=== PATIENT | female | born 1960 | race Caucasian/White ===

== ENCOUNTER 2019-09-14 00:13 | Inpatient (IN) ==
[2019-09-14] MEDS ORDERED: PROPOFOL IV EMULSION 10 MG/ML 100 ML VIAL IV ONE (00:15)
[2019-09-14] MEDS: propofoL 1,000 MG/100 ML VIAL IV SCH ×3 (00:17→21:33)
[2019-09-14] MEDS ORDERED: METOPROLOL TARTRATE 1 MG/ML VIAL IV STA ×2 (00:21→00:27)
[2019-09-14] MEDS ORDERED: METOPROLOL TARTRATE 1 MG/ML VIAL IV ONE (00:23)
[2019-09-14] MEDS ORDERED: ICU PROTOCOL FOR HYPERGLYCEMIA PRN ×2 (00:25→00:36)
[2019-09-14] MEDS ORDERED: PROPOFOL BOLUS FROM BAG IV PRN (00:27)
[2019-09-14] MEDS ORDERED: STAT IV Infusion **Titration per Protocol STA (00:27)
--- NOTE | 2019-09-14 00:35 | Critical Care Consultation ---
Date of Consultation September 14, 2019 Assessment & Plan (1) Sepsis with acute hypoxic respiratory failure: Reason Critically Ill: 59-year-old female presenting as outside hospital transfer for acute encephalopathy, suspected DTs from alcohol withdrawal, hypoxic respiratory failure requiring, mechanically ventilated, COVID-19 rule out Neuro - Acute encephalopathy/alcohol withdrawal/seizures?Patient with questionable history of alcohol abuse, initially claims she is a social drinker but patient's friend stated she is a heavy drinker is been without alcohol for a few days -Was initially admitted to [facility] for seizures, placed on Keppra, no seizure activity since then. We will continue Keppra for now -Currently intubated was combative with acute mental status change, suspicious for DTs. Continue sedation with propofol and Versed. -We will obtain CT head, follow-up read -BUN unremarkable, patient did have elevated LFTs and ammonia pending -Patient appears to be septic, consider septic encephalopathy? -Initial UDS and alcohol levels at outside hospital negative History of depression: Will continue Paxil when appropriate Cardiac - Elevated troponin/NSTEMI/SVTpatient initially presented with SVT with HR 150s, converted to sinus rhythm with 10 mg IV metoprolol -Patient did have elevated troponin at outside hospital and was temporarily on heparin drip which had since been stopped -Troponin 0.6 on admission, likely demand ischemia from SVT. Trending -Continue to monitor on telemetry -Continue ASA/statin when appropriate Respiratory - Acute hypoxic respiratory failureoutpatient CTA negative for PE but showed bilateral opacities concerning for inflammatory process -Bacterial pneumonia versus viral pneumonia versus aspiration pneumonitis -Currently undergoing rule [id number] is from [facility], shows lymphocytopenia, elevated LDH -Rapid test pending, continue isolation precautions, patient also has outside test pending -Antibiotic coverage: Zosyn and Vanco, MRSA swab pending -History of smoking, half pack per day history; no known history of COPD -We will hold on steroids as this would be contraindicated for viral pneumonia -Nebs as needed -Routine ABGs, continue to wean vent as tolerated -Continuous monitoring pulse ox GI - Elevated LFTsmild elevation of LFTs and bilirubin -Continue to monitor routine LFTs -Follow-up hepatic ultrasound RENAL/LYTES - Creatinine within normal limits Hypomagnesemiarepleted Continue to monitor electrolytes and creatinine with routine BMPs - Foleystrict I's and O's ENDO - TSH within normal limits No history of diabetes ICU hyperglycemic protocol HEME - H&H stable, monitor ID - Sepsispatient afebrile, WBC within normal limits, procalcitonin unremarkable -LDH elevated with lymphocytopenia, consider COVID-19, rule out pending and continue precautions -Consider pulmonary source as patient has bilateral opacities noted on CT chest report -Possible urosepsis as patient was being treated for UTI at other hospital, UA pending -Blood cultures pending, MRSA swab pending -Continue broad-spectrum antibiotics vancomycin and Zosyn LINES/IV ACCESS - PIV's, ETT DVT PROPHYLAXIS - SCDs, Lovenox I have personally spent 60 minutes of critical care time in the direct management of this patient. This is a life/limb threatening event. This includes time spent evaluating patient, direct bedside care, chart review, placing orders, interpretation of diagnostic studies, discussion with consultants, patient, and family members, as well as other required patient management activities. This time is exclusive of all separately billable procedures, and teaching time and separate from and in addition to any other critical care service time. Thank you for allowing us to participate in the care of this patient. Please refer to my attending physician's documentation for any further recommendations. (2) ETOH abuse: (3) SVT (supraventricular tachycardia): (4) Alcohol withdrawal delirium: (5) Encephalopathy acute: (6) UTI (urinary tract infection): (7) Elevated LFTs: (8) On mechanically assisted ventilation: (9) NSTEMI (non-ST elevated myocardial infarction): History of Present Illness Attending Physician: Vicente Man MD History of Present Illness Patient is a 59-year-old female with PMH of HTN, HLD, depression, active smoker (half pack per day) who is from [place], [place], had negative COVID test 3 weeks ago after experiencing fever and cough and has had ongoing cough since then. She had presented to [facility] 2 days ago after experiencing loss of consciousness she was getting ready to get in the shower. She stated that she felt lightheaded like she was going to pass out prior to this event. EMS was called reported that the patient's arms legs were shaking and had foaming the mouth. She received 2 mg of Ativan on arrival to the [facility] ED and had been placed on Keppra, no seizure activity since. Patient was admitted to [facility] and was being treated for N STEMI, seizure, and UTI. She underwent a CTA of the chest which was negative for PE, however did reveal groundglass opacities which suggested pneumonia. At approximately 7 PM on 09/12, patient became combative to nursing staff and had to be placed in leather restraints. A nurse at [facility] called the patient's friend who stated that the patient drinks alcohol heavily and her last drink was a few days before. She was negative on her UDS and blood alcohol was also negative at the outside hospital. Decision was made to transfer the patient to higher level of care as they were suspicious for DTs, and patient had been accepted to PCU at [facility]. Prior to transport, patient had been given multiple doses of Ativan and required intubation for airway protection. She is now transferred to ICU at [facility] for ventilator management. She is on contact precautions for COVID-19 and has a pending test with [facility]. She is currently hemodynamically stable on arrival without need for vasopressors. Patient to remain in ICU for ventilator management at this time. Allergies Allergy/AdvReac Type Severity Reaction Status Date / Time ezetimibe [From Vytorin] Allergy Unknown Verified 09/14/19 00:37 simvastatin [From Vytorin] Allergy Unknown Verified 09/14/19 00:37 Home Medications Home Medications Medication Instructions Recorded Confirmed Type atorvastatin 40 mg PO HS 09/14/19 09/14/19 History paroxetine HCl 40 mg PO DAILY 09/14/19 09/14/19 History Patient History Medical History (Updated 09/14/19 @ 05:56 by Vicente Man MD) Depression Hyperlipidemia Hypertension Social History Preferred Language: [facility] Consultant Required: No Current Living Situation: Spouse Feels Safe at Home: Declines to Answer Smoking Status: Current every day smoker Tobacco Type: cigarettes ; Cigarettes Per Day: 20 ; Hx Alcohol Use: Yes Alcohol type: beer and wine Hx Substance Use: No Review of Systems Review of Systems: Unobtainable due to cognitive status and Unobtainable due to endotracheal tube Physical Exam Constitutional: + mechanically ventilated Sedated Eyes: PERRL, conjunctivae normal, anicteric sclerae ENMT: external ear and nose normal, oropharynx normal Neck: trachea midline, no thyromegaly Respiratory: Bilateral rhonchorous breath sounds, symmetrical chest wall movement. No wheezing no crackles. Mechanically ventilated Cardiovascular: RRR, no murmur, no edema Heart Sounds: normal S1 and normal S2 Vessels: no JVD Extremities: normal capillary refill Patient initially in SVT but converted to sinus rhythm Gastrointestinal (Abdomen): normal bowel sounds, soft, nontender, no hepatosplenomegaly Musculoskeletal: no cyanosis or clubbing, extremities motor strength 5/5 Skin: no rashes, warm and dry Neurologic: Sedated, unable to assess, PERRLA, cough gag corneals intact Psychiatric: Unable to assess secondary to sedation Genitourinary: Indwelling Baldwin catheter Coding Level of Care Code Critical Care 1st 30-74 mins Diagnoses Sepsis with acute hypoxic respiratory failure A41.9; R65.20; J96.01 ETOH abuse F10.10 SVT (supraventricular tachycardia) I47.1 Alcohol withdrawal delirium F10.231 Encephalopathy acute G93.40 UTI (urinary tract infection) N39.0 Elevated LFTs R79.89 On mechanically assisted ventilation Z99.11 NSTEMI (non-ST elevated myocardial infarction) I21.4
[2019-09-14] MEDS ORDERED: PIPERACILL/TAZOBAC CONSULT ACTIVE PRN (00:40)
[2019-09-14] MEDS ORDERED: VANCOMYCIN CONSULT ACTIVE PRN (00:40)
--- NOTE | 2019-09-14 00:44 | History & Physical Report ---
Date of Service September 14, 2019 Assessment & Plan (1) Admitted to intensive care unit: Admitted to intensive care unit/transfer from [facility] [place] service/on mechanically assisted ventilation/sepsis with acute hypoxic respiratory failure/acute alcohol withdrawal- Patient was intubated in route from referring hospital. Routine ventilatory management and care per neon sign installer team. N.p.o. Famotidine 20 mg IV every 12 hours Zofran 4 mg IV every 6 hours PRN Vancomycin IV per pharmacokinetic monitoring. Zosyn 4.5 g IV every 8 hours. Azithromycin 500 mg IV daily. Of note, patient was on ceftriaxone and azithromycin IV at referring hospital. Present on Admission?: Yes (2) On mechanically assisted ventilation: See above Present on Admission?: Yes (3) Sepsis with acute hypoxic respiratory failure: See above Present on Admission?: Yes (4) NSTEMI (non-ST elevated myocardial infarction): Non-STEMI/SVT- Troponin reported initially 3.15 referring hospital which decreased then to 2.15. The patient will have serial cardiac enzymes, serial EKG's, cardiac rhythm monitoring and a 2-D echocardiogram with Dopplers. Lopressor 5 mg IV every 4 hours PRN heart rate greater than 110. Consult cardiology Present on Admission?: Yes (5) SVT (supraventricular tachycardia): See above Present on Admission?: Yes (6) Encephalopathy acute: Acute encephalopathy/alcohol withdrawal delirium/alcohol abuse- Patient was noted to have underreported her alcohol use, but was noted by friends to drink a gallon a week of alcoholic beverages. Suspect that intubation was likely also performed on the basis of airway protection. Present on Admission?: Yes (7) Alcohol withdrawal delirium: See above Present on Admission?: Yes (8) ETOH abuse: See above Present on Admission?: Yes (9) Seizure-like activity: Received Keppra 500 mg IV, and then 5 mg p.o. twice daily while referring hospital. We will check an EEG, and hold additional Keppra at this time. Present on Admission?: Yes (10) UTI (urinary tract infection): Covered with the above antibiotics. Present on Admission?: Yes (11) Elevated LFTs: Mild elevation. We will order imaging to further assess. May just be a function of ongoing alcohol abuse. Present on Admission?: Yes Admission and Anticipated Discharge Date Admission Date: September 14, 2019 History of Present Illness Chief Complaint: The patient initially presented to the emergency department at [facility] in [place], with seizure-like activity, was found to have an elevated troponin, and was admitted to their PCU, and was then transferred to their ICU when she appeared to be going into acute alcohol withdrawal with an elevated heart rate up to 160. Primary Care Provider: NO PCP The patient is a 59-year-old female with a past medical history including hyperlipidemia, anxiety with depression, alcohol abuse who presented to [facility] as noted above. Dr. Juan Carlos Jacobson, the attending physician and [facility], contacted this hospital, and requested transfer for ongoing care here. Active diagnoses at this time were: Seizure-like activity, UTI, non-STEMI, acute alcohol withdrawal, tachycardia and PUI COVID suspect. In route, the patient was intubated by EMS, and plans were changed from admission to PCU and [place] to the ICU. Allergies Allergy/AdvReac Type Severity Reaction Status Date / Time ezetimibe [From Vytorin] Allergy Unknown Verified 09/14/19 00:37 simvastatin [From Vytorin] Allergy Unknown Verified 09/14/19 00:37 Home Medications Home Medications Medication Instructions Recorded Confirmed Type atorvastatin 40 mg PO HS 09/14/19 09/14/19 History paroxetine HCl 40 mg PO DAILY 09/14/19 09/14/19 History Past Med/Surg History Medical History (Updated 09/14/19 @ 05:56 by Vicente Man MD) Depression Hyperlipidemia Hypertension Social History Preferred Language: Brazilian Log Data Technician Required: No Current Living Situation: Spouse Feels Safe at Home: Declines to Answer Smoking Status: Current every day smoker Tobacco Type: cigarettes ; Cigarettes Per Day: 20 ; Hx Alcohol Use: Yes Alcohol type: beer and wine Hx Substance Use: No Review of Systems Review of Systems: Unobtainable due to endotracheal tube Physical Exam Physical Exam: The patient is sedated and intubated, lying in bed and in otherwise no acute distress. HEENT--PERRL, EOMI, mucous membranes and oropharynx dry. Neck--supple. No JVD. No bruits. Thyroid normal, trachea midline, no adenopathy. Heart--tachycardic and regular. No murmurs, rubs or gallops. Lungs--few coarse breath sounds bilaterally. Abdomen--normal bowel sounds and soft. Nondistended. Extremities--no cyanosis or clubbing. No edema. Dermatologic--normal skin turgor, normal color, no abnormal lymph nodes, no rash. Neurologic--limited exam Rheumatologic--limited exam Psychiatric-limited exam, sedated and intubated Results & Data Results & Data ([facility]) Laboratory Results Laboratory Results WBC Cancelled 09/14/19 04:51 RBC Cancelled 09/14/19 04:51 Hgb Cancelled 09/14/19 04:51 Hct Cancelled 09/14/19 04:51 MCV Cancelled 09/14/19 04:51 MCH Cancelled 09/14/19 04:51 MCHC Cancelled 09/14/19 04:51 RDW Std Deviation Cancelled 09/14/19 04:51 RDW Coeff of Elif Cancelled 09/14/19 04:51 Plt Count Cancelled 09/14/19 04:51 MPV Cancelled 09/14/19 04:51 Immature Gran % (Auto) Cancelled 09/14/19 04:51 Neut % (Auto) Cancelled 09/14/19 04:51 Lymph % (Auto) Cancelled 09/14/19 04:51 [place] % (Auto) Cancelled 09/14/19 04:51 Eos % (Auto) Cancelled 09/14/19 04:51 Baso % (Auto) Cancelled 09/14/19 04:51 Immature Gran # (Auto) Cancelled 09/14/19 04:51 Neut # (Auto) Cancelled 09/14/19 04:51 Lymph # (Auto) Cancelled 09/14/19 04:51 [place] # (Auto) Cancelled 09/14/19 04:51 Eos # (Auto) Cancelled 09/14/19 04:51 Baso # (Auto) Cancelled 09/14/19 04:51 Absolute Nucleated RBC Cancelled 09/14/19 04:51 Nucleated RBC % (auto) Cancelled 09/14/19 04:51 Neutrophils % (Manual) Cancelled 09/14/19 04:51 Band Neutrophils % Cancelled 09/14/19 04:51 Lymphocytes % (Manual) Cancelled 09/14/19 04:51 Prolymphocyte % Cancelled 09/14/19 04:51 Reactive Lymphs % (Man) Cancelled 09/14/19 04:51 Monocytes % (Manual) Cancelled 09/14/19 04:51 Eosinophils % (Manual) Cancelled 09/14/19 04:51 Basophils % (Manual) Cancelled 09/14/19 04:51 Metamyelocytes % (Man) Cancelled 09/14/19 04:51 Myelocytes % (Man) Cancelled 09/14/19 04:51 Promyelocytes % (Man) Cancelled 09/14/19 04:51 Blast Cells % (Manual) Cancelled 09/14/19 04:51 Plasma Cell % (Manual) Cancelled 09/14/19 04:51 Other Cells % Cancelled 09/14/19 04:51 Nucleated RBC % Cancelled 09/14/19 04:51 Neutrophils # (Manual) Cancelled 09/14/19 04:51 Band Neutrophils # Cancelled 09/14/19 04:51 Total Absolute Neuts Cancelled 09/14/19 04:51 Lymphocytes # (Manual) Cancelled 09/14/19 04:51 Prolymphocyte # Cancelled 09/14/19 04:51 Reactive Lymphs # Cancelled 09/14/19 04:51 Total Abs Lymphocytes Cancelled 09/14/19 04:51 Monocytes # (Manual) Cancelled 09/14/19 04:51 Eosinophils # (Manual) Cancelled 09/14/19 04:51 Basophils # (Manual) Cancelled 09/14/19 04:51 Metamyelocytes # (Man) Cancelled 09/14/19 04:51 Myelocytes # (Manual) Cancelled 09/14/19 04:51 Promyelocytes # (Man) Cancelled 09/14/19 04:51 Blast Cells # (Man) Cancelled 09/14/19 04:51 Plasma Cell # (Manual) Cancelled 09/14/19 04:51 Other Cells # Cancelled 09/14/19 04:51 Nucleated RBCs # (Man) Cancelled 09/14/19 04:51 Hypersegmented Neuts Cancelled 09/14/19 04:51 Hyposegmented Neuts Cancelled 09/14/19 04:51 Hypogranular Neuts Cancelled 09/14/19 04:51 Large Granular Lymphs Cancelled 09/14/19 04:51 # Lrg Granular Lymphs Cancelled 09/14/19 04:51 Hairy Cells Cancelled 09/14/19 04:51 Smudge Cells Cancelled 09/14/19 04:51 Toxic Granulation Cancelled 09/14/19 04:51 Toxic Vacuolation Cancelled 09/14/19 04:51 Dohle Bodies Cancelled 09/14/19 04:51 Norma Rods Cancelled 09/14/19 04:51 Platelet Estimate Cancelled 09/14/19 04:51 Hypogranular Platelets Cancelled 09/14/19 04:51 Clumped Platelets Cancelled 09/14/19 04:51 Giant Platelets Cancelled 09/14/19 04:51 Platelet Satelliting Cancelled 09/14/19 04:51 RBC Morphology Cancelled 09/14/19 04:51 Polychromasia Cancelled 09/14/19 04:51 Hypochromasia Cancelled 09/14/19 04:51 Poikilocytosis Cancelled 09/14/19 04:51 Basophilic Stippling Cancelled 09/14/19 04:51 Anisocytosis Cancelled 09/14/19 04:51 Microcytosis Cancelled 09/14/19 04:51 Macrocytosis Cancelled 09/14/19 04:51 Spherocytes Cancelled 09/14/19 04:51 Pappenheimer Bodies Cancelled 09/14/19 04:51 Sickle Cells Cancelled 09/14/19 04:51 Target Cells Cancelled 09/14/19 04:51 Tear Drop Cells Cancelled 09/14/19 04:51 Ovalocytes Cancelled 09/14/19 04:51 Stomatocytes Cancelled 09/14/19 04:51 Browne-Baraga Bodies Cancelled 09/14/19 04:51 Echinocytes Cancelled 09/14/19 04:51 Acanthocytes (Spur) Cancelled 09/14/19 04:51 Rouleaux Cancelled 09/14/19 04:51 RBC Agglutinates Cancelled 09/14/19 04:51 Schistocytes Cancelled 09/14/19 04:51 RBC Morph Comment Cancelled 09/14/19 04:51 Sezary Cell Cancelled 09/14/19 04:51 PT 13.0 Seconds (9.0-12.0) H 09/14/19 00:51 INR 1.2 (0.9-1.1) H 09/14/19 00:51 APTT 33.3 Seconds (21.0-31.0) H 09/14/19 00:51 PTT Ratio 1.2 09/14/19 00:51 D-Dimer 470 ug/L FEU (0-500) 09/14/19 00:51 Sample Site R Radial 09/14/19 00:43 POC pH 7.27 (7.35-7.45) L 09/14/19 00:43 POC pCO2 42 mmHg (35-46) 09/14/19 00:43 POC pO2 120 mmHg (80-95) H 09/14/19 00:43 POC HCO3 19 mario/L (19-24) 09/14/19 00:43 POC Total CO2 21 mmol/L (24-31) L 09/14/19 00:43 POC Base Excess -7.0 mario/L (-9-1.8) 09/14/19 00:43 POC ABG O2 Sat 98.0 % (90-95) H 09/14/19 00:43 Hank Test Pass 09/14/19 00:43 O2 Delivery Device Ventilator 09/14/19 00:43 POC O2 Rate 16 09/14/19 00:43 Minute Ventilation 7.2 09/14/19 00:43 POC FiO2 100 % 09/14/19 00:43 Tidal Volume 450 09/14/19 00:43 PEEP 5 09/14/19 00:43 Sodium Cancelled 09/14/19 04:51 Potassium Cancelled 09/14/19 04:51 Chloride Cancelled 09/14/19 04:51 Carbon Dioxide Cancelled 09/14/19 04:51 Anion Gap Cancelled 09/14/19 04:51 BUN Cancelled 09/14/19 04:51 Creatinine Cancelled 09/14/19 04:51 Est Cr Clr Drug Dosing Cancelled 09/14/19 04:51 Est GFR ( Amer) Cancelled 09/14/19 04:51 Est GFR (Non-Af Amer) Cancelled 09/14/19 04:51 BUN/Creatinine Ratio Cancelled 09/14/19 04:51 Glucose Cancelled 09/14/19 04:51 Lactate 2.2 mmol/L (0.4-2.0) H* 09/14/19 04:51 Calcium Cancelled 09/14/19 04:51 Phosphorus Cancelled 09/14/19 04:51 Magnesium Cancelled 09/14/19 04:51 Total Bilirubin Cancelled 09/14/19 04:51 Direct Bilirubin 1.5 mg/dl (0-0.2) H 09/14/19 00:51 AST Cancelled 09/14/19 04:51 ALT Cancelled 09/14/19 04:51 Alkaline Phosphatase Cancelled 09/14/19 04:51 Ammonia 18.0 umol/L (11-32) 09/14/19 04:51 Lactate Dehydrogenase 370 U/L (84-246) H 09/14/19 00:51 Troponin I Cancelled 09/14/19 04:51 Total Protein Cancelled 09/14/19 04:51 Albumin Cancelled 09/14/19 04:51 Globulin Cancelled 09/14/19 04:51 Albumin/Globulin Ratio Cancelled 09/14/19 04:51 Lipase 47 U/L (73-393) L 09/14/19 00:51 Folate 21.69 ng/ml (>5.38) 09/14/19 00:53 Procalcitonin 0.31 ng/ml (0-0.5) 09/14/19 00:53 TSH 3.140 uIu/ml (0.300-4.500) 09/14/19 00:51 Urine Color [place] 09/14/19 02:22 Urine Appearance Cloudy (Clear) A 09/14/19 02:22 Urine pH 5.5 (4.5-7.5) 09/14/19 02:22 Ur Specific [place] 1.026 (1.000-1.030) 09/14/19 02:22 Urine Protein 2+ (Negative) H 09/14/19 02:22 Urine Glucose (UA) Negative (Negative) 09/14/19 02:22 Urine Ketones Trace (Negative) H 09/14/19 02:22 Urine Blood 2+ (Negative) H 09/14/19 02:22 Urine Nitrite Positive (Negative) A 09/14/19 02:22 Urine Bilirubin 2+ (Negative) H 09/14/19 02:22 Urine Urobilinogen Negative (Negative) 09/14/19 02:22 Ur Leukocyte Esterase 1+ (Negative) H 09/14/19 02:22 Urine WBC (Auto) 10-30 /hpf (0-5) H 09/14/19 02:22 Urine RBC (Auto) 10-30 /hpf (0-4) H 09/14/19 02:22 U Hyaline Cast (Auto) >30 /lpf (0-5) H 09/14/19 02:22 U Epithel Cells (Auto) >30 /lpf (0-5) H 09/14/19 02:22 Urine Bacteria (Auto) Negative (Negative) 09/14/19 02:22 Ur Renal Epithelial Cell Not Reportable 09/14/19 02:22 Nasal Screen MRSA (PCR) Negative (Negative) 09/14/19 02:22 COVID-19 PCR NEGATIVE (Negative) 09/14/19 Unknown None Code Status & VTE Plan Code Status Full code VTE Prophylaxis Plan VTE Prophylaxis will be ordered: Yes Critical Care Time Critical Care Time: Yes Total Critical Care Time: 45 Total critical care time was 45 minutes PG Care Time/CCT Total # of Minutes Spent Total Time Spent with Patient: Total time spent is greater than 50% in coordination of care (as documented) at patient's floor/unit and/or counseling patient: Critical Care Time: Yes Total Critical Care Time: 45 Coding Level of Care Code 62094 Initial Inpt Care Lvl 3 Diagnoses Admitted to intensive care unit Z78.9 On mechanically assisted ventilation Z99.11 Sepsis with acute hypoxic respiratory failure A41.9; R65.20; J96.01 NSTEMI (non-ST elevated myocardial infarction) I21.4 SVT (supraventricular tachycardia) I47.1 Encephalopathy acute G93.40 Alcohol withdrawal delirium F10.231 ETOH abuse F10.10 Seizure-like activity R56.9 UTI (urinary tract infection) N39.0 Elevated LFTs R79.89 Additional Codes Critical Care Time - Critical Care Time: Yes ([id number]) Time Spent (min) 45
[2019-09-14 00:57] LABS: iSTAT Allen Test Pass; iSTAT Arterial Blood Gas HCO3 19 meg/L (19-24); iSTAT Arterial Blood Gas pCO2 42 mmHg (35-46); iSTAT Arterial Blood Gas pH 7.27 (7.35-7.45); iSTAT Arterial Blood Gas pO2 120 mmHg (80-95); iSTAT Carbon Dioxide 21 mmol/L (24-31); iSTAT FiO2 100 %; iSTAT Site R Radial
[2019-09-14] MEDS ORDERED: PATIENT'S HEIGHT NEEDED SCH (01:00)
[2019-09-14] MEDS: FAMOTIDINE 20 MG in SYRINGE 3 ML IV SCH ×2 (01:00→13:51)
[2019-09-14 01:14] LABS: Basophils # (auto) 0.04 K/uL (0-0.2); Basophils % (auto) 0.4 %; Hematocrit (blood only) 37.7 % (37-47); Hemoglobin 12.3 g/dL (12.0-16.0); Immature Granulocytes # (auto) 0.02 K/uL (0.00-0.02); Immature Granulocytes % (auto) 0.2 %; Lymphocytes # (auto) 0.82 K/uL (1.2-3.4); Lymphocytes % (auto) 7.8 %; Mean Corpuscular Hemoglobin 35.2 pg (25-34); Mean Platelet Volume 11.6 fL (7.4-10.4); Monocytes # (auto) 0.98 K/uL (0.11-0.59); Monocytes % (auto) 9.3 %; Neutrophils # (auto) 8.67 K/uL (1.4-6.5); Neutrophils % (auto) 82.3 %; Platelet Count 123 K/uL (130-400); RDW Coefficient of Variation 13.8 % (11.5-14.5); Red Blood Count 3.49 M/uL (4.2-5.4); White Blood Count 10.53 K/uL (4.8-10.8)
[2019-09-14] MEDS: MIDAZOLAM BOLUS FROM BAG IV PRN (01:14)
[2019-09-14 01:17] LABS: Mean Corpuscular Hgb Conc 32.6 g/dL (32-36)
[2019-09-14] MEDS: MIDAZOLAM HCL 125 MG/250 ML BAG IV SCH (01:20)
[2019-09-14 01:25] LABS: D Dimer 470 ug/L FEU (0-500); INR 1.2 (0.9-1.1); Partial Thromboplastin Ratio 1.2; Partial Thromboplastin Time 33.3 Seconds (21.0-31.0)
[2019-09-14 01:30] LABS: Albumin Level 3.1 gm/dl (3.4-5.0); BUN Creatinine Ratio 11.4 (10-20); Calcium 8.3 mg/dl (8.5-10.1); Creatinine Clr Calc Pharmacy 77.6 ml/min; Est GFR (African American) 107.7; Magnesium 1.5 mg/dl (1.8-2.4)
[2019-09-14 01:45] LABS: Albumin Globulin Ratio 0.9 (0.9-2); Bilirubin Direct 1.5 mg/dl (0-0.2); Bilirubin,Total 2.6 mg/dl (0.2-1); Globulin 3.5 gm/dl (2.5-4.0); Phosphorus 4.2 mg/dl (2.5-4.9); Thyroid Stimulating Hormone 3.14 uIu/ml (0.300-4.500); Total Protein 6.6 gm/dl (6.4-8.2); Troponin I 0.658 ng/ml (0-0.045)
[2019-09-14] MEDS ORDERED: PIPERACILLIN/TAZOBACTAM 4.5 GM in DEXTROSE 5% 100 ML IV ONE (03:15)
[2019-09-14] MEDS ORDERED: VANCOMYCIN HCL 1,750 MG in SODIUM CHLORIDE 0.9% 500 ML IV ONE (03:30)
[2019-09-14] MEDS: MAGNESIUM SULFATE / D5W 1 GM/100 ML BAG IV SCH ×3 (03:36→07:26)
[2019-09-14 03:44] LABS: Appearance Urine Cloudy (Clear); Bacteria Urine Automated Negative (Negative); Blood Urine 2+ (Negative); Color Urine Orange; Epithelial Cell Urine Auto >30 /lpf (0-5); Glucose Urine UA Negative (Negative); Ketones Urine Trace (Negative); Leukocyte Esterase Urine 1+ (Negative); Nitrite Urine Positive (Negative); Protein Urine 2+ (Negative); Specific Gravity Urine 1.026 (1.000-1.030); Urobilinogen Urine Negative (Negative); pH Urine 5.5 (4.5-7.5)
[2019-09-14 04:28] LABS: Bilirubin Urine 2+ (Negative); Ictotest Urine Positive (Negative)
[2019-09-14 04:29] LABS: Cast Urine Automated >30 /lpf (0-5)
[2019-09-14] MEDS: levETIRAcetam 500 MG in 0.9 % SODIUM CHLORIDE 100 ML IV SCH ×3 (04:38→15:46)
[2019-09-14] MEDS ORDERED: ALBUT/IPRATROP 3MG/0.5MG NEB 3 ML VIAL NEB PRN (05:04)
[2019-09-14 05:55] LABS: Basophils # (auto) 0.03 K/uL (0-0.2); Basophils % (auto) 0.4 %; Hematocrit (blood only) 35.1 % (37-47); Hemoglobin 11.2 g/dL (12.0-16.0); Immature Granulocytes # (auto) 0.02 K/uL (0.00-0.02); Immature Granulocytes % (auto) 0.3 %; Lymphocytes # (auto) 1.03 K/uL (1.2-3.4); Mean Corpuscular Hemoglobin 34.7 pg (25-34); Mean Corpuscular Volume 108.7 fL (80-100); Mean Platelet Volume 11.3 fL (7.4-10.4); Monocytes # (auto) 0.57 K/uL (0.11-0.59); Monocytes % (auto) 7.2 %; Neutrophils # (auto) 6.28 K/uL (1.4-6.5); Neutrophils % (auto) 79.1 %; Platelet Count 108 K/uL (130-400); RDW Coefficient of Variation 13.8 % (11.5-14.5); RDW Standard Deviation 55.1 fL (36.4-46.3); Red Blood Count 3.23 M/uL (4.2-5.4); White Blood Count 7.93 K/uL (4.8-10.8)
[2019-09-14 06:01] LABS: Mean Corpuscular Hgb Conc 31.9 g/dL (32-36)
[2019-09-14 06:13] LABS: Albumin Level 2.6 gm/dl (3.4-5.0); BUN Creatinine Ratio 10.4 (10-20); Calcium 8.1 mg/dl (8.5-10.1); Creatinine Clr Calc Pharmacy 69.8 ml/min; Est GFR (African American) 94.9; Est GFR (Non-African American) 81.8; Magnesium 2.7 mg/dl (1.8-2.4); Potassium 3.7 mmol/L (3.5-5.1)
[2019-09-14 06:23] LABS: Albumin Globulin Ratio 0.8 (0.9-2); Bilirubin,Total 2.1 mg/dl (0.2-1); Globulin 3.3 gm/dl (2.5-4.0); Total Protein 5.9 gm/dl (6.4-8.2); Troponin I 0.632 ng/ml (0-0.045)
--- NOTE | 2019-09-14 07:24 | XRay Report ---
XR chest 1V portable CLINICAL HISTORY: resp failure/ tube placement dyspnea COMPARISON STUDY: No previous studies for comparison. FINDINGS: Endotracheal tube 5 cm above the carlos enrique. Lungs are grossly clear. Minimal interstitial change both lung bases. Diaphragms are smooth. No significant cardiac enlargemen t. IMPRESSION: Endotracheal tube 5 cm above the carlos enrique. Slight bibasilar interstitial change. ACT 112: Negative or not required by law. The above report was generated using voice recognition software. It may contain grammatical, syntax or spelling errors. Electronically signed by: Yash Wolf M.D. 09/14/2019 7:23 AM
--- NOTE | 2019-09-14 07:24 | CT Scan Report ---
CT SCAN OF THE BRAIN WITHOUT IV CONTRAST CLINICAL HISTORY: Change in mental status. COMPARISON STUDY: No priors. TECHNIQUE: Unenhanced axial CT scan of the brain is performed from the vertex to the skull base. A do se lowering technique was utilized adhering to the principles of ALARA. CT DOSE: 788.63 mGycm FINDINGS: Endotracheal and enteric tubes are in place. One of these tubes appears to be coiled in the region of the pharynx. Brain parenchyma: There is mild subcortical and periventricular microangiopathic change. There is no hemorrhage, mass effect, or evidence of acute territorial ischemia by CT criteria. Small chronic lacu zara infarction noted in the right basal ganglia and the left caudate head. Kendall-white matter differen tiation is preserved. No extra-axial fluid collection is seen. Ventricles, sulci, cisterns: Normal in configuration. Intracranial vasculature: There is atherosclerotic calcification of the cavernous carotid and vertebr al arteries. Calvarium: Unremarkable. Sinuses and mastoids: The visualized paranasal sinuses are clear. The mastoid air cells are well pneu matized. Orbits: The bony orbits are grossly intact. IMPRESSION: 1. There is no hemorrhage, mass effect, or evidence of acute territorial ischemia by CT criteria. 2. The enteric tube appears to be called hemorrhage in the pharynx. Radiographic correlation is recom mended. ACT 112: Negative or not required by law. Electronically signed by: Delvin Gupta M.D. 09/14/2019 7:23 AM
[2019-09-14] MEDS: PIPERACILLIN/TAZOBACTAM 4.5 GM in DEXTROSE 5% 100 ML IV SCH ×2 (07:27→15:45)
--- NOTE | 2019-09-14 08:30 | Hospitalist Progress Note ---
Date of Service September 14, 2019 Assessment & Plan (1) Admitted to intensive care unit: Admitted to intensive care unit/transfer from [facility] inpatient service/on mechanically assisted ventilation/sepsis with acute hypoxic respiratory failure/acute alcohol withdrawal- Patient was intubated in route from referring hospital. fever and acute respiratory failure with concern for gram negative pneumonia, COVID negative Vancomycin IV per pharmacokinetic monitoring. Zosyn 4.5 g IV every 8 hours. Azithromycin 500 mg IV daily. Of note, patient was on ceftriaxone and azithromycin IV at referring hospital. (2) On mechanically assisted ventilation: See above (3) Sepsis with acute hypoxic respiratory failure: sepsis ruled out (4) NSTEMI (non-ST elevated myocardial infarction): Non-STEMI/SVT- Troponin reported initially 3.15 referring hospital which decreased then to 2.15. The patient will have serial cardiac enzymes, serial EKG's, cardiac rhythm monitoring and a 2-D echocardiogram with Dopplers. Lopressor 5 mg IV every 4 hours PRN heart rate greater than 110. Consult cardiology (5) SVT (supraventricular tachycardia): may have an influence on elevated troponin (6) Encephalopathy acute: Acute encephalopathy/alcohol withdrawal delirium/alcohol abuse- Patient was noted to have underreported her alcohol use, but was noted by friends to drink a gallon a week of alcoholic beverages. Suspect that intubation was likely also performed on the basis of airway protection. (7) Alcohol withdrawal delirium: See above (8) ETOH abuse: on thiamine, according to only has one drink a day (9) Seizure-like activity: According to has a history of seizures, last being in 2017, initally treated in [facility] was on antiseizure meds for 6 months Received Keppra 500 mg IV, and continues q12h pending EEG, (10) UTI (urinary tract infection): Covered with the above antibiotics. (11) Elevated LFTs: Mild elevation. We will order imaging to further assess. May just be a function of ongoing alcohol abuse. Admission and Anticipated Discharge Date Admission Date: September 14, 2019 Subjective This patient is sedated with propofol and Versed. She remains on the ventilator. She is being treated for pneumonia with vancomycin Zosyn and azithromycin. Covid testing at our facility is negative Review of Systems Review of Systems: Unobtainable due to endotracheal tube Physical Exam Physical Exam: The patient appeared Comfortable and sedate Vital signs as documented. Head exam is normocephalic atraumatic no scleral icterus Neck is without JVD, thyromegaly, or carotid bruits. Trachea is midline Lungs are Coarse with bilateral breath sounds Cardiac exam, Rhythm is regular.. No murmurs, rubs or gallops. Abdominal exam reveals normal bowel sounds, soft non tender, no masses Extremities are nonedematous and both pedal pulses are normal. Neurologic exam isChemically sedated Skin is without bruises or rashes Results & Data Results & Data ([facility]) Vital Signs (Past 12 Hours) Vital Signs Temp Pulse Pulse Resp BP BP Pulse Ox 09/14/19 05:10 85 26 H 99 09/14/19 03:04 99.3 F 88 102/53 L 95 09/14/19 02:04 99.3 F 88 101/51 L 93 09/14/19 01:58 89 26 H 94 09/14/19 01:18 26 H 09/14/19 01:17 141 H 09/14/19 01:16 151 H 09/14/19 01:04 99.3 F 93 H 26 H 100/67 96 09/14/19 00:37 101 H 40 H 124/86 97 09/14/19 00:23 99.3 F 155 H 28 H 144/114 H 91 09/14/19 00:10 99.3 F 157 H 29 H 144/114 H 89 L 09/14/19 00:05 155 H 16 90 PG Care Time/CCT Total # of Minutes Spent Total Time Spent with Patient: Total time spent is greater than 50% in coordination of care (as documented) at patient's floor/unit and/or counseling patient: Coding Level of Care Code 10746 Subseq Hosp Care Lvl 3 Diagnoses Admitted to intensive care unit Z78.9 On mechanically assisted ventilation Z99.11 Sepsis with acute hypoxic respiratory failure A41.9; R65.20; J96.01 NSTEMI (non-ST elevated myocardial infarction) I21.4 SVT (supraventricular tachycardia) I47.1 Encephalopathy acute G93.40 Alcohol withdrawal delirium F10.231 ETOH abuse F10.10 Seizure-like activity R56.9 UTI (urinary tract infection) N39.0 Elevated LFTs R79.89
[2019-09-14] MEDS: THIAMINE HCL 200 MG in SODIUM CHLORIDE 0.9% 50 ML IV SCH (09:33)
[2019-09-14] MEDS: AZITHROMYCIN 500 MG in DEXTROSE 5% 250 ML IV SCH (09:33)
[2019-09-14] MEDS: ENOXAPARIN INJ 40 MG/0.4 ML SYR SQ SCH (09:33)
--- NOTE | 2019-09-14 10:15 | Critical Care Progress Note ---
Date of Service September 14, 2019 Assessment & Plan (1) Admitted to intensive care unit: Reason Critically Ill: 59-year-old female presenting as outside hospital transfer for acute encephalopathy, suspected DTs from alcohol withdrawal, history of seizure 6 months ago not on any medication, hypoxic respiratory failure requiring, mechanically ventilated, COVID-19 rule out Neuro - Acute encephalopathy/alcohol withdrawal/patient does have history of seizures and used to be on medication but not taking it since last 6 monthsPatient with questionable history of alcohol abuse, initially claims she is a social drinker but patient's friend stated she is a heavy drinker is been without alcohol for a few days. Patient's says that she drinks socially. -Was initially [facility], placed on Keppra, no seizure activity since then. We will continue Keppra for now -Currently intubated was combative with acute mental status change, suspicious for DTs. Continue sedation with propofol and Versed. -CT head 09/14/2019- -Initial UDS and alcohol levels at outside hospital negative History of depression: Will continue Paxil when appropriate Cardiac - Elevated troponin/NSTEMI/SVTpatient initially presented with SVT with HR 150s, converted to sinus rhythm with 10 mg IV metoprolol -Patient did have elevated troponin at outside hospital and was temporarily on heparin drip which had since been stopped -Troponin 0.6 on admission, likely demand ischemia from SVT. Trending -Continue to monitor on telemetry -Continue ASA/statin when appropriate Respiratory - Acute hypoxic respiratory failureoutpatient CTA shows diffuse peripheral groundglass opacities affecting upper and lower lobes -Currently undergoing rule [id number] is from [place], [place], shows lymphocytopenia, elevated LDH, mildly elevated ferritin, CRP 2.58, -Rapid testing in the hospital 09/13/2019 is negative, given high probability of Covid-19 tracheal aspirate has been sent to rule out COVID -Antibiotic coverage: Zosyn, azithromycin -History of smoking, half pack per day history; no known history of COPD -Nebs as needed -Routine ABGs, continue to wean vent as tolerated -Continuous monitoring pulse ox GI - Elevated LFTsmild elevation of LFTs and bilirubin -Trending down -Follow-up right upper quadrant ultrasound RENAL/LYTES - Creatinine within normal limits Continue to monitor electrolytes and creatinine with routine BMPs - Foleystrict I's and O's ENDO - TSH within normal limits No history of diabetes ICU hyperglycemic protocol HEME - H&H stable, monitor ID - Sepsispatient afebrile, WBC within normal limits, procalcitonin unremarkable -LDH elevated with lymphocytopenia and elevated ferritin, continue with precautions for the time being -Possible urosepsis as patient was being treated for UTI at other hospital, UA pending -Blood cultures pending, MRSA negative LINES/IV ACCESS - PIV's, ETT DVT PROPHYLAXIS - SCDs, Lovenox Plan: In/out. +[phone] Given the diffuse groundglass opacities peripherally located on the CTA which was done at [facility] the probability of COVID is high. First test of COVID was negative. Tracheal aspirate has been sent today to run for coverage. Continue with isolation for the time being. Nasal MRSA is negative will DC vancomycin. Continue with azithromycin and Zosyn for the time being. Follow-up septic work-up. Continue with propofol and Versed. There is still confusion whether patient was a heavy drinker now. Looking at her thrombocytopenia, elevated LFTs 1 would think that the patient is heavy drinker. Patient does have history of seizures as per the talk of Dr. Reynolds with the . She used to be on medication before but not has been taking since 6 months. I have personally spent 35 minutes of critical care time in the direct management of this patient. This is a life/limb threatening event. This includes time spent evaluating patient, direct bedside care, chart review, placing orders, interpretation of diagnostic studies, discussion with consultants, patient, and family members, as well as other required patient management activities. This time is exclusive of all separately billable procedures, and teaching time and separate from and in addition to any other critical care service time. Please note the above document was generated using voice recognition software. It may contain grammatical, syntax or spelling errors. (2) NSTEMI (non-ST elevated myocardial infarction): (3) Elevated LFTs: (4) SVT (supraventricular tachycardia): (5) Sepsis with acute hypoxic respiratory failure: Admission and Anticipated Discharge Date Admission Date: September 14, 2019 Subjective Patient seen and examined at bedside. No acute distress, no adverse events overnight. On propofol 20 and midazolam 4 at the time of examination Patient is breathing over the vent. Review of Systems Review of Systems: Unobtainable due to endotracheal tube Physical Exam Physical Exam: Constitutional: Intubated HEENT: PERRLA Respiratory system: Decreased air entry bilaterally, no wheeze, no rhonchi, mild crackles bilateral lower lobes CVS: S1-S2 positive, no murmurs or gallops, tachycardia Abdomen: Soft, nontender, nondistended, positive bowel sounds x4 Extremities: +2 pulses bilaterally radialis/ dorsalis pedis, no cyanosis, no edema Neuro: RASS -2, positive gag, positive pupillary, positive corneal Psych: Unable to assess G/U: Positive Baldwin Skin: no rashes, warm and dry Lymphatic: no cervical or axillary lymphadenopathy Results & Data Results & Data ([facility]) Vital Signs (Past 12 Hours) Vital Signs Temp Pulse Pulse Resp BP BP Pulse Ox 09/14/19 08:48 80 94/67 L 99 09/14/19 07:48 37.2 C 82 129/88 99 09/14/19 07:45 81 22 99 09/14/19 07:04 79 96/68 L 99 09/14/19 07:00 79 99 09/14/19 05:10 85 26 H 99 09/14/19 03:04 37.4 C 88 102/53 L 95 09/14/19 02:04 37.4 C 88 101/51 L 93 09/14/19 01:58 89 26 H 94 09/14/19 01:18 26 H 09/14/19 01:17 141 H 09/14/19 01:16 151 H 09/14/19 01:04 37.4 C 93 H 26 H 100/67 96 09/14/19 00:37 101 H 40 H 124/86 97 09/14/19 00:23 37.4 C 155 H 28 H 144/114 H 91 09/14/19 00:10 37.4 C 157 H 29 H 144/114 H 89 L 09/14/19 00:05 155 H 16 90 09/14/19 05:43 09/14/19 10:23 Coding Level of Care Code Critical Care ea addt'l 30 min Diagnoses Admitted to intensive care unit Z78.9 NSTEMI (non-ST elevated myocardial infarction) I21.4 Elevated LFTs R79.89 SVT (supraventricular tachycardia) I47.1 Sepsis with acute hypoxic respiratory failure A41.9; R65.20; J96.01 Time Spent (min) 35
[2019-09-14 11:11] LABS: C Reactive Protein 2.58 mg/dl (0-0.29); Ferritin 451.2 ng/ml (8-388)
[2019-09-14 11:50] LABS: Potassium 3.9 mmol/L (3.5-5.1)
[2019-09-14 11:55] LABS: Magnesium 2.5 mg/dl (1.8-2.4); Phosphorus 2.8 mg/dl (2.5-4.9)
--- NOTE | 2019-09-14 14:30 | Electrocardiogram Report ---
Test Reason : Blood Pressure : / mmHG Vent. Rate : 157 BPM Atrial Rate : 084 BPM P-R Int : 000 ms QRS Dur : 094 ms QT Int : 322 ms P-R-T Axes : 000 -69 092 degrees QTc Int : 520 ms Supraventricular tachycardia Left axis deviation Inferior-posterior infarct , age undetermined Abnormal ECG No previous ECGs available Confirmed by Daniel Roper [id number]) on 09/14/2019 2:30:00 PM Referred By: REFERRED SELF Confirmed By:Daniel Roper
[2019-09-14] MEDS ORDERED: VANCOMYCIN HCL 1,000 MG in SODIUM CHLORIDE 0.9% 250 ML IV SCH (16:00)
[2019-09-15] MEDS: PIPERACILLIN/TAZOBACTAM 4.5 GM in DEXTROSE 5% 100 ML IV SCH ×2 (01:14→07:27)
[2019-09-15] MEDS: FAMOTIDINE 20 MG in SYRINGE 3 ML IV SCH ×2 (01:14→12:37)
[2019-09-15] MEDS: MIDAZOLAM HCL 125 MG/250 ML BAG IV SCH ×4 (01:14→23:05)
[2019-09-15] MEDS: propofoL 1,000 MG/100 ML VIAL IV SCH ×4 (04:00→20:49)
[2019-09-15] MEDS: levETIRAcetam 500 MG in 0.9 % SODIUM CHLORIDE 100 ML IV SCH ×2 (04:50→16:19)
[2019-09-15 05:04] LABS: Basophils # (auto) 0.04 K/uL (0-0.2); Basophils % (auto) 0.7 %; Eosinophils # (auto) 0.09 K/uL (0-0.5); Eosinophils % (auto) 1.5 %; Hematocrit (blood only) 35.4 % (37-47); Hemoglobin 11.2 g/dL (12.0-16.0); Immature Granulocytes # (auto) 0.01 K/uL (0.00-0.02); Immature Granulocytes % (auto) 0.2 %; Lymphocytes # (auto) 1.28 K/uL (1.2-3.4); Mean Corpuscular Hemoglobin 34.1 pg (25-34); Mean Corpuscular Hgb Conc 31.6 g/dL (32-36); Mean Corpuscular Volume 107.9 fL (80-100); Mean Platelet Volume 10.8 fL (7.4-10.4); Monocytes # (auto) 0.86 K/uL (0.11-0.59); Monocytes % (auto) 14.8 %; Neutrophils # (auto) 3.54 K/uL (1.4-6.5); Neutrophils % (auto) 60.8 %; Platelet Count 116 K/uL (130-400); RDW Coefficient of Variation 13.6 % (11.5-14.5); RDW Standard Deviation 53.9 fL (36.4-46.3); Red Blood Count 3.28 M/uL (4.2-5.4); White Blood Count 5.82 K/uL (4.8-10.8)
[2019-09-15 06:06] LABS: Albumin Globulin Ratio 0.8 (0.9-2); Albumin Level 2.4 gm/dl (3.4-5.0); BUN Creatinine Ratio 12.1 (10-20); Bilirubin,Total 1.5 mg/dl (0.2-1); Calcium 7.7 mg/dl (8.5-10.1); Creatinine Clr Calc Pharmacy 121.4 ml/min; Est GFR (Non-African American) 110.4; Globulin 3.1 gm/dl (2.5-4.0); Magnesium 1.9 mg/dl (1.8-2.4); Phosphorus 3.1 mg/dl (2.5-4.9); Potassium 2.8 mmol/L (3.5-5.1); Total Protein 5.5 gm/dl (6.4-8.2)
[2019-09-15] MEDS ORDERED: POTASSIUM CHLORIDE 20 MEQ/15 ML UDC PO STA (06:23)
[2019-09-15] MEDS: POTASSIUM CHLORIDE / WTR 10 MEQ/100 ML PLCT IV SCH ×3 (07:18→10:07)
--- NOTE | 2019-09-15 08:00 | XRay Report ---
XR chest 1V portable HISTORY: Respiratory failure. COMPARISON: Chest 09/14/2019. FINDINGS: Endotracheal tube terminates approximately 4 cm from the carlos enrique. Nasogastric tube terminate s at the distal stomach. No pneumothorax. There is mild central pulmonary vascular congestion without overt edema. Suspect trace bilateral pleural effusions. Increased markings within the lung bases may represent atelectasis. IMPRESSION: 1. Satisfactory support line placement. 2. Increase markings within the lung bases may represent atelectasis/effusions. ACT 112: Negative or not required by law. Electronically signed by: Armando Diaz M.D. 09/15/2019 7:59 AM
[2019-09-15] MEDS: ENOXAPARIN INJ 40 MG/0.4 ML SYR SQ SCH (08:58)
[2019-09-15] MEDS: THIAMINE HCL 200 MG in SODIUM CHLORIDE 0.9% 50 ML IV SCH (08:58)
[2019-09-15] MEDS: AZITHROMYCIN 500 MG in DEXTROSE 5% 250 ML IV SCH (08:58)
[2019-09-15] MEDS ORDERED: fentaNYL citrate 100 MCG/2 ML VIAL IV PRN (11:56)
--- NOTE | 2019-09-15 12:35 | Communication Note ---
Date of Service: September 15, 2019 This patient is being observed in conjunction with the ICU. As this patient is pending COVID-19 tracheal aspirate results, in an effort to reduce the utili zation of Personal Protective Equipment during this current pandemic, one provider will be seeing and examining this patient. As a result of this will defer management to Critical Care at this time. Will continue to follow along with Critical Care for transition of care once stable for transition out of ICU care. as above- due to ICU/PUI status, as per hospital guidelines to preserve PPE, room not entered. chart reviewed, case d/w ICU. 34min phone call to done personally - answered all questions to the best of my ability. ---he denies that she is a heavy drinker - notes ~2 regular beers several days a week, occassional shot of liquor. does not drink heavily per him, does note that on "girls weekends" (as she was on recently) she would've drank more heavily but that these are few and far between. of note, she did have trouble in the past with EtOH abuse (vodka) but to his knowledge has not had that as an issue for quite a while. notes that the friend who called in to [facility] to discuss pt's drinking is a heavy drinker herself. he does note multiple times that he works second shift hours. ---notes every time she's had seizures she's had very low K and Mag. notes she 's been on supplements for a while but levels still frequently low. confirms that her only home meds are lipitor and paxil. diet fairly normal/not overly restrictive. ---wonders if her tremor relates to seizures but also that it comes at random sometimes but seems to be worse before and shortly after seizure events. was worried about parkinsons but when discussing - only due to tremor, nothing that sounds c/w bradykinesia/stiffness/etc seizure - seems to be an infrequent but recurring issue. continue keppra for now hypokalemia/hypomagnesemia - sounds to either be persistent or recurrent. does not seem to be wasting from meds, not due to intake problems given supplementation. depending on EtOH hx this could explain it, if she's not actually a heavy drinker then given chronicity/persistence, would want to entertain renal wasting syndromes delirium - could be entirely septic encephalopathy vs if she were in EtOH withdrawal that could contribute too. supportive care. otherwise as per ICU. Resident Activity Tracking Resident Involvement: Resident Care Provided Care Provided: Adult Hospital Medicine
[2019-09-15] MEDS: cefTRIAXone SODIUM 1,000 MG in DEXTROSE 5% 50 ML IV SCH (12:36)
[2019-09-15] MEDS: THIAMINE HCL 500 MG in 0.9 % SODIUM CHLORIDE 100 ML IV SCH ×2 (12:37→21:00)
[2019-09-15] MEDS: FOLIC ACID 1 MG in SYRINGE 9.8 ML IV SCH (12:37)
[2019-09-15] MEDS: MIDAZOLAM BOLUS FROM BAG IV PRN ×3 (13:57→23:06)
--- NOTE | 2019-09-15 17:20 | Billing Data ---
Date of Service September 15, 2019 Coding Level of Care Code 31330 Subseq Hosp Care Lvl 2
--- NOTE | 2019-09-15 19:19 | Critical Care Progress Note ---
Date of Service September 15, 2019 Assessment & Plan (1) Admitted to intensive care unit: Reason Critically Ill: 59-year-old female presenting as outside hospital transfer for acute encephalopathy, suspected DTs from alcohol withdrawal, history of seizure 6 months ago not on any medication, hypoxic respiratory failure requiring, mechanically ventilated, COVID-19 rule out Neuro - Acute encephalopathy/alcohol withdrawal -Continue current sedation regimen Cardiac - Elevated troponin/NSTEMI/SVTpatient initially presented with SVT with HR 150s, converted to sinus rhythm with 10 mg IV metoprolol -Troponin 0.6 on admission, likely demand ischemia from SVT. Trending -Continue to monitor on telemetry -Continue ASA/statin when appropriate Respiratory - Acute hypoxic respiratory failure -She does not appear to have a hypoxic component at this time, and review of the CT I am less concerned of COVID GI - Elevated LFTsmild elevation of LFTs and bilirubin -Liver ultrasound pending will obtain when COVID results are finalized RENAL/LYTES - Creatinine within normal limits - Foleystrict I's and O's ENDO - TSH within normal limits No history of diabetes ICU hyperglycemic protocol HEME - H&H stable, monitor ID - Sepsispatient afebrile, WBC within normal limits, procalcitonin unremarkable -LDH elevated with lymphocytopenia and elevated ferritin, continue with precautions for the time being -Possible urosepsis as patient was being treated for UTI at other hospital, UA pending -Blood cultures pending, MRSA negative LINES/IV ACCESS - PIV's, ETT DVT PROPHYLAXIS - SCDs, Lovenox (2) NSTEMI (non-ST elevated myocardial infarction): (3) Elevated LFTs: (4) SVT (supraventricular tachycardia): (5) Sepsis with acute hypoxic respiratory failure: Reason Critically Ill: 59-year-old female presenting as outside hospital transfer for acute encephalopathy, suspected DTs from alcohol withdrawal, hypoxic respiratory failure requiring, mechanically ventilated, COVID-19 rule out Neuro - Acute encephalopathy/alcohol withdrawal/seizures?Patient with questionable history of alcohol abuse, initially claims she is a social drinker but patient's friend stated she is a heavy drinker is been without alcohol for a few days -Was initially admitted to [facility] for seizures, placed on Keppra, no seizure activity since then. We will continue Keppra for now -Currently intubated was combative with acute mental status change, suspicious for DTs. Continue sedation with propofol and Versed. -We will obtain CT head, follow-up read -BUN unremarkable, patient did have elevated LFTs and ammonia pending -Patient appears to be septic, consider septic encephalopathy? -Initial UDS and alcohol levels at outside hospital negative History of depression: Will continue Paxil when appropriate Cardiac - Elevated troponin/NSTEMI/SVTpatient initially presented with SVT with HR 150s, converted to sinus rhythm with 10 mg IV metoprolol -Patient did have elevated troponin at outside hospital and was temporarily on heparin drip which had since been stopped -Troponin 0.6 on admission, likely demand ischemia from SVT. Trending -Continue to monitor on telemetry -Continue ASA/statin when appropriate Respiratory - Acute hypoxic respiratory failureoutpatient CTA negative for PE but showed bilateral opacities concerning for inflammatory process -Bacterial pneumonia versus viral pneumonia versus aspiration pneumonitis -Currently undergoing rule [id number] is from [facility], shows lymphocytopenia, elevated LDH -Rapid test pending, continue isolation precautions, patient also has outside test pending -Antibiotic coverage: Zosyn and Vanco, MRSA swab pending -History of smoking, half pack per day history; no known history of COPD -We will hold on steroids as this would be contraindicated for viral pneumonia -Nebs as needed -Routine ABGs, continue to wean vent as tolerated -Continuous monitoring pulse ox GI - Elevated LFTsmild elevation of LFTs and bilirubin -Continue to monitor routine LFTs -Follow-up hepatic ultrasound RENAL/LYTES - Creatinine within normal limits Hypomagnesemiarepleted Continue to monitor electrolytes and creatinine with routine BMPs - Foleystrict I's and O's ENDO - TSH within normal limits No history of diabetes ICU hyperglycemic protocol HEME - H&H stable, monitor ID - Sepsispatient afebrile, WBC within normal limits, procalcitonin unremarkable -LDH elevated with lymphocytopenia, consider COVID-19, rule out pending and continue precautions -Consider pulmonary source as patient has bilateral opacities noted on CT chest report -Possible urosepsis as patient was being treated for UTI at other hospital, UA pending -Blood cultures pending, MRSA swab pending -Continue broad-spectrum antibiotics vancomycin and Zosyn LINES/IV ACCESS - PIV's, ETT DVT PROPHYLAXIS - SCDs, Lovenox I have personally spent 60 minutes of critical care time in the direct management of this patient. This is a life/limb threatening event. This includes time spent evaluating patient, direct bedside care, chart review, placing orders, interpretation of diagnostic studies, discussion with consultants, patient, and family members, as well as other required patient management activities. This time is exclusive of all separately billable procedures, and teaching time and separate from and in addition to any other critical care service time. Thank you for allowing us to participate in the care of this patient. Please refer to my attending physician's documentation for any further recommendations. Admission and Anticipated Discharge Date Admission Date: September 14, 2019 Subjective No overnight events Review of Systems Review of Systems: Unobtainable due to endotracheal tube Physical Exam Physical Exam: Exam limited due to COVID-19 precautions Results & Data Results & Data ([facility]) Vital Signs (Past 12 Hours) Vital Signs Temp Pulse Resp BP Pulse Ox 09/15/19 19:01 99 H 16 100 09/15/19 17:48 93 H 137/82 100 09/15/19 16:49 37.2 C 91 H 134/74 99 09/15/19 16:20 83 16 99 09/15/19 15:48 83 140/88 100 09/15/19 14:49 80 114/83 100 09/15/19 13:49 108 H 134/90 09/15/19 12:48 77 105/72 100 09/15/19 11:55 83 16 99 09/15/19 11:48 36.9 C 84 91/68 L 100 09/15/19 10:49 89 96/68 L 100 09/15/19 09:49 92 H 113/80 100 09/15/19 08:48 89 139/96 100 09/15/19 08:00 82 09/15/19 07:50 89 22 100 09/15/19 07:49 37.0 C 90 136/88 100 Coding Level of Care Code Critical Care 1st 30-74 mins Diagnoses Admitted to intensive care unit Z78.9 NSTEMI (non-ST elevated myocardial infarction) I21.4 Elevated LFTs R79.89 SVT (supraventricular tachycardia) I47.1 Sepsis with acute hypoxic respiratory failure A41.9; R65.20; J96.01 Time Spent (min) 35 Comment I have personally spent 35 minutes of critical care time in the direct management of this patient. This is a life/limb threatening event. This includes time spent evaluating patient, direct bedside care, chart review, placing orders, interpretation of diagnostic studies, discussion with consultants, patient, and/or family members regarding treatment decisions, as well as other required patient management activities. This time is exclusive of all separately billable procedures, and teaching time and separate from and in addition to any other critical care service time.
[2019-09-16] MEDS: FAMOTIDINE 20 MG in SYRINGE 3 ML IV SCH ×2 (00:30→12:13)
[2019-09-16] MEDS: NORMOSOL-R 1,000 ML IV SCH ×3 (00:30→19:35)
[2019-09-16] MEDS ORDERED: VANCOMYCIN TROUGH ONE (03:30)
[2019-09-16] MEDS: levETIRAcetam 500 MG in 0.9 % SODIUM CHLORIDE 100 ML IV SCH ×2 (03:44→15:49)
[2019-09-16] MEDS: THIAMINE HCL 500 MG in 0.9 % SODIUM CHLORIDE 100 ML IV SCH ×3 (03:44→20:20)
[2019-09-16] MEDS: propofoL 1,000 MG/100 ML VIAL IV SCH ×4 (03:44→11:55)
[2019-09-16 05:16] LABS: Basophils # (auto) 0.05 K/uL (0-0.2); Basophils % (auto) 0.8 %; Eosinophils # (auto) 0.12 K/uL (0-0.5); Eosinophils % (auto) 1.9 %; Hematocrit (blood only) 37.6 % (37-47); Hemoglobin 12.5 g/dL (12.0-16.0); Immature Granulocytes # (auto) 0.02 K/uL (0.00-0.02); Immature Granulocytes % (auto) 0.3 %; Lymphocytes # (auto) 1.29 K/uL (1.2-3.4); Lymphocytes % (auto) 20.1 %; Mean Corpuscular Hemoglobin 35.7 pg (25-34); Mean Corpuscular Hgb Conc 33.2 g/dL (32-36); Mean Corpuscular Volume 107.4 fL (80-100); Mean Platelet Volume 11.1 fL (7.4-10.4); Monocytes # (auto) 1.08 K/uL (0.11-0.59); Monocytes % (auto) 16.8 %; Neutrophils # (auto) 3.87 K/uL (1.4-6.5); Neutrophils % (auto) 60.1 %; Platelet Count 139 K/uL (130-400); RDW Coefficient of Variation 13.6 % (11.5-14.5); RDW Standard Deviation 52.8 fL (36.4-46.3); White Blood Count 6.43 K/uL (4.8-10.8)
[2019-09-16 05:47] LABS: Albumin Level 2.5 gm/dl (3.4-5.0); BUN Creatinine Ratio 8.4 (10-20); Calcium 8.2 mg/dl (8.5-10.1); Creatinine Clr Calc Pharmacy 118.8 ml/min; Est GFR (African American) 127.1; Est GFR (Non-African American) 109.6; Magnesium 1.9 mg/dl (1.8-2.4); Potassium 3.5 mmol/L (3.5-5.1)
[2019-09-16 06:00] LABS: Albumin Globulin Ratio 0.7 (0.9-2); Bilirubin,Total 1.2 mg/dl (0.2-1); Globulin 3.8 gm/dl (2.5-4.0); Phosphorus 3.2 mg/dl (2.5-4.9); Total Protein 6.3 gm/dl (6.4-8.2)
[2019-09-16 06:06] LABS: iSTAT Allen Test Pass; iSTAT Arterial Blood Gas HCO3 22 meg/L (19-24); iSTAT Arterial Blood Gas pCO2 38 mmHg (35-46); iSTAT Arterial Blood Gas pH 7.37 (7.35-7.45); iSTAT Arterial Blood Gas pO2 96 mmHg (80-95); iSTAT Carbon Dioxide 23 mmol/L (24-31); iSTAT FiO2 30 %; iSTAT Site L Radial
[2019-09-16] MEDS ORDERED: POTASSIUM CHLORIDE 20 MEQ/15 ML UDC PO STA (06:23)
[2019-09-16] MEDS: ENOXAPARIN INJ 40 MG/0.4 ML SYR SQ SCH (08:00)
--- NOTE | 2019-09-16 09:49 | Critical Care Progress Note ---
Date of Service September 16, 2019 Assessment & Plan (1) Encephalopathy acute: Reason Critically Ill: [] PLAN: Neuro: Acute encephalopathy -Current 9 Versed and 30 propofol -Will proceed with sedation vacation today Probable acute delirium tremens -Will empirically start phenobarbital -Hopefully this will allow us to wean sedation further Resp: Acute respiratory failure -Minimal ventilatory settings -COVID testing pending: She has had all negative tests at this point -We will proceed with move towards extubation once COVID testing is finalized in order to minimize impact on staff CV: Prolonged QT on EKG -Holding Paxil and other QT prolonging medications Fluids/Renal: Decrease Normosol to 80 mL's per hour Hypokalemia -Received 40 M EQ's overnight we will give additional 40 M EQ's today Relative hypomagnesemia -400 mg Mag-Ox nightly ID: De-escalated antibiotics from broad-spectrum to Rocephin yesterday for possible urinary tract infection based off the urinalysis results -Urine culture has no growth less than 100,000 colonies will discontinue antibiotics at this time as she has had 3 days of effective treatment -Repeat COVID testing ordered by provider concerned of CT scan imaging -COVID testing not sent until yesterday would anticipate at least 2 more days waiting -Given low false positive rate repeat testing would further minimize that already low numbers statistically if the second rapid test is negative we could be reasonably assured she is COVID negative GI/Nutrition: Start tube feeds and progress as tolerated -Triglycerides in a.m. Transaminitis -Awaiting liver ultrasound which can be performed after CODE STATUS is ascertained -Sending hepatitis C serology Heme: Macrocytic anemia -Increased thiamine yesterday and added folic acid DVT prophylaxis: Lovenox Endocrine: ICU hyperglycemia protocol Vascular access: Peripheral IVs Code Status: Full code Disposition: Continued ICU care (2) Alcohol withdrawal delirium: Admission and Anticipated Discharge Date Admission Date: September 14, 2019 Supervising Physician Co-Signing Physician Notes 1330: Patient following simple commands, tolerating CPAP will proceed with extubation Subjective No overnight events Review of Systems Review of Systems: Unobtainable due to endotracheal tube Results & Data Results & Data ([facility]) Vital Signs (Past 12 Hours) Vital Signs Temp Pulse Resp BP Pulse Ox 09/16/19 09:00 36.3 C L 92 H 17 148/96 H 98 09/16/19 08:00 36.2 C L 85 16 126/88 98 09/16/19 07:40 85 16 99 09/16/19 07:00 36.2 C L 85 16 145/98 H 99 09/16/19 06:00 85 139/89 98 09/16/19 05:00 88 145/98 H 98 09/16/19 04:00 36.4 C L 108 H 124/86 98 09/16/19 03:45 101 H 17 100 09/16/19 03:00 91 H 128/87 97 09/16/19 02:00 37.0 C 94 H 122/80 97 09/16/19 01:00 95 H 129/86 97 09/16/19 00:50 94 H 17 97 09/16/19 00:00 37.4 C 96 H 98 09/15/19 23:49 37.4 C 95 H 127/85 97 09/15/19 23:30 96 H 98 09/15/19 23:00 112 H 98 09/15/19 22:48 104 H 160/103 H 97 09/15/19 22:30 110 H 97 09/15/19 22:00 37.5 C 95 H 126/84 98 Laboratory Results 09/16/19 09/16/19 09/16/19 Range/Units 05:52 04:38 04:38 WBC 6.43 (4.8-10.8) K/uL RBC 3.50 L (4.2-5.4) M/uL Hgb 12.5 (12.0-16.0) g/dL Hct 37.6 (37-47) % MCV 107.4 H (80-100) fL MCH 35.7 H (25-34) pg MCHC 33.2 (32-36) g/dL RDW Std Deviation 52.8 H (36.4-46.3) fL RDW Coeff of Elif 13.6 (11.5-14.5) % Plt Count 139 (130-400) K/uL MPV 11.1 H (7.4-10.4) fL Immature Gran % (Auto) 0.3 % Neut % (Auto) 60.1 % Lymph % (Auto) 20.1 % [place] % (Auto) 16.8 % Eos % (Auto) 1.9 % Baso % (Auto) 0.8 % Neut # (Auto) 3.87 (1.4-6.5) K/uL Lymph # (Auto) 1.29 (1.2-3.4) K/uL [place] # (Auto) 1.08 H (0.11-0.59) K/uL Eos # (Auto) 0.12 (0-0.5) K/uL Baso # (Auto) 0.05 (0-0.2) K/uL Immature Gran # (Auto) 0.02 (0.00-0.02) K/uL Sample Site L Radial POC pH 7.37 (7.35-7.45) POC pCO2 38 (35-46) mmHg POC pO2 96 H (80-95) mmHg POC HCO3 22 (19-24) mario/L POC Total CO2 23 L (24-31) mmol/L POC Base Excess -4.0 (-9-1.8) mario/L POC ABG O2 Sat 97.0 H (90-95) % Hank Test Pass O2 Delivery Device Ventilator POC O2 Rate 16 Minute Ventilation 6.3 POC FiO2 30 % Tidal Volume 450 PEEP 5 Sodium 137 (136-145) mmol/L Potassium 3.5 D (3.5-5.1) mmol/L Chloride 106 (98-107) mmol/L Carbon Dioxide 24 (21-32) mmol/L Anion Gap 7.0 (3-11) BUN 4 L (7-18) mg/dl Creatinine 0.47 L (0.6-1.2) mg/dl Est Cr Clr Drug Dosing 118.8 ml/min Est GFR ( Amer) 127.1 Est GFR (Non-Af Amer) 109.6 BUN/Creatinine Ratio 8.4 L (10-20) Glucose 76 (70-99) mg/dl POC Glucose (70-99) mg/dl Calcium 8.2 L (8.5-10.1) mg/dl Phosphorus 3.2 (2.5-4.9) mg/dl Magnesium 1.9 (1.8-2.4) mg/dl Total Bilirubin 1.2 H (0.2-1) mg/dl AST 211 H (15-37) U/L ALT 118 H (12-78) U/L Alkaline Phosphatase 288 H (45-117) U/L Total Protein 6.3 L (6.4-8.2) gm/dl Albumin 2.5 L (3.4-5.0) gm/dl Globulin 3.8 (2.5-4.0) gm/dl Albumin/Globulin Ratio 0.7 L (0.9-2) 09/15/19 09/15/19 Range/Units 18:08 12:59 WBC (4.8-10.8) K/uL RBC (4.2-5.4) M/uL Hgb (12.0-16.0) g/dL Hct (37-47) % MCV (80-100) fL MCH (25-34) pg MCHC (32-36) g/dL RDW Std Deviation (36.4-46.3) fL RDW Coeff of Elif (11.5-14.5) % Plt Count (130-400) K/uL MPV (7.4-10.4) fL Immature Gran % (Auto) % Neut % (Auto) % Lymph % (Auto) % [place] % (Auto) % Eos % (Auto) % Baso % (Auto) % Neut # (Auto) (1.4-6.5) K/uL Lymph # (Auto) (1.2-3.4) K/uL [place] # (Auto) (0.11-0.59) K/uL Eos # (Auto) (0-0.5) K/uL Baso # (Auto) (0-0.2) K/uL Immature Gran # (Auto) (0.00-0.02) K/uL Sample Site POC pH (7.35-7.45) POC pCO2 (35-46) mmHg POC pO2 (80-95) mmHg POC HCO3 (19-24) mario/L POC Total CO2 (24-31) mmol/L POC Base Excess (-9-1.8) mario/L POC ABG O2 Sat (90-95) % Hank Test O2 Delivery Device POC O2 Rate Minute Ventilation POC FiO2 % Tidal Volume PEEP Sodium (136-145) mmol/L Potassium (3.5-5.1) mmol/L Chloride (98-107) mmol/L Carbon Dioxide (21-32) mmol/L Anion Gap (3-11) BUN (7-18) mg/dl Creatinine (0.6-1.2) mg/dl Est Cr Clr Drug Dosing ml/min Est GFR ( Amer) Est GFR (Non-Af Amer) BUN/Creatinine Ratio (10-20) Glucose (70-99) mg/dl POC Glucose 87 94 (70-99) mg/dl Calcium (8.5-10.1) mg/dl Phosphorus (2.5-4.9) mg/dl Magnesium (1.8-2.4) mg/dl Total Bilirubin (0.2-1) mg/dl AST (15-37) U/L ALT (12-78) U/L Alkaline Phosphatase (45-117) U/L Total Protein (6.4-8.2) gm/dl Albumin (3.4-5.0) gm/dl Globulin (2.5-4.0) gm/dl Albumin/Globulin Ratio (0.9-2) Coding Level of Care Code Critical Care 1st 30-74 mins Diagnoses Encephalopathy acute G93.40 Alcohol withdrawal delirium F10.231 Time Spent (min) 45 Comment I have personally spent 45 minutes of critical care time in the direct management of this patient. This is a life/limb threatening event. This in cludes time spent evaluating patient, direct bedside care, chart review, placing orders, interpretation of diagnostic studies, discussion with consultants, patient, and/or family members regarding treatment decisions, as well as other required patient management activities. This time is exclusive of all separately billable procedures, and teaching time and separate from and in addition to any other critical care service time.
[2019-09-16 09:50] LABS: iSTAT Arterial Blood Gas HCO3 19 meg/L (19-24); iSTAT Arterial Blood Gas pCO2 30 mmHg (35-46); iSTAT Arterial Blood Gas pH 7.42 (7.35-7.45); iSTAT Arterial Blood Gas pO2 152 mmHg (80-95); iSTAT Carbon Dioxide 20 mmol/L (24-31)
[2019-09-16 09:51] LABS: Patient Temperature 37.2; iSTAT Allen Test Not Performed; iSTAT Sample Type Arterial; iSTAT Site R Radial
[2019-09-16 09:52] LABS: iSTAT FiO2 50 %
[2019-09-16 09:53] LABS: iSTAT Arterial Blood Gas HCO3 23 meg/L (19-24); iSTAT Arterial Blood Gas pCO2 39 mmHg (35-46); iSTAT Arterial Blood Gas pH 7.38 (7.35-7.45); iSTAT Arterial Blood Gas pO2 107 mmHg (80-95); iSTAT Carbon Dioxide 24 mmol/L (24-31)
[2019-09-16 09:54] LABS: Patient Temperature 36.7; iSTAT FiO2 40 %
[2019-09-16 09:55] LABS: iSTAT Site L Radial; iSTAT SpO2 100
[2019-09-16] MEDS ORDERED: POTASSIUM CHLORIDE 20 MEQ/15 ML UDC PO ONE (10:15)
[2019-09-16] MEDS ORDERED: IMPACT LIQD 1.0 CAL 1,000 ML BAG OG SCH (11:00)
[2019-09-16] MEDS: FOLIC ACID 1 MG in SYRINGE 9.8 ML IV SCH (11:54)
[2019-09-16] MEDS: cefTRIAXone SODIUM 1,000 MG in DEXTROSE 5% 50 ML IV SCH (12:15)
--- NOTE | 2019-09-16 13:01 | Ultrasound Report ---
US liver CLINICAL HISTORY: elevated lfts abnormal liver function tests COMPARISON STUDY: No previous studies for comparison. FINDINGS: Trace gallbladder sludge. No shadowing gallstones. Common bile duct 6 mm. Fatty replacement of the liver. Right kidney is negative for hydronephrosis. IMPRESSION: 1. Trace gallbladder sludge. 2. Normal caliber bile ducts. 3. Fatty replacement of the liver. ACT 112: Negative or not required by law. The above report was generated using voice recognition software. It may contain grammatical, syntax or spelling errors. Electronically signed by: Yash Wolf M.D. 09/16/2019 12:59 PM
--- NOTE | 2019-09-16 15:37 | Communication Note ---
Date of Service: September 16, 2019 This patient is being observed in conjunction with the ICU. As this patient is pending COVID-19 tracheal aspirate results, in an effort to reduce the utili zation of Personal Protective Equipment during this current pandemic, one provider will be seeing and examining this patient. Will defer management to Critical Care at this time. Hospitalist group will continue to follow along with Critical Care for transition of care once stable for transition out of ICU care. Chart reviewed, but did not physically examine the patient. Chart reviewed, case d/w Dr Encinas - as above. Appreciate ICU management. Doubt covid19 - once no longer PUI and exposure reduction no longer of paramount will be able to be more directly involved. care progressing well- extubated. Resident Activity Tracking Resident Involvement: Resident Care Provided Care Provided: Adult Hospital Medicine
[2019-09-16] MEDS ORDERED: LORazepam 1 MG/2 ML VIAL IV PRN (19:03)
[2019-09-16] MEDS ORDERED: STAT IV Infusion **Titration per Protocol STA (19:04)
[2019-09-16] MEDS: DEXMEDETOMIDINE HCL 200 MCG in SODIUM CHLORIDE 0.9% 48 ML IV SCH (19:15)
[2019-09-16] MEDS ORDERED: ATIVAN IV ALCOHOL WITHDRAWL IV SCH (19:30)
[2019-09-16] MEDS ORDERED: LORAZEPAM 3MG IV ACTIVE PROTOCOL IV PRN (19:45)
[2019-09-16] MEDS ORDERED: LORAZEPAM 1MG IV ACTIVE PROTOCOL IV PRN (19:45)
[2019-09-16] MEDS: MAGNESIUM OXIDE 400 MG TAB PO SCH (20:19)
[2019-09-17] MEDS: DEXMEDETOMIDINE HCL 200 MCG in SODIUM CHLORIDE 0.9% 48 ML IV SCH ×4 (00:39→20:55)
[2019-09-17] MEDS: FAMOTIDINE 20 MG in SYRINGE 3 ML IV SCH (00:39)
[2019-09-17] MEDS: THIAMINE HCL 500 MG in 0.9 % SODIUM CHLORIDE 100 ML IV SCH (04:07)
[2019-09-17] MEDS: levETIRAcetam 500 MG in 0.9 % SODIUM CHLORIDE 100 ML IV SCH ×2 (04:07→17:03)
[2019-09-17 04:57] LABS: Basophils # (auto) 0.05 K/uL (0-0.2); Basophils % (auto) 0.8 %; Eosinophils # (auto) 0.08 K/uL (0-0.5); Eosinophils % (auto) 1.3 %; Hematocrit (blood only) 34.3 % (37-47); Hemoglobin 11.4 g/dL (12.0-16.0); Immature Granulocytes # (auto) 0.02 K/uL (0.00-0.02); Immature Granulocytes % (auto) 0.3 %; Lymphocytes # (auto) 1.34 K/uL (1.2-3.4); Mean Corpuscular Hemoglobin 34.9 pg (25-34); Mean Corpuscular Hgb Conc 33.2 g/dL (32-36); Mean Corpuscular Volume 104.9 fL (80-100); Mean Platelet Volume 10.7 fL (7.4-10.4); Monocytes # (auto) 1.17 K/uL (0.11-0.59); Monocytes % (auto) 19.2 %; Neutrophils # (auto) 3.44 K/uL (1.4-6.5); Neutrophils % (auto) 56.4 %; Platelet Count 152 K/uL (130-400); RDW Coefficient of Variation 13.2 % (11.5-14.5); RDW Standard Deviation 50.1 fL (36.4-46.3); Red Blood Count 3.27 M/uL (4.2-5.4)
[2019-09-17 05:21] LABS: Albumin Level 2.3 gm/dl (3.4-5.0); BUN Creatinine Ratio 7.6 (10-20); Calcium 8.1 mg/dl (8.5-10.1); Est GFR (African American) 136.3; Est GFR (Non-African American) 117.6; Magnesium 1.6 mg/dl (1.8-2.4); Potassium 3.9 mmol/L (3.5-5.1)
[2019-09-17 05:24] LABS: Bilirubin Direct 0.7 mg/dl (0-0.2); Bilirubin,Total 1.5 mg/dl (0.2-1); Phosphorus 3.5 mg/dl (2.5-4.9); Total Protein 5.7 gm/dl (6.4-8.2)
[2019-09-17] MEDS ORDERED: ICU ELECTROLYTE REPLACEMENT PROTOCOL PRN (05:36)
[2019-09-17] MEDS: MAGNESIUM SULFATE / D5W 1 GM/100 ML BAG IV SCH ×3 (06:09→15:24)
[2019-09-17] MEDS: POTASSIUM CHLORIDE / WTR 10 MEQ/100 ML PLCT IV SCH ×4 (06:10→09:48)
[2019-09-17] MEDS: ENOXAPARIN INJ 40 MG/0.4 ML SYR SQ SCH (08:19)
--- NOTE | 2019-09-17 08:43 | Critical Care Progress Note ---
Date of Service September 17, 2019 Assessment & Plan (1) Encephalopathy acute: Reason Critically Ill: Acute encephalopathy with possible seizure per EMS requiring intubation by EMS PLAN: Neuro: Acute encephalopathy -Alcohol withdraw scoring Probable acute delirium tremens -Symptom triggered dosing -1 dose phenobarbital today -Keppra 500 twice daily -If no improvement and no findings on additional lab work will entertain MRI -We will also entertain lumbar puncture rule out encephalitis Resp: Acute respiratory failure: Resolved -Minimal ventilatory settings -COVID testing remains negative CV: Prolonged QT on EKG -Holding Paxil and other QT prolonging medications -Discussed with cardiology obtaining repeat troponins which were downtrending and echocardiogram Elevated troponins: Downtrending -Repeating with continued abnormality on EKG Fluids/Renal: Decrease Normosol to 80 mL's per hour Hypokalemia -Received 40 M EQ's overnight we will give additional 40 M EQ's today Relative hypomagnesemia -400 mg Mag-Ox nightly ID: Negative COVID testing No growth on urine culture -Blood cultures negative Sending anaplasmosis and Lyme serology GI/Nutrition: Start tube feeds and progress as tolerated -Triglycerides in a.m. Transaminitis -Liver ultrasound reviewed -Hepato-steatosis -Hepatitis C negative -Ammonia level and Lyme with anaplasmosis pending Heme: Macrocytic anemia -Thiamine and folic acid -This certainly could be seen in chronic alcohol consumption Thrombocytopenia: -Resolved DVT prophylaxis: Lovenox Endocrine: ICU hyperglycemia protocol Vascular access: Peripheral IVs Code Status: Full code Disposition: (2) Alcohol withdrawal delirium: Admission and Anticipated Discharge Date Admission Date: September 14, 2019 Supervising Physician Co-Signing Physician Notes Discussed extensively with , greater than 40 minutes as patient unable to participate in conversation. Subjective No overnight events, patient has been successfully liberated from the ventilator. Minimal to mildly improved mental status, she was able to phone her , for staff she is largely confused/inappropriate response to questioning Patient's reports patient removed tick from right thigh in previous 2 w eeks. Reports possible association of prior 2 episodes of possible seizure with related alcohol consumption of Vodka. Review of Systems Review of Systems: Unobtainable due to cognitive status Physical Exam Physical Exam: General: Alert. Disoriented/inappropriate answers to questions. Skin: Warm, dry, Head: Atraumatic, no nuchal rigidity negative Burzynski sign negative Kernig's Ears, nose, mouth and throat: airway patent Cardiovascular: Normal peripheral perfusion Respiratory: no respiratory distress Gastrointestinal: Non distended Musculoskeletal: No deformity Results & Data Results & Data ([facility]) Vital Signs (Past 12 Hours) Vital Signs Temp Pulse Pulse Resp BP BP Pulse Ox 09/17/19 06:00 37.0 C 76 20 98 09/17/19 05:49 71 23 104/71 96 09/17/19 05:00 75 26 H 95 09/17/19 04:49 37.1 C 77 27 H 104/66 95 09/17/19 04:00 79 29 H 97 09/17/19 03:49 78 25 H 92/62 L 97 09/17/19 02:49 82 33 H 93/63 L 95 09/17/19 01:49 84 30 H 99/60 L 96 09/17/19 00:49 89 24 99/68 L 91 09/16/19 23:55 112 H 09/16/19 23:49 95 H 133/82 92 09/16/19 23:17 37.2 C 106 H 113/71 92 09/16/19 22:00 113 H 25 H 119/92 93 09/16/19 21:00 122 H 28 H 144/89 H 93 Laboratory Results 09/17/19 09/17/19 09/17/19 Range/Units 04:39 04:39 04:39 WBC 6.10 (4.8-10.8) K/uL RBC 3.27 L (4.2-5.4) M/uL Hgb 11.4 L (12.0-16.0) g/dL Hct 34.3 L (37-47) % MCV 104.9 H (80-100) fL MCH 34.9 H (25-34) pg MCHC 33.2 (32-36) g/dL RDW Std Deviation 50.1 H (36.4-46.3) fL RDW Coeff of Elif 13.2 (11.5-14.5) % Plt Count 152 (130-400) K/uL MPV 10.7 H (7.4-10.4) fL Immature Gran % (Auto) 0.3 % Neut % (Auto) 56.4 % Lymph % (Auto) 22.0 % [place] % (Auto) 19.2 % Eos % (Auto) 1.3 % Baso % (Auto) 0.8 % Neut # (Auto) 3.44 (1.4-6.5) K/uL Lymph # (Auto) 1.34 (1.2-3.4) K/uL [place] # (Auto) 1.17 H (0.11-0.59) K/uL Eos # (Auto) 0.08 (0-0.5) K/uL Baso # (Auto) 0.05 (0-0.2) K/uL Immature Gran # (Auto) 0.02 (0.00-0.02) K/uL Specimen Type Sample Site Patient Temperature POC pH (7.35-7.45) POC pCO2 (35-46) mmHg POC pO2 (80-95) mmHg POC HCO3 (19-24) mario/L POC Total CO2 (24-31) mmol/L POC Base Excess (-9-1.8) mario/L O2 Sat Pulse Oximetry POC ABG O2 Sat (90-95) % Hank Test O2 Delivery Device POC O2 Rate Minute Ventilation Vent Mode POC FiO2 % Tidal Volume End Tidal CO2 PEEP Sodium 137 (136-145) mmol/L Potassium 3.9 (3.5-5.1) mmol/L Chloride 107 (98-107) mmol/L Carbon Dioxide 23 (21-32) mmol/L Anion Gap 7.0 (3-11) BUN 3 L (7-18) mg/dl Creatinine 0.38 L (0.6-1.2) mg/dl Est Cr Clr Drug Dosing 147.0 ml/min Est GFR ( Amer) 136.3 Est GFR (Non-Af Amer) 117.6 BUN/Creatinine Ratio 7.6 L (10-20) Glucose 76 (70-99) mg/dl POC Glucose (70-99) mg/dl Calcium 8.1 L (8.5-10.1) mg/dl Phosphorus 3.5 (2.5-4.9) mg/dl Magnesium 1.6 L (1.8-2.4) mg/dl Total Bilirubin 1.5 H (0.2-1) mg/dl Direct Bilirubin 0.7 H (0-0.2) mg/dl AST 144 H (15-37) U/L ALT 93 H (12-78) U/L Alkaline Phosphatase 264 H (45-117) U/L Total Protein 5.7 L (6.4-8.2) gm/dl Albumin 2.3 L (3.4-5.0) gm/dl COVID-19 PCR (Negative) Hepatitis C Antibody Pending 09/17/19 09/16/19 09/16/19 Range/Units 00:04 18:08 12:04 WBC (4.8-10.8) K/uL RBC (4.2-5.4) M/uL Hgb (12.0-16.0) g/dL Hct (37-47) % MCV (80-100) fL MCH (25-34) pg MCHC (32-36) g/dL RDW Std Deviation (36.4-46.3) fL RDW Coeff of Elif (11.5-14.5) % Plt Count (130-400) K/uL MPV (7.4-10.4) fL Immature Gran % (Auto) % Neut % (Auto) % Lymph % (Auto) % [place] % (Auto) % Eos % (Auto) % Baso % (Auto) % Neut # (Auto) (1.4-6.5) K/uL Lymph # (Auto) (1.2-3.4) K/uL [place] # (Auto) (0.11-0.59) K/uL Eos # (Auto) (0-0.5) K/uL Baso # (Auto) (0-0.2) K/uL Immature Gran # (Auto) (0.00-0.02) K/uL Specimen Type Sample Site Patient Temperature POC pH (7.35-7.45) POC pCO2 (35-46) mmHg POC pO2 (80-95) mmHg POC HCO3 (19-24) mario/L POC Total CO2 (24-31) mmol/L POC Base Excess (-9-1.8) mario/L O2 Sat Pulse Oximetry POC ABG O2 Sat (90-95) % Hank Test O2 Delivery Device POC O2 Rate Minute Ventilation Vent Mode POC FiO2 % Tidal Volume End Tidal CO2 PEEP Sodium (136-145) mmol/L Potassium (3.5-5.1) mmol/L Chloride (98-107) mmol/L Carbon Dioxide (21-32) mmol/L Anion Gap (3-11) BUN (7-18) mg/dl Creatinine (0.6-1.2) mg/dl Est Cr Clr Drug Dosing ml/min Est GFR ( Amer) Est GFR (Non-Af Amer) BUN/Creatinine Ratio (10-20) Glucose (70-99) mg/dl POC Glucose 83 79 82 (70-99) mg/dl Calcium (8.5-10.1) mg/dl Phosphorus (2.5-4.9) mg/dl Magnesium (1.8-2.4) mg/dl Total Bilirubin (0.2-1) mg/dl Direct Bilirubin (0-0.2) mg/dl AST (15-37) U/L ALT (12-78) U/L Alkaline Phosphatase (45-117) U/L Total Protein (6.4-8.2) gm/dl Albumin (3.4-5.0) gm/dl COVID-19 PCR (Negative) Hepatitis C Antibody 09/16/19 09/15/19 09/14/19 Range/Units 10:10 05:14 05:13 WBC (4.8-10.8) K/uL RBC (4.2-5.4) M/uL Hgb (12.0-16.0) g/dL Hct (37-47) % MCV (80-100) fL MCH (25-34) pg MCHC (32-36) g/dL RDW Std Deviation (36.4-46.3) fL RDW Coeff of Elif (11.5-14.5) % Plt Count (130-400) K/uL MPV (7.4-10.4) fL Immature Gran % (Auto) % Neut % (Auto) % Lymph % (Auto) % [place] % (Auto) % Eos % (Auto) % Baso % (Auto) % Neut # (Auto) (1.4-6.5) K/uL Lymph # (Auto) (1.2-3.4) K/uL [place] # (Auto) (0.11-0.59) K/uL Eos # (Auto) (0-0.5) K/uL Baso # (Auto) (0-0.2) K/uL Immature Gran # (Auto) (0.00-0.02) K/uL Specimen Type Arterial Sample Site L Radial R Radial Patient Temperature 36.7 37.2 POC pH 7.38 7.42 (7.35-7.45) POC pCO2 39 30 L (35-46) mmHg POC pO2 107 H 152 H (80-95) mmHg POC HCO3 23 19 (19-24) mario/L POC Total CO2 24 20 L (24-31) mmol/L POC Base Excess -2.0 -5.0 (-9-1.8) mario/L O2 Sat Pulse Oximetry 100 POC ABG O2 Sat 98.0 H 99.0 H (90-95) % Hank Test Not Performed O2 Delivery Device Ventilator Ventilator POC O2 Rate 26 Minute Ventilation 6.4 8.8 Vent Mode AC AC POC FiO2 40 50 % Tidal Volume 400 400 End Tidal CO2 32 25 PEEP 8 16 Sodium (136-145) mmol/L Potassium (3.5-5.1) mmol/L Chloride (98-107) mmol/L Carbon Dioxide (21-32) mmol/L Anion Gap (3-11) BUN (7-18) mg/dl Creatinine (0.6-1.2) mg/dl Est Cr Clr Drug Dosing ml/min Est GFR ( Amer) Est GFR (Non-Af Amer) BUN/Creatinine Ratio (10-20) Glucose (70-99) mg/dl POC Glucose (70-99) mg/dl Calcium (8.5-10.1) mg/dl Phosphorus (2.5-4.9) mg/dl Magnesium (1.8-2.4) mg/dl Total Bilirubin (0.2-1) mg/dl Direct Bilirubin (0-0.2) mg/dl AST (15-37) U/L ALT (12-78) U/L Alkaline Phosphatase (45-117) U/L Total Protein (6.4-8.2) gm/dl Albumin (3.4-5.0) gm/dl COVID-19 PCR NEGATIVE (Negative) Hepatitis C Antibody Coding Level of Care Code Critical Care 1st 30-74 mins Diagnoses Encephalopathy acute G93.40 Alcohol withdrawal delirium F10.231 Time Spent (min) 90 Comment I have personally spent 90 minutes of critical care time in the direct management of this patient. This is a life/limb threatening event. This includes time spent evaluating patient, direct bedside care, chart review, placing orders, interpretation of diagnostic studies, discussion with consultants, patient, and/or family members regarding treatment decisions, as well as other required patient management activities. This time is exclusive of all separately billable procedures, and teaching time and separate from and in addition to any other critical care service time.
--- NOTE | 2019-09-17 10:23 | Hospitalist Progress Note ---
Date of Service September 17, 2019 Assessment & Plan (1) Altered mental status: 59-year-old female with a past medical history including hyperlipidemia, anxiety with depression, alcohol abuse who presented to [facility] Altered Mental Status: - patient is still currently disoriented, unaware of her current location, however able to have seemingly superficial conversation with this AM - with history of seizures and alcohol misuse either could have precipitated her current deterioration in mental status - additionally was sedated and intubated for >48 hours, potentially contributing to delirium; if no continued improvement then consideration of LP vs MRI for encephalopathy - with recent extubation, will continue to observe in ICU overnight and if stable will transition out of critical care - COVID-19 negative x2 - following improvement in mentation will need to delineate alcohol usage with patient given conflicting history from spouse and sibling - continue Keppra 500mg BID Admission and Anticipated Discharge Date Admission Date: September 14, 2019 Supervising Physician Co-Signing Physician Notes I personally examined the patient and verified all hernandez points of history and exam, discussed case, and agree with decision making with Dr Barbosa. awake and breathing room air, but no meaningful HPI or ROS - apparently more coherent than this AM - in discussions w mental status as assessed by dr barbosa and in progression of mentation as assessed by nursing. she is able to converse semi-cohrently entirely proximally - has no recollection of where she is/why she's here, etc, notes that we look like aliens, and on directed questioning says that she only drinks maybe a few beers every couple days. also significant amount of distractability and inappropriate laughter. vitals noted gen awake but disoriented nad heent nc at mmm breathing unlabored no accesory muscles good effort skin no rashes no pallor or icterus neuro no focal deficits, but mental status as above acute respiratory failure/pneumonia - improving. continue current care AMS - ?delirium, post ictal + ICU delirium, ?EtOH withdrawal. certainly EtOH abuse and withdrawal would tie together AMS, seizures, low K/Mag, elevated LFT/fatty liver/high MCV, but conflicting hx between friend who called [facility] and phone call w - therefore would not want to totally assume EtOH even though that would certainly make the whole clinical picture fit --> if nto abusing EtOH then would want to pursue renal K/Mag wasting syndromes, etc. fortunately is clinically improving, so can afford watchful waiting and serial hx at this time, then enlist nephrology assistance if it seems more clear that EtOH abuse is not at play. certainly continue thiamine and folate while uncertainty exists. otherwise as above Subjective Patient was successfully extubated yesterday following second negative rapid COVID test. Had decreased need for Precedex overnight and this was able to be discontinued. Has had some return of mental status but still largely incoherent, but apparently was able to have small coherent conversation with this AM. Review of Systems Review of Systems: Unobtainable due to cognitive status Physical Exam Constitutional: average body habitus; no acute distress Respiratory: normal respiratory effort; no respiratory distress, no labored breathing and no retractions Cardiovascular: Rate/Rhythm: regular rate and regular rhythm Heart Sounds: no gallop, no murmur and no cardiac rub Vessels: normal peripheral pulses; no JVD Gastrointestinal (Abdomen): normal bowel sounds, soft, nontender, no hepatosplenomegaly Musculoskeletal: Extremities: no joint enlargement, no muscle atrophy, no cyanosis and no clubbing Neurologic: deep tendon reflexes 2+ bilaterally, moves all extremities and + confused Psychiatric: Orientation: alert, oriented to person and cooperative; + not oriented to place and + not oriented to time Eye Contact: + fair eye contact Motor Behavior: no abnormal motor movements Results & Data Results & Data ([facility]) Vital Signs (Past 12 Hours) Vital Signs Temp Pulse Resp BP Pulse Ox 09/17/19 06:00 37.0 C 76 20 98 09/17/19 05:49 71 23 104/71 96 09/17/19 05:00 75 26 H 95 09/17/19 04:49 37.1 C 77 27 H 104/66 95 09/17/19 04:00 79 29 H 97 09/17/19 03:49 78 25 H 92/62 L 97 09/17/19 02:49 82 33 H 93/63 L 95 09/17/19 01:49 84 30 H 99/60 L 96 09/17/19 00:49 89 24 99/68 L 91 09/16/19 23:55 112 H 09/16/19 23:49 95 H 133/82 92 09/16/19 23:17 37.2 C 106 H 113/71 92 Laboratory Results 06/24/20 06/24/20 06/24/20 Range/Units 14:40 14:40 14:40 WBC (4.8-10.8) K/uL RBC (4.2-5.4) M/uL Hgb (12.0-16.0) g/dL Hct (37-47) % MCV (80-100) fL MCH (25-34) pg MCHC (32-36) g/dL RDW Std Deviation (36.4-46.3) fL RDW Coeff of Elif (11.5-14.5) % Plt Count (130-400) K/uL MPV (7.4-10.4) fL Immature Gran % (Auto) % Neut % (Auto) % Lymph % (Auto) % Bent % (Auto) % Eos % (Auto) % Baso % (Auto) % Neut # (Auto) (1.4-6.5) K/uL Lymph # (Auto) (1.2-3.4) K/uL Bent # (Auto) (0.11-0.59) K/uL Eos # (Auto) (0-0.5) K/uL Baso # (Auto) (0-0.2) K/uL Immature Gran # (Auto) (0.00-0.02) K/uL Peripher Smr Path Cons Cancelled Sodium (136-145) mmol/L Potassium (3.5-5.1) mmol/L Chloride (98-107) mmol/L Carbon Dioxide (21-32) mmol/L Anion Gap (3-11) BUN (7-18) mg/dl Creatinine (0.6-1.2) mg/dl Est Cr Clr Drug Dosing ml/min Est GFR ( Amer) Est GFR (Non-Af Amer) BUN/Creatinine Ratio (10-20) Glucose (70-99) mg/dl POC Glucose (70-99) mg/dl Calcium (8.5-10.1) mg/dl Phosphorus (2.5-4.9) mg/dl Magnesium (1.8-2.4) mg/dl Total Bilirubin (0.2-1) mg/dl Direct Bilirubin (0-0.2) mg/dl AST (15-37) U/L ALT (12-78) U/L Alkaline Phosphatase (45-117) U/L Ammonia < 10.0 L (11-32) umol/L Troponin I (0-0.045) ng/ml Total Protein (6.4-8.2) gm/dl Albumin (3.4-5.0) gm/dl Specimen Hemolysis RPR Pending Anaplasma Smear See Comment Lyme Disease IgG Ab Pending Lyme Disease IgM Ab Pending Hepatitis C Antibody (Neg) 09/17/19 09/17/19 09/17/19 Range/Units 14:40 12:36 04:39 WBC (4.8-10.8) K/uL RBC (4.2-5.4) M/uL Hgb (12.0-16.0) g/dL Hct (37-47) % MCV (80-100) fL MCH (25-34) pg MCHC (32-36) g/dL RDW Std Deviation (36.4-46.3) fL RDW Coeff of Elif (11.5-14.5) % Plt Count (130-400) K/uL MPV (7.4-10.4) fL Immature Gran % (Auto) % Neut % (Auto) % Lymph % (Auto) % Bent % (Auto) % Eos % (Auto) % Baso % (Auto) % Neut # (Auto) (1.4-6.5) K/uL Lymph # (Auto) (1.2-3.4) K/uL Bent # (Auto) (0.11-0.59) K/uL Eos # (Auto) (0-0.5) K/uL Baso # (Auto) (0-0.2) K/uL Immature Gran # (Auto) (0.00-0.02) K/uL Peripher Smr Path Cons Sodium 136 137 (136-145) mmol/L Potassium 4.3 3.9 (3.5-5.1) mmol/L Chloride 104 107 (98-107) mmol/L Carbon Dioxide 24 23 (21-32) mmol/L Anion Gap 7.0 7.0 (3-11) BUN 3 L 3 L (7-18) mg/dl Creatinine 0.43 L 0.38 L (0.6-1.2) mg/dl Est Cr Clr Drug Dosing 129.9 147.0 ml/min Est GFR ( Amer) 130.9 136.3 Est GFR (Non-Af Amer) 112.9 117.6 BUN/Creatinine Ratio 7.3 L 7.6 L (10-20) Glucose 85 76 (70-99) mg/dl POC Glucose (70-99) mg/dl Calcium 9.1 8.1 L (8.5-10.1) mg/dl Phosphorus 3.5 (2.5-4.9) mg/dl Magnesium 2.1 1.6 L (1.8-2.4) mg/dl Total Bilirubin 1.5 H (0.2-1) mg/dl Direct Bilirubin 0.7 H (0-0.2) mg/dl AST 144 H (15-37) U/L ALT 93 H (12-78) U/L Alkaline Phosphatase 264 H (45-117) U/L Ammonia (11-32) umol/L Troponin I 0.043 (0-0.045) ng/ml Total Protein 5.7 L (6.4-8.2) gm/dl Albumin 2.3 L (3.4-5.0) gm/dl Specimen Hemolysis RPR Anaplasma Smear Lyme Disease IgG Ab Lyme Disease IgM Ab Hepatitis C Antibody (Neg) 09/17/19 09/17/19 09/17/19 Range/Units 04:39 04:39 00:04 WBC 6.10 (4.8-10.8) K/uL RBC 3.27 L (4.2-5.4) M/uL Hgb 11.4 L (12.0-16.0) g/dL Hct 34.3 L (37-47) % MCV 104.9 H (80-100) fL MCH 34.9 H (25-34) pg MCHC 33.2 (32-36) g/dL RDW Std Deviation 50.1 H (36.4-46.3) fL RDW Coeff of Elif 13.2 (11.5-14.5) % Plt Count 152 (130-400) K/uL MPV 10.7 H (7.4-10.4) fL Immature Gran % (Auto) 0.3 % Neut % (Auto) 56.4 % Lymph % (Auto) 22.0 % Bent % (Auto) 19.2 % Eos % (Auto) 1.3 % Baso % (Auto) 0.8 % Neut # (Auto) 3.44 (1.4-6.5) K/uL Lymph # (Auto) 1.34 (1.2-3.4) K/uL Bent # (Auto) 1.17 H (0.11-0.59) K/uL Eos # (Auto) 0.08 (0-0.5) K/uL Baso # (Auto) 0.05 (0-0.2) K/uL Immature Gran # (Auto) 0.02 (0.00-0.02) K/uL Peripher Smr Path Cons Sodium (136-145) mmol/L Potassium (3.5-5.1) mmol/L Chloride (98-107) mmol/L Carbon Dioxide (21-32) mmol/L Anion Gap (3-11) BUN (7-18) mg/dl Creatinine (0.6-1.2) mg/dl Est Cr Clr Drug Dosing ml/min Est GFR ( Amer) Est GFR (Non-Af Amer) BUN/Creatinine Ratio (10-20) Glucose (70-99) mg/dl POC Glucose 83 (70-99) mg/dl Calcium (8.5-10.1) mg/dl Phosphorus (2.5-4.9) mg/dl Magnesium (1.8-2.4) mg/dl Total Bilirubin (0.2-1) mg/dl Direct Bilirubin (0-0.2) mg/dl AST (15-37) U/L ALT (12-78) U/L Alkaline Phosphatase (45-117) U/L Ammonia (11-32) umol/L Troponin I (0-0.045) ng/ml Total Protein (6.4-8.2) gm/dl Albumin (3.4-5.0) gm/dl Specimen Hemolysis RPR Anaplasma Smear Lyme Disease IgG Ab Lyme Disease IgM Ab Hepatitis C Antibody Neg (Neg) 09/16/19 Range/Units 18:08 WBC (4.8-10.8) K/uL RBC (4.2-5.4) M/uL Hgb (12.0-16.0) g/dL Hct (37-47) % MCV (80-100) fL MCH (25-34) pg MCHC (32-36) g/dL RDW Std Deviation (36.4-46.3) fL RDW Coeff of Elif (11.5-14.5) % Plt Count (130-400) K/uL MPV (7.4-10.4) fL Immature Gran % (Auto) % Neut % (Auto) % Lymph % (Auto) % Bent % (Auto) % Eos % (Auto) % Baso % (Auto) % Neut # (Auto) (1.4-6.5) K/uL Lymph # (Auto) (1.2-3.4) K/uL Bent # (Auto) (0.11-0.59) K/uL Eos # (Auto) (0-0.5) K/uL Baso # (Auto) (0-0.2) K/uL Immature Gran # (Auto) (0.00-0.02) K/uL Peripher Smr Path Cons Sodium (136-145) mmol/L Potassium (3.5-5.1) mmol/L Chloride (98-107) mmol/L Carbon Dioxide (21-32) mmol/L Anion Gap (3-11) BUN (7-18) mg/dl Creatinine (0.6-1.2) mg/dl Est Cr Clr Drug Dosing ml/min Est GFR ( Amer) Est GFR (Non-Af Amer) BUN/Creatinine Ratio (10-20) Glucose (70-99) mg/dl POC Glucose 79 (70-99) mg/dl Calcium (8.5-10.1) mg/dl Phosphorus (2.5-4.9) mg/dl Magnesium (1.8-2.4) mg/dl Total Bilirubin (0.2-1) mg/dl Direct Bilirubin (0-0.2) mg/dl AST (15-37) U/L ALT (12-78) U/L Alkaline Phosphatase (45-117) U/L Ammonia (11-32) umol/L Troponin I (0-0.045) ng/ml Total Protein (6.4-8.2) gm/dl Albumin (3.4-5.0) gm/dl Specimen Hemolysis RPR Anaplasma Smear Lyme Disease IgG Ab Lyme Disease IgM Ab Hepatitis C Antibody (Neg) Medications Administered Current Inpatient Medications Albuterol (Duoneb) 3 ml NEB Q4R PRN PRN Reason: Shortness Of Breath Or Wheezing Stop: 10/14/19 06:59 Enoxaparin Sodium (Lovenox) 40 mg SQ DAILY BRIANNA Stop: 10/14/19 08:59 Last Admin: 09/17/19 08:19 Dose: 40 mg Documented by: Famotidine (Pepcid) 20 mg PO BID [facility] Stop: 10/17/19 20:59 Levetiracetam 500 mg/ Sodium (Chloride) 105 mls @ 420 mls/hr IV Q12H BRIANNA Stop: 10/14/19 03:59 Last Infusion: 09/17/19 04:22 Dose: Infused Documented by: Thiamine HCl 250 mg/ Sodium (Chloride) 52.5 mls @ 210 mls/hr IV Q24H BRIANNA Stop: 09/21/19 21:14 Folic Acid 1 mg/ Syringe 10 mls @ 5 mls/min IV Q24H [facility] Stop: 10/15/19 11:59 Last Admin: 09/17/19 10:51 Dose: 5 mls/min Documented by: Parenteral Electrolytes (Normosol-R) 1,000 mls @ 80 mls/hr IV .[id number] BRIANNA Stop: 10/16/19 00:14 Last Admin: 09/17/19 10:51 Dose: 80 mls/hr Documented by: Lorazepam (Ativan) 1 mg in 2 mls @ 2 mls/min IV Q1H PRN; Protocol PRN Reason: Symptoms of alcohol withdrawal Stop: 10/16/19 19:44 Lorazepam (Ativan) 2 mg in 4 mls @ 4 mls/min IV Q1H PRN; Protocol PRN Reason: Symptoms of alcohol withdrawal Stop: 10/16/19 19:44 Last Admin: 09/17/19 15:35 Dose: 4 mls/min Documented by: Magnesium Sulfate/Dextrose (Magnesium Sulfate / D5w) 1 gm in 100 mls @ 25 mls/h r IV Q4H BRIANNA Stop: 09/17/19 22:29 Last Admin: 09/17/19 15:24 Dose: Not Given Documented by: Magnesium Oxide (Mag-Ox) 400 mg PO HS [facility] Stop: 10/16/19 20:59 Last Admin: 09/16/19 20:19 Dose: Not Given Documented by: Miscellaneous (Icu Electrolyte Replacement Protocol) 1 ea N/A UD PRN PRN Reason: for e-lyte repletion Stop: 09/24/19 05:35 Phenobarbital (Phenobarbital) 32.4 mg PO TODAY@1015 [facility] Stop: 09/17/19 16:00 Last Admin: 09/17/19 10:51 Dose: 32.4 mg Documented by: Resident Activity Tracking Resident Involvement: Resident Care Provided Care Provided: Adult Hospital Medicine
[2019-09-17] MEDS: NORMOSOL-R 1,000 ML IV SCH ×2 (10:51→23:57)
[2019-09-17] MEDS: FOLIC ACID 1 MG in SYRINGE 9.8 ML IV SCH (10:51)
[2019-09-17 13:30] LABS: BUN Creatinine Ratio 7.3 (10-20); Calcium 9.1 mg/dl (8.5-10.1); Creatinine Clr Calc Pharmacy 129.9 ml/min; Est GFR (African American) 130.9; Est GFR (Non-African American) 112.9; Potassium 4.3 mmol/L (3.5-5.1)
--- NOTE | 2019-09-17 14:05 | Electrocardiogram Report ---
Test Reason : Blood Pressure : / mmHG Vent. Rate : 099 BPM Atrial Rate : 099 BPM P-R Int : 154 ms QRS Dur : 082 ms QT Int : 390 ms P-R-T Axes : 066 063 054 degrees QTc Int : 500 ms Normal sinus rhythm Anterior infarct , age undetermined Anterior injury pattern Possible acute MA Prolonged QT Abnormal ECG No previous ECGs available Confirmed by Daniel Roper [id number]) on 09/17/2019 2:04:55 PM Referred By: REFERRED SELF Confirmed By:Daniel Roper
[2019-09-17 15:13] LABS: Magnesium 2.1 mg/dl (1.8-2.4); Troponin I 0.043 ng/ml (0-0.045)
[2019-09-17] MEDS: LORAZEPAM 2MG IV ACTIVE PROTOCOL IV PRN ×3 (15:35→18:09)
--- NOTE | 2019-09-17 15:39 | Billing Data ---
Date of Service September 17, 2019 Coding Level of Care Code 59890 Subseq Hosp Care Lvl 3
[2019-09-17 16:12] LABS: Lyme Ab IgM w/WB Rflx Negative (Negative)
--- NOTE | 2019-09-17 16:12 | XCELERA ---
[id number]
[2019-09-17 16:14] LABS: Lyme Ab IgG w/WB Rflx Positive (Negative)
[2019-09-17] MEDS ORDERED: LORazepam 3 MG/6 ML VIAL IV STA (19:39)
[2019-09-17] MEDS ORDERED: STAT IV Infusion **Titration per Protocol STA (20:20)
[2019-09-17] MEDS: FAMOTIDINE 20 MG TAB PO SCH (20:24)
[2019-09-17] MEDS: MAGNESIUM OXIDE 400 MG TAB PO SCH (20:24)
[2019-09-17] MEDS: THIAMINE HCL 250 MG in SODIUM CHLORIDE 0.9% 50 ML IV SCH (20:40)
[2019-09-18 01:21] LABS: Rapid Plasma Reagin Nonreactive (Nonreactive)
[2019-09-18] MEDS: DEXMEDETOMIDINE HCL 200 MCG in SODIUM CHLORIDE 0.9% 48 ML IV SCH ×6 (01:28→23:23)
[2019-09-18 04:03] LABS: Albumin Globulin Ratio 0.7 (0.9-2); Albumin Level 2.3 gm/dl (3.4-5.0); BUN Creatinine Ratio 8.6 (10-20); Bilirubin,Total 1.3 mg/dl (0.2-1); Calcium 8.2 mg/dl (8.5-10.1); Est GFR (African American) 137.5; Est GFR (Non-African American) 118.6; Globulin 3.5 gm/dl (2.5-4.0); Magnesium 1.8 mg/dl (1.8-2.4); Phosphorus 3.8 mg/dl (2.5-4.9); Potassium 3.8 mmol/L (3.5-5.1); Total Protein 5.8 gm/dl (6.4-8.2)
[2019-09-18 04:05] LABS: Troponin I 0.06 ng/ml (0-0.045)
[2019-09-18 04:14] LABS: Basophils # (auto) 0.02 K/uL (0-0.2); Basophils % (auto) 0.3 %; Eosinophils # (auto) 0.06 K/uL (0-0.5); Eosinophils % (auto) 0.9 %; Hematocrit (blood only) 33.6 % (37-47); Hemoglobin 11.4 g/dL (12.0-16.0); Immature Granulocytes # (auto) 0.02 K/uL (0.00-0.02); Immature Granulocytes % (auto) 0.3 %; Lymphocytes # (auto) 1.32 K/uL (1.2-3.4); Mean Corpuscular Hemoglobin 35.1 pg (25-34); Mean Corpuscular Hgb Conc 33.9 g/dL (32-36); Mean Corpuscular Volume 103.4 fL (80-100); Mean Platelet Volume 10.3 fL (7.4-10.4); Monocytes # (auto) 1.65 K/uL (0.11-0.59); Monocytes % (auto) 23.7 %; Neutrophils # (auto) 3.89 K/uL (1.4-6.5); Neutrophils % (auto) 55.8 %; Platelet Count 176 K/uL (130-400); RDW Coefficient of Variation 13.1 % (11.5-14.5); RDW Standard Deviation 49.3 fL (36.4-46.3); Red Blood Count 3.25 M/uL (4.2-5.4); White Blood Count 6.96 K/uL (4.8-10.8)
[2019-09-18] MEDS: levETIRAcetam 500 MG in 0.9 % SODIUM CHLORIDE 100 ML IV SCH ×2 (04:18→15:32)
[2019-09-18] MEDS: POTASSIUM CHLORIDE / WTR 10 MEQ/100 ML PLCT IV SCH ×4 (04:19→08:37)
[2019-09-18] MEDS: MAGNESIUM SULFATE / D5W 1 GM/100 ML BAG IV SCH ×2 (04:59→06:04)
[2019-09-18 05:19] LABS: SARS CoV2 RNA (COVID-19) Not Detected (Not Detected)
[2019-09-18] MEDS: DOXYCYCLINE HYCLATE 100 MG in DEXTROSE 5% 100 ML IV SCH ×2 (05:52→17:40)
[2019-09-18] MEDS: ENOXAPARIN INJ 40 MG/0.4 ML SYR SQ SCH (08:37)
[2019-09-18] MEDS: FAMOTIDINE 20 MG TAB PO SCH ×2 (10:07→20:52)
[2019-09-18] MEDS: FOLIC ACID 1 MG in SYRINGE 9.8 ML IV SCH (12:17)
--- NOTE | 2019-09-18 14:50 | Hospitalist Progress Note ---
Date of Service September 18, 2019 Assessment & Plan (1) Altered mental status: 59-year-old female with a past medical history including hyperlipidemia, anxiety with depression, alcohol abuse who presented to [facility] Altered Mental Status: - patient is still currently disoriented, worsened condition overnight with increased impulsiveness and need for 1:1 sitter; restarted on Precedex - with history of seizures and alcohol misuse either could have precipitated her current deterioration in mental status - additionally was sedated and intubated for >48 hours, potentially contributing to delirium - Lyme IgG positive, Anaplasmosis pending - COVID-19 negative x2 - following improvement in mentation will need to delineate alcohol usage with patient given conflicting history from spouse and sibling - continue Keppra 500mg BID - Critical Care consult: consideration for LP vs MRI for encephalopathy - Neurology consulted: low threshold to perform LP, concern for HSV encephalitis, MRI brain without, EEG if tolerated by patient Admission and Anticipated Discharge Date Admission Date: September 14, 2019 Supervising Physician Co-Signing Physician Notes I personally examined the patient and verified all hernandez points of history and exam, discussed case, and agree with decision making with Dr Encinas. d/w nursing extensively as well. no meanginful HPI or ROS obtainable. vitals noted gen awake sipping at water nad but groggy. heent nc at mmm. breathing unlabored no accessory muscles good effort no accessory muscles good effort acute respiratory failure/pneumonia - improving - continue abx. continue current care AMS - ?delirium, post ictal + ICU delirium, ?EtOH withdrawal. certainly EtOH abuse and withdrawal would tie together AMS, seizures, low K/Mag, elevated LFT/fatty liver/high MCV, but conflicting hx between friend who called [facility] and phone call w - therefore would not want to totally assume EtOH even though that would certainly make the whole clinical picture fit --> if not abusing EtOH then would want to pursue renal K/Mag wasting syndromes, etc. because it's not at all clear, and she's not improving -cast a wide net differentially --> ask neuro and nephro for assistance in ddx and w/u. otherwise as above Subjective Overnight had larger alterations to mental status, and had to be restarted on Precedex with addition of a 1:1 sitter for her impulsiveness. Review of Systems Review of Systems: Unobtainable due to cognitive status Physical Exam Constitutional: average body habitus; no acute distress Eyes: PERRL, conjunctivae normal, anicteric sclerae Neck: normal visual inspection Respiratory: normal respiratory effort; no respiratory distress, no labored breathing and no retractions Cardiovascular: Rate/Rhythm: regular rate and regular rhythm Heart Sounds: no gallop, no murmur and no cardiac rub Vessels: normal peripheral pulses; no JVD Gastrointestinal (Abdomen): normal bowel sounds, soft, nontender, no hepatosplenomegaly Musculoskeletal: Extremities: no joint enlargement, no muscle atrophy, no cyanosis and no clubbing Neurologic: deep tendon reflexes 2+ bilaterally, moves all extremities (spon taneously) and + confused; no focal motor deficits Psychiatric: Orientation: alert, oriented x 3 and cooperative Eye Contact: + poor eye contact Motor Behavior: no abnormal motor movements Thought Process: + incoherent thought process and + word salad Cognition: + recent memory not intact, + attention not intact and + language not intact Insight: + poor insight Judgement: + poor judgement Lymphatic: no cervical lymphadenopathy Results & Data Results & Data ([facility]) Vital Signs (Past 12 Hours) Vital Signs Temp Pulse Resp BP Pulse Ox 09/18/19 13:50 71 25 H 123/80 96 09/18/19 12:49 36.9 C 128 H 33 H 116/81 96 09/18/19 11:50 75 25 H 105/65 94 09/18/19 10:49 70 30 H 108/70 95 09/18/19 09:49 71 29 H 96/62 L 96 09/18/19 08:50 80 14 99/60 L 93 09/18/19 08:15 73 09/18/19 07:49 70 23 94/59 L 92 09/18/19 06:49 71 25 H 108/63 92 09/18/19 05:49 74 34 H 85/56 L 92 09/18/19 04:49 78 28 H 96/62 L 93 09/18/19 04:00 37.1 C 73 19 93 09/18/19 03:49 74 22 89/62 L 93 09/18/19 03:00 76 25 H 92 09/18/19 02:49 77 24 95/59 L 92 Laboratory Results 09/18/19 09/18/19 09/17/19 Range/Units 02:04 02:04 21:02 WBC 6.96 (4.8-10.8) K/uL RBC 3.25 L (4.2-5.4) M/uL Hgb 11.4 L (12.0-16.0) g/dL Hct 33.6 L (37-47) % MCV 103.4 H (80-100) fL MCH 35.1 H (25-34) pg MCHC 33.9 (32-36) g/dL RDW Std Deviation 49.3 H (36.4-46.3) fL RDW Coeff of Elif 13.1 (11.5-14.5) % Plt Count 176 (130-400) K/uL MPV 10.3 (7.4-10.4) fL Immature Gran % (Auto) 0.3 % Neut % (Auto) 55.8 % Lymph % (Auto) 19.0 % [place] % (Auto) 23.7 % Eos % (Auto) 0.9 % Baso % (Auto) 0.3 % Neut # (Auto) 3.89 (1.4-6.5) K/uL Lymph # (Auto) 1.32 (1.2-3.4) K/uL [place] # (Auto) 1.65 H (0.11-0.59) K/uL Eos # (Auto) 0.06 (0-0.5) K/uL Baso # (Auto) 0.02 (0-0.2) K/uL Immature Gran # (Auto) 0.02 (0.00-0.02) K/uL Peripher Smr Path Cons Sodium 137 (136-145) mmol/L Potassium 3.8 (3.5-5.1) mmol/L Chloride 105 (98-107) mmol/L Carbon Dioxide 23 (21-32) mmol/L Anion Gap 9.0 (3-11) BUN 3 L (7-18) mg/dl Creatinine 0.37 L (0.6-1.2) mg/dl Est Cr Clr Drug Dosing 151.0 ml/min Est GFR ( Amer) 137.5 Est GFR (Non-Af Amer) 118.6 BUN/Creatinine Ratio 8.6 L (10-20) Glucose 91 (70-99) mg/dl POC Glucose 88 (70-99) mg/dl Calcium 8.2 L (8.5-10.1) mg/dl Phosphorus 3.8 (2.5-4.9) mg/dl Magnesium 1.8 (1.8-2.4) mg/dl Total Bilirubin 1.3 H (0.2-1) mg/dl AST 117 H (15-37) U/L ALT 81 H (12-78) U/L Alkaline Phosphatase 271 H (45-117) U/L Ammonia (11-32) umol/L Troponin I 0.060 H* (0-0.045) ng/ml Total Protein 5.8 L (6.4-8.2) gm/dl Albumin 2.3 L (3.4-5.0) gm/dl Globulin 3.5 (2.5-4.0) gm/dl Albumin/Globulin Ratio 0.7 L (0.9-2) Specimen Hemolysis RPR (Nonreactive) Anaplasma Smear Lyme Disease IgG Ab (Negative) Lyme IgG (Western Blot) Lyme IgG 18 kDa Band Lyme IgG 23 kDa Band Lyme IgG 28 kDa Band Lyme IgG 30 kDa Band Lyme IgG 39 kDa Band Lyme IgG 41 kDa Band Lyme IgG 45 kDa Band Lyme IgG 58 kDa Band Lyme IgG 66 kDa Band Lyme IgG 93 kDa Band Lyme IgM Ab (WB) Lyme Disease IgM Ab (Negative) Lyme IgM 23 kDa Band Lyme IgM 39 kDa Band Lyme IgM 41 kDa Band SARS-CoV-2 RNA (RT-PCR) (Not Detected) 09/17/19 09/17/19 09/17/19 Range/Units 20:08 14:40 14:40 WBC (4.8-10.8) K/uL RBC (4.2-5.4) M/uL Hgb (12.0-16.0) g/dL Hct (37-47) % MCV (80-100) fL MCH (25-34) pg MCHC (32-36) g/dL RDW Std Deviation (36.4-46.3) fL RDW Coeff of Elif (11.5-14.5) % Plt Count (130-400) K/uL MPV (7.4-10.4) fL Immature Gran % (Auto) % Neut % (Auto) % Lymph % (Auto) % [place] % (Auto) % Eos % (Auto) % Baso % (Auto) % Neut # (Auto) (1.4-6.5) K/uL Lymph # (Auto) (1.2-3.4) K/uL [place] # (Auto) (0.11-0.59) K/uL Eos # (Auto) (0-0.5) K/uL Baso # (Auto) (0-0.2) K/uL Immature Gran # (Auto) (0.00-0.02) K/uL Peripher Smr Path Cons Sodium (136-145) mmol/L Potassium (3.5-5.1) mmol/L Chloride (98-107) mmol/L Carbon Dioxide (21-32) mmol/L Anion Gap (3-11) BUN (7-18) mg/dl Creatinine (0.6-1.2) mg/dl Est Cr Clr Drug Dosing ml/min Est GFR ( Amer) Est GFR (Non-Af Amer) BUN/Creatinine Ratio (10-20) Glucose (70-99) mg/dl POC Glucose (70-99) mg/dl Calcium (8.5-10.1) mg/dl Phosphorus (2.5-4.9) mg/dl Magnesium (1.8-2.4) mg/dl Total Bilirubin (0.2-1) mg/dl AST (15-37) U/L ALT (12-78) U/L Alkaline Phosphatase (45-117) U/L Ammonia < 10.0 L (11-32) umol/L Troponin I 0.053 H* (0-0.045) ng/ml Total Protein (6.4-8.2) gm/dl Albumin (3.4-5.0) gm/dl Globulin (2.5-4.0) gm/dl Albumin/Globulin Ratio (0.9-2) Specimen Hemolysis RPR (Nonreactive) Anaplasma Smear Lyme Disease IgG Ab (Negative) Lyme IgG (Western Blot) Pending Lyme IgG 18 kDa Band Pending Lyme IgG 23 kDa Band Pending Lyme IgG 28 kDa Band Pending Lyme IgG 30 kDa Band Pending Lyme IgG 39 kDa Band Pending Lyme IgG 41 kDa Band Pending Lyme IgG 45 kDa Band Pending Lyme IgG 58 kDa Band Pending Lyme IgG 66 kDa Band Pending Lyme IgG 93 kDa Band Pending Lyme IgM Ab (WB) Pending Lyme Disease IgM Ab (Negative) Lyme IgM 23 kDa Band Pending Lyme IgM 39 kDa Band Pending Lyme IgM 41 kDa Band Pending SARS-CoV-2 RNA (RT-PCR) (Not Detected) 09/17/19 09/17/19 09/17/19 Range/Units 14:40 14:40 14:40 WBC (4.8-10.8) K/uL RBC (4.2-5.4) M/uL Hgb (12.0-16.0) g/dL Hct (37-47) % MCV (80-100) fL MCH (25-34) pg MCHC (32-36) g/dL RDW Std Deviation (36.4-46.3) fL RDW Coeff of Elif (11.5-14.5) % Plt Count (130-400) K/uL MPV (7.4-10.4) fL Immature Gran % (Auto) % Neut % (Auto) % Lymph % (Auto) % [place] % (Auto) % Eos % (Auto) % Baso % (Auto) % Neut # (Auto) (1.4-6.5) K/uL Lymph # (Auto) (1.2-3.4) K/uL [place] # (Auto) (0.11-0.59) K/uL Eos # (Auto) (0-0.5) K/uL Baso # (Auto) (0-0.2) K/uL Immature Gran # (Auto) (0.00-0.02) K/uL Peripher Smr Path Cons Cancelled Sodium (136-145) mmol/L Potassium (3.5-5.1) mmol/L Chloride (98-107) mmol/L Carbon Dioxide (21-32) mmol/L Anion Gap (3-11) BUN (7-18) mg/dl Creatinine (0.6-1.2) mg/dl Est Cr Clr Drug Dosing ml/min Est GFR ( Amer) Est GFR (Non-Af Amer) BUN/Creatinine Ratio (10-20) Glucose (70-99) mg/dl POC Glucose (70-99) mg/dl Calcium (8.5-10.1) mg/dl Phosphorus (2.5-4.9) mg/dl Magnesium 2.1 (1.8-2.4) mg/dl Total Bilirubin (0.2-1) mg/dl AST (15-37) U/L ALT (12-78) U/L Alkaline Phosphatase (45-117) U/L Ammonia (11-32) umol/L Troponin I 0.043 (0-0.045) ng/ml Total Protein (6.4-8.2) gm/dl Albumin (3.4-5.0) gm/dl Globulin (2.5-4.0) gm/dl Albumin/Globulin Ratio (0.9-2) Specimen Hemolysis RPR Nonreactive (Nonreactive) Anaplasma Smear See Comment Lyme Disease IgG Ab Positive A (Negative) Lyme IgG (Western Blot) Lyme IgG 18 kDa Band Lyme IgG 23 kDa Band Lyme IgG 28 kDa Band Lyme IgG 30 kDa Band Lyme IgG 39 kDa Band Lyme IgG 41 kDa Band Lyme IgG 45 kDa Band Lyme IgG 58 kDa Band Lyme IgG 66 kDa Band Lyme IgG 93 kDa Band Lyme IgM Ab (WB) Lyme Disease IgM Ab Negative (Negative) Lyme IgM 23 kDa Band Lyme IgM 39 kDa Band Lyme IgM 41 kDa Band SARS-CoV-2 RNA (RT-PCR) (Not Detected) 09/14/19 Range/Units 13:30 WBC (4.8-10.8) K/uL RBC (4.2-5.4) M/uL Hgb (12.0-16.0) g/dL Hct (37-47) % MCV (80-100) fL MCH (25-34) pg MCHC (32-36) g/dL RDW Std Deviation (36.4-46.3) fL RDW Coeff of Elif (11.5-14.5) % Plt Count (130-400) K/uL MPV (7.4-10.4) fL Immature Gran % (Auto) % Neut % (Auto) % Lymph % (Auto) % [place] % (Auto) % Eos % (Auto) % Baso % (Auto) % Neut # (Auto) (1.4-6.5) K/uL Lymph # (Auto) (1.2-3.4) K/uL [place] # (Auto) (0.11-0.59) K/uL Eos # (Auto) (0-0.5) K/uL Baso # (Auto) (0-0.2) K/uL Immature Gran # (Auto) (0.00-0.02) K/uL Peripher Smr Path Cons Sodium (136-145) mmol/L Potassium (3.5-5.1) mmol/L Chloride (98-107) mmol/L Carbon Dioxide (21-32) mmol/L Anion Gap (3-11) BUN (7-18) mg/dl Creatinine (0.6-1.2) mg/dl Est Cr Clr Drug Dosing ml/min Est GFR ( Amer) Est GFR (Non-Af Amer) BUN/Creatinine Ratio (10-20) Glucose (70-99) mg/dl POC Glucose (70-99) mg/dl Calcium (8.5-10.1) mg/dl Phosphorus (2.5-4.9) mg/dl Magnesium (1.8-2.4) mg/dl Total Bilirubin (0.2-1) mg/dl AST (15-37) U/L ALT (12-78) U/L Alkaline Phosphatase (45-117) U/L Ammonia (11-32) umol/L Troponin I (0-0.045) ng/ml Total Protein (6.4-8.2) gm/dl Albumin (3.4-5.0) gm/dl Globulin (2.5-4.0) gm/dl Albumin/Globulin Ratio (0.9-2) Specimen Hemolysis RPR (Nonreactive) Anaplasma Smear Lyme Disease IgG Ab (Negative) Lyme IgG (Western Blot) Lyme IgG 18 kDa Band Lyme IgG 23 kDa Band Lyme IgG 28 kDa Band Lyme IgG 30 kDa Band Lyme IgG 39 kDa Band Lyme IgG 41 kDa Band Lyme IgG 45 kDa Band Lyme IgG 58 kDa Band Lyme IgG 66 kDa Band Lyme IgG 93 kDa Band Lyme IgM Ab (WB) Lyme Disease IgM Ab (Negative) Lyme IgM 23 kDa Band Lyme IgM 39 kDa Band Lyme IgM 41 kDa Band SARS-CoV-2 RNA (RT-PCR) Not Detected (Not Detected) Medications Administered Current Inpatient Medications Albuterol (Duoneb) 3 ml NEB Q4R PRN PRN Reason: Shortness Of Breath Or Wheezing Stop: 10/14/19 06:59 Enoxaparin Sodium (Lovenox) 40 mg SQ DAILY BRIANNA Stop: 10/14/19 08:59 Last Admin: 09/18/19 08:37 Dose: 40 mg Documented by: Famotidine (Pepcid) 20 mg PO BID BRIANNA Stop: 10/17/19 20:59 Last Admin: 09/18/19 10:07 Dose: Not Given Documented by: Levetiracetam 500 mg/ Sodium (Chloride) 105 mls @ 420 mls/hr IV Q12H [facility] Stop: 10/14/19 03:59 Last Infusion: 09/18/19 04:33 Dose: Infused Documented by: Thiamine HCl 250 mg/ Sodium (Chloride) 52.5 mls @ 210 mls/hr IV Q24H [facility] Stop: 09/21/19 21:14 Last Infusion: 09/17/19 20:55 Dose: Infused Documented by: Folic Acid 1 mg/ Syringe 10 mls @ 5 mls/min IV Q24H [facility] Stop: 10/15/19 11:59 Last Admin: 09/18/19 12:17 Dose: 5 mls/min Documented by: Parenteral Electrolytes (Normosol-R) 1,000 mls @ 80 mls/hr IV .[id number] [facility] Stop: 10/16/19 00:14 Last Admin: 09/17/19 23:57 Dose: 80 mls/hr Documented by: Lorazepam (Ativan) 1 mg in 2 mls @ 2 mls/min IV Q1H PRN; Protocol PRN Reason: Symptoms of alcohol withdrawal Stop: 10/16/19 19:44 Lorazepam (Ativan) 2 mg in 4 mls @ 4 mls/min IV Q1H PRN; Protocol PRN Reason: Symptoms of alcohol withdrawal Stop: 10/16/19 19:44 Last Admin: 09/17/19 18:09 Dose: 4 mls/min Documented by: Lorazepam (Ativan) 3 mg in 6 mls @ 6 mls/min IV Q1H PRN; Protocol PRN Reason: Symptoms of alcohol withdrawal Stop: 10/16/19 19:44 Last Admin: 09/16/19 19:43 Dose: 6 mls/min Documented by: Dexmedetomidine HCl 200 mcg/ (Sodium Chloride) 50 mls @ 8.538 mls/hr IV .[id number] [facility]; Protocol Stop: 09/21/19 20:29 Last Admin: 09/18/19 12:13 Dose: 0.5 mcg/kg/hr, 8.5 mls/hr Documented by: Doxycycline Hyclate 100 mg/ (Dextrose) 110 mls @ 50 mls/hr IV Q12H BRIANNA Stop: 10/09/19 05:59 Last Infusion: 09/18/19 09:40 Dose: Infused Documented by: Magnesium Oxide (Mag-Ox) 400 mg PO HS BRIANNA Stop: 10/16/19 20:59 Last Admin: 09/17/19 20:24 Dose: 400 mg Documented by: Miscellaneous (Icu Electrolyte Replacement Protocol) 1 ea N/A UD PRN PRN Reason: for e-lyte repletion Stop: 09/24/19 05:35 Resident Activity Tracking Resident Involvement: Resident Care Provided Care Provided: Adult Hospital Medicine
[2019-09-18] MEDS: NORMOSOL-R 1,000 ML IV SCH ×2 (15:32→20:53)
--- NOTE | 2019-09-18 15:32 | Critical Care Progress Note ---
Date of Service September 18, 2019 Assessment & Plan (1) Altered mental status: (1) Encephalopathy acute: Reason Critically Ill: Acute encephalopathy with possible seizure per EMS requiring intubation by EMS PLAN: Neuro: Acute encephalopathy -Alcohol withdraw scoring Probable acute delirium tremens -Symptom triggered dosing -1 dose phenobarbital today -Keppra 500 twice daily -If no improvement and no findings on additional lab work will entertain MRI -We will also entertain lumbar puncture rule out encephalitis -Neurology consultation Resp: Acute respiratory failure: Resolved -Minimal ventilatory settings -COVID testing remains negative CV: Prolonged QT on EKG -Holding Paxil and other QT prolonging medications -Discussed with cardiology obtaining repeat troponins which were downtrending and echocardiogram Discussed with cardiology, wall motion abnormality and Q waves on EKG could represent prior infarct, no indication for urgent/emergent cardiac cath Fluids/Renal: Decrease Normosol to 80 mL's per hour ID: Negative COVID testing No growth on urine culture -Blood cultures negative Lyme IgG positive -Empiric treatment with doxycycline GI/Nutrition: Start tube feeds and progress as tolerated -Triglycerides in a.m. Transaminitis -Liver ultrasound reviewed -Hepato-steatosis -Hepatitis C negative -Ammonia level and Lyme with anaplasmosis pending Heme: Macrocytic anemia -Thiamine and folic acid -This certainly could be seen in chronic alcohol consumption Thrombocytopenia: -Resolved DVT prophylaxis: Lovenox Endocrine: ICU hyperglycemia protocol Vascular access: Peripheral IVs Code Status: Full code Disposition: (2) Admitted to intensive care unit: Admission and Anticipated Discharge Date Admission Date: September 14, 2019 Subjective Restarted Precedex secondary to increasing agitation Review of Systems Review of Systems: Unobtainable due to cognitive status Physical Exam Physical Exam: General: Alert. Disoriented/inappropriate answers to questions. Skin: Warm, dry, Head: Atraumatic, no nuchal rigidity negative Burzynski sign negative Kernig's Ears, nose, mouth and throat: airway patent Cardiovascular: Normal peripheral perfusion Respiratory: no respiratory distress Gastrointestinal: Non distended Musculoskeletal: No deformity Results & Data Results & Data ([facility]) Vital Signs (Past 12 Hours) Vital Signs Temp Pulse Resp BP Pulse Ox 09/18/19 13:50 71 25 H 123/80 96 09/18/19 12:49 36.9 C 128 H 33 H 116/81 96 09/18/19 11:50 75 25 H 105/65 94 09/18/19 10:49 70 30 H 108/70 95 09/18/19 09:49 71 29 H 96/62 L 96 09/18/19 08:50 80 14 99/60 L 93 09/18/19 08:15 73 09/18/19 07:49 70 23 94/59 L 92 09/18/19 06:49 71 25 H 108/63 92 09/18/19 05:49 74 34 H 85/56 L 92 09/18/19 04:49 78 28 H 96/62 L 93 09/18/19 04:00 37.1 C 73 19 93 09/18/19 03:49 74 22 89/62 L 93 Laboratory Results 09/18/19 09/18/19 09/17/19 Range/Units 02:04 02:04 21:02 WBC 6.96 (4.8-10.8) K/uL RBC 3.25 L (4.2-5.4) M/uL Hgb 11.4 L (12.0-16.0) g/dL Hct 33.6 L (37-47) % MCV 103.4 H (80-100) fL MCH 35.1 H (25-34) pg MCHC 33.9 (32-36) g/dL RDW Std Deviation 49.3 H (36.4-46.3) fL RDW Coeff of Elif 13.1 (11.5-14.5) % Plt Count 176 (130-400) K/uL MPV 10.3 (7.4-10.4) fL Immature Gran % (Auto) 0.3 % Neut % (Auto) 55.8 % Lymph % (Auto) 19.0 % [place] % (Auto) 23.7 % Eos % (Auto) 0.9 % Baso % (Auto) 0.3 % Neut # (Auto) 3.89 (1.4-6.5) K/uL Lymph # (Auto) 1.32 (1.2-3.4) K/uL [place] # (Auto) 1.65 H (0.11-0.59) K/uL Eos # (Auto) 0.06 (0-0.5) K/uL Baso # (Auto) 0.02 (0-0.2) K/uL Immature Gran # (Auto) 0.02 (0.00-0.02) K/uL Sodium 137 (136-145) mmol/L Potassium 3.8 (3.5-5.1) mmol/L Chloride 105 (98-107) mmol/L Carbon Dioxide 23 (21-32) mmol/L Anion Gap 9.0 (3-11) BUN 3 L (7-18) mg/dl Creatinine 0.37 L (0.6-1.2) mg/dl Est Cr Clr Drug Dosing 151.0 ml/min Est GFR ( Amer) 137.5 Est GFR (Non-Af Amer) 118.6 BUN/Creatinine Ratio 8.6 L (10-20) Glucose 91 (70-99) mg/dl POC Glucose 88 (70-99) mg/dl Calcium 8.2 L (8.5-10.1) mg/dl Phosphorus 3.8 (2.5-4.9) mg/dl Magnesium 1.8 (1.8-2.4) mg/dl Total Bilirubin 1.3 H (0.2-1) mg/dl AST 117 H (15-37) U/L ALT 81 H (12-78) U/L Alkaline Phosphatase 271 H (45-117) U/L Troponin I 0.060 H* (0-0.045) ng/ml Total Protein 5.8 L (6.4-8.2) gm/dl Albumin 2.3 L (3.4-5.0) gm/dl Globulin 3.5 (2.5-4.0) gm/dl Albumin/Globulin Ratio 0.7 L (0.9-2) RPR (Nonreactive) Lyme Disease IgG Ab (Negative) Lyme IgG (Western Blot) Lyme IgG 18 kDa Band Lyme IgG 23 kDa Band Lyme IgG 28 kDa Band Lyme IgG 30 kDa Band Lyme IgG 39 kDa Band Lyme IgG 41 kDa Band Lyme IgG 45 kDa Band Lyme IgG 58 kDa Band Lyme IgG 66 kDa Band Lyme IgG 93 kDa Band Lyme IgM Ab (WB) Lyme Disease IgM Ab (Negative) Lyme IgM 23 kDa Band Lyme IgM 39 kDa Band Lyme IgM 41 kDa Band SARS-CoV-2 RNA (RT-PCR) (Not Detected) 09/17/19 09/17/19 09/17/19 Range/Units 20:08 14:40 14:40 WBC (4.8-10.8) K/uL RBC (4.2-5.4) M/uL Hgb (12.0-16.0) g/dL Hct (37-47) % MCV (80-100) fL MCH (25-34) pg MCHC (32-36) g/dL RDW Std Deviation (36.4-46.3) fL RDW Coeff of Elif (11.5-14.5) % Plt Count (130-400) K/uL MPV (7.4-10.4) fL Immature Gran % (Auto) % Neut % (Auto) % Lymph % (Auto) % [place] % (Auto) % Eos % (Auto) % Baso % (Auto) % Neut # (Auto) (1.4-6.5) K/uL Lymph # (Auto) (1.2-3.4) K/uL [place] # (Auto) (0.11-0.59) K/uL Eos # (Auto) (0-0.5) K/uL Baso # (Auto) (0-0.2) K/uL Immature Gran # (Auto) (0.00-0.02) K/uL Sodium (136-145) mmol/L Potassium (3.5-5.1) mmol/L Chloride (98-107) mmol/L Carbon Dioxide (21-32) mmol/L Anion Gap (3-11) BUN (7-18) mg/dl Creatinine (0.6-1.2) mg/dl Est Cr Clr Drug Dosing ml/min Est GFR ( Amer) Est GFR (Non-Af Amer) BUN/Creatinine Ratio (10-20) Glucose (70-99) mg/dl POC Glucose (70-99) mg/dl Calcium (8.5-10.1) mg/dl Phosphorus (2.5-4.9) mg/dl Magnesium (1.8-2.4) mg/dl Total Bilirubin (0.2-1) mg/dl AST (15-37) U/L ALT (12-78) U/L Alkaline Phosphatase (45-117) U/L Troponin I 0.053 H* (0-0.045) ng/ml Total Protein (6.4-8.2) gm/dl Albumin (3.4-5.0) gm/dl Globulin (2.5-4.0) gm/dl Albumin/Globulin Ratio (0.9-2) RPR Nonreactive (Nonreactive) Lyme Disease IgG Ab Positive A (Negative) Lyme IgG (Western Blot) Pending Lyme IgG 18 kDa Band Pending Lyme IgG 23 kDa Band Pending Lyme IgG 28 kDa Band Pending Lyme IgG 30 kDa Band Pending Lyme IgG 39 kDa Band Pending Lyme IgG 41 kDa Band Pending Lyme IgG 45 kDa Band Pending Lyme IgG 58 kDa Band Pending Lyme IgG 66 kDa Band Pending Lyme IgG 93 kDa Band Pending Lyme IgM Ab (WB) Pending Lyme Disease IgM Ab Negative (Negative) Lyme IgM 23 kDa Band Pending Lyme IgM 39 kDa Band Pending Lyme IgM 41 kDa Band Pending SARS-CoV-2 RNA (RT-PCR) (Not Detected) 09/14/19 Range/Units 13:30 WBC (4.8-10.8) K/uL RBC (4.2-5.4) M/uL Hgb (12.0-16.0) g/dL Hct (37-47) % MCV (80-100) fL MCH (25-34) pg MCHC (32-36) g/dL RDW Std Deviation (36.4-46.3) fL RDW Coeff of Elif (11.5-14.5) % Plt Count (130-400) K/uL MPV (7.4-10.4) fL Immature Gran % (Auto) % Neut % (Auto) % Lymph % (Auto) % [place] % (Auto) % Eos % (Auto) % Baso % (Auto) % Neut # (Auto) (1.4-6.5) K/uL Lymph # (Auto) (1.2-3.4) K/uL [place] # (Auto) (0.11-0.59) K/uL Eos # (Auto) (0-0.5) K/uL Baso # (Auto) (0-0.2) K/uL Immature Gran # (Auto) (0.00-0.02) K/uL Sodium (136-145) mmol/L Potassium (3.5-5.1) mmol/L Chloride (98-107) mmol/L Carbon Dioxide (21-32) mmol/L Anion Gap (3-11) BUN (7-18) mg/dl Creatinine (0.6-1.2) mg/dl Est Cr Clr Drug Dosing ml/min Est GFR ( Amer) Est GFR (Non-Af Amer) BUN/Creatinine Ratio (10-20) Glucose (70-99) mg/dl POC Glucose (70-99) mg/dl Calcium (8.5-10.1) mg/dl Phosphorus (2.5-4.9) mg/dl Magnesium (1.8-2.4) mg/dl Total Bilirubin (0.2-1) mg/dl AST (15-37) U/L ALT (12-78) U/L Alkaline Phosphatase (45-117) U/L Troponin I (0-0.045) ng/ml Total Protein (6.4-8.2) gm/dl Albumin (3.4-5.0) gm/dl Globulin (2.5-4.0) gm/dl Albumin/Globulin Ratio (0.9-2) RPR (Nonreactive) Lyme Disease IgG Ab (Negative) Lyme IgG (Western Blot) Lyme IgG 18 kDa Band Lyme IgG 23 kDa Band Lyme IgG 28 kDa Band Lyme IgG 30 kDa Band Lyme IgG 39 kDa Band Lyme IgG 41 kDa Band Lyme IgG 45 kDa Band Lyme IgG 58 kDa Band Lyme IgG 66 kDa Band Lyme IgG 93 kDa Band Lyme IgM Ab (WB) Lyme Disease IgM Ab (Negative) Lyme IgM 23 kDa Band Lyme IgM 39 kDa Band Lyme IgM 41 kDa Band SARS-CoV-2 RNA (RT-PCR) Not Detected (Not Detected) Coding Level of Care Code 14050 Subseq Hosp Care Lvl 3 Diagnoses Altered mental status R41.0 Altered mental status type: disorientation Admitted to intensive care unit Z78.9 (1) Altered mental status Altered mental status type: disorientation Qualified Code(s): R41.0 - Disorientation, unspecified
--- NOTE | 2019-09-18 15:55 | Neurology Consultation ---
Date of Consultation September 18, 2019 Assessment & Plan (1) Altered mental status: Lety Avelar is a 59 yo woman w/ PMH of possible alcohol abuse, hypertension, hyperlipidemia and depression who initially presented to an outside hospital after having a possible seizure on 09/13/2019. # AMS: initially there was concern that this could be alcohol withdrawal with seizure and hallucinations, however usually this subsides within 4 days of last drink which has definitely been more than 4 days ago at this point. Would rule out mimics to make sure that we are not missing something else that is causing ongoing AMS. 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 -Check B12 -Continue thiamine/folate supplementation -Would recommend MRI brain without contrast to rule out new stroke or signs of HSV encephalitis -Low threshold to perform LP to rule out HSV or other encephalitis given new onset seizure associated with hallucinations and confusion -Would obtain routine EEG if she will tolerate it -Delirium precautions, lights on during the day and out of bed, lights off at night, frequent reorientation. Avoid further opiates and benzos as able to; Precedex or prn haldol ok - would consider transitioning to vimpat 50mg bid from keppra as keppra can cause mood issues/irritability Thank you for this interesting consult. Plan of care discussed with primary team. Please call or text with questions. (2) Seizure-like activity: (3) ETOH abuse: History of Present Illness Attending Physician: German Montalvo DO History of Present Illness Lety Avelar is a 59 yo woman w/ PMH of possible alcohol abuse, hypertension, hyperlipidemia and depression who initially presented to an outside hospital after having a possible seizure on 09/13/2019. Neurology consulted for ongoing AMS. Per review of outside records, she is in [facility] who lives here locally while on vacation. About 3 weeks ago, she had a fever and cough, was tested recovered and was negative. Has had ongoing cough since then. She was about to get into the shower on the day of presentation when she had a "weird sensation" that included nausea, lightheadedness as if she were going to pass out, followed by laying herself down on the ground. She remembers waking up in the ambulance and EMS noted that she had had convulsive movements in the ambulance with foaming at the mouth. She received 2 mg of Ativan with no further seizure activity noted. She is found to have lymphopenia, elevated d- dimer, tachycardia with heart rate in the 130s, hypokalemia 2.8, lactate 4.1 down to 1.4 and repeat, AST ALT greater than 2-1 ratio, mildly elevated troponin 0 0.48 with repeat 3.15. Tele-neurology with Dr. can a here recommended starting Keppra 500 mg twice daily, as well as aspirin and heparin drip. She was initially admitted to the hospital but then transferred to [facility] after acute episode of agitation that included ripping out her IVs and kicking staff. Prior to transfer, a friend who had been with patient reported that patient was a heavy alcohol drinker despite the fact the says she is only a social drinker. She was intubated in route due to agitation. On arrival here, she was started on vanc/Zosyn/azithromycin for bibasilar atelectasis/possible COVID. She was initially sedated on propofol and Versed drip before being transitioned to phenobarbital wean. She was extubated on 09/16/19 and had been doing well on room air until yesterday afternoon when she became acutely agitated and required being put on Precedex (continues on room air). 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 Initial labs showed AST to A LT greater than 2-1 ratio, troponin most recently 0.06, ammonia less than 10, ferritin elevated 451.2, calcium is been mildly low at 8.18.2, anaplasmosis negative, Lyme IgG positive but IgM negative, HCV negative, TSH within normal, folate 21.69, mag mildly low at 1.6-1.8, anemia with hemoglobin 11.4, MCV 103.4, creatinine 0.37. Echo showed EF 50 to 55% with moderate akinesis of the mid and distal anterior wall and anterior septum. Blood and urine cultures have been no growth to date. She has been continued on Keppra 500 mg twice daily and received thiamine/folic acid replacement. Reported last drink was several days prior to initial admission 09/13/2019. On examination today, she would open her eyes to voice and intermittently follow commands. She knew who she was but did not know where she was or what the date was. She is able to move all extremities antigravity and spontaneously. She does not appear to be hallucinating at the time of examination, however nursing did inform me that she has had intermittent hallucinations during her stay. 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 HEENT: No conjunctival injection, no rhinorrhea. CV: RRR, no peripheral edema PULM: Nonlabored respirations on room air. Neuro Exam: MS: Drowsy but easily arousable. Oriented to self only. Speech fluent and appropriate though sparse. Mild dysarthria, no paraphasic errors. Inattentive. Possible left-sided neglect. Unable to fully assess language and cognition given mental status. CN: Question right inferior temporal visual field cut. Left eye ptosis with disconjugate gaze noted. Unable to visualize fundi on fundoscopic exam due to patient's lack of cooperation. PERRLA OU. Facial sensation intact to LT. Facial muscles full and symmetric. Hearing intact to conversation. Would not stick out tongue or open mouth. Normal shoulder shrug. MOTOR: Normal bulk and tone. All extremities antigravity without drift REFLEXES: Deferred given increasing patient agitation SENSORY: Intact to LT without extinction to double simultaneous stimuli. COORDINATION: No dysmetria or ataxia on observed movements GAIT: Deferred given physical status Results & Data ([facility]) Vital Signs (Past 12 Hours) Vital Signs Temp Pulse Resp BP Pulse Ox 09/18/19 13:50 71 25 H 123/80 96 09/18/19 12:49 36.9 C 128 H 33 H 116/81 96 09/18/19 11:50 75 25 H 105/65 94 09/18/19 10:49 70 30 H 108/70 95 09/18/19 09:49 71 29 H 96/62 L 96 09/18/19 08:50 80 14 99/60 L 93 09/18/19 08:15 73 09/18/19 07:49 70 23 94/59 L 92 09/18/19 06:49 71 25 H 108/63 92 09/18/19 05:49 74 34 H 85/56 L 92 09/18/19 04:49 78 28 H 96/62 L 93 09/18/19 04:00 37.1 C 73 19 93 09/18/19 03:49 74 22 89/62 L 93 PG Care Time/CCT Total # of Minutes Spent Total Time Spent with Patient: Total time spent is greater than 50% in coordination of care (as documented) at patient's floor/unit and/or counseling patient: Coding Level of Care Code 71408 Inpt Consult Level 5 Diagnoses Altered mental status R41.0 Altered mental status type: disorientation Seizure-like activity R56.9 ETOH abuse F10.10 (1) Altered mental status Altered mental status type: disorientation Qualified Code(s): R41.0 - Disorientation, unspecified
--- NOTE | 2019-09-18 16:17 | Billing Data ---
Date of Service September 18, 2019 Coding Level of Care Code 44390 Subseq Hosp Care Lvl 3
[2019-09-18] MEDS: THIAMINE HCL 250 MG in SODIUM CHLORIDE 0.9% 50 ML IV SCH (20:52)
[2019-09-18] MEDS: MAGNESIUM OXIDE 400 MG TAB PO SCH (20:52)
[2019-09-19] MEDS: DEXMEDETOMIDINE HCL 200 MCG in SODIUM CHLORIDE 0.9% 48 ML IV SCH (01:08)
[2019-09-19] MEDS: DEXMEDETOMIDINE HCL 400 MCG in 0.9 % SODIUM CHLORIDE 96 ML IV SCH ×3 (01:40→11:06)
[2019-09-19] MEDS: levETIRAcetam 500 MG in 0.9 % SODIUM CHLORIDE 100 ML IV SCH (03:35)
[2019-09-19] MEDS: NORMOSOL-R 1,000 ML IV SCH ×2 (03:54→19:37)
[2019-09-19 05:08] LABS: Basophils # (auto) 0.03 K/uL (0-0.2); Basophils % (auto) 0.4 %; Eosinophils % (auto) 1.2 %; Hematocrit (blood only) 32.9 % (37-47); Hemoglobin 11.1 g/dL (12.0-16.0); Immature Granulocytes # (auto) 0.04 K/uL (0.00-0.02); Immature Granulocytes % (auto) 0.5 %; Lymphocytes # (auto) 1.36 K/uL (1.2-3.4); Lymphocytes % (auto) 16.6 %; Mean Corpuscular Hemoglobin 35.1 pg (25-34); Mean Corpuscular Hgb Conc 33.7 g/dL (32-36); Mean Corpuscular Volume 104.1 fL (80-100); Monocytes # (auto) 2.16 K/uL (0.11-0.59); Monocytes % (auto) 26.4 %; Neutrophils # (auto) 4.49 K/uL (1.4-6.5); Neutrophils % (auto) 54.9 %; Platelet Count 210 K/uL (130-400); RDW Coefficient of Variation 12.9 % (11.5-14.5); RDW Standard Deviation 49.4 fL (36.4-46.3); Red Blood Count 3.16 M/uL (4.2-5.4); White Blood Count 8.18 K/uL (4.8-10.8)
[2019-09-19 05:17] LABS: INR 1.1 (0.9-1.1); Prothrombin Time 11.5 Seconds (9.0-12.0)
[2019-09-19 05:31] LABS: Albumin Level 2.5 gm/dl (3.4-5.0); BUN Creatinine Ratio 13.6 (10-20); Calcium 8.5 mg/dl (8.5-10.1); Creatinine Clr Calc Pharmacy 155.8 ml/min; Est GFR (African American) 135.1; Est GFR (Non-African American) 116.6; Magnesium 1.7 mg/dl (1.8-2.4)
[2019-09-19 05:34] LABS: Albumin Globulin Ratio 0.7 (0.9-2); Bilirubin,Total 1.2 mg/dl (0.2-1); Globulin 3.6 gm/dl (2.5-4.0); Phosphorus 3.6 mg/dl (2.5-4.9); Total Protein 6.1 gm/dl (6.4-8.2)
[2019-09-19] MEDS: DOXYCYCLINE HYCLATE 100 MG in DEXTROSE 5% 100 ML IV SCH ×2 (05:51→17:25)
[2019-09-19] MEDS ORDERED: MAGNESIUM SULFATE / D5W 1 GM/100 ML BAG IV ONE ×2 (06:40→13:45)
[2019-09-19] MEDS ORDERED: fentaNYL citrate 100 MCG/2 ML VIAL ONE (08:02)
[2019-09-19] MEDS ORDERED: fentaNYL citrate 100 MCG/2 ML VIAL IV STA (08:06)
[2019-09-19] MEDS ORDERED: STAT IV Infusion **Titration per Protocol STA ×4 (08:13→18:57)
[2019-09-19] MEDS ORDERED: SUCCINYLCHOLINE CHLORIDE 20 MG/ML 10 ML VIAL IV STA (08:13)
[2019-09-19] MEDS ORDERED: PROPOFOL IV EMULSION 10 MG/ML 100 ML VIAL IV ONE (08:13)
[2019-09-19] MEDS ORDERED: fentaNYL citrate 100 MCG/2 ML VIAL IV PRN (08:13)
[2019-09-19] MEDS ORDERED: ETOMIDATE 2 MG/ML 20 ML VIAL IV ONE ×2 (08:13→14:44)
[2019-09-19] MEDS ORDERED: RAPID SEQUENCE INDUCTION BAG ONE (08:14)
--- NOTE | 2019-09-19 08:36 | Neurology Progress Note ---
Date of Service September 19, 2019 Assessment & Plan (1) Altered mental status: Lety Avelar is a 59 yo woman w/ PMH of possible alcohol abuse, hypertension, hyperlipidemia and depression who initially presented to an outside hospital after having a possible seizure on 09/13/2019. # AMS: initially there was concern that this could be alcohol withdrawal with seizure and hallucinations, however usually this subsides within 4 days of last drink (has definitely been more than 4 days ago at this point). Would rule out mimics to make sure that we are not missing something else that is causing ongoing AMS. 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 -Check B12 -Continue thiamine/folate supplementation -Would recommend MRI brain without contrast to rule out new stroke or signs of HSV encephalitis -Low threshold to perform LP to rule out HSV or other encephalitis given new onset seizure associated with hallucinations and confusion. Would send for cell counts, glucose, protein, CSF biofire panel, crypto, CSF Lyme -Would obtain routine EEG if she will tolerate it -Delirium precautions, lights on during the day and out of bed, lights off at night, frequent reorientation. Avoid further opiates and benzos as able to; Precedex or prn haldol ok - would consider transitioning to vimpat 50mg bid as keppra can cause mood issues/irritability Thank you for this interesting consult. Plan of care discussed with primary t eam. Please call or text with questions. (2) Seizure-like activity: (3) ETOH abuse: Admission and Anticipated Discharge Date Admission Date: September 14, 2019 Subjective NAEs overnight. Agitated this morning, received fentanyl immediately prior to examination. Review of Systems Review of Systems: Unobtainable due to cognitive status and Unobtainable due to reduced consciousness Results & Data ([facility]) Vital Signs (Past 12 Hours) Vital Signs Temp Pulse Resp BP Pulse Ox 09/19/19 06:00 82 26 H 09/19/19 05:50 84 28 H 140/97 09/19/19 05:00 85 32 H 92 09/19/19 04:50 82 29 H 120/72 89 L 09/19/19 04:39 37.1 C 09/19/19 04:00 83 33 H 92 09/19/19 03:51 81 36 H 124/77 92 09/19/19 03:14 91 H 39 H 134/80 09/19/19 03:00 85 33 H 09/19/19 02:00 84 36 H 95 09/19/19 01:51 94 H 23 153/74 H 94 09/19/19 01:00 96 H 29 H 96 09/19/19 00:50 85 25 H 135/79 95 09/19/19 00:35 37.0 C 09/19/19 00:00 97 H 29 H 09/18/19 23:50 85 33 H 129/83 09/18/19 23:00 80 25 H 93 09/18/19 22:50 93 H 25 H 114/67 93 09/18/19 22:29 91 H 21 131/94 93 09/18/19 22:00 95 H 18 90 09/18/19 21:51 89 22 95 09/18/19 21:50 87 29 H 131/94 95 09/18/19 21:00 87 24 97 09/18/19 20:50 80 32 H 121/83 95 Exam (Neuro) Physical Exam: General Exam: GEN: NAD, resting in bed. HEENT: No conjunctival injection, no rhinorrhea. CV: RRR, no peripheral edema PULM: Nonlabored respirations on room air. Neuro Exam: MS: Drowsy but easily arousable. Oriented to self only. Speech fluent and appropriate though sparse. Mild dysarthria, no paraphasic errors. Inattentive. Possible left-sided neglect. Unable to fully assess language and cognition given mental status. CN: Question right inferior temporal visual field cut. Left eye ptosis with disconjugate gaze noted. Unable to visualize fundi on fundoscopic exam due to patient's lack of cooperation. PERRLA OU. Facial sensation intact to LT. Facial muscles full and symmetric. Hearing intact to conversation. Would not stick out tongue or open mouth. Normal shoulder shrug. MOTOR: Normal bulk and tone. All extremities antigravity without drift REFLEXES: Deferred given increasing patient agitation SENSORY: Intact to LT without extinction to double simultaneous stimuli. COORDINATION: No dysmetria or ataxia on observed movements GAIT: Deferred given physical status PG Care Time/CCT Total # of Minutes Spent Total Time Spent with Patient: Total time spent is greater than 50% in coordination of care (as documented) at patient's floor/unit and/or counseling patient: Coding Level of Care Code 00199 Subseq Hosp Care Lvl 3 Diagnoses Altered mental status R41.0 Altered mental status type: disorientation Seizure-like activity R56.9 ETOH abuse F10.10 (1) Altered mental status Altered mental status type: disorientation Qualified Code(s): R41.0 - Disorientation, unspecified
--- NOTE | 2019-09-19 08:42 | XRay Report ---
XR chest 1V portable CLINICAL HISTORY: Respiratory failure COMPARISON STUDY: 09/15/2019 FINDINGS: The endotracheal tube is 34 mm above the carlos enrique. There is a nasogastric tube within the sto mach. Cardiac and mediastinal contours remain stable. Since the prior study, the patient developed bi lateral asymmetric airspace opacities left greater than right. There is an increasing right pleural e ffusion.[ IMPRESSION: 1. Asymmetric pulmonary edema pattern. 2. Increasing right pleural effusion ACT 112: Negative or not required by law. Electronically signed by: Mohsen Campbell M.D. 09/19/2019 8:41 AM
[2019-09-19] MEDS: ENOXAPARIN INJ 40 MG/0.4 ML SYR SQ SCH (08:54)
--- NOTE | 2019-09-19 08:57 | Critical Care Progress Note ---
Date of Service September 19, 2019 Assessment & Plan (1) Altered mental status: (1) Encephalopathy acute: Reason Critically Ill: Acute encephalopathy with possible seizure per EMS requiring intubation by EMS PLAN: Neuro: Acute encephalopathy -Alcohol withdraw scoring Possible acute delirium tremens -Keppra 500 twice daily: Converting to Vimpat twice daily per neurology -Obtaining MRI -We will attempt to get LP consent from -Empiric acyclovir -Discussed with pharmacy will use 600 mg based off ideal body weight. Every 8 hours Resp: Acute respiratory failure: Resolved -Intubation to facilitate work-up CV: Prolonged QT on EKG -Holding Paxil and other QT prolonging medications -Discussed with cardiology obtaining repeat troponins which were downtrending and echocardiogram Discussed with cardiology, wall motion abnormality and Q waves on EKG could represent prior infarct, no indication for urgent/emergent cardiac cath Fluids/Renal: Decrease Normosol to 80 mL's per hour ID: Negative COVID testing No growth on urine culture -Blood cultures negative Lyme IgG positive -Empiric treatment with doxycycline GI/Nutrition: Start tube feeds and progress as tolerated Transaminitis: Slowly improving -Liver ultrasound reviewed -Hepato-steatosis -Hepatitis C negative -Ammonia level negative -Lyme IgG positive IgM negative -anaplasmosis not seen on slide DNA probe pending Heme: Macrocytic anemia -Thiamine and folic acid -This certainly could be seen in chronic alcohol consumption Thrombocytopenia: -Resolved DVT prophylaxis: Lovenox Endocrine: ICU hyperglycemia protocol Vascular access: Peripheral IVs Code Status: Full code Disposition: ICU (2) Admitted to intensive care unit: Reason Critically Ill: 59-year-old female presenting as outside hospital [facility] for acute encephalopathy, suspected DTs from alcohol withdrawal, history of seizure 6 months ago not on any medication, hypoxic respiratory failure requiring, mechanically ventilated, COVID-19 rule out Neuro - Acute encephalopathy/alcohol withdrawal -Continue current sedation regimen Cardiac - Elevated troponin/NSTEMI/SVTpatient initially presented with SVT with HR 150s, converted to sinus rhythm with 10 mg IV metoprolol -Troponin 0.6 on admission, likely demand ischemia from SVT. Trending -Continue to monitor on telemetry -Continue ASA/statin when appropriate Respiratory - Acute hypoxic respiratory failure -She does not appear to have a hypoxic component at this time, and review of the CT I am less concerned of COVID GI - Elevated LFTsmild elevation of LFTs and bilirubin -Liver ultrasound pending will obtain when COVID results are finalized RENAL/LYTES - Creatinine within normal limits - Foleystrict I's and O's ENDO - TSH within normal limits No history of diabetes ICU hyperglycemic protocol HEME - H&H stable, monitor ID - Sepsispatient afebrile, WBC within normal limits, procalcitonin unremarkable -LDH elevated with lymphocytopenia and elevated ferritin, continue with precautions for the time being -Possible urosepsis as patient was being treated for UTI at other hospital, UA pending -Blood cultures pending, MRSA negative LINES/IV ACCESS - PIV's, ETT DVT PROPHYLAXIS - SCDs, Lovenox Admission and Anticipated Discharge Date Admission Date: September 14, 2019 Supervising Physician Co-Signing Physician Notes Update: Traumatic tap, no xanthochromia, elevated white blood cell count at 11 but with 14,000 WBCs which is a ratio that is acceptable for traumatic tap. Bio fire meningeal panel pending Lyme serology also pending for CSF. Subjective Increased agitation and confusion overnight requiring increase in Precedex and as well as one-to-one sitter. Review of Systems Review of Systems: Unobtainable due to cognitive status Physical Exam Physical Exam: General: Alert. Disoriented/inappropriate answers to questions. Skin: Warm, dry, Head: Atraumatic, no nuchal rigidity negative Burzynski sign negative Kernig's Ears, nose, mouth and throat: airway patent Cardiovascular: Normal peripheral perfusion Respiratory: no respiratory distress Gastrointestinal: Non distended Musculoskeletal: No deformity Results & Data Results & Data ([facility]) Vital Signs (Past 12 Hours) Vital Signs Temp Pulse Resp BP Pulse Ox 09/19/19 06:00 82 26 H 09/19/19 05:50 84 28 H 140/97 09/19/19 05:00 85 32 H 92 09/19/19 04:50 82 29 H 120/72 89 L 09/19/19 04:39 37.1 C 09/19/19 04:00 83 33 H 92 09/19/19 03:51 81 36 H 124/77 92 09/19/19 03:14 91 H 39 H 134/80 09/19/19 03:00 85 33 H 09/19/19 02:00 84 36 H 95 09/19/19 01:51 94 H 23 153/74 H 94 09/19/19 01:00 96 H 29 H 96 09/19/19 00:50 85 25 H 135/79 95 09/19/19 00:35 37.0 C 09/19/19 00:00 97 H 29 H 09/18/19 23:50 85 33 H 129/83 09/18/19 23:00 80 25 H 93 09/18/19 22:50 93 H 25 H 114/67 93 09/18/19 22:29 91 H 21 131/94 93 09/18/19 22:00 95 H 18 90 09/18/19 21:51 89 22 95 09/18/19 21:50 87 29 H 131/94 95 09/18/19 21:00 87 24 97 Coding Level of Care Code Critical Care 1st 30-74 mins Diagnoses Altered mental status R41.0 Altered mental status type: disorientation Admitted to intensive care unit Z78.9 Time Spent (min) 85 Comment I have personally spent 85 minutes of critical care time in the direct management of this patient. This is a life/limb threatening event. This includes time spent evaluating patient, direct bedside care, chart review, placing orders, interpretation of diagnostic studies, discussion with consultants, patient, and/or family members regarding treatment decisions, as well as other required patient management activities. This time is exclusive of all separately billable procedures, and teaching time and separate from and in addition to any other critical care service time. (1) Altered mental status Altered mental status type: disorientation Qualified Code(s): R41.0 - Disorientation, unspecified
[2019-09-19] MEDS ORDERED: LACOSAMIDE 100 MG in SODIUM CHLORIDE 0.9% 50 ML IV SCH (09:00)
[2019-09-19] MEDS ORDERED: LACOSAMIDE 50 MG TABLET PO SCH (09:00)
[2019-09-19] MEDS ORDERED: propofoL 1,000 MG/100 ML VIAL IV SCH (09:00)
[2019-09-19] MEDS: ACYCLOVIR SOD 600 MG in DEXTROSE 5% 100 ML IV SCH ×2 (09:37→16:42)
[2019-09-19] MEDS: propofoL 1,000 MG/100 ML VIAL IV SCH ×4 (09:37→22:21)
[2019-09-19] MEDS: PROPOFOL BOLUS FROM BAG IV PRN ×4 (09:45→16:39)
[2019-09-19] MEDS: FAMOTIDINE 20 MG TAB PO SCH (09:58)
[2019-09-19] MEDS ORDERED: VECURONIUM BROMIDE 10 MG VIAL IV STA ×2 (10:28→18:28)
[2019-09-19] MEDS: LACOSAMIDE 50 MG in SODIUM CHLORIDE 0.9% 50 ML IV SCH ×2 (11:17→22:22)
[2019-09-19] MEDS: FOLIC ACID 1 MG in SYRINGE 9.8 ML IV SCH (11:18)
[2019-09-19] MEDS: PEPTAMEN INTENSE VHP 1.0 CAL 1,000 ML BAG OG SCH (11:45)
[2019-09-19 11:47] LABS: Total Protein CSF 59.1 mg/dl (15-45)
[2019-09-19 11:59] LABS: Appearance CSF Clear; CSF Count Tube # 4; CSF Xanthrochromic No xanthochromia; Color CSF Colorless; Red Blood Cell CSF (A) 130 /uL (0-); Red Blood Cell CSF (B) 160 /uL (0-); White Blood Cell CSF (A) 1 /uL (0-5); White Blood Cell CSF (B) 0 /uL (0-5)
[2019-09-19 12:02] LABS: Appearance CSF BLOODY; CSF Count Tube # 1; Color CSF PALE RED; Mononuclear WBC CSF 9.1 %; Polynuclear WBC CSF 90.9 %; Red Blood Cell CSF (A) 14000 /uL (0-); White Blood Cell CSF (A) 11 /uL (0-5)
[2019-09-19 12:03] LABS: CSF Xanthrochromic No xanthochromia
--- NOTE | 2019-09-19 12:44 | Hospitalist Progress Note ---
Date of Service September 19, 2019 Assessment & Plan (1) Altered mental status: 59-year-old female with a past medical history including hyperlipidemia, anxiety with depression, alcohol abuse who presented to [facility] Altered Mental Status: - patient is still currently disoriented, worsened condition overnight with increased impulsiveness and need for 1:1 sitter; re-intubated with sedation - Lyme IgG positive, Anaplasmosis pending - Biofire meningeal panel pending - CSF Lyme serology pending - COVID-19 negative x2 - B12 >2000 - continue Vimpat 50mg BID - LP performed: CSF glucose 67, protein 59, WBC 11, RBC 1400 - MRI Reji w/wo ordered - continue Acyclovir, and Doxycycline Admission and Anticipated Discharge Date Admission Date: September 14, 2019 Supervising Physician Co-Signing Physician Notes I personally examined the patient and verified all hernandez points of history and exam, discussed case, and agree with decision making with Dr Encinas. reintubated. no HPI or ROS obtainable vitals noted sedated on vent nad breathing w even chest rise and fall on vent no accessory muscles or retractions. no grossly notable focal neuro deficits acute respiratory failure/pneumonia - reintubated. ongoing abx and supportive care. AMS - ?etiology. viral encephalitis of concern. ?delirium, post ictal + ICU delirium, ?EtOH withdrawal. certainly EtOH abuse and withdrawal would tie together AMS, seizures, low K/Mag, elevated LFT/fatty liver/high MCV, but conflicting hx between friend who called [facility] and phone call w - and clinical picture also quite concerning for encephalitis. LP sent, MRI ordered, abx, steroids, acyclovir otherwise as above Subjective Overnight had larger alterations to mental status, this AM was re-intubated with retrial of sedation; she continues to have large, wild fluctuations of mental status and is attempting to pull out lines and get out of bed. Wrist restraints started after having attempted to pull out endotracheal tube twice Review of Systems Review of Systems: Unobtainable due to cognitive status Physical Exam Constitutional: average body habitus and + altered mental status Eyes: PERRL, conjunctivae normal, anicteric sclerae Neck: normal visual inspection Respiratory: no respiratory distress, no labored breathing and no retractions intubated Cardiovascular: Rate/Rhythm: regular rate and regular rhythm Heart Sounds: no gallop, no murmur and no cardiac rub Vessels: normal peripheral pulses; no JVD Gastrointestinal (Abdomen): normal bowel sounds, soft, nontender, no hepatosplenomegaly Musculoskeletal: Extremities: strength 5/5 throughout; no joint enlargement Skin: no rashes, warm and dry Neurologic: moves all extremities; no focal motor deficits Psychiatric: Orientation: + not oriented x 3 and + uncooperative Insight: + poor insight Judgement: + poor judgement intubated with nursing staff starting sedation, pulling at lines and tubes; subsequently placed in b/l upper extremity soft wrist restraints Results & Data Results & Data ([facility]) Vital Signs (Past 12 Hours) Vital Signs Temp Pulse Resp BP Pulse Ox 09/19/19 10:28 71 15 98 09/19/19 09:31 12 09/19/19 08:51 83 98 09/19/19 08:29 77 21 93 09/19/19 06:00 82 26 H 09/19/19 05:50 84 28 H 140/97 09/19/19 05:00 85 32 H 92 09/19/19 04:50 82 29 H 120/72 89 L 09/19/19 04:39 37.1 C 09/19/19 04:00 83 33 H 92 09/19/19 03:51 81 36 H 124/77 92 09/19/19 03:14 91 H 39 H 134/80 09/19/19 03:00 85 33 H 09/19/19 02:00 84 36 H 95 09/19/19 01:51 94 H 23 153/74 H 94 09/19/19 01:00 96 H 29 H 96 09/19/19 00:50 85 25 H 135/79 95 09/19/19 00:35 37.0 C Laboratory Results 09/19/19 09/19/19 09/19/19 Range/Units 11:04 11:04 11:04 WBC (4.8-10.8) K/uL RBC (4.2-5.4) M/uL Hgb (12.0-16.0) g/dL Hct (37-47) % MCV (80-100) fL MCH (25-34) pg MCHC (32-36) g/dL RDW Std Deviation (36.4-46.3) fL RDW Coeff of Elif (11.5-14.5) % Plt Count (130-400) K/uL MPV (7.4-10.4) fL Immature Gran % (Auto) % Neut % (Auto) % Lymph % (Auto) % [place] % (Auto) % Eos % (Auto) % Baso % (Auto) % Neut # (Auto) (1.4-6.5) K/uL Lymph # (Auto) (1.2-3.4) K/uL [place] # (Auto) (0.11-0.59) K/uL Eos # (Auto) (0-0.5) K/uL Baso # (Auto) (0-0.2) K/uL Immature Gran # (Auto) (0.00-0.02) K/uL PT (9.0-12.0) Seconds INR (0.9-1.1) Sodium (136-145) mmol/L Potassium (3.5-5.1) mmol/L Chloride (98-107) mmol/L Carbon Dioxide (21-32) mmol/L Anion Gap (3-11) BUN (7-18) mg/dl Creatinine (0.6-1.2) mg/dl Est Cr Clr Drug Dosing ml/min Est GFR ( Amer) Est GFR (Non-Af Amer) BUN/Creatinine Ratio (10-20) Glucose (70-99) mg/dl Calcium (8.5-10.1) mg/dl Phosphorus (2.5-4.9) mg/dl Magnesium (1.8-2.4) mg/dl Total Bilirubin (0.2-1) mg/dl AST (15-37) U/L ALT (12-78) U/L Alkaline Phosphatase (45-117) U/L Total Protein (6.4-8.2) gm/dl Albumin (3.4-5.0) gm/dl Globulin (2.5-4.0) gm/dl Albumin/Globulin Ratio (0.9-2) Vitamin B12 (211-911) pg/ml Fld Lyme DNA (PCR) CSF Appearance BLOODY Clear CSF Color PALE RED Colorless Xanthrochromic No xanthochromia No xanthochromia CSF WBC 11 H* 1 (0-5) /uL CSF RBC 92227 130 (0-) /uL CSF Cell Count Tube # 1 4 CSF Mononuclear WBCs % 9.1 % CSF Polynuclear WBCs % 90.9 % CSF Chemistry Tube # CSF Glucose (40-70) mg/dl CSF Total Protein (15-45) mg/dl CSF C.neoform/gat PCR Pending CSF CMV DNA (PCR) Pending CSF Enterovirus (PCR) Pending CSF E. coli K1 (PCR) Pending CSF H. influenzae (PCR) Pending CSF HSV I (PCR) Pending CSF HSV II (PCR) Pending CSF HHV 6 (PCR) Pending CSF L.monocytogenes PCR Pending CSF N. meningitidis PCR Pending CSF Parechovirus (PCR) Pending CSF S. agalactiae (PCR) Pending CSF S. pneumoniae (PCR) Pending CSF VZV DNA (PCR) Pending A. phagocytophilum DNA Lyme Specimen Source Herpes Virus Source HSV I DNA PCR HSV II DNA PCR Varicella-Zoster Source VZV DNA (PCR) 09/19/19 09/19/19 09/19/19 Range/Units 11:04 11:04 11:04 WBC (4.8-10.8) K/uL RBC (4.2-5.4) M/uL Hgb (12.0-16.0) g/dL Hct (37-47) % MCV (80-100) fL MCH (25-34) pg MCHC (32-36) g/dL RDW Std Deviation (36.4-46.3) fL RDW Coeff of Elif (11.5-14.5) % Plt Count (130-400) K/uL MPV (7.4-10.4) fL Immature Gran % (Auto) % Neut % (Auto) % Lymph % (Auto) % [place] % (Auto) % Eos % (Auto) % Baso % (Auto) % Neut # (Auto) (1.4-6.5) K/uL Lymph # (Auto) (1.2-3.4) K/uL [place] # (Auto) (0.11-0.59) K/uL Eos # (Auto) (0-0.5) K/uL Baso # (Auto) (0-0.2) K/uL Immature Gran # (Auto) (0.00-0.02) K/uL PT (9.0-12.0) Seconds INR (0.9-1.1) Sodium (136-145) mmol/L Potassium (3.5-5.1) mmol/L Chloride (98-107) mmol/L Carbon Dioxide (21-32) mmol/L Anion Gap (3-11) BUN (7-18) mg/dl Creatinine (0.6-1.2) mg/dl Est Cr Clr Drug Dosing ml/min Est GFR ( Amer) Est GFR (Non-Af Amer) BUN/Creatinine Ratio (10-20) Glucose (70-99) mg/dl Calcium (8.5-10.1) mg/dl Phosphorus (2.5-4.9) mg/dl Magnesium (1.8-2.4) mg/dl Total Bilirubin (0.2-1) mg/dl AST (15-37) U/L ALT (12-78) U/L Alkaline Phosphatase (45-117) U/L Total Protein (6.4-8.2) gm/dl Albumin (3.4-5.0) gm/dl Globulin (2.5-4.0) gm/dl Albumin/Globulin Ratio (0.9-2) Vitamin B12 (211-911) pg/ml Fld Lyme DNA (PCR) Pending CSF Appearance CSF Color Xanthrochromic CSF WBC (0-5) /uL CSF RBC (0-) /uL CSF Cell Count Tube # CSF Mononuclear WBCs % % CSF Polynuclear WBCs % % CSF Chemistry Tube # Cancelled CSF Glucose Cancelled (40-70) mg/dl CSF Total Protein (15-45) mg/dl CSF C.neoform/gat PCR CSF CMV DNA (PCR) CSF Enterovirus (PCR) CSF E. coli K1 (PCR) CSF H. influenzae (PCR) CSF HSV I (PCR) CSF HSV II (PCR) CSF HHV 6 (PCR) CSF L.monocytogenes PCR CSF N. meningitidis PCR CSF Parechovirus (PCR) CSF S. agalactiae (PCR) CSF S. pneumoniae (PCR) CSF VZV DNA (PCR) A. phagocytophilum DNA Lyme Specimen Source Pending Herpes Virus Source HSV I DNA PCR HSV II DNA PCR Varicella-Zoster Source Cancelled VZV DNA (PCR) Cancelled 09/19/19 09/19/19 09/19/19 Range/Units 11:04 11:04 08:41 WBC (4.8-10.8) K/uL RBC (4.2-5.4) M/uL Hgb (12.0-16.0) g/dL Hct (37-47) % MCV (80-100) fL MCH (25-34) pg MCHC (32-36) g/dL RDW Std Deviation (36.4-46.3) fL RDW Coeff of Elif (11.5-14.5) % Plt Count (130-400) K/uL MPV (7.4-10.4) fL Immature Gran % (Auto) % Neut % (Auto) % Lymph % (Auto) % [place] % (Auto) % Eos % (Auto) % Baso % (Auto) % Neut # (Auto) (1.4-6.5) K/uL Lymph # (Auto) (1.2-3.4) K/uL [place] # (Auto) (0.11-0.59) K/uL Eos # (Auto) (0-0.5) K/uL Baso # (Auto) (0-0.2) K/uL Immature Gran # (Auto) (0.00-0.02) K/uL PT (9.0-12.0) Seconds INR (0.9-1.1) Sodium (136-145) mmol/L Potassium (3.5-5.1) mmol/L Chloride (98-107) mmol/L Carbon Dioxide (21-32) mmol/L Anion Gap (3-11) BUN (7-18) mg/dl Creatinine (0.6-1.2) mg/dl Est Cr Clr Drug Dosing ml/min Est GFR ( Amer) Est GFR (Non-Af Amer) BUN/Creatinine Ratio (10-20) Glucose (70-99) mg/dl Calcium (8.5-10.1) mg/dl Phosphorus (2.5-4.9) mg/dl Magnesium (1.8-2.4) mg/dl Total Bilirubin (0.2-1) mg/dl AST (15-37) U/L ALT (12-78) U/L Alkaline Phosphatase (45-117) U/L Total Protein (6.4-8.2) gm/dl Albumin (3.4-5.0) gm/dl Globulin (2.5-4.0) gm/dl Albumin/Globulin Ratio (0.9-2) Vitamin B12 > 2000 H (211-911) pg/ml Fld Lyme DNA (PCR) CSF Appearance CSF Color Xanthrochromic CSF WBC (0-5) /uL CSF RBC (0-) /uL CSF Cell Count Tube # CSF Mononuclear WBCs % % CSF Polynuclear WBCs % % CSF Chemistry Tube # 2 CSF Glucose 67 (40-70) mg/dl CSF Total Protein 59.1 H (15-45) mg/dl CSF C.neoform/gat PCR CSF CMV DNA (PCR) CSF Enterovirus (PCR) CSF E. coli K1 (PCR) CSF H. influenzae (PCR) CSF HSV I (PCR) CSF HSV II (PCR) CSF HHV 6 (PCR) CSF L.monocytogenes PCR CSF N. meningitidis PCR CSF Parechovirus (PCR) CSF S. agalactiae (PCR) CSF S. pneumoniae (PCR) CSF VZV DNA (PCR) A. phagocytophilum DNA Lyme Specimen Source Herpes Virus Source Cancelled HSV I DNA PCR Cancelled HSV II DNA PCR Cancelled Varicella-Zoster Source VZV DNA (PCR) 09/19/19 09/19/19 09/19/19 Range/Units 04:20 04:20 04:20 WBC (4.8-10.8) K/uL RBC (4.2-5.4) M/uL Hgb (12.0-16.0) g/dL Hct (37-47) % MCV (80-100) fL MCH (25-34) pg MCHC (32-36) g/dL RDW Std Deviation (36.4-46.3) fL RDW Coeff of Elif (11.5-14.5) % Plt Count (130-400) K/uL MPV (7.4-10.4) fL Immature Gran % (Auto) % Neut % (Auto) % Lymph % (Auto) % [place] % (Auto) % Eos % (Auto) % Baso % (Auto) % Neut # (Auto) (1.4-6.5) K/uL Lymph # (Auto) (1.2-3.4) K/uL [place] # (Auto) (0.11-0.59) K/uL Eos # (Auto) (0-0.5) K/uL Baso # (Auto) (0-0.2) K/uL Immature Gran # (Auto) (0.00-0.02) K/uL PT 11.5 (9.0-12.0) Seconds INR 1.1 (0.9-1.1) Sodium 134 L (136-145) mmol/L Potassium 4.0 (3.5-5.1) mmol/L Chloride 103 (98-107) mmol/L Carbon Dioxide 21 (21-32) mmol/L Anion Gap 10.0 (3-11) BUN 5 L (7-18) mg/dl Creatinine 0.39 L (0.6-1.2) mg/dl Est Cr Clr Drug Dosing 155.8 ml/min Est GFR ( Amer) 135.1 Est GFR (Non-Af Amer) 116.6 BUN/Creatinine Ratio 13.6 (10-20) Glucose 89 (70-99) mg/dl Calcium 8.5 (8.5-10.1) mg/dl Phosphorus 3.6 (2.5-4.9) mg/dl Magnesium 1.7 L (1.8-2.4) mg/dl Total Bilirubin 1.2 H (0.2-1) mg/dl AST 93 H (15-37) U/L ALT 70 (12-78) U/L Alkaline Phosphatase 259 H (45-117) U/L Total Protein 6.1 L (6.4-8.2) gm/dl Albumin 2.5 L (3.4-5.0) gm/dl Globulin 3.6 (2.5-4.0) gm/dl Albumin/Globulin Ratio 0.7 L (0.9-2) Vitamin B12 (211-911) pg/ml Fld Lyme DNA (PCR) CSF Appearance CSF Color Xanthrochromic CSF WBC (0-5) /uL CSF RBC (0-) /uL CSF Cell Count Tube # CSF Mononuclear WBCs % % CSF Polynuclear WBCs % % CSF Chemistry Tube # CSF Glucose (40-70) mg/dl CSF Total Protein (15-45) mg/dl CSF C.neoform/gat PCR CSF CMV DNA (PCR) CSF Enterovirus (PCR) CSF E. coli K1 (PCR) CSF H. influenzae (PCR) CSF HSV I (PCR) CSF HSV II (PCR) CSF HHV 6 (PCR) CSF L.monocytogenes PCR CSF N. meningitidis PCR CSF Parechovirus (PCR) CSF S. agalactiae (PCR) CSF S. pneumoniae (PCR) CSF VZV DNA (PCR) A. phagocytophilum DNA Pending Lyme Specimen Source Herpes Virus Source HSV I DNA PCR HSV II DNA PCR Varicella-Zoster Source VZV DNA (PCR) 09/19/19 Range/Units 04:20 WBC 8.18 (4.8-10.8) K/uL RBC 3.16 L (4.2-5.4) M/uL Hgb 11.1 L (12.0-16.0) g/dL Hct 32.9 L (37-47) % MCV 104.1 H (80-100) fL MCH 35.1 H (25-34) pg MCHC 33.7 (32-36) g/dL RDW Std Deviation 49.4 H (36.4-46.3) fL RDW Coeff of Elif 12.9 (11.5-14.5) % Plt Count 210 (130-400) K/uL MPV 11.0 H (7.4-10.4) fL Immature Gran % (Auto) 0.5 % Neut % (Auto) 54.9 % Lymph % (Auto) 16.6 % [place] % (Auto) 26.4 % Eos % (Auto) 1.2 % Baso % (Auto) 0.4 % Neut # (Auto) 4.49 (1.4-6.5) K/uL Lymph # (Auto) 1.36 (1.2-3.4) K/uL [place] # (Auto) 2.16 H (0.11-0.59) K/uL Eos # (Auto) 0.10 (0-0.5) K/uL Baso # (Auto) 0.03 (0-0.2) K/uL Immature Gran # (Auto) 0.04 H (0.00-0.02) K/uL PT (9.0-12.0) Seconds INR (0.9-1.1) Sodium (136-145) mmol/L Potassium (3.5-5.1) mmol/L Chloride (98-107) mmol/L Carbon Dioxide (21-32) mmol/L Anion Gap (3-11) BUN (7-18) mg/dl Creatinine (0.6-1.2) mg/dl Est Cr Clr Drug Dosing ml/min Est GFR ( Amer) Est GFR (Non-Af Amer) BUN/Creatinine Ratio (10-20) Glucose (70-99) mg/dl Calcium (8.5-10.1) mg/dl Phosphorus (2.5-4.9) mg/dl Magnesium (1.8-2.4) mg/dl Total Bilirubin (0.2-1) mg/dl AST (15-37) U/L ALT (12-78) U/L Alkaline Phosphatase (45-117) U/L Total Protein (6.4-8.2) gm/dl Albumin (3.4-5.0) gm/dl Globulin (2.5-4.0) gm/dl Albumin/Globulin Ratio (0.9-2) Vitamin B12 (211-911) pg/ml Fld Lyme DNA (PCR) CSF Appearance CSF Color Xanthrochromic CSF WBC (0-5) /uL CSF RBC (0-) /uL CSF Cell Count Tube # CSF Mononuclear WBCs % % CSF Polynuclear WBCs % % CSF Chemistry Tube # CSF Glucose (40-70) mg/dl CSF Total Protein (15-45) mg/dl CSF C.neoform/gat PCR CSF CMV DNA (PCR) CSF Enterovirus (PCR) CSF E. coli K1 (PCR) CSF H. influenzae (PCR) CSF HSV I (PCR) CSF HSV II (PCR) CSF HHV 6 (PCR) CSF L.monocytogenes PCR CSF N. meningitidis PCR CSF Parechovirus (PCR) CSF S. agalactiae (PCR) CSF S. pneumoniae (PCR) CSF VZV DNA (PCR) A. phagocytophilum DNA Lyme Specimen Source Herpes Virus Source HSV I DNA PCR HSV II DNA PCR Varicella-Zoster Source VZV DNA (PCR) Medications Administered Current Inpatient Medications Albuterol (Duoneb) 3 ml NEB Q4R PRN PRN Reason: Shortness Of Breath Or Wheezing Stop: 10/14/19 06:59 Enoxaparin Sodium (Lovenox) 40 mg SQ DAILY [facility] Stop: 10/14/19 08:59 Last Admin: 09/19/19 08:54 Dose: 40 mg Documented by: Fentanyl Citrate (Fentanyl Citrate) 50 mcg IV Q2H PRN PRN Reason: Moderate Pain (4,5,6) Stop: 10/03/19 08:12 Fentanyl Citrate (Fentanyl Citrate) 100 mcg IV Q2H PRN PRN Reason: Severe Pain (7,8,9,10) Stop: 10/03/19 08:12 Thiamine HCl 250 mg/ Sodium (Chloride) 52.5 mls @ 210 mls/hr IV Q24H [facility] Stop: 09/21/19 21:14 Last Infusion: 09/18/19 21:07 Dose: Infused Documented by: Folic Acid 1 mg/ Syringe 10 mls @ 5 mls/min IV Q24H [facility] Stop: 10/15/19 11:59 Last Admin: 09/19/19 11:18 Dose: 5 mls/min Documented by: Parenteral Electrolytes (Normosol-R) 1,000 mls @ 80 mls/hr IV .[id number] [facility] Stop: 10/16/19 00:14 Last Admin: 09/19/19 03:54 Dose: 80 mls/hr Documented by: Doxycycline Hyclate 100 mg/ (Dextrose) 110 mls @ 50 mls/hr IV Q12H [facility] Stop: 10/09/19 05:59 Last Infusion: 09/19/19 08:05 Dose: Infused Documented by: Propofol (Diprivan) 1,000 mg in 100 mls @ 8.232 mls/hr IV .Q12H9M [facility]; Protocol Stop: 09/22/19 08:14 Last Admin: 09/19/19 09:37 Dose: 40 mcg/kg/min, 16.5 mls/hr Documented by: Acyclovir Sodium 600 mg/ (Dextrose) 112 mls @ 100 mls/hr IV Q8H [facility]; Protocol Stop: 09/29/19 08:59 Last Infusion: 09/19/19 10:45 Dose: Infused Documented by: Lacosamide 50 mg/ Sodium (Chloride) 55 mls @ 140 mls/hr IV Q12 [facility] Stop: 10/19/19 11:14 Last Infusion: 09/19/19 11:45 Dose: Infused Documented by: Magnesium Oxide (Mag-Ox) 400 mg PO HS [facility] Stop: 10/16/19 20:59 Last Admin: 09/18/19 20:52 Dose: 400 mg Documented by: Miscellaneous (Icu Electrolyte Replacement Protocol) 1 ea N/A UD PRN PRN Reason: for e-lyte repletion Stop: 09/24/19 05:35 Nutritional Formula (Peptamen Intense Vhp 1.0 Siva) 1,000 ml OG UD BRIANNA; Protocol Stop: 10/19/19 10:44 Last Admin: 09/19/19 11:45 Dose: 1,000 ml Documented by: Propofol (Diprivan Bolus From Bag) 20 mg IV Q5M PRN PRN Reason: Sedation Stop: 09/22/19 08:12 Last Admin: 09/19/19 11:45 Dose: 20 mg Documented by: Resident Activity Tracking Resident Involvement: Resident Care Provided Care Provided: Adult Hospital Medicine (1) Altered mental status Altered mental status type: disorientation Qualified Code(s): R41.0 - Disorientation, unspecified
[2019-09-19 13:21] LABS: Cryptococcus neoformans/ga PCR Not Detected (NotDetected); Cytomegalovirus PCR Not Detected (NotDetected); Enterovirus PCR Not Detected (NotDetected); Escherichia coli K1 PCR Not Detected (NotDetected); Haemophilius influenzae PCR Not Detected (NotDetected); Herpes Simplex Virus 1 PCR Not Detected (NotDetected); Herpes Simplex Virus 2 PCR Not Detected (NotDetected); Human Herpes Virus 6 PCR Not Detected (NotDetected); Human Parechovirus PCR Not Detected (NotDetected); Listeria monocytogenes PCR Not Detected (NotDetected); Neisseria meningitidis PCR Not Detected (NotDetected); Streptococcus agalactiae PCR Not Detected (NotDetected); Streptococcus pneumoniae PCR Not Detected (NotDetected); Varicella Zoster Virus PCR Not Detected (NotDetected)
[2019-09-19] MEDS: fentaNYL citrate 100 MCG/2 ML VIAL IV PRN ×2 (13:58→16:38)
[2019-09-19] MEDS ORDERED: SUCCINYLCHOLINE CHLORIDE 20 MG/ML 10 ML VIAL IV ONE (14:44)
--- NOTE | 2019-09-19 15:51 | Electrocardiogram Report ---
Test Reason : Blood Pressure : / mmHG Vent. Rate : 074 BPM Atrial Rate : 074 BPM P-R Int : 148 ms QRS Dur : 082 ms QT Int : 454 ms P-R-T Axes : 052 080 061 degrees QTc Int : 503 ms Normal sinus rhythm Anteroseptal infarct , age undetermined Abnormal ECG When compared with ECG of 17-SEP-2019 10:15, ST no longer elevated in Anterior leads Confirmed by Daniel Roper ([id number]) on 09/19/2019 3:51:20 PM Referred By: REFERRED SELF Confirmed By:Daniel Roper
--- NOTE | 2019-09-19 17:44 | Billing Data ---
Date of Service September 19, 2019 Coding Level of Care Code 49556 Subseq Hosp Care Lvl 3
[2019-09-19] MEDS ORDERED: MIDAZOLAM HCL 125MG/250ML D5W ONE (17:50)
[2019-09-19] MEDS ORDERED: MIDAZOLAM HCL 125 MG/250 ML BAG IV SCH (18:00)
[2019-09-19] MEDS ORDERED: VECURONIUM BROMIDE 10 MG VIAL IV ONE (18:23)
[2019-09-19] MEDS ORDERED: METOPROLOL TARTRATE 1 MG/ML VIAL IV STA (18:42)
[2019-09-19] MEDS ORDERED: METOPROLOL TARTRATE 1 MG/ML VIAL IV ONE (18:43)
--- NOTE | 2019-09-19 18:51 | Communication Note ---
Date of Service: September 19, 2019 1845: Was approached by nursing staff and informed that the patient was increasingly tachycardic and hypertensive. Additionally, the patient was noted to be agitated. I did assess the patient bedside. The patient recently received vecuronium bolus. On assessment, the patient is still overbreathing the ventilator. She is tachycardic and hypertensive. Orders placed for bolus of sedation as well as addition of fentanyl drip. Added IV Tylenol as patient is now febrile. Orders placed for blood cultures, repeat urinalysis, and ABG. 1910: Was approached by nursing staff as the patient was now having high peak pressures. On assessment, the patient was having low tidal volumes and high peak pressures. She appeared to be breath stacking on exam. She had poor inspiratory effort. Her tidal volumes were found to be in the 100s. Respiratory therapy had been contacted and was at bedside. We did disconnect her from the ventilator. I personally bagged the patient with respiratory therapy and she had good air movement and was bagged easily. Breath sounds were clear to auscultation bilaterally. Ventilator filters were both exchanged and p atient was placed back on the ventilator. Respiratory rate improved as to his tidal volumes. Patient is resting comfortably now at this point. ABG was ordered and phlebotomy present to draw labs at this time. I have personally spent 45 minutes of critical care time in the direct management of this patient. This is a life/limb threatening event. This includes time spent evaluating patient, direct bedside care, chart review, placing orders, interpretation of diagnostic studies, discussion with consultants, patient, and family members, as well as other required patient management activities. This time is exclusive of all separately billable procedures, and teaching time and separate from and in addition to any other critical care service time. Coding Level of Care Code Critical Care cj addt'l 30 min Time Spent (min) 45
[2019-09-19] MEDS ORDERED: FENTANYL BOLUS FROM BAG IV PRN (18:57)
[2019-09-19] MEDS ORDERED: fentaNYL DRIP 1,250 MCG/250 ML BAG IV SCH (19:00)
[2019-09-19] MEDS: ACETAMINOPHEN 1,000 MG/100 ML VIAL IV PRN (19:35)
[2019-09-19 19:39] LABS: Appearance Urine Clear (Clear); Bilirubin Urine Negative (Negative); Blood Urine Negative (Negative); Color Urine Yellow; Glucose Urine UA Negative (Negative); Ketones Urine Negative (Negative); Leukocyte Esterase Urine Negative (Negative); Nitrite Urine Negative (Negative); Protein Urine Negative (Negative); Specific Gravity Urine 1.011 (1.000-1.030); Urobilinogen Urine Negative (Negative); pH Urine 6.5 (4.5-7.5)
[2019-09-19 20:08] LABS: Base Excess ABG 1.3 mEq/L (-9-1.8); HCO3 ABG 25 mmol/L (19-24); Oxygen Saturation ABG 96.9 % (90-95); PCO2 ABG 34 mmHg (35-46); PO2 ABG 83 mmHg (80-95); pH ABG 7.47 (7.35-7.45)
[2019-09-19 20:09] LABS: Allen Test Pos (Pos)
--- NOTE | 2019-09-19 20:14 | Procedure Note ---
Procedure Note Date of Service September 19, 2019 Procedure: Airplane Dispatcher Indwelling Peripherally Inserted IV Catheter Placement Attending: Dr. St APC: Modesto Funes PA-C Indication: Need for IV Access, Poor Vascular Access Anesthesia: None Verbal consent implied in the setting of need for PIV access in the sedated/intubated patient. A time-out was completed verifying correct patient, procedure, site, positioning, and implant(s) or special equipment if applicable. Utilizing bedside ultrasound, vascularity of the RIGHT upper extremity was assessed. Vessel size was noted for appropriate catheter selection and skin was marked with gentle pressure. Patients RIGHT upper extremity was prepped and draped in the usual sterile fashion utilizing chlorhexidine. Ultrasound guidance was used to aid needle placement. A 20 g Endurance Catheter was introduced into the RIGHT Cephalic vein under direct ultrasound guidance. Guide wire was easily deployed without resistance. Catheter was threaded over the guide wire without resistance and the entire apparatus was removed intact. Good venous blood return was noted in the catheter. The IV catheter was easily flushed with sterile saline flush. Sterile clave was attached to the end of the catheter and good blood return was again noted. Tourniquet was released. StatLock device and sterile dressing were applied. The patient tolerated the procedure well. Blood Loss: Minimal Complications: None Procedural Ultrasound Guidance: Procedure Date: 09/19/2019 Indication: Poor Vascular Access Attending: Dr. St APC: Modesto Funes PA-C Artery/Veins Identified: YES Access confirmed in Vein with ultrasound: YES Complications: NONE Patient tolerated procedure: WELL Coding CPT Codes Tubes, Drains, and Vasc Access - Tubes, Drains, and Vasc Access: [id number] Venipuncture, Age 5/>Req phys skill, (sep proc), Dx/Tx (not rtn) ([id number]) [facility] [place] Procedure Codes (Charges) Tubes, Drains, and Vasc Access Procedure 1: Tubes, Drains, and Vasc Access: [id number] Venipuncture, Age 5/>Req phys skill, (sep proc), Dx/Tx (not rtn)
[2019-09-19 20:16] LABS: Calcium 8.2 mg/dl (8.5-10.1); Est GFR (Non-African American) 115.6; Magnesium 1.9 mg/dl (1.8-2.4); Phosphorus 3.6 mg/dl (2.5-4.9); Potassium 3.5 mmol/L (3.5-5.1)
[2019-09-19] MEDS ORDERED: GADOBUTROL 65ML VIAL IV PRN (21:30)
[2019-09-19] MEDS: MAGNESIUM OXIDE 400 MG TAB PO SCH (22:21)
[2019-09-19] MEDS: THIAMINE HCL 250 MG in SODIUM CHLORIDE 0.9% 50 ML IV SCH (22:22)
[2019-09-20] MEDS: ACYCLOVIR SOD 600 MG in DEXTROSE 5% 100 ML IV SCH ×2 (01:08→09:09)
[2019-09-20] MEDS: propofoL 1,000 MG/100 ML VIAL IV SCH (02:19)
[2019-09-20] MEDS: ACETAMINOPHEN 1,000 MG/100 ML VIAL IV PRN ×2 (03:50→14:09)
[2019-09-20 04:46] LABS: Basophils # (auto) 0.04 K/uL (0-0.2); Basophils % (auto) 0.4 %; Eosinophils # (auto) 0.13 K/uL (0-0.5); Eosinophils % (auto) 1.4 %; Hematocrit (blood only) 33.8 % (37-47); Hemoglobin 11.1 g/dL (12.0-16.0); Immature Granulocytes # (auto) 0.05 K/uL (0.00-0.02); Immature Granulocytes % (auto) 0.5 %; Lymphocytes # (auto) 1.83 K/uL (1.2-3.4); Mean Corpuscular Hemoglobin 34.7 pg (25-34); Mean Corpuscular Hgb Conc 32.8 g/dL (32-36); Mean Corpuscular Volume 105.6 fL (80-100); Mean Platelet Volume 11.3 fL (7.4-10.4); Monocytes # (auto) 2.15 K/uL (0.11-0.59); Monocytes % (auto) 22.3 %; Neutrophils # (auto) 5.42 K/uL (1.4-6.5); Neutrophils % (auto) 56.4 %; Platelet Count 271 K/uL (130-400); RDW Coefficient of Variation 13.6 % (11.5-14.5); RDW Standard Deviation 51.7 fL (36.4-46.3); White Blood Count 9.62 K/uL (4.8-10.8)
[2019-09-20] MEDS: DOXYCYCLINE HYCLATE 100 MG in DEXTROSE 5% 100 ML IV SCH ×2 (05:40→18:17)
--- NOTE | 2019-09-20 05:43 | Magnetic Resonance Report ---
MR brain seizure wo/w con CLINICAL HISTORY: ALOC COMPARISON STUDY: No previous studies for comparison. TECHNIQUE: Utilizing a 1.5 Yasmin magnet and dedicated coil, multiplanar, multiecho imaging of the br ain was performed pre and postcontrast administration. IV administration of 6.8 mL of Gadavist contr ast was uneventful. Thin cut coronal T2 imaging was performed according to seizure protocol. FINDINGS: Diffusion images show no evidence for an acute ischemic process. Components of atrophy as w ell as moderate chronic small vessel change are present. Ventricular system is midline. Postcontrast images are negative for enhancing lesion. IMPRESSION: Atrophy and chronic small vessel change. No acute process. No abnormal postcontrast enha ncement. ACT 112: Negative or not required by law. The above report was generated using voice recognition software. It may contain grammatical, syntax or spelling errors. Electronically signed by: Yash Wolf M.D. 09/20/2019 5:42 AM
[2019-09-20 05:54] LABS: iSTAT Allen Test Pass; iSTAT Art Bld Gas pCO2 Correct 34 mmHg (35-46); iSTAT Art Bld Gas pH Corrected 7.469 (7.35-7.45); iSTAT Arterial Blood Gas HCO3 24 meg/L (19-24); iSTAT Arterial Blood Gas pCO2 32 mmHg (35-46); iSTAT Arterial Blood Gas pH 7.48 (7.35-7.45); iSTAT Arterial Blood Gas pO2 59 mmHg (80-95); iSTAT Arterial Blood Gas pO2 C 63; iSTAT Carbon Dioxide 25 mmol/L (24-31); iSTAT FiO2 30 %; iSTAT Hematocrit 31 % (37-47); iSTAT Hemoglobin 10.5 g/dl (12.0-16.0); iSTAT Potassium 3.3 mmol/L (3.3-5.0); iSTAT Site R Radial; iSTAT Sodium 137 mmol/L (135-144)
[2019-09-20 06:05] LABS: Albumin Level 2.2 gm/dl (3.4-5.0); BUN Creatinine Ratio 9.4 (10-20); Calcium 8.2 mg/dl (8.5-10.1); Est GFR (Non-African American) 115.6; Magnesium 1.8 mg/dl (1.8-2.4); Potassium 3.2 mmol/L (3.5-5.1)
[2019-09-20 06:08] LABS: Albumin Globulin Ratio 0.7 (0.9-2); Globulin 3.3 gm/dl (2.5-4.0); Phosphorus 3.7 mg/dl (2.5-4.9); Total Protein 5.5 gm/dl (6.4-8.2)
[2019-09-20] MEDS ORDERED: POTASSIUM CHLORIDE 20 MEQ/15 ML UDC PO STA (06:27)
[2019-09-20] MEDS: POTASSIUM CHLORIDE / WTR 10 MEQ/100 ML PLCT IV SCH ×2 (06:38→07:31)
--- NOTE | 2019-09-20 06:48 | Hospitalist Progress Note ---
Date of Service September 20, 2019 Assessment & Plan (1) Seizure-like activity: 59 yo F PMHx HLD, depression and anxiety, alcohol abuse admitted to ICU for acute encephalopathy, on mechanically-assisted ventilation. Acute encephalopathy: - Care per ICU, with plans to attempt extubation later today. - Encephalopathy differentials include delirium tremens vs. viral encephalopathy vs. drug withdrawal such as K2. - Lyme IgG positive, treatment with doxycycline. Anaplasmosis pending. - CSF Lyme pending, CSF viral panel also pending. - COVID 19 testing negative x2. - MRI w/wo performed without acute process. - Neuro recommends EEG. - LP without clear source of infection however bloody tap. - Acyclovir for viral treatment. - Continue Vimpat, thiamine, folic acid, magnesium. Febrile illness: - With Temp 38.5 today; blood cultures continue to be negative. - Continue doxycycline, acyclovir. Consider broadening coverage if continued fevers. Elevated LFTs: - Liver ultrasound showing Hepatosteatosis. - Hepatitis C negative, Ammonia level negative. - Lyme IgG positive IgM negative, anaplasmosis DNA pending. - Downtrending slowly. Code Status: FULL CODE FEN/GI: intubated, NPO DVT ppx: Lovenox Dispo: ICU at this time, will assume care once downgraded (2) On mechanically assisted ventilation: (3) Elevated LFTs: (4) Encephalopathy acute: (5) Alcohol withdrawal delirium: Admission and Anticipated Discharge Date Admission Date: September 14, 2019 Supervising Physician Co-Signing Physician Notes I personally examined the patient and verified all hernandez points of history and exam, discussed case, and agree with decision making with Dr Sanchez. extubated again, breathing is stable. no meaningful HPI or ROS obtainable. vitals noted somewhat sedate appearing but breathing without vent and nad. heent nc at mmm lungs cta b/l no r/r/w moderate spontaneous effort difficult exam cardio reg skin no rashes no pallor or icterus. ext no c/c/e no calf tenderness acute respiratory failure/pneumonia - now off ventilator again. fevers - ?need to broaden abx - continue to follow closely, and continue doxy for now. AMS - ?etiology. viral encephalitis of concern. ?delirium, post ictal + ICU delirium, ?EtOH withdrawal. certainly EtOH abuse and withdrawal would tie together AMS, seizures, low K/Mag, elevated LFT/fatty liver/high MCV, but conflicting hx between friend who called TAMIK[facility] deluna and phone call w - and clinical picture also quite concerning for encephalitis. LP studies pending, MRI without striking findings. continue to follow closely, continue supportive care, acyclovir, etc. otherwise as above Subjective Overnight patient was febrile to Tmax 38.5, tachycardic, hypertensive, agitated and bucking the vent. Appeared to be overbreathing the ventilator. She was disconnected from the ventilator and bagged by ICU practitioner with good air movement. Ventilator filters were exchanged and patient was placed back on vent with improvement in respiratory rate and tidal volumes. Currently on Versed, propofol, Fentanyl with good sedation. On my interview patient was sedated and therefore unable to gather subjective from patient. Review of Systems Review of Systems: Unobtainable due to endotracheal tube and Unobtainable due to reduced consciousness Physical Exam Constitutional: + altered mental status Eyes: PERRL, conjunctivae normal, anicteric sclerae Neck: normal visual inspection Respiratory: normal respiratory effort; no respiratory distress intubated. diminished lung sounds R lung base Cardiovascular: RRR, no murmur, no edema Gastrointestinal (Abdomen): normal bowel sounds, soft, nontender, no hepatosplenomegaly Musculoskeletal: Extremities: no cyanosis and no clubbing Skin: no rashes, warm and dry Neurologic: sedated but somewhat arousable Psychiatric: Orientation: + uncooperative in soft wrist restraints due to former episodes of agitation Results & Data Results & Data ([facility]) Vital Signs (Past 12 Hours) Vital Signs Temp Pulse Resp BP Pulse Ox 09/20/19 05:56 98 H 16 92 09/20/19 05:51 37.9 C H 09/20/19 05:50 93 H 84/44 L 92 09/20/19 05:40 93 H 80/40 L 91 09/20/19 05:00 95 H 92 09/20/19 04:50 97 H 82/44 L 92 09/20/19 04:22 119 H 106/80 88 L 09/20/19 04:00 101 H 90 09/20/19 03:50 103 H 89/48 L 90 09/20/19 03:42 38.5 C H 09/20/19 03:00 101 H 92 09/20/19 02:50 101 H 85/44 L 92 09/20/19 02:25 38.5 C H 09/20/19 02:01 104 H 17 90 09/20/19 02:00 105 H 91 09/20/19 01:50 103 H 90/42 L 90 09/20/19 01:00 99 H 92 09/20/19 00:50 99 H 81/48 L 92 09/20/19 00:36 98 H 09/20/19 00:00 38.4 C H 98 H 91 09/19/19 23:51 98 H 91 09/19/19 23:50 99 H 103/54 L 91 09/19/19 23:21 97 H 17 93 09/19/19 23:00 93 H 93 09/19/19 22:50 93 H 94/55 L 93 09/19/19 22:48 92 H 90/64 L 93 09/19/19 22:30 91 H 82/54 L 94 09/19/19 22:16 92 H 78/52 L 92 09/19/19 22:15 94 H 14 100 09/19/19 22:00 38.1 C H 99 H 92 09/19/19 20:00 90 95 09/19/19 19:53 93 H 95/61 L 94 09/19/19 19:30 94 H 94 09/19/19 19:00 102 H 95 09/19/19 18:49 149 H Resident Activity Tracking Resident Involvement: Resident Care Provided Care Provided: Adult [facility]
--- NOTE | 2019-09-20 07:46 | XRay Report ---
XR chest 1V portable CLINICAL HISTORY: f/u dyspnea COMPARISON STUDY: 09/19/2019 FINDINGS: Endotracheal tube 4 cm above the carlos enrique. Similar findings of asymmetric pulmonary edema shirley matous change. Small right pleural effusion. Nasogastric tube within the stomach. IMPRESSION: 1. Endotracheal tube 4 cm above the carlos enrique. 2. Unchanged findings of asymmetric pulmonary edema. ACT 112: Negative or not required by law. The above report was generated using voice recognition software. It may contain grammatical, syntax or spelling errors. Electronically signed by: Yash Wolf M.D. 09/20/2019 7:45 AM
[2019-09-20] MEDS: PROPOFOL BOLUS FROM BAG IV PRN ×2 (07:58→11:54)
[2019-09-20] MEDS: MIDAZOLAM BOLUS FROM BAG IV PRN ×2 (07:58→11:54)
[2019-09-20] MEDS: ENOXAPARIN INJ 40 MG/0.4 ML SYR SQ SCH (09:07)
[2019-09-20] MEDS: NORMOSOL-R 1,000 ML IV SCH (09:08)
[2019-09-20] MEDS: LACOSAMIDE 50 MG in SODIUM CHLORIDE 0.9% 50 ML IV SCH ×2 (09:19→21:40)
[2019-09-20] MEDS: FOLIC ACID 1 MG in SYRINGE 9.8 ML IV SCH (11:17)
[2019-09-20] MEDS ORDERED: STAT IV Infusion **Titration per Protocol STA (12:02)
--- NOTE | 2019-09-20 12:13 | Neurology Progress Note ---
Date of Service September 20, 2019 Assessment & Plan (1) Altered mental status: Lety Avelar is a 59 yo woman w/ PMH of possible alcohol abuse, hypertension, hyperlipidemia and depression who initially presented to an outside hospital after having a possible seizure on 09/13/2019. Work-up: CSF: 11 WBCs, 14,000 RBCs, 67 glucose, 59.1 protein, CSF biofire panel negative B12>2000, TSH WNL, ESR WNL, CRP elevated at 2.58, ferritin elevated at 451.2, Ca low 8.2, persistent macrocytic anemia MRI brain: multiple microhemorrhages right giovany, bilateral MCPs, bilateral frontal lobes (R>L), left temporal lobe, bilateral parietal lobes (R>L) # AMS: initially there was concern that this could be alcohol withdrawal with seizure and hallucinations, however usually this subsides within 4 days of last drink. MRI brain shows chronic microhemorrhages which could potentially lead to seizures with lowered seizure threshold. CSF does not show any signs of infection. Given current situation, c/f possible drug withdrawal (K2 spice, other synthetic). - Continue thiamine/folate supplementation - Would restart paxil if possible as withdrawal of paxil can hypothetically cause agitation - Would obtain routine EEG if she will tolerate it (ok to be on ketamine) - maintain vimpat 50mg bid - Delirium precautions, lights on during the day and out of bed, lights off at night, frequent reorientation. Avoid further opiates and benzos as able to; Precedex or prn haldol/seroquel Thank you for this interesting consult. Plan of care discussed with primary team. Please call or text with questions. (2) Seizure-like activity: (3) ETOH abuse: Admission and Anticipated Discharge Date Admission Date: September 14, 2019 Subjective Bucking the vent overnight, required higher level of sedation. Also spiked a temp of 38.5C. Restarted on prop/versed/fentanyl gtts. Despite being on all the sedation, she is able to open her eyes to voice and would move all extremities. B12 >2000. UA no infection. Review of Systems Review of Systems: Unobtainable due to cognitive status, Unobtainable due to endotracheal tube and Unobtainable due to reduced consciousness Results & Data ([facility]) Vital Signs (Past 12 Hours) Vital Signs Temp Pulse Resp BP Pulse Ox 09/20/19 11:05 96 H 17 91 09/20/19 08:00 37.7 C H 09/20/19 07:35 94 H 16 93 09/20/19 05:56 98 H 16 92 09/20/19 05:51 37.9 C H 09/20/19 05:50 93 H 84/44 L 92 09/20/19 05:40 93 H 80/40 L 91 09/20/19 05:00 95 H 92 09/20/19 04:50 97 H 82/44 L 92 09/20/19 04:22 119 H 106/80 88 L 09/20/19 04:00 101 H 90 09/20/19 03:50 103 H 89/48 L 90 09/20/19 03:42 38.5 C H 09/20/19 03:00 101 H 92 09/20/19 02:50 101 H 85/44 L 92 09/20/19 02:25 38.5 C H 09/20/19 02:01 104 H 17 90 09/20/19 02:00 105 H 91 09/20/19 01:50 103 H 90/42 L 90 09/20/19 01:00 99 H 92 09/20/19 00:50 99 H 81/48 L 92 09/20/19 00:36 98 H Exam (Neuro) Physical Exam: General Exam: GEN: NAD, resting in bed. HEENT: No conjunctival injection, no rhinorrhea. CV: RRR, no peripheral edema PULM: Intubated, sedated on prop/versed/fentanyl Neuro Exam: MS: Drowsy but easily arousable. Unable to assess orientation or language (intubated). Unable to fully assess language and cognition given mental status. CN: Question right inferior temporal visual field cut. Left eye ptosis with disconjugate gaze noted. Tried to close eyes when opened. PERRLA OU. Face symmetric around ETT. Hearing intact to conversation. MOTOR: Normal bulk and tone. All extremities antigravity without drift REFLEXES: Deferred given increasing patient agitation SENSORY: withdraws/grimaces to noxious stimuli in all extremities COORDINATION: No dysmetria or ataxia on observed movements GAIT: Deferred given physical status PG Care Time/CCT Total # of Minutes Spent Total Time Spent with Patient: Total time spent is greater than 50% in c oordination of care (as documented) at patient's floor/unit and/or counseling patient: Coding Level of Care Code 43655 Subseq Hosp Care Lvl 3 Diagnoses Altered mental status R41.0 Altered mental status type: disorientation Seizure-like activity R56.9 ETOH abuse F10.10 (1) Altered mental status Altered mental status type: disorientation Qualified Code(s): R41.0 - Disorientation, unspecified
[2019-09-20] MEDS ORDERED: KETAMINE HCL / NSS 500 MG/500 ML BAG IV SCH (12:15)
--- NOTE | 2019-09-20 12:16 | Procedure Note ---
Procedure Note Date of Service September 19, 2019 Procedure Date: Noted above Procedure: Endotracheal intubation Pre-procedure Diagnosis: Impending respiratory failure Post-procedure Diagnosis: same as above Prior to Procedure: Informed Consent: emergent Attending Staff: Enid St DO The identity of the patient was confirmed and a bedside time out was performed. Description of Procedure: Patient was evaluated and required intubation for impending respiratory failure. The patient was prepared in the usual fashion. A Stovall 2 laryngoscope was used. A 8.0 mm inner diameter endotrachial tube was placed endotracheally to 24 cm at the gum ridge. A grade 1 view was obtained. The endotracheal tube was noted to pass through the vocal cords. Chest rise was bilateral. Bilateral breath sounds were heard without air sounds in the abdomen. Mist was noted in the endotracheal tube. End-tidal CO2 measurement was positive. Chest x-ray shows proper endotracheal tube placement. Complications: None Findings: Not applicable Specimens: Not applicable Estimated blood loss: Zero Coding CPT Codes Resuscitation - Resuscitation: [id number] Endotracheal Intubation, emergency ([id number]) [facility] Procedure Codes (Charges) Resuscitation Resuscitation: [id number] Endotracheal Intubation, emergency
--- NOTE | 2019-09-20 12:19 | Procedure Note ---
Procedure Note Date of Service September 19, 2019 Procedure Date: Noted above Procedure: Lumbar puncture Pre-procedure Diagnosis: Encephalopathy Post-procedure Diagnosis: same as above Prior to Procedure: Informed Consent: The risks, benefits, indications, potential complications, and alternatives were explained to the patient's and informed consent obtained. Attending Staff: Jerson St DO Resident/Physician Park Aide: Not applicable Indications: Patient is a 59-year-old female with continued encephalopathy The identity of the patient was confirmed and a bedside time out was performed. Description of Procedure: Patient was positioned in the right lateral decubitus position, prepped and draped in usual sterile fashion. The L4-5 space located with bilateral iliac crests as landmarks. 1% Lidocaine without epinephrine was used to anesthetize the area. A 18 gauge spinal needle was introduced into the subarachnoid space. Stylet was removed with appropriate fluid return. Needle removed after adequate fluid collected and sterile bandage placed at puncture site. 12 mL of CSF fluid collected. Fluid was blood-tinged which cleared, consistent with traumatic LP. Specimen(s): sent for Gram Stain, culture, cell count, glucose, protein bio fire PCR, lyme titers, additional CSF fluid result for possible additional studies. Complications: None Estimated Blood Loss: trace Coding CPT Codes Lumbar Puncture - Lumbar Puncture, Diagnostic: 67935 Lumbar Puncture, Anesthesia, Lumbar Region; Diagnostic/Therap ([id number]) [facility] [place] Procedure Codes (Charges) Lumbar Puncture Lumbar Puncture, Diagnostic: 80902 Lumbar Puncture, Anesthesia, Lumbar Region; Diagnostic/Therap
--- NOTE | 2019-09-20 12:23 | Critical Care Progress Note ---
Date of Service September 20, 2019 Assessment & Plan (1) Altered mental status: (1) Encephalopathy acute: Reason Critically Ill: Acute encephalopathy with possible seizure per EMS requiring intubation by EMS PLAN: Neuro: Acute encephalopathy -Alcohol withdraw scoring Possible acute delirium tremens -Vimpat -MRI reviewed -Lumbar puncture completed and HSV, varicella not seen -Discontinue acyclovir Discussed with neurology will obtain EEG while on ketamine Acute agitation -Ketamine infusion improving acute agitation Resp: Acute respiratory failure: Resolved -Intubation to facilitate work-up -Minimal ventilator settings 5 of PEEP 35% FiO2 and saturating 94% Acute hypoxic respiratory failure -New event following extubation 09/20/2019 -In combination with continued fevers will obtain venous duplex ultrasounds and CT scan chest to rule out PE -Limiting additional IV fluid, will hold diuresis as patient will receive contrast load today Right-sided pleural effusion with compressive atelectasis -Flutter valve Small left-sided pleural effusion CV: Prolonged QT on EKG: Resolved 458 on EKG dated 20 September 2019 -Reinitiate Paxil via NG tube Discussed with cardiology, wall motion abnormality and Q waves on EKG could represent prior infarct, no indication for urgent/emergent cardiac cath Fluids/Renal: Holding IV fluids at this time for positive balance Goal magnesium greater than 2 ideally greater than 2.2 -Minimizing risk factors for adverse event in setting of prolonged QT - 1g IV magnesium infusion x2 (infuse each gram over 2 hours) Hypokalemia -9 mmol K-Phos and 40 M EQ potassium acetate ID: Febrile illness -Repeat blood cultures from 09/13 as well as 09/18 remain negative -Will consider additional blood culture if febrile episodes continue an additional 24 hours -Question Jarisch Herxheimer reaction secondary to Lyme? -This is beyond 24 hours of initiating antibiotics Negative COVID testing No growth on urine culture -Blood cultures negative Lyme IgG positive -Empiric treatment with doxycycline GI/Nutrition: Will attempt course safe placement after EEG Transaminitis: Slowly improving -Liver ultrasound reviewed -Hepato-steatosis -Hepatitis C negative -Ammonia level negative -Lyme IgG positive IgM negative -anaplasmosis not seen on slide DNA probe pending Heme: Macrocytic anemia -Thiamine and folic acid Thrombocytopenia: -Resolved DVT prophylaxis: Lovenox Endocrine: ICU hyperglycemia protocol Vascular access: Peripheral IVs Code Status: Full code Disposition: ICU (2) Admitted to intensive care unit: Admission and Anticipated Discharge Date Admission Date: September 14, 2019 Subjective Overnight patient had increasing sedation requirements. Review of Systems Review of Systems: Unobtainable due to endotracheal tube Physical Exam Physical Exam: General: Sedated however arouses easily, not following complex commands Skin: Warm, dry, Head: Atraumatic, no nuchal rigidity negative Burzynski sign negative Kernig's Ears, nose, mouth and throat: airway obscured by endotracheal tube Cardiovascular: Normal peripheral perfusion Respiratory: no respiratory distress Gastrointestinal: Non distended Musculoskeletal: No deformity Results & Data Results & Data ([facility]) Vital Signs (Past 12 Hours) Vital Signs Temp Pulse Resp BP Pulse Ox 09/20/19 11:05 96 H 17 91 09/20/19 08:00 37.7 C H 09/20/19 07:35 94 H 16 93 09/20/19 05:56 98 H 16 92 09/20/19 05:51 37.9 C H 09/20/19 05:50 93 H 84/44 L 92 09/20/19 05:40 93 H 80/40 L 91 09/20/19 05:00 95 H 92 09/20/19 04:50 97 H 82/44 L 92 09/20/19 04:22 119 H 106/80 88 L 09/20/19 04:00 101 H 90 09/20/19 03:50 103 H 89/48 L 90 09/20/19 03:42 38.5 C H 09/20/19 03:00 101 H 92 09/20/19 02:50 101 H 85/44 L 92 09/20/19 02:25 38.5 C H 09/20/19 02:01 104 H 17 90 09/20/19 02:00 105 H 91 09/20/19 01:50 103 H 90/42 L 90 09/20/19 01:00 99 H 92 09/20/19 00:50 99 H 81/48 L 92 09/20/19 00:36 98 H Laboratory Results 09/20/19 09/20/19 09/20/19 Range/Units 06:22 05:40 05:00 WBC (4.8-10.8) K/uL RBC (4.2-5.4) M/uL Hgb (12.0-16.0) g/dL POC Hgb 10.5 L (12.0-16.0) g/dl Hct (37-47) % POC Hct 31 L (37-47) % MCV (80-100) fL MCH (25-34) pg MCHC (32-36) g/dL RDW Std Deviation (36.4-46.3) fL RDW Coeff of Elif (11.5-14.5) % Plt Count (130-400) K/uL MPV (7.4-10.4) fL Immature Gran % (Auto) % Neut % (Auto) % Lymph % (Auto) % Gentry % (Auto) % Eos % (Auto) % Baso % (Auto) % Neut # (Auto) (1.4-6.5) K/uL Lymph # (Auto) (1.2-3.4) K/uL Gentry # (Auto) (0.11-0.59) K/uL Eos # (Auto) (0-0.5) K/uL Baso # (Auto) (0-0.2) K/uL Immature Gran # (Auto) (0.00-0.02) K/uL Sample Site R Radial POC pH 7.48 H (7.35-7.45) POC pCO2 32 L (35-46) mmHg POC pO2 59 L (80-95) mmHg POC HCO3 24 (19-24) mario/L POC Total CO2 25 (24-31) mmol/L POC Base Excess 1.0 (-9-1.8) mario/L ABG pH (7.35-7.45) ABG pH (Temp Correct) 7.469 H (7.35-7.45) ABG pCO2 (35-46) mmHg ABG pCO2 (Temp Corrct 34 L (35-46) mmHg ABG pO2 (80-95) mmHg POC ABG pO2 at Pt Temp 63 ABG HCO3 (19-24) mmol/L POC ABG O2 Sat 92.0 (90-95) % ABG O2 Saturation (90-95) % ABG Base Excess (-9-1.8) mEq/L Hank Test Pass (Pos) Barometric Pressure mm/Hg Oxygen Given O2 Delivery Device Ventilator POC O2 Rate 16 Minute Ventilation 7.1 POC FiO2 30 % Tidal Volume 450 PEEP 5 POC Sodium 137 (135-144) mmol/L Sodium 138 (136-145) mmol/L POC Potassium 3.3 (3.3-5.0) mmol/L Potassium 3.2 L (3.5-5.1) mmol/L Chloride 106 (98-107) mmol/L Carbon Dioxide 24 (21-32) mmol/L Anion Gap 8.0 (3-11) BUN 4 L (7-18) mg/dl Creatinine 0.40 L (0.6-1.2) mg/dl Est Cr Clr Drug Dosing 151.0 ml/min Est GFR ( Amer) 134.0 Est GFR (Non-Af Amer) 115.6 BUN/Creatinine Ratio 9.4 L (10-20) Glucose 97 (70-99) mg/dl POC Glucose 102 H (70-99) mg/dl Calcium 8.2 L (8.5-10.1) mg/dl Phosphorus 3.7 (2.5-4.9) mg/dl Magnesium 1.8 (1.8-2.4) mg/dl Total Bilirubin 1.0 AST 72 H ALT 52 Alkaline Phosphatase 250 H Total Protein 5.5 L Albumin 2.2 L Globulin 3.3 Albumin/Globulin Ratio 0.7 L Procalcitonin (0-0.5) ng/ml Urine Color Urine Appearance (Clear) Urine pH (4.5-7.5) Ur Specific Zahl (1.000-1.030) Urine Protein (Negative) Urine Glucose (UA) (Negative) Urine Ketones (Negative) Urine Blood (Negative) Urine Nitrite (Negative) Urine Bilirubin (Negative) Urine Urobilinogen (Negative) Ur Leukocyte Esterase (Negative) CSF C.neoform/gat PCR (NotDetected) CSF CMV DNA (PCR) (NotDetected) CSF Enterovirus (PCR) (NotDetected) CSF E. coli K1 (PCR) (NotDetected) CSF H. influenzae (PCR) (NotDetected) CSF HSV I (PCR) (NotDetected) CSF HSV II (PCR) (NotDetected) CSF HHV 6 (PCR) (NotDetected) CSF L.monocytogenes PCR (NotDetected) CSF N. meningitidis PCR (NotDetected) CSF Parechovirus (PCR) (NotDetected) CSF S. agalactiae (PCR) (NotDetected) CSF S. pneumoniae (PCR) (NotDetected) CSF VZV DNA (PCR) (NotDetected) CSF West Nile RNA 09/20/19 09/20/19 09/19/19 Range/Units 04:13 04:13 19:45 WBC 9.62 (4.8-10.8) K/uL RBC 3.20 L (4.2-5.4) M/uL Hgb 11.1 L (12.0-16.0) g/dL POC Hgb (12.0-16.0) g/dl Hct 33.8 L (37-47) % POC Hct (37-47) % MCV 105.6 H (80-100) fL MCH 34.7 H (25-34) pg MCHC 32.8 (32-36) g/dL RDW Std Deviation 51.7 H (36.4-46.3) fL RDW Coeff of Elif 13.6 (11.5-14.5) % Plt Count 271 (130-400) K/uL MPV 11.3 H (7.4-10.4) fL Immature Gran % (Auto) 0.5 % Neut % (Auto) 56.4 % Lymph % (Auto) 19.0 % Gentry % (Auto) 22.3 % Eos % (Auto) 1.4 % Baso % (Auto) 0.4 % Neut # (Auto) 5.42 (1.4-6.5) K/uL Lymph # (Auto) 1.83 (1.2-3.4) K/uL Gentry # (Auto) 2.15 H (0.11-0.59) K/uL Eos # (Auto) 0.13 (0-0.5) K/uL Baso # (Auto) 0.04 (0-0.2) K/uL Immature Gran # (Auto) 0.05 H (0.00-0.02) K/uL Sample Site POC pH (7.35-7.45) POC pCO2 (35-46) mmHg POC pO2 (80-95) mmHg POC HCO3 (19-24) mario/L POC Total CO2 (24-31) mmol/L POC Base Excess (-9-1.8) mario/L ABG pH 7.47 H (7.35-7.45) ABG pH (Temp Correct) (7.35-7.45) ABG pCO2 34 L (35-46) mmHg ABG pCO2 (Temp Corrct (35-46) mmHg ABG pO2 83 (80-95) mmHg POC ABG pO2 at Pt Temp ABG HCO3 25 H (19-24) mmol/L POC ABG O2 Sat (90-95) % ABG O2 Saturation 96.9 H (90-95) % ABG Base Excess 1.3 (-9-1.8) mEq/L Hank Test Pos (Pos) Barometric Pressure 730.8 mm/Hg Oxygen Given 2L O2 Delivery Device POC O2 Rate Minute Ventilation POC FiO2 % Tidal Volume PEEP POC Sodium (135-144) mmol/L Sodium Cancelled (136-145) mmol/L POC Potassium (3.3-5.0) mmol/L Potassium Cancelled (3.5-5.1) mmol/L Chloride Cancelled (98-107) mmol/L Carbon Dioxide Cancelled (21-32) mmol/L Anion Gap Cancelled (3-11) BUN Cancelled (7-18) mg/dl Creatinine Cancelled (0.6-1.2) mg/dl Est Cr Clr Drug Dosing Cancelled ml/min Est GFR ( Amer) Cancelled Est GFR (Non-Af Amer) Cancelled BUN/Creatinine Ratio Cancelled (10-20) Glucose Cancelled (70-99) mg/dl POC Glucose (70-99) mg/dl Calcium Cancelled (8.5-10.1) mg/dl Phosphorus Cancelled (2.5-4.9) mg/dl Magnesium Cancelled (1.8-2.4) mg/dl Total Bilirubin Cancelled AST Cancelled ALT Cancelled Alkaline Phosphatase Cancelled Total Protein Cancelled Albumin Cancelled Globulin Cancelled Albumin/Globulin Ratio Cancelled Procalcitonin (0-0.5) ng/ml Urine Color Urine Appearance (Clear) Urine pH (4.5-7.5) Ur Specific Zahl (1.000-1.030) Urine Protein (Negative) Urine Glucose (UA) (Negative) Urine Ketones (Negative) Urine Blood (Negative) Urine Nitrite (Negative) Urine Bilirubin (Negative) Urine Urobilinogen (Negative) Ur Leukocyte Esterase (Negative) CSF C.neoform/gat PCR (NotDetected) CSF CMV DNA (PCR) (NotDetected) CSF Enterovirus (PCR) (NotDetected) CSF E. coli K1 (PCR) (NotDetected) CSF H. influenzae (PCR) (NotDetected) CSF HSV I (PCR) (NotDetected) CSF HSV II (PCR) (NotDetected) CSF HHV 6 (PCR) (NotDetected) CSF L.monocytogenes PCR (NotDetected) CSF N. meningitidis PCR (NotDetected) CSF Parechovirus (PCR) (NotDetected) CSF S. agalactiae (PCR) (NotDetected) CSF S. pneumoniae (PCR) (NotDetected) CSF VZV DNA (PCR) (NotDetected) CSF West Nile RNA 09/19/19 09/19/19 09/19/19 Range/Units 19:45 19:45 19:30 WBC (4.8-10.8) K/uL RBC (4.2-5.4) M/uL Hgb (12.0-16.0) g/dL POC Hgb (12.0-16.0) g/dl Hct (37-47) % POC Hct (37-47) % MCV (80-100) fL MCH (25-34) pg MCHC (32-36) g/dL RDW Std Deviation (36.4-46.3) fL RDW Coeff of Elif (11.5-14.5) % Plt Count (130-400) K/uL MPV (7.4-10.4) fL Immature Gran % (Auto) % Neut % (Auto) % Lymph % (Auto) % Gentry % (Auto) % Eos % (Auto) % Baso % (Auto) % Neut # (Auto) (1.4-6.5) K/uL Lymph # (Auto) (1.2-3.4) K/uL Gentry # (Auto) (0.11-0.59) K/uL Eos # (Auto) (0-0.5) K/uL Baso # (Auto) (0-0.2) K/uL Immature Gran # (Auto) (0.00-0.02) K/uL Sample Site POC pH (7.35-7.45) POC pCO2 (35-46) mmHg POC pO2 (80-95) mmHg POC HCO3 (19-24) mario/L POC Total CO2 (24-31) mmol/L POC Base Excess (-9-1.8) mario/L ABG pH (7.35-7.45) ABG pH (Temp Correct) (7.35-7.45) ABG pCO2 (35-46) mmHg ABG pCO2 (Temp Corrct (35-46) mmHg ABG pO2 (80-95) mmHg POC ABG pO2 at Pt Temp ABG HCO3 (19-24) mmol/L POC ABG O2 Sat (90-95) % ABG O2 Saturation (90-95) % ABG Base Excess (-9-1.8) mEq/L Hank Test (Pos) Barometric Pressure mm/Hg Oxygen Given O2 Delivery Device POC O2 Rate Minute Ventilation POC FiO2 % Tidal Volume PEEP POC Sodium (135-144) mmol/L Sodium 134 L (136-145) mmol/L POC Potassium (3.3-5.0) mmol/L Potassium 3.5 (3.5-5.1) mmol/L Chloride 103 (98-107) mmol/L Carbon Dioxide 24 (21-32) mmol/L Anion Gap 7.0 (3-11) BUN 4 L (7-18) mg/dl Creatinine 0.40 L (0.6-1.2) mg/dl Est Cr Clr Drug Dosing 151.0 ml/min Est GFR ( Amer) 134.0 Est GFR (Non-Af Amer) 115.6 BUN/Creatinine Ratio 11.0 (10-20) Glucose 106 H (70-99) mg/dl POC Glucose (70-99) mg/dl Calcium 8.2 L (8.5-10.1) mg/dl Phosphorus 3.6 (2.5-4.9) mg/dl Magnesium 1.9 (1.8-2.4) mg/dl Total Bilirubin AST ALT Alkaline Phosphatase Total Protein Albumin Globulin Albumin/Globulin Ratio Procalcitonin 0.16 (0-0.5) ng/ml Urine Color Yellow Urine Appearance Clear (Clear) Urine pH 6.5 (4.5-7.5) Ur Specific Zahl 1.011 (1.000-1.030) Urine Protein Negative (Negative) Urine Glucose (UA) Negative (Negative) Urine Ketones Negative (Negative) Urine Blood Negative (Negative) Urine Nitrite Negative (Negative) Urine Bilirubin Negative (Negative) Urine Urobilinogen Negative (Negative) Ur Leukocyte Esterase Negative (Negative) CSF C.neoform/gat PCR (NotDetected) CSF CMV DNA (PCR) (NotDetected) CSF Enterovirus (PCR) (NotDetected) CSF E. coli K1 (PCR) (NotDetected) CSF H. influenzae (PCR) (NotDetected) CSF HSV I (PCR) (NotDetected) CSF HSV II (PCR) (NotDetected) CSF HHV 6 (PCR) (NotDetected) CSF L.monocytogenes PCR (NotDetected) CSF N. meningitidis PCR (NotDetected) CSF Parechovirus (PCR) (NotDetected) CSF S. agalactiae (PCR) (NotDetected) CSF S. pneumoniae (PCR) (NotDetected) CSF VZV DNA (PCR) (NotDetected) CSF West Nile RNA 09/19/19 09/19/19 09/19/19 Range/Units 18:21 11:04 11:04 WBC (4.8-10.8) K/uL RBC (4.2-5.4) M/uL Hgb (12.0-16.0) g/dL POC Hgb (12.0-16.0) g/dl Hct (37-47) % POC Hct (37-47) % MCV (80-100) fL MCH (25-34) pg MCHC (32-36) g/dL RDW Std Deviation (36.4-46.3) fL RDW Coeff of Elif (11.5-14.5) % Plt Count (130-400) K/uL MPV (7.4-10.4) fL Immature Gran % (Auto) % Neut % (Auto) % Lymph % (Auto) % Gentry % (Auto) % Eos % (Auto) % Baso % (Auto) % Neut # (Auto) (1.4-6.5) K/uL Lymph # (Auto) (1.2-3.4) K/uL Gentry # (Auto) (0.11-0.59) K/uL Eos # (Auto) (0-0.5) K/uL Baso # (Auto) (0-0.2) K/uL Immature Gran # (Auto) (0.00-0.02) K/uL Sample Site POC pH (7.35-7.45) POC pCO2 (35-46) mmHg POC pO2 (80-95) mmHg POC HCO3 (19-24) mario/L POC Total CO2 (24-31) mmol/L POC Base Excess (-9-1.8) mario/L ABG pH (7.35-7.45) ABG pH (Temp Correct) (7.35-7.45) ABG pCO2 (35-46) mmHg ABG pCO2 (Temp Corrct (35-46) mmHg ABG pO2 (80-95) mmHg POC ABG pO2 at Pt Temp ABG HCO3 (19-24) mmol/L POC ABG O2 Sat (90-95) % ABG O2 Saturation (90-95) % ABG Base Excess (-9-1.8) mEq/L Hank Test (Pos) Barometric Pressure mm/Hg Oxygen Given O2 Delivery Device POC O2 Rate Minute Ventilation POC FiO2 % Tidal Volume PEEP POC Sodium (135-144) mmol/L Sodium (136-145) mmol/L POC Potassium (3.3-5.0) mmol/L Potassium (3.5-5.1) mmol/L Chloride (98-107) mmol/L Carbon Dioxide (21-32) mmol/L Anion Gap (3-11) BUN (7-18) mg/dl Creatinine (0.6-1.2) mg/dl Est Cr Clr Drug Dosing ml/min Est GFR ( Amer) Est GFR (Non-Af Amer) BUN/Creatinine Ratio (10-20) Glucose (70-99) mg/dl POC Glucose 100 H (70-99) mg/dl Calcium (8.5-10.1) mg/dl Phosphorus (2.5-4.9) mg/dl Magnesium (1.8-2.4) mg/dl Total Bilirubin AST ALT Alkaline Phosphatase Total Protein Albumin Globulin Albumin/Globulin Ratio Procalcitonin (0-0.5) ng/ml Urine Color Urine Appearance (Clear) Urine pH (4.5-7.5) Ur Specific Zahl (1.000-1.030) Urine Protein (Negative) Urine Glucose (UA) (Negative) Urine Ketones (Negative) Urine Blood (Negative) Urine Nitrite (Negative) Urine Bilirubin (Negative) Urine Urobilinogen (Negative) Ur Leukocyte Esterase (Negative) CSF C.neoform/gat PCR Not Detected (NotDetected) CSF CMV DNA (PCR) Not Detected (NotDetected) CSF Enterovirus (PCR) Not Detected (NotDetected) CSF E. coli K1 (PCR) Not Detected (NotDetected) CSF H. influenzae (PCR) Not Detected (NotDetected) CSF HSV I (PCR) Not Detected (NotDetected) CSF HSV II (PCR) Not Detected (NotDetected) CSF HHV 6 (PCR) Not Detected (NotDetected) CSF L.monocytogenes PCR Not Detected (NotDetected) CSF N. meningitidis PCR Not Detected (NotDetected) CSF Parechovirus (PCR) Not Detected (NotDetected) CSF S. agalactiae (PCR) Not Detected (NotDetected) CSF S. pneumoniae (PCR) Not Detected (NotDetected) CSF VZV DNA (PCR) Not Detected (NotDetected) CSF West Nile RNA Pending Coding Level of Care Code Critical Care ea addt'l 30 min Diagnoses Altered mental status R41.0 Altered mental status type: disorientation Admitted to intensive care unit Z78.9 Time Spent (min) 90 Comment I have personally spent 90 minutes of critical care time in the direct management of this patient. This is a life/limb threatening event. This includes time spent evaluating patient, direct bedside care, chart review, placing orders, interpretation of diagnostic studies, discussion with consultants, patient, and/or family members regarding treatment decisions, as well as other required patient management activities. This time is exclusive of all separately billable procedures, and teaching time and separate from and in addition to any other critical care service time. (1) Altered mental status Altered mental status type: disorientation Qualified Code(s): R41.0 - Disorientation, unspecified
[2019-09-20] MEDS ORDERED: Nursing to Pharmacy Communication SCH ×2 (13:30→17:45)
[2019-09-20] MEDS ORDERED: OPTIRAY 320 125ml IV PRN (14:47)
[2019-09-20] MEDS ORDERED: POTASSIUM PHOS 3 MMOL/1 ML INFUSION IV STA (15:01)
[2019-09-20] MEDS ORDERED: POTASSIUM PHOSPHATE 9 MMOL in SODIUM CHLORIDE 0.9% 250 ML IV ONE (15:15)
--- NOTE | 2019-09-20 15:19 | CT Scan Report ---
CT angio chest PE protocol CT DOSE: 751.09 mGy.cm HISTORY: Dyspnea PE TECHNIQUE: Multiaxial CT images of the chest were performed following the intravenous administration of contrast to evaluate the pulmonary arteries. Maximal intensity projection images were also obtaine d. A dose lowering technique was utilized adhering to the principles of ALARA. COMPARISON STUDY: 09/12/2019 FINDINGS: The pulmonary vasculature enhances appropriately. There are no major central filling defect s. The thoracic vasculature is somewhat compromised in terms of visibility due to body habitus and pa tient motion considerations. There are diffuse bilateral interstitial infiltrative changes. There are bilateral pleural effusions. There is bilateral lower lobe consolidative/atelectatic change. IMPRESSION: 1. No evidence for pulmonary embolus. 2. Bilateral pleural effusions. 3. Diffuse bilateral parenchymal infiltrates. ACT 112: Negative or not required by law. The above report was generated using voice recognition software. It may contain grammatical, syntax or spelling errors. Electronically signed by: Yash Wolf M.D. 09/20/2019 3:18 PM
[2019-09-20] MEDS: MAGNESIUM SULFATE / D5W 1 GM/100 ML BAG IV SCH ×2 (15:53→19:52)
[2019-09-20] MEDS: POTASSIUM ACETATE 10 MEQ in 0.9 % SODIUM CHLORIDE 100 ML IV SCH ×2 (15:57→17:04)
--- NOTE | 2019-09-20 16:05 | Billing Data ---
Date of Service September 20, 2019 Coding Level of Care Code 37052 Subseq Hosp Care Lvl 2
--- NOTE | 2019-09-20 17:08 | XRay Report ---
XR KUB/Abdomen 1 view CLINICAL HISTORY: coresafe tube position COMPARISON STUDY: No previous studies for comparison. FINDINGS: Feeding tube placed within the proximal stomach IMPRESSION: Feeding tube placed in the proximal stomach ACT 112: Negative or not required by law. The above report was generated using voice recognition software. It may contain grammatical, syntax or spelling errors. Electronically signed by: Yash Wolf M.D. 09/20/2019 5:06 PM
--- NOTE | 2019-09-20 17:37 | Electroencephalogram ---
EEG Procedure Note Date of Service September 20, 2019 Start / End Times Start Time: 3:52pm End Time: 4:12pm Referring Physician [facility]ji [facility] History AMS, seizures Home Medication List Home Medications Medication Instructions Recorded Confirmed Type atorvastatin 40 mg PO HS 09/14/19 09/14/19 History paroxetine HCl 40 mg PO DAILY 09/14/19 09/14/19 History Inpatient Medication List Enoxaparin Sodium (Lovenox) 40 mg SQ DAILY [facility] Stop: 10/14/19 08:59 Last Admin: 09/20/19 09:07 Dose: 40 mg Documented by: [id number] Admin: 09/19/19 08:54 Dose: 40 mg Documented by: [id number] Admin: 09/18/19 08:37 Dose: 40 mg Documented by: [id number] Admin: 09/17/19 08:19 Dose: 40 mg Documented by: [id number] Admin: 09/16/19 08:00 Dose: 40 mg Documented by: [id number] Admin: 09/15/19 08:58 Dose: 40 mg Documented by: [id number] Admin: 09/14/19 09:33 Dose: 40 mg Documented by: [id number] Gadobutrol (Gadavist 65ml) 6.8 ml IV ONCE PRN PRN Reason: Interaction Checking Stop: 09/23/19 21:29 Last Admin: 09/19/19 21:30 Dose: 6.8 ml Documented by: [id number] Thiamine HCl 250 mg/ Sodium (Chloride) 52.5 mls @ 210 mls/hr IV Q24H [facility] Stop: 09/21/19 21:14 Last Infusion: 09/19/19 22:38 Dose: 0 mls/hr Documented by: [id number] Admin: 09/19/19 22:22 Dose: 210 mls/hr Documented by: [id number] Infusion: 09/18/19 21:07 Dose: 0 mls/hr Documented by: [id number] Admin: 09/18/19 20:52 Dose: 210 mls/hr Documented by: [id number] Infusion: 09/17/19 20:55 Dose: 0 mls/hr Documented by: [id number] Admin: 09/17/19 20:40 Dose: 210 mls/hr Documented by: [id number] Folic Acid 1 mg/ Syringe 10 mls @ 5 mls/min IV Q24H [facility] Stop: 10/15/19 11:59 Last Admin: 09/20/19 11:17 Dose: 5 mls/min Documented by: [id number] Admin: 09/19/19 11:18 Dose: 5 mls/min Documented by: [id number] Admin: 09/18/19 12:17 Dose: 5 mls/min Documented by: [id number] Admin: 09/17/19 10:51 Dose: 5 mls/min Documented by: [id number] Admin: 09/16/19 11:54 Dose: 5 mls/min Documented by: [id number] Admin: 09/15/19 12:37 Dose: 5 mls/min Documented by: [id number] Doxycycline Hyclate 100 mg/ (Dextrose) 110 mls @ 50 mls/hr IV Q12H [facility] Stop: 10/09/19 05:59 Last Infusion: 09/20/19 07:55 Dose: 0 mls/hr Documented by: [id number] Admin: 09/20/19 05:40 Dose: 50 mls/hr Documented by: [id number] Infusion: 09/19/19 19:41 Dose: 0 mls/hr Documented by: [id number] Admin: 09/19/19 17:25 Dose: 50 mls/hr Documented by: [id number] Infusion: 09/19/19 08:05 Dose: 0 mls/hr Documented by: [id number] Admin: 09/19/19 05:51 Dose: 50 mls/hr Documented by: [id number] Infusion: 09/18/19 19:57 Dose: 0 mls/hr Documented by: [id number] Admin: 09/18/19 17:40 Dose: 50 mls/hr Documented by: [id number] Infusion: 09/18/19 09:40 Dose: 0 mls/hr Documented by: [id number] Admin: 09/18/19 05:52 Dose: 50 mls/hr Documented by: [id number] Lacosamide 50 mg/ Sodium (Chloride) 55 mls @ 140 mls/hr IV Q12 [facility] Stop: 10/19/19 11:14 Last Infusion: 09/20/19 09:45 Dose: 0 mls/hr Documented by: [id number] Admin: 09/20/19 09:19 Dose: 140 mls/hr Documented by: [id number] Infusion: 09/19/19 22:46 Dose: 0 mls/hr Documented by: [id number] Admin: 09/19/19 22:22 Dose: 140 mls/hr Documented by: [id number] Infusion: 09/19/19 11:45 Dose: 0 mls/hr Documented by: [id number] Admin: 09/19/19 11:17 Dose: 140 mls/hr Documented by: [id number] Acetaminophen (Ofirmev) 1,000 mg in 100 mls @ 400 mls/hr IV Q8H PRN PRN Reason: Fever Stop: 09/22/19 18:47 Last Infusion: 09/20/19 14:25 Dose: 0 mls/hr Documented by: [id number] Admin: 09/20/19 14:09 Dose: 400 mls/hr Documented by: [id number] Infusion: 09/20/19 04:05 Dose: 0 mls/hr Documented by: [id number] Admin: 09/20/19 03:50 Dose: 400 mls/hr Documented by: [id number] Infusion: 09/19/19 19:58 Dose: 0 mls/hr Documented by: [id number] Admin: 09/19/19 19:35 Dose: 400 mls/hr Documented by: [id number] Ketamine HCl (Ketalar / Nss) 500 mg in 500 mls @ 14.18 mls/hr IV .Q24H [facility]; Protocol Stop: 10/20/19 12:14 Last Titration: 09/20/19 15:17 Dose: 0.2 mg/kg/hr, 14.2 mls/hr Documented by: [id number] Cosigned by: [id number] Titration: 09/20/19 15:06 Dose: 0.2 mg/kg/hr, 14.2 mls/hr Documented by: [id number] Cosigned by: [id number] Titration: 09/20/19 13:30 Dose: 0.2 mg/kg/hr, 14.2 mls/hr Documented by: [id number] Admin: 09/20/19 12:28 Dose: 0.1 mg/kg/hr, 7.1 mls/hr Documented by: [id number] Cosigned by: [id number] Magnesium Sulfate/Dextrose (Magnesium Sulfate / D5w) 1 gm in 100 mls @ 25 mls/hr IV Q4H [facility] Stop: 09/20/19 22:59 Last Admin: 09/20/19 15:53 Dose: 25 mls/hr Documented by: [id number] Potassium Acetate 10 meq/ (Sodium Chloride) 105 mls @ 105 mls/hr IV Q1H [facility] Stop: 09/20/19 17:59 Last Admin: 09/20/19 17:04 Dose: 105 mls/hr Documented by: [id number] Infusion: 09/20/19 16:57 Dose: 105 mls/hr Documented by: [id number] Admin: 09/20/19 15:57 Dose: 105 mls/hr Documented by: [id number] Potassium Phosphate 9 mmol/ (Sodium Chloride) 253 mls @ 88 mls/hr IV ONE ONE Stop: 09/20/19 18:07 Last Admin: 09/20/19 15:43 Dose: 88 mls/hr Documented by: [id number] Ioversol (Optiray 320 125ml) 119 ml IV ONCE PRN PRN Reason: Interaction Checking Stop: 09/24/19 14:46 Last Admin: 09/20/19 14:47 Dose: 119 ml Documented by: [id number] Magnesium Oxide (Mag-Ox) 400 mg PO HS [facility] Stop: 10/16/19 20:59 Last Admin: 09/19/19 22:21 Dose: 400 mg Documented by: [id number] Admin: 09/18/19 20:52 Dose: 400 mg Documented by: [id number] Admin: 09/17/19 20:24 Dose: 400 mg Documented by: [id number] Admin: 09/16/19 20:19 Dose: Not Given Documented by: [id number] Nutritional Formula (Peptamen Intense Vhp 1.0 Siva) 1,000 ml OG UD [facility]; Protocol Stop: 10/19/19 10:44 Last Admin: 09/19/19 11:45 Dose: 1,000 ml Documented by: [id number] Discontinued Medications Etomidate (Amidate) 20 mg IV NOW ONE Stop: 09/19/19 08:14 Last Admin: 09/19/19 08:40 Dose: 20 mg Documented by: [id number] Famotidine (Pepcid) 20 mg PO BID [facility] Stop: 10/17/19 20:59 Last Admin: 09/19/19 09:58 Dose: Not Given Documented by: [id number] Admin: 09/18/19 20:52 Dose: 20 mg Documented by: [id number] Admin: 09/18/19 10:07 Dose: Not Given Documented by: [id number] Admin: 09/17/19 20:24 Dose: 20 mg Documented by: [id number] Fentanyl Citrate (Fentanyl Citrate) 50 mcg IV Q1H PRN PRN Reason: pain Stop: 09/29/19 11:55 Last Admin: 09/15/19 20:23 Dose: 50 mcg Documented by: [id number] Fentanyl Citrate (Fentanyl Citrate) Confirm Administered Dose 100 mcg .ROUTE .[employer] ONE Stop: 09/19/19 08:03 Last Admin: 09/19/19 08:09 Dose: 100 mcg Documented by: [id number] Fentanyl Citrate (Fentanyl Citrate) 100 mcg IV NOW STA Stop: 09/19/19 08:07 Last Admin: 09/19/19 09:59 Dose: Not Given Documented by: [id number] Fentanyl Citrate (Fentanyl Citrate) 100 mcg IV Q2H PRN PRN Reason: Severe Pain (7,8,9,10) Stop: 10/03/19 08:12 Last Admin: 09/19/19 16:38 Dose: 100 mcg Documented by: [id number] Admin: 09/19/19 13:58 Dose: 100 mcg Documented by: [id number] Fentanyl Citrate (Fentanyl Bolus From Bag) 50 mcg IV Q60M PRN PRN Reason: Pain or Agitation Stop: 10/03/19 18:56 Last Admin: 09/20/19 07:58 Dose: 50 mcg Documented by: [id number] Fentanyl Citrate (Fentanyl Drip) Confirm Administered Dose 1,250 mcg IV .[employer] ONE Stop: 09/19/19 19:11 Last Admin: 09/19/19 19:36 Dose: Not Given Documented by: [id number] Propofol (Diprivan) 1,000 mg in 100 mls @ 4.098 mls/hr IV .Q24H [facility]; Protocol Stop: 09/17/19 00:29 Last Titration: 09/16/19 13:20 Dose: 0 mcg/kg/min, 0 mls/hr Documented by: [id number] Titration: 09/16/19 12:12 Dose: 10 mcg/kg/min, 4.1 mls/hr Documented by: [id number] Admin: 09/16/19 11:55 Dose: Not Given Documented by: [id number] Titration: 09/16/19 10:30 Dose: 20 mcg/kg/min, 8.2 mls/hr Documented by: [id number] Admin: 09/16/19 10:11 Dose: 30 mcg/kg/min, 12.3 mls/hr Documented by: [id number] Cosigned by: [id number] Titration: 09/16/19 10:11 Dose: 30 mcg/kg/min, 12.3 mls/hr Documented by: [id number] Cosigned by: [id number] Titration: 09/16/19 06:56 Dose: 30 mcg/kg/min, 12.3 mls/hr Documented by: [id number] Cosigned by: [id number] Admin: 09/16/19 06:43 Dose: Not Given Documented by: [id number] Titration: 09/16/19 06:00 Dose: 30 mcg/kg/min, 12.3 mls/hr Documented by: [id number] Titration: 09/16/19 05:30 Dose: 35 mcg/kg/min, 14.3 mls/hr Documented by: [id number] Admin: 09/16/19 03:44 Dose: 40 mcg/kg/min, 16.4 mls/hr Documented by: [id number] Cosigned by: [id number] Titration: 09/16/19 03:20 Dose: 40 mcg/kg/min, 16.4 mls/hr Documented by: [id number] Cosigned by: [id number] Titration: 09/16/19 00:30 Dose: 40 mcg/kg/min, 16.4 mls/hr Documented by: [id number] Admin: 09/15/19 20:49 Dose: Not Given Documented by: [id number] Titration: 09/15/19 20:49 Dose: 30 mcg/kg/min, 12.3 mls/hr Documented by: [id number] Titration: 09/15/19 20:22 Dose: 20 mcg/kg/min, 8.2 mls/hr Documented by: [id number] Admin: 09/15/19 19:12 Dose: 10 mcg/kg/min, 4.1 mls/hr Documented by: [id number] Cosigned by: [id number] Titration: 09/15/19 19:12 Dose: 10 mcg/kg/min, 4.1 mls/hr Documented by: [id number] Cosigned by: [id number] Titration: 09/15/19 18:42 Dose: 10 mcg/kg/min, 4.1 mls/hr Documented by: [id number] Cosigned by: [id number] Titration: 09/15/19 17:50 Dose: 10 mcg/kg/min, 4.1 mls/hr Documented by: [id number] Titration: 09/15/19 13:57 Dose: 15 mcg/kg/min, 6.1 mls/hr Documented by: [id number] Admin: 09/15/19 08:58 Dose: 30 mcg/kg/min, 12.3 mls/hr Documented by: [id number] Cosigned by: [id number] Titration: 09/15/19 08:58 Dose: 30 mcg/kg/min, 12.3 mls/hr Documented by: [id number] Cosigned by: [id number] Titration: 09/15/19 05:12 Dose: 30 mcg/kg/min, 12.3 mls/hr Documented by: [id number] Admin: 09/15/19 04:00 Dose: 40 mcg/kg/min, 16.4 mls/hr Documented by: [id number] Cosigned by: [id number] Titration: 09/15/19 03:39 Dose: 40 mcg/kg/min, 16.4 mls/hr Documented by: [id number] Cosigned by: [id number] Admin: 09/14/19 21:33 Dose: 40 mcg/kg/min, 16.4 mls/hr Documented by: [id number] Cosigned by: [id number] Titration: 09/14/19 21:01 Dose: 40 mcg/kg/min, 16.4 mls/hr Documented by: [id number] Cosigned by: [id number] Titration: 09/14/19 20:13 Dose: 40 mcg/kg/min, 16.4 mls/hr Documented by: [id number] Titration: 09/14/19 19:06 Dose: 30 mcg/kg/min, 12.3 mls/hr Documented by: [id number] Cosigned by: [id number] Titration: 09/14/19 13:28 Dose: 25 mcg/kg/min, 10.2 mls/hr Documented by: [id number] Titration: 09/14/19 12:12 Dose: 20 mcg/kg/min, 8.2 mls/hr Documented by: [id number] Admin: 09/14/19 11:45 Dose: 30 mcg/kg/min, 12.3 mls/hr Documented by: [id number] Cosigned by: [id number] Titration: 09/14/19 07:16 Dose: 40 mcg/kg/min, 16.4 mls/hr Documented by: [id number] Cosigned by: [id number] Titration: 09/14/19 07:10 Dose: 40 mcg/kg/min, 16.4 mls/hr Documented by: [id number] Cosigned by: [id number] Titration: 09/14/19 02:43 Dose: 40 mcg/kg/min, 16.4 mls/hr Documented by: [id number] Titration: 09/14/19 01:21 Dose: 30 mcg/kg/min, 12.3 mls/hr Documented by: [id number] Admin: 09/14/19 00:17 Dose: 20 mcg/kg/min, 8.2 mls/hr Documented by: [id number] Cosigned by: [id number] Midazolam HCl (Versed) 125 mg in 250 mls @ 14 mls/hr IV .[id number] [facility]; Protocol Stop: 10/14/19 00:29 Last Titration: 09/16/19 13:20 Dose: 0 mg/hr, 0 mls/hr Documented by: [id number] Titration: 09/16/19 12:12 Dose: 7 mg/hr, 14 mls/hr Documented by: [id number] Titration: 09/16/19 06:56 Dose: 9 mg/hr, 18 mls/hr Documented by: [id number] Cosigned by: [id number] Admin: 09/15/19 23:05 Dose: 9 mg/hr, 18 mls/hr Documented by: [id number] Cosigned by: [id number] Titration: 09/15/19 23:05 Dose: 8 mg/hr, 16 mls/hr Documented by: [id number] Cosigned by: [id number] Admin: 09/15/19 21:34 Dose: Not Given Documented by: [id number] Admin: 09/15/19 20:49 Dose: Not Given Documented by: [id number] Titration: 09/15/19 20:22 Dose: 8 mg/hr, 16 mls/hr Documented by: [id number] Titration: 09/15/19 18:42 Dose: 6 mg/hr, 12 mls/hr Documented by: [id number] Cosigned by: [id number] Titration: 09/15/19 17:50 Dose: 6 mg/hr, 12 mls/hr Documented by: [id number] Admin: 09/15/19 01:14 Dose: 4 mg/hr, 8 mls/hr Documented by: [id number] Cosigned by: [id number] Titration: 09/15/19 01:14 Dose: 4 mg/hr, 8 mls/hr Documented by: [id number] Cosigned by: [id number] Titration: 09/14/19 19:06 Dose: 4 mg/hr, 8 mls/hr Documented by: [id number] Cosigned by: [id number] Titration: 09/14/19 12:12 Dose: 3 mg/hr, 6 mls/hr Documented by: [id number] Titration: 09/14/19 07:10 Dose: 4 mg/hr, 8 mls/hr Documented by: [id number] Cosigned by: [id number] Titration: 09/14/19 02:14 Dose: 4 mg/hr, 8 mls/hr Documented by: [id number] Titration: 09/14/19 01:22 Dose: 2 mg/hr, 4 mls/hr Documented by: [id number] Admin: 09/14/19 01:20 Dose: 1 mg/hr, 2 mls/hr Documented by: [id number] Cosigned by: [id number] Vancomycin HCl 1,750 mg/ (Sodium Chloride) 535 mls @ 200 mls/hr IV NOW ONE; Protocol Stop: 09/14/19 06:10 Last Infusion: 09/14/19 06:49 Dose: 0 mls/hr Documented by: [id number] Admin: 09/14/19 03:36 Dose: 200 mls/hr Documented by: [id number] Piperacillin Sod/Tazobactam (Sod 4.5 gm/ Dextrose) 120 mls @ 30 mls/hr IV Q8H [facility]; Protocol Stop: 09/21/19 07:59 Last Infusion: 09/15/19 11:30 Dose: 0 mls/hr Documented by: [id number] Admin: 09/15/19 07:27 Dose: 30 mls/hr Documented by: [id number] Infusion: 09/15/19 05:21 Dose: 0 mls/hr Documented by: [id number] Admin: 09/15/19 01:14 Dose: 30 mls/hr Documented by: [id number] Infusion: 09/14/19 20:13 Dose: 0 mls/hr Documented by: [id number] Admin: 09/14/19 15:45 Dose: 30 mls/hr Documented by: [id number] Infusion: 09/14/19 11:46 Dose: 0 mls/hr Documented by: [id number] Admin: 09/14/19 07:27 Dose: 30 mls/hr Documented by: [id number] Famotidine 20 mg/ Syringe 5 mls @ 2.5 mls/min IV Q12H [facility] Stop: 10/14/19 00:59 Last Admin: 09/17/19 00:39 Dose: 2.5 mls/min Documented by: [id number] Admin: 09/16/19 12:13 Dose: 2.5 mls/min Documented by: [id number] Admin: 09/16/19 00:30 Dose: 2.5 mls/min Documented by: [id number] Admin: 09/15/19 12:37 Dose: 2.5 mls/min Documented by: [id number] Admin: 09/15/19 01:14 Dose: 2.5 mls/min Documented by: [id number] Admin: 09/14/19 13:51 Dose: 2.5 mls/min Documented by: [id number] Admin: 09/14/19 01:00 Dose: 2.5 mls/min Documented by: [id number] Azithromycin 500 mg/ Dextrose 255 mls @ 125 mls/hr IV DAILY [facility] Stop: 09/21/19 08:59 Last Infusion: 09/15/19 11:05 Dose: 0 mls/hr Documented by: [id number] Admin: 09/15/19 08:58 Dose: 125 mls/hr Documented by: [id number] Infusion: 09/14/19 11:46 Dose: 0 mls/hr Documented by: [id number] Admin: 09/14/19 09:33 Dose: 125 mls/hr Documented by: [id number] Magnesium Sulfate/Dextrose (Magnesium Sulfate / D5w) 1 gm in 100 mls @ 50 mls/hr IV Q2H [facility] Stop: 09/14/19 08:41 Last Infusion: 09/14/19 08:30 Dose: 0 mls/hr Documented by: [id number] Admin: 09/14/19 07:26 Dose: 10 mls/hr Documented by: [id number] Infusion: 09/14/19 07:26 Dose: 50 mls/hr Documented by: [id number] Admin: 09/14/19 06:02 Dose: 50 mls/hr Documented by: [id number] Infusion: 09/14/19 05:49 Dose: 0 mls/hr Documented by: [id number] Admin: 09/14/19 03:36 Dose: 50 mls/hr Documented by: [id number] Piperacillin Sod/Tazobactam (Sod 4.5 gm/ Dextrose) 120 mls @ 200 mls/hr IV NOW ONE; Protocol Stop: 09/14/19 03:50 Last Infusion: 09/14/19 04:22 Dose: 0 mls/hr Documented by: [id number] Admin: 09/14/19 03:34 Dose: 200 mls/hr Documented by: [id number] Levetiracetam 500 mg/ Sodium (Chloride) 105 mls @ 420 mls/hr IV Q12H [facility] Stop: 10/14/19 03:59 Last Infusion: 09/19/19 03:52 Dose: 0 mls/hr Documented by: [id number] Admin: 09/19/19 03:35 Dose: 420 mls/hr Documented by: [id number] Infusion: 09/18/19 16:02 Dose: 0 mls/hr Documented by: [id number] Admin: 09/18/19 15:32 Dose: 420 mls/hr Documented by: [id number] Infusion: 09/18/19 04:33 Dose: 0 mls/hr Documented by: [id number] Admin: 09/18/19 04:18 Dose: 420 mls/hr Documented by: [id number] Infusion: 09/17/19 17:55 Dose: 0 mls/hr Documented by: [id number] Admin: 09/17/19 17:03 Dose: 420 mls/hr Documented by: [id number] Infusion: 09/17/19 04:22 Dose: 0 mls/hr Documented by: [id number] Admin: 09/17/19 04:07 Dose: 420 mls/hr Documented by: [id number] Infusion: 09/16/19 16:04 Dose: 0 mls/hr Documented by: [id number] Admin: 09/16/19 15:49 Dose: 420 mls/hr Documented by: [id number] Infusion: 09/16/19 04:10 Dose: 0 mls/hr Documented by: [id number] Admin: 09/16/19 03:44 Dose: 420 mls/hr Documented by: [id number] Infusion: 09/15/19 16:36 Dose: 0 mls/hr Documented by: [id number] Admin: 09/15/19 16:19 Dose: 420 mls/hr Documented by: [id number] Infusion: 09/15/19 05:22 Dose: 0 mls/hr Documented by: [id number] Admin: 09/15/19 04:50 Dose: 420 mls/hr Documented by: [id number] Infusion: 09/14/19 16:05 Dose: 0 mls/hr Documented by: [id number] Admin: 09/14/19 15:46 Dose: 420 mls/hr Documented by: [id number] Admin: 09/14/19 06:26 Dose: Not Given Documented by: [id number] Infusion: 09/14/19 05:21 Dose: 0 mls/hr Documented by: [id number] Admin: 09/14/19 04:38 Dose: 420 mls/hr Documented by: [id number] Thiamine HCl 200 mg/ Sodium (Chloride) 52 mls @ 208 mls/hr IV QAM [facility] Stop: 10/14/19 08:59 Last Infusion: 09/15/19 09:15 Dose: 0 mls/hr Documented by: [id number] Admin: 09/15/19 08:58 Dose: 208 mls/hr Documented by: [id number] Infusion: 09/14/19 09:50 Dose: 0 mls/hr Documented by: [id number] Admin: 09/14/19 09:33 Dose: 208 mls/hr Documented by: [id number] Potassium Chloride (K Quinn / Wtr) 10 meq in 100 mls @ 100 mls/hr IV Q1H [facility]ANNA Stop: 09/15/19 09:22 Last Infusion: 09/15/19 11:10 Dose: 0 mls/hr Documented by: [id number] Admin: 09/15/19 10:07 Dose: 100 mls/hr Documented by: [id number] Infusion: 09/15/19 09:59 Dose: 100 mls/hr Documented by: [id number] Admin: 09/15/19 08:59 Dose: 100 mls/hr Documented by: [id number] Infusion: 09/15/19 08:18 Dose: 100 mls/hr Documented by: [id number] Admin: 09/15/19 07:18 Dose: 100 mls/hr Documented by: [id number] Thiamine HCl 500 mg/ Sodium (Chloride) 105 mls @ 210 mls/hr IV Q8H [facility] Stop: 09/17/19 04:29 Last Infusion: 09/17/19 04:37 Dose: 0 mls/hr Documented by: [id number] Admin: 09/17/19 04:07 Dose: 210 mls/hr Documented by: [id number] Infusion: 09/16/19 20:50 Dose: 0 mls/hr Documented by: [id number] Admin: 09/16/19 20:20 Dose: 210 mls/hr Documented by: [id number] Infusion: 09/16/19 12:30 Dose: 0 mls/hr Documented by: [id number] Admin: 09/16/19 11:54 Dose: 210 mls/hr Documented by: [id number] Infusion: 09/16/19 05:04 Dose: 0 mls/hr Documented by: [id number] Admin: 09/16/19 03:44 Dose: 210 mls/hr Documented by: [id number] Infusion: 09/15/19 21:35 Dose: 0 mls/hr Documented by: [id number] Admin: 09/15/19 21:00 Dose: 210 mls/hr Documented by: [id number] Infusion: 09/15/19 13:07 Dose: 0 mls/hr Documented by: [id number] Admin: 09/15/19 12:37 Dose: 210 mls/hr Documented by: [id number] Ceftriaxone Sodium 1,000 mg/ (Dextrose) 60 mls @ 120 mls/hr IV Q24H [facility]INANA Stop: 09/16/19 13:29 Last Infusion: 09/16/19 12:42 Dose: 0 mls/hr Documented by: [id number] Admin: 09/16/19 12:15 Dose: 120 mls/hr Documented by: [id number] Infusion: 09/15/19 13:10 Dose: 0 mls/hr Documented by: [id number] Admin: 09/15/19 12:36 Dose: 120 mls/hr Documented by: [id number] Parenteral Electrolytes (Normosol-R) 1,000 mls @ 80 mls/hr IV .[id number] [facility] Stop: 10/16/19 00:14 Last Infusion: 09/20/19 15:04 Dose: 0 mls/hr Documented by: [id number] Admin: 09/20/19 09:08 Dose: 80 mls/hr Documented by: [id number] Infusion: 09/20/19 08:07 Dose: 80 mls/hr Documented by: [id number] Infusion: 09/19/19 23:40 Dose: 80 mls/hr Documented by: [id number] Admin: 09/19/19 19:37 Dose: 80 mls/hr Documented by: [id number] Infusion: 09/19/19 16:24 Dose: 80 mls/hr Documented by: [id number] Admin: 09/19/19 03:54 Dose: 80 mls/hr Documented by: [id number] Infusion: 09/19/19 03:54 Dose: 80 mls/hr Documented by: [id number] Infusion: 09/18/19 22:05 Dose: 80 mls/hr Documented by: [id number] Admin: 09/18/19 20:53 Dose: Not Given Documented by: [id number] Infusion: 09/18/19 19:11 Dose: 80 mls/hr Documented by: [id number] Admin: 09/18/19 15:32 Dose: 80 mls/hr Documented by: [id number] Infusion: 09/18/19 12:27 Dose: 80 mls/hr Documented by: [id number] Admin: 09/17/19 23:57 Dose: 80 mls/hr Documented by: [id number] Infusion: 09/17/19 23:21 Dose: 80 mls/hr Documented by: [id number] Admin: 09/17/19 10:51 Dose: 80 mls/hr Documented by: [id number] Infusion: 09/17/19 10:51 Dose: 0 mls/hr Documented by: [id number] Infusion: 09/17/19 06:09 Dose: 0 mls/hr Documented by: [id number] Infusion: 09/17/19 04:22 Dose: 80 mls/hr Documented by: [id number] Infusion: 09/17/19 04:08 Dose: 0 mls/hr Documented by: [id number] Admin: 09/16/19 19:35 Dose: 80 mls/hr Documented by: [id number] Infusion: 09/16/19 19:08 Dose: 80 mls/hr Documented by: [id number] Infusion: 09/16/19 10:30 Dose: 80 mls/hr Documented by: [id number] Admin: 09/16/19 08:01 Dose: 125 mls/hr Documented by: [id number] Infusion: 09/16/19 08:01 Dose: 125 mls/hr Documented by: [id number] Admin: 09/16/19 00:30 Dose: 125 mls/hr Documented by: [id number] Dexmedetomidine HCl 200 mcg/ (Sodium Chloride) 50 mls @ 3.4 mls/hr IV .[id number] [facility]; Protocol Stop: 09/20/19 19:14 Last Admin: 09/17/19 09:06 Dose: Not Given Documented by: [id number] Titration: 09/17/19 06:43 Dose: 0 mcg/kg/hr, 0 mls/hr Documented by: [id number] Titration: 09/17/19 06:43 Dose: 0 mcg/kg/hr, 0 mls/hr Documented by: [id number] Admin: 09/17/19 06:00 Dose: 0.2 mcg/kg/hr, 3.4 mls/hr Documented by: [id number] Cosigned by: [id number] Titration: 09/17/19 05:32 Dose: 0.4 mcg/kg/hr, 6.9 mls/hr Documented by: [id number] Cosigned by: [id number] Titration: 09/17/19 05:28 Dose: 0.4 mcg/kg/hr, 6.9 mls/hr Documented by: [id number] Admin: 09/17/19 00:39 Dose: 0.6 mcg/kg/hr, 10.3 mls/hr Documented by: [id number] Cosigned by: [id number] Titration: 09/17/19 00:39 Dose: 0.6 mcg/kg/hr, 10.3 mls/hr Documented by: [id number] Cosigned by: [id number] Titration: 09/16/19 23:30 Dose: 0.6 mcg/kg/hr, 10.3 mls/hr Documented by: [id number] Titration: 09/16/19 23:13 Dose: 0.5 mcg/kg/hr, 8.6 mls/hr Documented by: [id number] Cosigned by: [id number] Titration: 09/16/19 21:53 Dose: 0.4 mcg/kg/hr, 6.9 mls/hr Documented by: [id number] Titration: 09/16/19 21:24 Dose: 0.3 mcg/kg/hr, 5.2 mls/hr Documented by: [id number] Admin: 09/16/19 19:15 Dose: 0.2 mcg/kg/hr, 3.4 mls/hr Documented by: [id number] Cosigned by: [id number] Lorazepam (Ativan) 2 mg in 4 mls @ 4 mls/min IV Q1H PRN; Protocol PRN Reason: Symptoms of alcohol withdrawal Stop: 10/16/19 19:44 Last Admin: 09/17/19 18:09 Dose: 4 mls/min Documented by: [id number] Admin: 09/17/19 16:38 Dose: 4 mls/min Documented by: [id number] Admin: 09/17/19 15:35 Dose: 4 mls/min Documented by: [id number] Lorazepam (Ativan) 3 mg in 6 mls @ 6 mls/min IV Q1H PRN; Protocol PRN Reason: Symptoms of alcohol withdrawal Stop: 10/16/19 19:44 Last Admin: 09/16/19 19:43 Dose: 6 mls/min Documented by: [id number] Magnesium Sulfate/Dextrose (Magnesium Sulfate / D5w) 1 gm in 100 mls @ 50 mls/hr IV Q2H BRIANNA Stop: 09/17/19 09:52 Last Infusion: 09/17/19 10:32 Dose: 0 mls/hr Documented by: [id number] Admin: 09/17/19 08:19 Dose: 50 mls/hr Documented by: [id number] Infusion: 09/17/19 08:09 Dose: 50 mls/hr Documented by: [id number] Admin: 09/17/19 06:09 Dose: 50 mls/hr Documented by: [id number] Potassium Chloride (K Quinn / Wtr) 10 meq in 100 mls @ 100 mls/hr IV Q1H BRIANNA Stop: 09/17/19 09:54 Last Infusion: 09/17/19 10:31 Dose: 0 mls/hr Documented by: [id number] Admin: 09/17/19 09:48 Dose: 100 mls/hr Documented by: [id number] Infusion: 09/17/19 09:19 Dose: 100 mls/hr Documented by: [id number] Admin: 09/17/19 08:19 Dose: 100 mls/hr Documented by: [id number] Infusion: 09/17/19 08:01 Dose: 100 mls/hr Documented by: [id number] Admin: 09/17/19 07:01 Dose: 100 mls/hr Documented by: [id number] Infusion: 09/17/19 07:01 Dose: 100 mls/hr Documented by: [id number] Admin: 09/17/19 06:10 Dose: 100 mls/hr Documented by: [id number] Magnesium Sulfate/Dextrose (Magnesium Sulfate / D5w) 1 gm in 100 mls @ 25 mls/hr IV Q4H BRIANNA Stop: 09/17/19 22:29 Last Admin: 09/17/19 15:24 Dose: Not Given Documented by: [id number] Admin: 09/17/19 15:24 Dose: Not Given Documented by: [id number] Lorazepam (Ativan) 3 mg in 6 mls @ 4 mls/min IV NOW STA Stop: 09/17/19 19:40 Last Admin: 09/17/19 19:30 Dose: 4 mls/min Documented by: [id number] Dexmedetomidine HCl 200 mcg/ (Sodium Chloride) 50 mls @ 20.49 mls/hr IV .Q2H27M BRIANNA; Protocol Stop: 09/21/19 20:29 Last Titration: 09/19/19 01:39 Dose: 0 mcg/kg/hr, 0 mls/hr Documented by: [id number] Admin: 09/19/19 01:08 Dose: Not Given Documented by: [id number] Titration: 09/19/19 01:08 Dose: 1.2 mcg/kg/hr, 20.5 mls/hr Documented by: [id number] Admin: 09/18/19 23:23 Dose: Not Given Documented by: [id number] Titration: 09/18/19 22:55 Dose: 1.1 mcg/kg/hr, 18.8 mls/hr Documented by: [id number] Admin: 09/18/19 22:37 Dose: 1 mcg/kg/hr, 17.1 mls/hr Documented by: [id number] Cosigned by: [id number] Titration: 09/18/19 22:28 Dose: 1 mcg/kg/hr, 17.1 mls/hr Documented by: [id number] Cosigned by: [id number] Titration: 09/18/19 22:26 Dose: 1 mcg/kg/hr, 17.1 mls/hr Documented by: [id number] Titration: 09/18/19 22:05 Dose: 0.9 mcg/kg/hr, 15.4 mls/hr Documented by: [id number] Titration: 09/18/19 21:44 Dose: 0.8 mcg/kg/hr, 13.7 mls/hr Documented by: [id number] Titration: 09/18/19 20:18 Dose: 0.7 mcg/kg/hr, 12 mls/hr Documented by: [id number] Admin: 09/18/19 19:46 Dose: Not Given Documented by: [id number] Admin: 09/18/19 19:46 Dose: Not Given Documented by: [id number] Titration: 09/18/19 19:11 Dose: 0.6 mcg/kg/hr, 10.2 mls/hr Documented by: [id number] Cosigned by: [id number] Admin: 09/18/19 17:55 Dose: 0.5 mcg/kg/hr, 8.5 mls/hr Documented by: [id number] Cosigned by: [id number] Titration: 09/18/19 17:55 Dose: 0.5 mcg/kg/hr, 8.5 mls/hr Documented by: [id number] Cosigned by: [id number] Admin: 09/18/19 12:13 Dose: 0.5 mcg/kg/hr, 8.5 mls/hr Documented by: [id number] Cosigned by: [id number] Titration: 09/18/19 07:21 Dose: 0.5 mcg/kg/hr, 8.5 mls/hr Documented by: [id number] Cosigned by: [id number] Titration: 09/18/19 07:06 Dose: 0.5 mcg/kg/hr, 8.5 mls/hr Documented by: [id number] Cosigned by: [id number] Admin: 09/18/19 01:28 Dose: 0.5 mcg/kg/hr, 8.5 mls/hr Documented by: [id number] Cosigned by: [id number] Titration: 09/18/19 01:28 Dose: 0.5 mcg/kg/hr, 8.5 mls/hr Documented by: [id number] Cosigned by: [id number] Titration: 09/17/19 23:57 Dose: 0.5 mcg/kg/hr, 8.5 mls/hr Documented by: [id number] Titration: 09/17/19 21:35 Dose: 0.6 mcg/kg/hr, 10.2 mls/hr Documented by: [id number] Titration: 09/17/19 21:25 Dose: 0.5 mcg/kg/hr, 8.5 mls/hr Documented by: [id number] Titration: 09/17/19 21:15 Dose: 0.4 mcg/kg/hr, 6.8 mls/hr Documented by: [id number] Titration: 09/17/19 21:05 Dose: 0.3 mcg/kg/hr, 5.1 mls/hr Documented by: [id number] Admin: 09/17/19 20:55 Dose: 0.2 mcg/kg/hr, 3.4 mls/hr Documented by: [id number] Cosigned by: [id number] Potassium Chloride (K Quinn / Wtr) 10 meq in 100 mls @ 100 mls/hr IV Q1H BRIANNA Stop: 09/18/19 07:48 Last Infusion: 09/18/19 09:39 Dose: 0 mls/hr Documented by: [id number] Admin: 09/18/19 08:37 Dose: 100 mls/hr Documented by: [id number] Infusion: 09/18/19 08:11 Dose: 100 mls/hr Documented by: [id number] Admin: 09/18/19 07:11 Dose: 100 mls/hr Documented by: [id number] Infusion: 09/18/19 06:31 Dose: 100 mls/hr Documented by: [id number] Admin: 09/18/19 05:31 Dose: 100 mls/hr Documented by: [id number] Infusion: 09/18/19 05:19 Dose: 100 mls/hr Documented by: [id number] Admin: 09/18/19 04:19 Dose: 100 mls/hr Documented by: [id number] Magnesium Sulfate/Dextrose (Magnesium Sulfate / D5w) 1 gm in 100 mls @ 50 m ls/hr IV Q2H BRIANNA Stop: 09/18/19 08:52 Last Infusion: 09/18/19 09:39 Dose: 0 mls/hr Documented by: [id number] Admin: 09/18/19 06:04 Dose: 50 mls/hr Documented by: [id number] Infusion: 09/18/19 06:04 Dose: 50 mls/hr Documented by: [id number] Admin: 09/18/19 04:59 Dose: 50 mls/hr Documented by: [id number] Dexmedetomidine HCl 400 mcg/ (Sodium Chloride) 100 mls @ 25.613 mls/hr IV .[id number] BRIANNA; Protocol Stop: 09/23/19 01:14 Last Admin: 09/19/19 11:06 Dose: Not Given Documented by: [id number] Titration: 09/19/19 09:00 Dose: 0 mcg/kg/hr, 0 mls/hr Documented by: [id number] Titration: 09/19/19 07:04 Dose: 1.5 mcg/kg/hr, 25.6 mls/hr Documented by: [id number] Titration: 09/19/19 06:45 Dose: 1.2 mcg/kg/hr, 20.5 mls/hr Documented by: [id number] Cosigned by: [id number] Admin: 09/19/19 06:06 Dose: 1.2 mcg/kg/hr, 20.5 mls/hr Documented by: [id number] Cosigned by: [id number] Titration: 09/19/19 06:06 Dose: 1.2 mcg/kg/hr, 20.5 mls/hr Documented by: [id number] Cosigned by: [id number] Titration: 09/19/19 06:00 Dose: 1.2 mcg/kg/hr, 20.5 mls/hr Documented by: [id number] Titration: 09/19/19 03:36 Dose: 1.3 mcg/kg/hr, 22.2 mls/hr Documented by: [id number] Admin: 09/19/19 01:40 Dose: 1.2 mcg/kg/hr, 20.5 mls/hr Documented by: [id number] Cosigned by: [id number] Magnesium Sulfate/Dextrose (Magnesium Sulfate / D5w) 1 gm in 100 mls @ 50 mls/hr IV ONE ONE Stop: 09/19/19 08:39 Last Infusion: 09/19/19 08:40 Dose: 0 mls/hr Documented by: [id number] Admin: 09/19/19 06:40 Dose: 50 mls/hr Documented by: [id number] Propofol (Diprivan) 1,000 mg in 100 mls @ 6.174 mls/hr IV .[id number] BRIANNA; Protocol Stop: 09/22/19 08:14 Last Titration: 09/20/19 12:10 Dose: 0 mcg/kg/min, 0 mls/hr Documented by: [id number] Titration: 09/20/19 06:21 Dose: 15 mcg/kg/min, 6.2 mls/hr Documented by: [id number] Titration: 09/20/19 05:41 Dose: 20 mcg/kg/min, 8.2 mls/hr Documented by: [id number] Titration: 09/20/19 03:49 Dose: 25 mcg/kg/min, 10.3 mls/hr Documented by: [id number] Titration: 09/20/19 03:07 Dose: 30 mcg/kg/min, 12.3 mls/hr Documented by: [id number] Admin: 09/20/19 02:19 Dose: 35 mcg/kg/min, 14.4 mls/hr Documented by: [id number] Cosigned by: [id number] Titration: 09/20/19 02:19 Dose: 35 mcg/kg/min, 14.4 mls/hr Documented by: [id number] Cosigned by: [id number] Titration: 09/20/19 02:14 Dose: 35 mcg/kg/min, 14.4 mls/hr Documented by: [id number] Titration: 09/20/19 01:08 Dose: 40 mcg/kg/min, 16.5 mls/hr Documented by: [id number] Titration: 09/19/19 23:40 Dose: 45 mcg/kg/min, 18.5 mls/hr Documented by: [id number] Admin: 09/19/19 22:21 Dose: 50 mcg/kg/min, 20.6 mls/hr Documented by: [id number] Cosigned by: [id number] Titration: 09/19/19 22:21 Dose: 50 mcg/kg/min, 20.6 mls/hr Documented by: [id number] Cosigned by: [id number] Titration: 09/19/19 18:51 Dose: 50 mcg/kg/min, 20.6 mls/hr Documented by: [id number] Cosigned by: [id number] Admin: 09/19/19 18:05 Dose: 50 mcg/kg/min, 20.6 mls/hr Documented by: [id number] Cosigned by: [id number] Titration: 09/19/19 18:05 Dose: 50 mcg/kg/min, 20.6 mls/hr Documented by: [id number] Cosigned by: [id number] Titration: 09/19/19 16:39 Dose: 50 mcg/kg/min, 20.6 mls/hr Documented by: [id number] Admin: 09/19/19 13:58 Dose: 40 mcg/kg/min, 16.5 mls/hr Documented by: [id number] Cosigned by: [id number] Titration: 09/19/19 13:58 Dose: 40 mcg/kg/min, 16.5 mls/hr Documented by: [id number] Cosigned by: [id number] Admin: 09/19/19 09:37 Dose: 40 mcg/kg/min, 16.5 mls/hr Documented by: [id number] Cosigned by: [id number] Acyclovir Sodium 600 mg/ (Dextrose) 112 mls @ 100 mls/hr IV Q8H BRIANNA; Protocol Stop: 09/29/19 08:59 Last Infusion: 09/20/19 10:20 Dose: 0 mls/hr Documented by: [id number] Admin: 09/20/19 09:09 Dose: 100 mls/hr Documented by: [id number] Infusion: 09/20/19 02:19 Dose: 0 mls/hr Documented by: [id number] Admin: 09/20/19 01:08 Dose: 100 mls/hr Documented by: [id number] Infusion: 09/19/19 18:06 Dose: 0 mls/hr Documented by: [id number] Admin: 09/19/19 16:42 Dose: 100 mls/hr Documented by: [id number] Infusion: 09/19/19 10:45 Dose: 0 mls/hr Documented by: [id number] Admin: 09/19/19 09:37 Dose: 100 mls/hr Documented by: [id number] Magnesium Sulfate/Dextrose (Magnesium Sulfate / D5w) 1 gm in 100 mls @ 25 mls/hr IV ONE ONE Stop: 09/19/19 17:44 Last Infusion: 09/19/19 18:09 Dose: 0 mls/hr Documented by: [id number] Admin: 09/19/19 14:00 Dose: 25 mls/hr Documented by: [id number] Midazolam HCl (Versed) 125 mg in 250 mls @ 12 mls/hr IV .[id number] BRIANNA; Protocol Stop: 10/19/19 17:59 Last Titration: 09/20/19 12:51 Dose: 0 mg/hr, 0 mls/hr Documented by: [id number] Titration: 09/20/19 04:28 Dose: 6 mg/hr, 12 mls/hr Documented by: [id number] Titration: 09/19/19 22:21 Dose: 4 mg/hr, 8 mls/hr Documented by: [id number] Titration: 09/19/19 19:37 Dose: 8 mg/hr, 16 mls/hr Documented by: [id number] Titration: 09/19/19 18:51 Dose: 6 mg/hr, 12 mls/hr Documented by: [id number] Cosigned by: [id number] Admin: 09/19/19 18:04 Dose: 4 mg/hr, 8 mls/hr Documented by: [id number] Cosigned by: [id number] Fentanyl Citrate (Fentanyl Drip) 1,250 mcg in 250 mls @ 5 mls/hr IV .Q24H BRIANNA; Protocol Stop: 10/03/19 18:59 Last Titration: 09/20/19 12:10 Dose: 0 mcg/hr, 0 mls/hr Documented by: [id number] Admin: 09/19/19 19:36 Dose: 25 mcg/hr, 5 mls/hr Documented by: [id number] Cosigned by: [id number] Potassium Chloride (K Quinn / Wtr) 10 meq in 100 mls @ 100 mls/hr IV Q1H BRIANNA Stop: 09/20/19 08:18 Last Infusion: 09/20/19 08:33 Dose: 0 mls/hr Documented by: [id number] Admin: 09/20/19 07:31 Dose: 100 mls/hr Documented by: [id number] Infusion: 09/20/19 07:31 Dose: 100 mls/hr Documented by: [id number] Admin: 09/20/19 06:38 Dose: 100 mls/hr Documented by: [id number] Metoprolol Tartrate (Lopressor) 5 mg IV NOW STA Stop: 09/14/19 00:22 Last Admin: 09/14/19 01:16 Dose: 5 mg Documented by: [id number] Metoprolol Tartrate (Lopressor) Confirm Administered Dose 5 mg IV .STK-MED ONE Stop: 09/14/19 00:24 Last Admin: 09/14/19 01:20 Dose: Not Given Documented by: [id number] Metoprolol Tartrate (Lopressor) 5 mg IV NOW STA Stop: 09/14/19 00:28 Last Admin: 09/14/19 01:17 Dose: 5 mg Documented by: [id number] Metoprolol Tartrate (Lopressor) 5 mg IV NOW STA Stop: 09/19/19 18:43 Last Admin: 09/19/19 18:49 Dose: 5 mg Documented by: [id number] Metoprolol Tartrate (Lopressor) Confirm Administered Dose 5 mg IV .STK-MED ONE Stop: 09/19/19 18:44 Last Admin: 09/19/19 18:49 Dose: Not Given Documented by: [id number] Midazolam HCl (Versed Bolus From Bag) 2 mg IV Q60M PRN PRN Reason: Sedation Stop: 10/14/19 00:26 Last Admin: 09/15/19 23:06 Dose: 2 mg Documented by: [id number] Admin: 09/15/19 18:00 Dose: 2 mg Documented by: [id number] Admin: 09/15/19 13:57 Dose: 2 mg Documented by: [id number] Admin: 09/14/19 01:14 Dose: 2 mg Documented by: [id number] Midazolam HCl (Versed Bolus From Bag) 2 mg IV Q60M PRN PRN Reason: Sedation Stop: 10/19/19 17:47 Last Admin: 09/20/19 11:54 Dose: 2 mg Documented by: [id number] Admin: 09/20/19 07:58 Dose: 2 mg Documented by: [id number] Midazolam HCl (Versed) Confirm Administered Dose 125 mg .ROUTE .STK-MED ONE Stop: 09/19/19 17:51 Last Admin: 09/19/19 18:05 Dose: Not Given Documented by: [id number] Miscellaneous () Confirm Administered Dose 1 ea .ROUTE .STK-MED ONE Stop: 09/19/19 08:15 Last Admin: 09/19/19 10:00 Dose: 1 ea Documented by: [id number] Phenobarbital (Phenobarbital) 32.4 mg PO TODAY@1015 [facility] Stop: 09/17/19 16:00 Last Admin: 09/17/19 10:51 Dose: 32.4 mg Documented by: [id number] Potassium Chloride ([place] Elix) 60 meq PO NOW STA Stop: 09/15/19 06:24 Last Admin: 09/15/19 07:18 Dose: 60 meq Documented by: [id number] Potassium Chloride ([place] Elix) 40 meq PO NOW STA Stop: 09/16/19 06:24 Last Admin: 09/16/19 06:30 Dose: 40 meq Documented by: [id number] Potassium Chloride ([place] Elix) 40 meq PO NOW ONE Stop: 09/16/19 10:16 Last Admin: 09/16/19 10:11 Dose: 40 meq Documented by: [id number] Potassium Chloride ([place] Elix) 20 meq PO NOW STA Stop: 09/20/19 06:28 Last Admin: 09/20/19 06:38 Dose: 20 meq Documented by: [id number] Propofol (Diprivan) Confirm Administered Dose 1,000 mg IV .STK-MED ONE Stop: 09/14/19 00:16 Last Admin: 09/14/19 01:20 Dose: Not Given Documented by: [id number] Propofol (Diprivan Bolus From Bag) 20 mg IV Q5M PRN PRN Reason: Sedation Stop: 09/17/19 00:26 Last Admin: 09/14/19 00:30 Dose: 20 mg Documented by: [id number] Cosigned by: [id number] Propofol (Diprivan) Confirm Administered Dose 1,000 mg IV .STK-MED ONE Stop: 09/19/19 08:14 Last Admin: 09/19/19 10:00 Dose: Not Given Documented by: [id number] Propofol (Diprivan Bolus From Bag) 20 mg IV Q5M PRN PRN Reason: Sedation Stop: 09/22/19 08:12 Last Admin: 09/20/19 11:54 Dose: 20 mg Documented by: [id number] Cosigned by: [id number] Admin: 09/20/19 07:58 Dose: 20 mg Documented by: [id number] Cosigned by: [id number] Admin: 09/19/19 16:39 Dose: 20 mg Documented by: [id number] Cosigned by: [id number] Admin: 09/19/19 14:19 Dose: 20 mg Documented by: [id number] Cosigned by: [id number] Admin: 09/19/19 11:45 Dose: 20 mg Documented by: [id number] Cosigned by: [id number] Admin: 09/19/19 09:45 Dose: 20 mg Documented by: [id number] Cosigned by: [id number] Succinylcholine Chloride (Quelicin) 40 mg IV NOW STA Stop: 09/19/19 08:14 Last Admin: 09/19/19 10:00 Dose: 40 mg Documented by: [id number] Vecuronium [place] (Norcuron) 6 mg IV ONCE STA Stop: 09/19/19 10:29 Last Admin: 09/19/19 11:07 Dose: 6 mg Documented by: [id number] Cosigned by: [id number] Vecuronium [place] (Norcuron) Confirm Administered Dose 10 mg IV .STK-MED ONE Stop: 09/19/19 18:24 Last Admin: 09/19/19 18:51 Dose: Not Given Documented by: [id number] Vecuronium [place] (Norcuron) 6 mg IV NOW STA Stop: 09/19/19 18:29 Last Admin: 09/19/19 18:49 Dose: 6 mg Documented by: [id number] Cosigned by: [id number] Description This is a 21 electrode EEG with a single channel dedicated to limited EKG. The electrodes were placed in accordance with the International 10-20 system. History: AMS, possible seizures Rx: fentanyl, ketamine Start/Stop: 3:52p/4:12pm Attending reading: Charmaine Mccarthy EEG Description: EEG background: Background was delta/theta slowing with overriding faster frequencies in the beta range, as well as significant muscle artifact. No well formed posterior dominant rhythm was observed. The EEG is continuous. There is variability and reactivity present. Activation and reactivity: Photic stimulation performed without any abnormalities noted. No photic driving observed. Hyperventilation was not performed. Sleep: Patient did not enter drowsiness or sleep during the recording. Epileptiform discharges: Frequent left temporo-parietal sharps were noted (maximal P3 and T5) Rhythmic and periodic patterns: None Seizures: None Impression: This was an abnormal EEG given frequent sharp waves suggestive of an underlying seizure tendency. Additionally, there are signs of moderate encephalopathy given background slowing that could be due to toxic-metabolic encephalopathy, global cerebral dysfunction or medication effect. No seizures were seen. Clinical correlation required. [facility] – [place], [place] EEG Procedure Codes Indication for Procedure (1) Altered mental status: (2) Seizure-like activity: (3) ETOH abuse: Neurology Neurology: [id number] EEG include record awake & drowsy
[2019-09-20] MEDS: METOPROLOL TARTRATE 1 MG/ML VIAL IV SCH ×2 (18:17→23:13)
[2019-09-20] MEDS: MAGNESIUM OXIDE 400 MG TAB PO SCH (21:24)
[2019-09-20] MEDS: THIAMINE HCL 250 MG in SODIUM CHLORIDE 0.9% 50 ML IV SCH (21:39)
[2019-09-21] MEDS ORDERED: METOPROLOL TARTRATE 1 MG/ML VIAL IV STA (02:34)
--- NOTE | 2019-09-21 03:13 | Communication Note ---
Date of Service: September 21, 2019 0230: While reviewing the patient's monitor, I did notice the patient was having increasing tachypnea. Additionally, the patient was noted to have oxygen saturations dipping into the mid to low 80s. I did assess the patient and she is somewhat agitated, but does appear to be somewhat tachypneic as well. Orders were placed for chest x-ray. Chest x-ray was evaluated by myself and demonstrated development of significant pulmonary edema. Prior to this, the patient was trialed on high flow nasal cannula, but was unable to tolerate secondary to agitation. Patient is already on ketamine secondary to agitation. Orders were placed for sedation after RSI. I did discuss the case with on-call anesthesia who was kind enough to present at bedside to aid in intubation. Intubation was performed by myself. Please see separate procedure note. After intubation, the patient was sedated on fentanyl and Versed drips. Labs were added in addition to current morning labs. Patient was treated with 20 mg IV Lasix. Patient had improvement in oxygen saturation as well as heart rate and blood pressure. I have personally spent 45 minutes of critical care time in the direct management of this patient. This is a life/limb threatening event. This includes time spent evaluating patient, direct bedside care, chart review, placing orders, interpretation of diagnostic studies, discussion with consultants, patient, and family members, as well as other required patient management activities. This time is exclusive of all separately billable procedures, and teaching time and separate from and in addition to any other critical care service time. Coding Level of Care Code Critical Care 1st 30-74 mins Time Spent (min) 45
[2019-09-21] MEDS ORDERED: MIDAZOLAM BOLUS FROM BAG IV PRN (03:16)
[2019-09-21] MEDS ORDERED: STAT IV Infusion **Titration per Protocol STA ×2 (03:16→11:43)
[2019-09-21] MEDS ORDERED: RAPID SEQUENCE INDUCTION BAG ONE (03:17)
[2019-09-21] MEDS ORDERED: MIDAZOLAM HCL 125 MG/250 ML BAG IV SCH (03:30)
[2019-09-21] MEDS ORDERED: FUROSEMIDE 40 MG/4 ML VIAL IV ONE (03:38)
--- NOTE | 2019-09-21 03:42 | Procedure Note ---
Procedure Note Date of Service September 21, 2019 APC: Modesto Funes PA-C. Attending: Dr. St A time-out was completed verifying correct patient, procedure, site, positioning. Patient was evaluated and required intubation for respiratory failure secondary to flash pulmonary edema and unable to tolerate noninvasive ventilatory techniques. Sedative agent used: Etomidate Paralysis agent used: Succinylcholine Emergent consent was implied given patients rapidly declining clinical status and need for airway protection. The patient was prepared in the appropriate fashion. Sedation was achieved utilizing Etomidate and Succinylcholine, per Dr. Woodall administration. The patient was easily ventilated using [id number] to achieve adequate oxygenation. A 7.5 [place] endotracheal tube was placed utilizing Glidescope to 23 cm at the lip. The stylette was removed and balloon was inflated with 10mL of air. Appropriate Colorimetric change was appreciated. Bilateral breath sounds were heard without air sounds in the abdomen. Dr. Woodall was present for the entire procedure. Post Intubation Chest X-ray confirms placement without pneumothorax. Patient tolerated the procedure well and there were no immediate complications. Coding CPT Codes Resuscitation - Resuscitation: 10451 Endotracheal Intubation, emergency ([id number]) [facility] [place] Procedure Codes (Charges) Resuscitation Resuscitation: 09418 Endotracheal Intubation, emergency
--- NOTE | 2019-09-21 03:47 | Anesthesiology Progress Note ---
Date of Service September 21, 2019 Assessment & Plan (1) Respiratory failure: Intubation Note: Intubation done by Modesto Funes. Dr. Woodall assisting. Date and time of procedure: 09/21/2019 at 03:40 Indication for Intubation: Failure to oxygenate Respiratory distress Consent: Emergency procedure in life threatening situation consent implied Monitors Attached: EKG BP Pulse Oximetry CO2 Induction Medications: [14]mg Etomidate (Ketamine infusion had been running) Paralytic Medication: [100]mg Succinylcholine Intubation Technique: Adequate preoxygenation Mask Ventilation Easy Mask Equipment: Glidescope[3] View: Grade 2 Endotracheal Tube: Oral 7.5 with Stylet Procedure Details: ET tube was placed atraumatically on [1] attempt. Balloon was inflated and the tube was secured at [23] cm. Placement was confirmed by auscultation and positive CO2 detection. Post-procedure: Pt hemodynamically stable throughout. Patient tolerated the procedure well without apparent complications. Post placement CXR ordered. Present on Admission?: Yes Subjective Patient previously intubated and extubated yesterday. Called by ICU provider as patient having increased respiratory rate, marginal SpO2 in 80's despite non- rebreather and inability to tolerate BiPAP. CXR showed s/s of pulmonary edema. Decision made to urgently intubate patient in ICU. Physical Exam Vital Signs: Last Vital Signs Temp 37.2 C 09/21/19 00:23 Pulse 126 H 09/21/19 02:40 Resp 25 H 09/21/19 00:02 BP 169/96 H 09/21/19 02:40 Pulse Ox 86 L 09/21/19 00:02 Results & Data Laboratory Results Laboratory Tests 09/20/19 05:00 Sodium 138 Potassium 3.2 L Chloride 106 Carbon Dioxide 24 BUN 4 L Creatinine 0.40 L Glucose 97 (1) Respiratory failure Chronicity: acute Respiratory failure complication: hypoxia Qualified Code(s): J96.01 - Acute respiratory failure with hypoxia
[2019-09-21] MEDS: fentaNYL DRIP 1,250 MCG/250 ML BAG IV SCH ×3 (03:54→23:01)
[2019-09-21] MEDS ORDERED: MIDAZOLAM BOLUS FROM BAG IV ONE (04:09)
[2019-09-21] MEDS: FENTANYL BOLUS FROM BAG IV PRN (04:18)
[2019-09-21 04:53] LABS: Basophils # (auto) 0.03 K/uL (0-0.2); Basophils % (auto) 0.2 %; Hematocrit (blood only) 36.8 % (37-47); Hemoglobin 12.3 g/dL (12.0-16.0); Immature Granulocytes # (auto) 0.08 K/uL (0.00-0.02); Immature Granulocytes % (auto) 0.5 %; Lymphocytes # (auto) 0.48 K/uL (1.2-3.4); Lymphocytes % (auto) 2.9 %; Mean Corpuscular Hemoglobin 35.3 pg (25-34); Mean Corpuscular Hgb Conc 33.4 g/dL (32-36); Mean Corpuscular Volume 105.7 fL (80-100); Mean Platelet Volume 10.4 fL (7.4-10.4); Monocytes # (auto) 1.59 K/uL (0.11-0.59); Monocytes % (auto) 9.6 %; Neutrophils # (auto) 14.42 K/uL (1.4-6.5); Neutrophils % (auto) 86.8 %; Platelet Count 307 K/uL (130-400); RDW Coefficient of Variation 13.3 % (11.5-14.5); RDW Standard Deviation 51.5 fL (36.4-46.3); Red Blood Count 3.48 M/uL (4.2-5.4)
[2019-09-21 05:19] LABS: Troponin I 0.03 ng/ml (0-0.045)
[2019-09-21 05:20] LABS: Albumin Level 2.5 gm/dl (3.4-5.0); BUN Creatinine Ratio 7.3 (10-20); Calcium 8.5 mg/dl (8.5-10.1); Creatinine Clr Calc Pharmacy 127.7 ml/min; Est GFR (African American) 126.2; Est GFR (Non-African American) 108.9; Magnesium 1.7 mg/dl (1.8-2.4); Potassium 3.9 mmol/L (3.5-5.1)
[2019-09-21 05:22] LABS: Bilirubin Direct 0.8 mg/dl (0-0.2); Bilirubin,Total 1.5 mg/dl (0.2-1); Phosphorus 4.5 mg/dl (2.5-4.9); Total Protein 6.6 gm/dl (6.4-8.2)
[2019-09-21] MEDS: METOPROLOL TARTRATE 1 MG/ML VIAL IV SCH ×4 (05:43→23:15)
[2019-09-21] MEDS: DOXYCYCLINE HYCLATE 100 MG in DEXTROSE 5% 100 ML IV SCH ×2 (05:44→17:31)
[2019-09-21] MEDS: MAGNESIUM SULFATE / D5W 1 GM/100 ML BAG IV SCH ×5 (05:45→19:50)
--- NOTE | 2019-09-21 06:14 | Ultrasound Report ---
US venous doppler LE BI HISTORY: Pain. Edema. r/o dvt COMPARISON STUDY: None. FINDINGS: There is normal compressibility, flow, and augmentation within the bilateral lower extremit y deep venous systems. IMPRESSION: No DVT within the right or left lower extremity. ACT 112: Negative or not required by law. The above report was generated using voice recognition software. It may contain grammatical, syntax or spelling errors. Electronically signed by: Yash Wolf M.D. 09/21/2019 6:13 AM
--- NOTE | 2019-09-21 06:17 | XRay Report ---
XR chest 1V portable CLINICAL HISTORY: s/p Intubation tube position COMPARISON STUDY: 09/21/2019 2:59 AM FINDINGS: Placement of an endotracheal tube 5 cm above the carlos enrique. Diffuse bilateral parenchymal infiltrative changes unaltered. IMPRESSION: Endotracheal tube positioned 5 cm above the carlos enrique. Nasogastric tube within the stomach. Unchanging diffuse bilateral parenchymal infiltrates. ACT 112: Negative or not required by law. The above report was generated using voice recognition software. It may contain grammatical, syntax or spelling errors. Electronically signed by: Yash Wolf M.D. 09/21/2019 6:16 AM
[2019-09-21 06:31] LABS: iSTAT Allen Test Pass; iSTAT Art Bld Gas pCO2 Correct 43 mmHg (35-46); iSTAT Art Bld Gas pH Corrected 7.395 (7.35-7.45); iSTAT Arterial Blood Gas HCO3 27 meg/L (19-24); iSTAT Arterial Blood Gas pCO2 43 mmHg (35-46); iSTAT Arterial Blood Gas pH 7.39 (7.35-7.45); iSTAT Arterial Blood Gas pO2 80 mmHg (80-95); iSTAT Arterial Blood Gas pO2 C 80; iSTAT Carbon Dioxide 28 mmol/L (24-31); iSTAT Hematocrit 35 % (37-47); iSTAT Hemoglobin 11.9 g/dl (12.0-16.0); iSTAT Site R Radial; iSTAT Sodium 135 mmol/L (135-144)
--- NOTE | 2019-09-21 06:46 | XRay Report ---
XR chest 1V portable CLINICAL HISTORY: SOB, hypoxia dyspnea COMPARISON STUDY: 09/20/2019 FINDINGS: Interval extubation. Diffuse bilateral parenchymal infiltrative changes slightly progressiv e from the prior exam. Small right pleural effusion diminished from the prior study. IMPRESSION: 1. Interval extubation. 2. Diffuse bilateral parenchymal infiltrative change mildly progressive from the prior study. 3. Small right pleural effusion slightly improved from the prior study. ACT 112: Negative or not required by law. The above report was generated using voice recognition software. It may contain grammatical, syntax or spelling errors. Electronically signed by: Yash Wolf M.D. 09/21/2019 6:45 AM
--- NOTE | 2019-09-21 06:56 | Hospitalist Progress Note ---
Date of Service September 21, 2019 Assessment & Plan (1) Seizure-like activity: 59 yo F PMHx HLD, depression and anxiety, alcohol abuse admitted to ICU for acute encephalopathy, on mechanically-assisted ventilation. Acute encephalopathy and respiratory failure: - Care per ICU, with plans to attempt extubation possibly tomorrow. Patient is currently intubated on ketamine which for the patient appears to be less agitated. - Encephalopathy differentials include delirium tremens vs. viral encephalopathy vs. drug withdrawal such as K2. - Lyme IgG positive, treatment with doxycycline. Anaplasmosis pending. - CSF Lyme pending, CSF viral panel also pending. - COVID 19 testing negative x2. - MRI w/wo performed without acute process. - Neuro recommends EEG. - LP without clear source of infection however bloody tap. - Acyclovir discontinued as CSF without VZV, HSV. - Vimpat dosing increased to 100mg BID, continuing thiamine, folic acid, magnesium. - Right sided pleural effusion drained with thoracentesis today with clear straw yellow fluid. Cultures pending. Febrile illness: - Febrile 10am today with leukocytosis to 16.6 and left shift, elevated procalcitonin to 0.61; compressive atelectasis present on CXR, bronchoscopy performed with removal of thick bronchial washings sent for cultures. - Abx coverage broadened to cefepime. - Patient afebrile on repeat check at 12pm. Elevated LFTs: - Liver ultrasound showing Hepatosteatosis. - Hepatitis C negative, Ammonia level negative. - Lyme IgG positive IgM negative, anaplasmosis DNA pending. - Continuing doxycycline empiric treatment, for a total of 21-28 days. - Downtrending slowly. Code Status: FULL CODE FEN/GI: intubated, NPO, replete electrolytes as needed DVT ppx: Lovenox Dispo: ICU at this time, resident service will assume care once downgraded (2) On mechanically assisted ventilation: (3) Elevated LFTs: (4) Encephalopathy acute: (5) Alcohol withdrawal delirium: Admission and Anticipated Discharge Date Admission Date: September 14, 2019 Supervising Physician Co-Signing Physician Notes I personally examined the patient and verified all hernandez points of history and exam, discussed case, and agree with decision making with Dr Sanchez. unfortunately had to be re-intubated. bronch noted. 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 no meaningful HPI or ROS obtainable. vitals noted back on vent sedated nad. no pallor or icterus. no focal neuro deficits at rest. acute respiratory failure/pneumonia - back on vent, cefepime added, post bronch, continue supportive care. AMS - ?etiology. viral encephalitis of concern. ?delirium, post ictal + ICU delirium, ?EtOH withdrawal. certainly EtOH abuse and withdrawal would tie together AMS, seizures, low K/Mag, elevated LFT/fatty liver/high MCV, but conflicting hx between friend who called [facility] and phone call w - and clinical picture also quite concerning for encephalitis. LP studies mostly negative, a few pending, MRI without striking findings. continue to follow closely, continue supportive care. otherwise as above Subjective Patient with continued febrile episodes overnight, found on CXR to have large pleural effusion that today was drained via thoracentesis for 800cc fluid. Due to fevers had bronchoscopy with thick sputum removed. Patient is intubated and sedated, therefore unable to ask questions at this time. Review of Systems Review of Systems: Unobtainable due to endotracheal tube Physical Exam Constitutional: + altered mental status Eyes: PERRL, conjunctivae normal, anicteric sclerae Neck: normal visual inspection Respiratory: normal respiratory effort; no respiratory distress intubated. Cardiovascular: RRR, no murmur, no edema Gastrointestinal (Abdomen): normal bowel sounds, soft, nontender, no hepatosplenomegaly Musculoskeletal: Extremities: no cyanosis and no clubbing Skin: no rashes, warm and dry Neurologic: sedated but somewhat arousable Psychiatric: Orientation: + uncooperative in soft wrist restraints due to former episodes of agitation Results & Data Results & Data ([facility]) Vital Signs (Past 12 Hours) Vital Signs Temp Pulse Resp BP Pulse Ox 09/21/19 06:00 94 H 100 09/21/19 05:42 92 H 104/72 100 09/21/19 05:00 96 H 99 09/21/19 04:46 97 H 105/68 98 09/21/19 04:31 98 H 126/81 98 09/21/19 04:24 101 H 34 H 96 09/21/19 04:16 101 H 124/79 98 09/21/19 04:08 114 H 131/98 92 09/21/19 04:02 36.9 C 114 H 165/105 H 92 09/21/19 04:00 116 H 93 06/28/20 03:46 125 H 212/138 H 94 09/21/19 03:42 124 H 18 209/140 H 85 L 09/21/19 03:37 123 H 18 216/149 H 83 L 09/21/19 03:33 118 H 54 H 187/102 H 86 L 09/21/19 03:20 114 H 31 H 170/107 H 93 09/21/19 03:00 116 H 58 H 82 L 09/21/19 02:40 126 H 169/96 H 09/21/19 02:00 127 H 42 H 81 L 09/21/19 01:50 121 H 50 H 169/96 H 89 L 09/21/19 01:20 123 H 39 H 175/98 H 84 L 09/21/19 01:18 124 H 38 H 170/103 H 83 L 09/21/19 01:00 126 H 09/21/19 00:23 37.2 C 09/21/19 00:20 128 H 09/21/19 00:03 36.8 C 113 H 42 H 86 L 09/21/19 00:02 114 H 25 H 160/83 H 86 L 09/21/19 00:00 115 H 31 H 83 L 09/20/19 23:50 114 H 54 H 155/110 H 83 L 09/20/19 23:13 128 H 182/99 H 09/20/19 23:00 125 H 27 H 91 09/20/19 22:54 127 H 31 H 182/99 H 87 L 09/20/19 22:44 37.2 C 09/20/19 22:00 122 H 32 H 96 09/20/19 21:00 116 H 51 H 92 09/20/19 20:50 117 H 40 H 150/93 H 91 09/20/19 20:35 120 H 45 H 159/72 H 90 09/20/19 20:00 125 H 27 H 77 L 09/20/19 19:50 115 H 16 161/108 H 86 L 09/20/19 19:00 112 H 20 79 L Resident Activity Tracking Resident Involvement: Resident Care Provided Care Provided: Adult [facility] Medicine
--- NOTE | 2019-09-21 08:39 | Neurology Progress Note ---
Date of Service September 21, 2019 Assessment & Plan (1) Altered mental status: Lety Avelar is a 59 yo woman w/ PMH of possible alcohol abuse, hypertension, hyperlipidemia and depression who initially presented to an outside hospital after having a possible seizure on 09/13/2019. Work-up: CSF: 11 WBCs, 14,000 RBCs, 67 glucose, 59.1 protein, CSF biofire panel negative B12>2000, TSH WNL, ESR WNL, CRP elevated at 2.58, ferritin elevated at 451.2, Ca low 8.2, persistent macrocytic anemia MRI brain: multiple microhemorrhages right giovany, bilateral MCPs, bilateral frontal lobes (R>L), left temporal lobe, bilateral parietal lobes (R>L) EEG: frequent left temporo-parietal sharp waves suggestive of increased seizure potential # AMS: initially there was concern that this could be alcohol withdrawal with seizure and hallucinations, however usually this subsides within 4-5 days of last drink. MRI brain shows chronic microhemorrhages which could potentially lead to seizures with lowered seizure threshold. CSF does not show any signs of infection. Given current situation, c/f possible drug withdrawal (K2 spice, other synthetic). - Continue thiamine/folate supplementation - Would restart paxil if possible as withdrawal of paxil can hypothetically cause agitation - Increase vimpat to 100mg bid - Delirium precautions, lights on during the day and out of bed, lights off at night, frequent reorientation. Avoid further opiates and benzos as able to; Precedex or prn haldol/seroquel - continue with supportive care as already doing Thank you for this interesting consult. Plan of care discussed with primary t eam. Please call or text with questions. (2) Seizure-like activity: (3) ETOH abuse: Admission and Anticipated Discharge Date Admission Date: September 14, 2019 Subjective Re-intubated overnight for increasing tachypnea and desats to the 80s. Was on ketamine gtt for agitation, now on versed/fentanyl gtts. Opened eyes to voice but otherwise did not follow commands Review of Systems Review of Systems: Unobtainable due to cognitive status and Unobtainable due to reduced consciousness Results & Data ([facility]) Vital Signs (Past 12 Hours) Vital Signs Temp Pulse Resp BP Pulse Ox 09/21/19 06:00 94 H 100 09/21/19 05:42 92 H 104/72 100 09/21/19 05:00 96 H 99 09/21/19 04:46 97 H 105/68 98 09/21/19 04:31 98 H 126/81 98 09/21/19 04:24 101 H 34 H 96 09/21/19 04:16 101 H 124/79 98 09/21/19 04:08 114 H 131/98 92 09/21/19 04:02 36.9 C 114 H 165/105 H 92 09/21/19 04:00 116 H 93 09/21/19 03:46 125 H 212/138 H 94 09/21/19 03:42 124 H 18 209/140 H 85 L 09/21/19 03:37 123 H 18 216/149 H 83 L 09/21/19 03:33 118 H 54 H 187/102 H 86 L 09/21/19 03:20 114 H 31 H 170/107 H 93 09/21/19 03:00 116 H 58 H 82 L 09/21/19 02:40 126 H 169/96 H 09/21/19 02:00 127 H 42 H 81 L 09/21/19 01:50 121 H 50 H 169/96 H 89 L 09/21/19 01:20 123 H 39 H 175/98 H 84 L 09/21/19 01:18 124 H 38 H 170/103 H 83 L 09/21/19 01:00 126 H 09/21/19 00:23 37.2 C 09/21/19 00:20 128 H 09/21/19 00:03 36.8 C 113 H 42 H 86 L 09/21/19 00:02 114 H 25 H 160/83 H 86 L 09/21/19 00:00 115 H 31 H 83 L 09/20/19 23:50 114 H 54 H 155/110 H 83 L 09/20/19 23:13 128 H 182/99 H 09/20/19 23:00 125 H 27 H 91 09/20/19 22:54 127 H 31 H 182/99 H 87 L 09/20/19 22:44 37.2 C 09/20/19 22:00 122 H 32 H 96 09/20/19 21:00 116 H 51 H 92 09/20/19 20:50 117 H 40 H 150/93 H 91 Exam (Neuro) Physical Exam: General Exam: GEN: NAD, resting in bed. HEENT: No conjunctival injection, no rhinorrhea. CV: RRR, no peripheral edema PULM: Intubated, sedated on versed/fentanyl Neuro Exam: MS: Drowsy but easily arousable. Unable to assess orientation or language (intubated). Unable to fully assess language and cognition given mental status. CN: Question right inferior temporal visual field cut. Left eye ptosis with disconjugate gaze noted. Tried to close eyes when opened. PERRLA OU. Face symmetric around ETT. Hearing intact to conversation. MOTOR: Normal bulk and tone. All extremities antigravity without drift REFLEXES: 1+ throughout SENSORY: withdraws/grimaces to noxious stimuli in all extremities COORDINATION: No dysmetria or ataxia on observed movements GAIT: Deferred given physical status PG Care Time/CCT Total # of Minutes Spent Total Time Spent with Patient: Total time spent is greater than 50% in coordination of care (as documented) at patient's floor/unit and/or counseling patient: Coding Level of Care Code 40996 Subseq Hosp Care Lvl 3 Diagnoses Altered mental status R41.0 Altered mental status type: disorientation Seizure-like activity R56.9 ETOH abuse F10.10 (1) Altered mental status Altered mental status type: disorientation Qualified Code(s): R41.0 - Disorientation, unspecified
[2019-09-21] MEDS: LACOSAMIDE 50 MG in SODIUM CHLORIDE 0.9% 50 ML IV SCH (08:52)
[2019-09-21] MEDS: ENOXAPARIN INJ 40 MG/0.4 ML SYR SQ SCH (08:52)
[2019-09-21] MEDS: PARoxetine HCL 20 MG TAB PO SCH (08:54)
--- NOTE | 2019-09-21 11:09 | Critical Care Progress Note ---
Date of Service September 21, 2019 Assessment & Plan (1) Altered mental status: (1) Encephalopathy acute: Reason Critically Ill: Acute encephalopathy with possible seizure per EMS requiring intubation by EMS PLAN: Neuro: Acute encephalopathy -Reviewed neurology recommendations: Ketamine for sedation Possible acute delirium tremens -Vimpat: Increased to 100 -MRI reviewed -Lumbar puncture completed and HSV, varicella not seen -Discontinue acyclovir EEG reviewed Acute agitation -Ketamine infusion improving acute agitation Resp: Acute respiratory failure: Resolved -Intubation to facilitate work-up 09/19/2019 Acute hypoxic respiratory failure -New event following extubation 09/20/2019 -Status post bronchoscopy 09/21/2019 Right-sided pleural effusion with compressive atelectasis -Flutter valve -Thoracentesis performed today Small left-sided pleural effusion CV: Prolonged QT on EKG: Resolved 458 on EKG dated 20 September 2019 -Reinitiate Paxil via NG tube Discussed with cardiology, wall motion abnormality and Q waves on EKG could represent prior infarct, no indication for urgent/emergent cardiac cath Fluids/Renal: Goal magnesium greater than 2 ideally greater than 2.2 -Minimizing risk factors for adverse event in setting of prolonged QT - 3g IV magnesium infusion x2 (infuse each gram over 2 hours) ID: Febrile illness -Repeat blood cultures from 09/13 as well as 09/18 remain negative -Additional blood cultures obtained 09/20 -Question Jarisch Herxheimer reaction secondary to Lyme? -This is beyond 24 hours of initiating antibiotics -Expanded antibiotic coverage to include cefepime for pulmonary source Drug-related fever? Negative COVID testing Lyme IgG positive -Empiric treatment with doxycycline - Day 4 of 21 to 28-day course GI/Nutrition: Patient self discontinued course safe Transaminitis: Slowly improving -Liver ultrasound reviewed -Hepato-steatosis -Hepatitis C negative -Ammonia level negative -Lyme IgG positive IgM negative -anaplasmosis not seen on slide DNA probe pending -No abdominal pain to suggest cholecystitis -Will obtain ultrasound given continued fevers Heme: Macrocytic anemia -Thiamine and folic acid Thrombocytopenia: -Resolved DVT prophylaxis: Lovenox Endocrine: ICU hyperglycemia protocol Vascular access: Peripheral IVs Code Status: Full code Disposition: ICU Patient has a persistent encephalopathy, fevers and hypoxia are complicating her course. I have not seen an obvious source of the fever her blood cultures remain negative we have obtained blood cultures during an episode of febrility. Abdomen does not appear to be the source as transaminitis is downtrending and improving and no significant abdominal pain, will obtain right upper quadrant ultrasound to exclude cholecystitis. Bilateral lower extremity duplexes have been checked, no evidence of DVT, PE is also negative. CSF studies not indicative of meningitis nor encephalitis. Patient not having diarrhea. Certainly the compressive atelectasis could be the cause, we have performed a bronchoscopy as well as drained the right pleural effusion in hopes of better aeration as well as evaluate for parapneumonic effusion. With regards to the encephalopathy the patient appears to become more disinhibited with benzodiazepines, we will transition to ketamine for sedation. Given the procedures and recent extubation failure I would not proceed with extubation today and reassess tomorrow. (2) Admitted to intensive care unit: Admission and Anticipated Discharge Date Admission Date: September 14, 2019 Subjective Patient had worsening hypoxia overnight and required intubation. Review of Systems Review of Systems: Unobtainable due to endotracheal tube Physical Exam Physical Exam: General: Sedated however arouses easily, not following complex commands Skin: Warm, dry, Head: Atraumatic, no nuchal rigidity negative Burzynski sign negative Kernig's Ears, nose, mouth and throat: airway obscured by endotracheal tube Cardiovascular: Normal peripheral perfusion Respiratory: no respiratory distress Gastrointestinal: Non distended Musculoskeletal: No deformity Results & Data Results & Data ([facility]) Vital Signs (Past 12 Hours) Vital Signs Temp Pulse Resp BP Pulse Ox 09/21/19 10:00 38.0 C H 95 H 98 09/21/19 09:42 96 H 98/60 L 99 09/21/19 09:00 95 H 96 09/21/19 08:42 94 H 96/61 L 96 09/21/19 08:00 93 H 96 09/21/19 07:42 91 H 93/60 L 98 09/21/19 07:23 91 H 16 97 09/21/19 07:00 91 H 98 09/21/19 06:00 94 H 100 09/21/19 05:42 92 H 104/72 100 09/21/19 05:00 96 H 99 09/21/19 04:46 97 H 105/68 98 09/21/19 04:31 98 H 126/81 98 09/21/19 04:24 101 H 34 H 96 09/21/19 04:16 101 H 124/79 98 09/21/19 04:08 114 H 131/98 92 09/21/19 04:02 36.9 C 114 H 165/105 H 92 09/21/19 04:00 116 H 93 09/21/19 03:46 125 H 212/138 H 94 09/21/19 03:42 124 H 18 209/140 H 85 L 09/21/19 03:37 123 H 18 216/149 H 83 L 09/21/19 03:33 118 H 54 H 187/102 H 86 L 09/21/19 03:20 114 H 31 H 170/107 H 93 09/21/19 03:00 116 H 58 H 82 L 09/21/19 02:40 126 H 169/96 H 09/21/19 02:00 127 H 42 H 81 L 09/21/19 01:50 121 H 50 H 169/96 H 89 L 09/21/19 01:20 123 H 39 H 175/98 H 84 L 09/21/19 01:18 124 H 38 H 170/103 H 83 L 09/21/19 01:00 126 H 09/21/19 00:23 37.2 C 09/21/19 00:20 128 H 09/21/19 00:03 36.8 C 113 H 42 H 86 L 09/21/19 00:02 114 H 25 H 160/83 H 86 L 09/21/19 00:00 115 H 31 H 83 L 09/20/19 23:50 114 H 54 H 155/110 H 83 L 09/20/19 23:13 128 H 182/99 H Laboratory Results 09/21/19 09/21/19 09/21/19 Range/Units 10:40 06:17 04:37 WBC (4.8-10.8) K/uL RBC (4.2-5.4) M/uL Hgb (12.0-16.0) g/dL POC Hgb 11.9 L (12.0-16.0) g/dl Hct (37-47) % POC Hct 35 L (37-47) % MCV (80-100) fL MCH (25-34) pg MCHC (32-36) g/dL RDW Std Deviation (36.4-46.3) fL RDW Coeff of Elif (11.5-14.5) % Plt Count (130-400) K/uL MPV (7.4-10.4) fL Immature Gran % (Auto) % Neut % (Auto) % Lymph % (Auto) % Terry % (Auto) % Eos % (Auto) % Baso % (Auto) % Neut # (Auto) (1.4-6.5) K/uL Lymph # (Auto) (1.2-3.4) K/uL Terry # (Auto) (0.11-0.59) K/uL Eos # (Auto) (0-0.5) K/uL Baso # (Auto) (0-0.2) K/uL Immature Gran # (Auto) (0.00-0.02) K/uL Sample Site R Radial POC pH 7.39 (7.35-7.45) POC pCO2 43 (35-46) mmHg POC pO2 80 (80-95) mmHg POC HCO3 27 H (19-24) mario/L POC Total CO2 28 (24-31) mmol/L POC Base Excess 2.0 H (-9-1.8) mario/L ABG pH (Temp Correct) 7.395 (7.35-7.45) ABG pCO2 (Temp Corrct 43 (35-46) mmHg POC ABG pO2 at Pt Temp 80 POC ABG O2 Sat 96.0 H (90-95) % Hank Test Pass O2 Delivery Device Ventilator POC O2 Rate 16 Minute Ventilation 8.9 Tidal Volume 450 PEEP 8 POC Sodium 135 (135-144) mmol/L Sodium (136-145) mmol/L POC Potassium 4.0 (3.3-5.0) mmol/L Potassium (3.5-5.1) mmol/L Chloride (98-107) mmol/L Carbon Dioxide (21-32) mmol/L Anion Gap (3-11) BUN (7-18) mg/dl Creatinine (0.6-1.2) mg/dl Est Cr Clr Drug Dosing ml/min Est GFR ( Amer) Est GFR (Non-Af Amer) BUN/Creatinine Ratio (10-20) Glucose (70-99) mg/dl Calcium (8.5-10.1) mg/dl Phosphorus (2.5-4.9) mg/dl Magnesium (1.8-2.4) mg/dl Total Bilirubin (0.2-1) mg/dl Direct Bilirubin (0-0.2) mg/dl AST (15-37) U/L ALT (12-78) U/L Alkaline Phosphatase (45-117) U/L Troponin I 0.030 (0-0.045) ng/ml NT-Pro-B Natriuret Pep 6233 H (0-900) pg/ml Total Protein (6.4-8.2) gm/dl Albumin (3.4-5.0) gm/dl Procalcitonin (0-0.5) ng/ml CSF Appearance CSF Color Xanthrochromic CSF WBC (0-5) /uL CSF RBC (0-) /uL CSF Cell Count Tube # CSF Mononuclear WBCs % % CSF Polynuclear WBCs % % Pleural pH 7.43 H (7.3-7.4) 09/21/19 09/21/19 09/21/19 Range/Units 04:37 04:37 04:37 WBC 16.60 H (4.8-10.8) K/uL RBC 3.48 L (4.2-5.4) M/uL Hgb 12.3 (12.0-16.0) g/dL POC Hgb (12.0-16.0) g/dl Hct 36.8 L (37-47) % POC Hct (37-47) % MCV 105.7 H (80-100) fL MCH 35.3 H (25-34) pg MCHC 33.4 (32-36) g/dL RDW Std Deviation 51.5 H (36.4-46.3) fL RDW Coeff of Elif 13.3 (11.5-14.5) % Plt Count 307 (130-400) K/uL MPV 10.4 (7.4-10.4) fL Immature Gran % (Auto) 0.5 % Neut % (Auto) 86.8 % Lymph % (Auto) 2.9 % Terry % (Auto) 9.6 % Eos % (Auto) 0.0 % Baso % (Auto) 0.2 % Neut # (Auto) 14.42 H (1.4-6.5) K/uL Lymph # (Auto) 0.48 L (1.2-3.4) K/uL Terry # (Auto) 1.59 H (0.11-0.59) K/uL Eos # (Auto) 0.00 (0-0.5) K/uL Baso # (Auto) 0.03 (0-0.2) K/uL Immature Gran # (Auto) 0.08 H (0.00-0.02) K/uL Sample Site POC pH (7.35-7.45) POC pCO2 (35-46) mmHg POC pO2 (80-95) mmHg POC HCO3 (19-24) mario/L POC Total CO2 (24-31) mmol/L POC Base Excess (-9-1.8) mario/L ABG pH (Temp Correct) (7.35-7.45) ABG pCO2 (Temp Corrct (35-46) mmHg POC ABG pO2 at Pt Temp POC ABG O2 Sat (90-95) % Hank Test O2 Delivery Device POC O2 Rate Minute Ventilation Tidal Volume PEEP POC Sodium (135-144) mmol/L Sodium 135 L (136-145) mmol/L POC Potassium (3.3-5.0) mmol/L Potassium 3.9 D (3.5-5.1) mmol/L Chloride 102 (98-107) mmol/L Carbon Dioxide 24 (21-32) mmol/L Anion Gap 9.0 (3-11) BUN 4 L (7-18) mg/dl Creatinine 0.48 L (0.6-1.2) mg/dl Est Cr Clr Drug Dosing 127.7 ml/min Est GFR ( Amer) 126.2 Est GFR (Non-Af Amer) 108.9 BUN/Creatinine Ratio 7.3 L (10-20) Glucose 111 H (70-99) mg/dl Calcium 8.5 (8.5-10.1) mg/dl Phosphorus 4.5 (2.5-4.9) mg/dl Magnesium 1.7 L (1.8-2.4) mg/dl Total Bilirubin 1.5 H (0.2-1) mg/dl Direct Bilirubin 0.8 H (0-0.2) mg/dl AST 79 H (15-37) U/L ALT 53 (12-78) U/L Alkaline Phosphatase 272 H (45-117) U/L Troponin I (0-0.045) ng/ml NT-Pro-B Natriuret Pep (0-900) pg/ml Total Protein 6.6 (6.4-8.2) gm/dl Albumin 2.5 L (3.4-5.0) gm/dl Procalcitonin 0.61 H (0-0.5) ng/ml CSF Appearance CSF Color Xanthrochromic CSF WBC (0-5) /uL CSF RBC (0-) /uL CSF Cell Count Tube # CSF Mononuclear WBCs % % CSF Polynuclear WBCs % % Pleural pH (7.3-7.4) 09/19/19 Range/Units 11:04 WBC (4.8-10.8) K/uL RBC (4.2-5.4) M/uL Hgb (12.0-16.0) g/dL POC Hgb (12.0-16.0) g/dl Hct (37-47) % POC Hct (37-47) % MCV (80-100) fL MCH (25-34) pg MCHC (32-36) g/dL RDW Std Deviation (36.4-46.3) fL RDW Coeff of Elif (11.5-14.5) % Plt Count (130-400) K/uL MPV (7.4-10.4) fL Immature Gran % (Auto) % Neut % (Auto) % Lymph % (Auto) % Terry % (Auto) % Eos % (Auto) % Baso % (Auto) % Neut # (Auto) (1.4-6.5) K/uL Lymph # (Auto) (1.2-3.4) K/uL Terry # (Auto) (0.11-0.59) K/uL Eos # (Auto) (0-0.5) K/uL Baso # (Auto) (0-0.2) K/uL Immature Gran # (Auto) (0.00-0.02) K/uL Sample Site POC pH (7.35-7.45) POC pCO2 (35-46) mmHg POC pO2 (80-95) mmHg POC HCO3 (19-24) mario/L POC Total CO2 (24-31) mmol/L POC Base Excess (-9-1.8) mario/L ABG pH (Temp Correct) (7.35-7.45) ABG pCO2 (Temp Corrct (35-46) mmHg POC ABG pO2 at Pt Temp POC ABG O2 Sat (90-95) % Hank Test O2 Delivery Device POC O2 Rate Minute Ventilation Tidal Volume PEEP POC Sodium (135-144) mmol/L Sodium (136-145) mmol/L POC Potassium (3.3-5.0) mmol/L Potassium (3.5-5.1) mmol/L Chloride (98-107) mmol/L Carbon Dioxide (21-32) mmol/L Anion Gap (3-11) BUN (7-18) mg/dl Creatinine (0.6-1.2) mg/dl Est Cr Clr Drug Dosing ml/min Est GFR ( Amer) Est GFR (Non-Af Amer) BUN/Creatinine Ratio (10-20) Glucose (70-99) mg/dl Calcium (8.5-10.1) mg/dl Phosphorus (2.5-4.9) mg/dl Magnesium (1.8-2.4) mg/dl Total Bilirubin (0.2-1) mg/dl Direct Bilirubin (0-0.2) mg/dl AST (15-37) U/L ALT (12-78) U/L Alkaline Phosphatase (45-117) U/L Troponin I (0-0.045) ng/ml NT-Pro-B Natriuret Pep (0-900) pg/ml Total Protein (6.4-8.2) gm/dl Albumin (3.4-5.0) gm/dl Procalcitonin (0-0.5) ng/ml CSF Appearance BLOODY CSF Color PALE RED Xanthrochromic No xanthochromia CSF WBC 11 H* (0-5) /uL CSF RBC 52477 (0-) /uL CSF Cell Count Tube # 1 CSF Mononuclear WBCs % 9.1 % CSF Polynuclear WBCs % 90.9 % Pleural pH (7.3-7.4) Coding Level of Care Code Critical Care ea addt'l 30 min Diagnoses Altered mental status R41.0 Altered mental status type: disorientation Admitted to intensive care unit Z78.9 Time Spent (min) 95 Comment I have personally spent 95 minutes of critical care time in the direct management of this patient. This is a life/limb threatening event. This includes time spent evaluating patient, direct bedside care, chart review, placing orders, interpretation of diagnostic studies, discussion with consultants, patient, and/or family members regarding treatment decisions, as well as other required patient management activities. This time is exclusive of all separately billable procedures, and teaching time and separate from and in addition to any other critical care service time. (1) Altered mental status Altered mental status type: disorientation Qualified Code(s): R41.0 - Disorientation, unspecified
[2019-09-21] MEDS: FOLIC ACID 1 MG in SYRINGE 9.8 ML IV SCH (11:24)
--- NOTE | 2019-09-21 11:29 | Procedure Note ---
Procedure Note Date of Service September 21, 2019 Procedure Date: noted above Procedure: Thoracentesis Pre-procedure Diagnosis: Right-sided pleural effusion, acute hypoxic respiratory failure Post-procedure Diagnosis: same as above Prior to Procedure: Informed Consent: The risks, benefits, indications, potential complications, and alternatives were explained to the patient's via telephone and informed consent obtained. Attending Staff: Jerson St DO Resident/Physician Sole Leveler: Not applicable Indications: The patient is a 59-year-old female patient with right-sided compressive atelectasis, fever of unknown origin, acute hypoxic respiratory failure requiring thoracentesis. The identity of the patient was confirmed and a bedside time out was performed. Description of Procedure: Patient positioned, the right posterior axillary line was prepped with chlorhexidine and draped in usual sterile fashion. Ultrasound guidance was used and appropriate fluid pocket was identified. 4 mL of 1% Lidocaine without epinephrine was used to anesthetize the area. A needle was introduced into the pleural space over the superior margin of the rib with care and fluid removed and sent for analysis. Next the catheter was advanced over the needle and into the pleural space. Pleural pH studies were obtained and 800 mL's of yellow f luid was removed into a Vacutainer. Total Fluid Removed: 800 ml Color of Fluid: Straw color Sent for: Gram Stain, culture, cell count, glucose, protein, LDH, pleural pH Complications: None Estimated blood loss: Trace Post procedure chest x-ray has been ordered Coding CPT Codes Pulmonary/Thoracic - Pulmonary and Thoracic: 09844 Thoracentesis w/o imaging ([id number]) [facility] [place] Procedure Codes (Charges) Pulmonary/Thoracic Procedure 1: Pulmonary and Thoracic: 94882 Thoracentesis w/o imaging
[2019-09-21] MEDS: MAGNESIUM OXIDE 400 MG TAB PO SCH ×2 (11:30→20:55)
--- NOTE | 2019-09-21 11:31 | Procedure Note ---
Procedure Note: Bronchoscopy Procedure Procedure date: September 21, 2019 Procedure: fiberoptic bronchoscopy Pre-procedure indication: Compressive atelectasis, acute hypoxic respiratory failure Post-procedure Diagnosis: same as above Prior to Procedure: Informed Consent: The risks, benefits, indications, potential complications, and alternatives were explained to the patient's and informed consent obtained. Attending Staff: Enid tS DO Resident/APC: Not applicable Skin Prep: Not applicable Anesthesia: Continuous infusion The identity of the patient was confirmed and a bedside time out was performed. Description of Procedure: Fiberoptic bronchoscopy was performed via endotracheal tube. Bronchioalveolar lavage right lower lobe was performed. Findings included: Tenacious thick secretions from the right bronchus intermedius as well as lower lobe bronchi were removed. No sana purulence. Mild tracheomalacia with approximately 40 to 50% paradoxical closure of the main airways with exhalation Complications: None Specimens: Bronchial washings sent for culture and Gram stain, fungal elements, AFB stain and culture, cell count differential. Estimated blood loss: Zero
[2019-09-21 11:40] LABS: Glucose Pleural Fluid 111 mg/dl
[2019-09-21 11:52] LABS: Appearance Pleural Fluid CLEAR; Basophils, Fluid 0 %; Color Pleural Fluid YELLOW; Eosinophils, Fluid 0 %; Lymphocytes, Fluid 27 %; Mono,Macrophage,Mesothelial 21 %; Neutrophils, Fluid 52 %; RBC Pleural Fluid (A) < 3000 /uL; Source Pleural Fluid RIGHT LUNG; WBC Pleural Fluid (A) 577 /uL
[2019-09-21] MEDS ORDERED: CEFEPIME 1,000 MG in SYRINGE 0 ML IV SCH (12:00)
[2019-09-21] MEDS: KETAMINE HCL / NSS 500 MG/500 ML BAG IV SCH (12:11)
--- NOTE | 2019-09-21 12:27 | XRay Report ---
XR chest 1V portable HISTORY: s/p thoracentesis COMPARISON: Chest 09/21/2019. FINDINGS: Endotracheal tube terminates 3.3 cm from the carlos enrique. The nasogastric tube terminus below th e diaphragm. The tip is not included on this study. Near-complete resolution of the right pleural eff usion status post thoracentesis. No pneumothorax. A few bibasilar linear densities favor subsegmental atelectasis. Mild diffuse interstitial thickening and patchy airspace opacities have improved. IMPRESSION: 1. Near-complete resolution of the right pleural effusion status post thoracentesis. No pneumothorax. 2. Satisfactory support line placement. 3. Significant improvement in the bilateral airspace opacities. ACT 112: Negative or not required by law. Electronically signed by: Armando Diaz M.D. 09/21/2019 12:26 PM
--- NOTE | 2019-09-21 12:31 | Electrocardiogram Report ---
Test Reason : Blood Pressure : / mmHG Vent. Rate : 098 BPM Atrial Rate : 098 BPM P-R Int : 142 ms QRS Dur : 080 ms QT Int : 402 ms P-R-T Axes : 064 089 064 degrees QTc Int : 513 ms Normal sinus rhythm Possible Left atrial enlargement Prolonged QT Abnormal ECG When compared with ECG of 20-SEP-2019 15:06, (unconfirmed) T wave inversion now evident in Anterior leads Confirmed by Jhony Andrews ([id number]) on 09/21/2019 12:30:43 PM Referred By: REFERRED SELF Confirmed By:Will Andrews
--- NOTE | 2019-09-21 12:33 | Electrocardiogram Report ---
Test Reason : Blood Pressure : / mmHG Vent. Rate : 125 BPM Atrial Rate : 125 BPM P-R Int : 142 ms QRS Dur : 080 ms QT Int : 318 ms P-R-T Axes : 067 088 049 degrees QTc Int : 458 ms Sinus tachycardia Possible Left atrial enlargement Abnormal ECG When compared with ECG of 19-SEP-2019 09:37, Vent. rate has increased BY 51 BPM Confirmed by Jhony Andrews ([id number]) on 09/21/2019 12:33:26 PM Referred By: REFERRED SELF Confirmed By:Will Andrews
[2019-09-21 12:40] LABS: Albumin Level 2.2 gm/dl (3.4-5.0); Total Protein 5.8 gm/dl (6.4-8.2)
[2019-09-21 12:44] LABS: Eosinophil Body Fluid Man 0 %; Fluid Mono/Macrophage 24 %; Lymphocyte Body Fluid Man 11 %; Neutrophil Body Fluid Man 65 %
--- NOTE | 2019-09-21 15:43 | Billing Data ---
Date of Service September 21, 2019 Coding Level of Care Code 49998 Subseq Hosp Care Lvl 2
[2019-09-21] MEDS: CEFEPIME 2,000 MG in SYRINGE 7.5 ML IV SCH (19:35)
[2019-09-21] MEDS: LACOSAMIDE 100 MG in SODIUM CHLORIDE 0.9% 50 ML IV SCH (20:55)
[2019-09-21] MEDS: THIAMINE HCL 250 MG in SODIUM CHLORIDE 0.9% 50 ML IV SCH (20:56)
[2019-09-21] MEDS: ACETAMINOPHEN 1,000 MG/100 ML VIAL IV PRN (23:26)
[2019-09-22] MEDS ORDERED: FUROSEMIDE 20 MG in SYRINGE 0 ML IV ONE (02:44)
[2019-09-22] MEDS: FENTANYL BOLUS FROM BAG IV PRN ×2 (03:00→05:00)
[2019-09-22] MEDS: CEFEPIME 2,000 MG in SYRINGE 7.5 ML IV SCH ×3 (03:46→20:26)
[2019-09-22 04:42] LABS: Basophils # (auto) 0.07 K/uL (0-0.2); Basophils % (auto) 0.4 %; Eosinophils # (auto) 0.24 K/uL (0-0.5); Eosinophils % (auto) 1.5 %; Hematocrit (blood only) 34.7 % (37-47); Hemoglobin 11.1 g/dL (12.0-16.0); Immature Granulocytes # (auto) 0.13 K/uL (0.00-0.02); Immature Granulocytes % (auto) 0.8 %; Lymphocytes # (auto) 1.74 K/uL (1.2-3.4); Lymphocytes % (auto) 10.9 %; Mean Corpuscular Hemoglobin 34.7 pg (25-34); Mean Corpuscular Volume 108.4 fL (80-100); Mean Platelet Volume 10.3 fL (7.4-10.4); Monocytes # (auto) 2.86 K/uL (0.11-0.59); Monocytes % (auto) 17.9 %; Neutrophils % (auto) 68.5 %; Platelet Count 330 K/uL (130-400); RDW Standard Deviation 51.6 fL (36.4-46.3); White Blood Count 15.94 K/uL (4.8-10.8)
[2019-09-22 05:03] LABS: Albumin Level 2.3 gm/dl (3.4-5.0); BUN Creatinine Ratio 20.6 (10-20); Calcium 8.7 mg/dl (8.5-10.1); Creatinine Clr Calc Pharmacy 62.8 ml/min; Est GFR (African American) 83.4; Est GFR (Non-African American) 71.9; Potassium 4.2 mmol/L (3.5-5.1)
[2019-09-22 05:04] LABS: Bilirubin Direct 0.7 mg/dl (0-0.2); Phosphorus 2.8 mg/dl (2.5-4.9); Total Protein 6.4 gm/dl (6.4-8.2)
[2019-09-22] MEDS: DOXYCYCLINE HYCLATE 100 MG in DEXTROSE 5% 100 ML IV SCH ×2 (05:46→16:58)
[2019-09-22] MEDS: METOPROLOL TARTRATE 1 MG/ML VIAL IV SCH (05:47)
[2019-09-22] MEDS: fentaNYL DRIP 1,250 MCG/250 ML BAG IV SCH ×4 (05:52→23:50)
[2019-09-22] MEDS: ENOXAPARIN INJ 40 MG/0.4 ML SYR SQ SCH (08:11)
--- NOTE | 2019-09-22 08:32 | XRay Report ---
XR chest 1V portable CLINICAL HISTORY: f/u COMPARISON STUDY: Chest CT September 20, 2019. Chest radiograph September 21, 2019. FINDINGS: Tip of the endotracheal tube is 4.5 cm above the carlos enrique. Cardiomediastinal silhouette is st able. There is no pneumothorax. Trace right and small left pleural effusions are noted. Bilateral air space opacities within the lungs have increased. In part, this could be due to a hypoventilatory stud y. IMPRESSION: 1. Tip of endotracheal tube 4.5 cm above the carlos enrique. 2. Increase in bilateral airspace opacities and interstitial thickening since prior exam, in part due to a hypoventilatory study. The findings may reflect pneumonia or pulmonary edema. 3. Small left and trace right pleural effusions. ACT 112: Negative or not required by law. Electronically signed by: Arpan Cornejo M.D. 09/22/2019 8:31 AM
[2019-09-22] MEDS ORDERED: ZIPRASIDONE 20 MG/ML SDV IM PRN (08:33)
--- NOTE | 2019-09-22 08:45 | Critical Care Progress Note ---
Date of Service September 22, 2019 Assessment & Plan (1) Admitted to intensive care unit: Reason Critically Ill: 59-year-old female presenting as outside hospital transfer for acute encephalopathy, suspected DTs from alcohol withdrawal, history of seizure 6 months ago not on any medication, hypoxic respiratory failure requiring, mechanically ventilated, COVID-19 rule out 24-hour events: Patient remains intubated and sedated but appears to be tolerating pressure support ventilation at 18/10. FiO2 is about 40 to 60%. She is been hemodynamically stable but remains intermittently tachycardic. Remains sedated on fentanyl and ketamine Recommendations: Neuro - broad differential, see neurology notes. Appreciate their assistance. EEG is not demonstrated persistent epileptiform activity and the patient is maintained on Vimpat currently. She is required ketamine for sedation. Suspect this may be some component of agitated delirium. We will add low-dose antipsychotic in the form of Geodon and try and wean off of ketamine as tolerated. LP was unrevealing. She has completed a course of replacement thiamine and folate which would be adequate for DT. Off benzodiazepines and propofol currently. We will work on weaning her fentanyl to off as well. Cardiac - Elevated troponin/NSTEMI/SVTpatient initially presented with SVT with HR 150s, converted to sinus rhythm with 10 mg IV metoprolol. Transition to oral metoprolol. She remains tachycardic but appears to be in sinus currently. Will need to restart her lipid-lowering agent and aspirin at some point. HD stable. Respiratory -patient has had 2 negative COVID tests. Her procalcitonin is slightly elevated. She has pulmonary infiltrates. Continue cefepime and doxycycline and await cultures. Continue current mechanical ventilation. She i s tolerating pressure support currently. We will see how she responds to diuresis and hopefully will be able to decrease her ventilator requirements and FiO2. Pleural effusion appears to been transudate likely secondary to third spacing and resuscitation. GI -right upper quadrant ultrasound from the showed steatohepatitis as well as trace gallbladder sludge. AST is slightly decreasing. ALT is normal and alk phos is trending down to 231 today from 272 yesterday. Total bili also decreas ing. Patient is certainly at risk for a calculus cholecystitis however the improving pattern of LFTs would argue against this and will hold on HIDA scan or GGT assessment currently. Replace enteric feeding tube to continue enteric tube feedings. RENAL/LYTES -I's and O's 5-1/2 L positive since admission. Initiate Lasix 40 mg IV twice daily. Follow kidney function and electrolytes. -no current issues ENDO - TSH within normal limits No history of diabetes ICU hyperglycemic protocol HEME - H&H stable, monitor ID -remains febrile over the last 24 hours with white count up to 16,000. P rocalcitonin is increased from 0.6-1.15 today without obvious source. Bronchoscopy cultures and blood cultures have shown no growth to date. She received 3 days of Zosyn, 2 days of a azithromycin, and a few days of Rocephin and is currently on day #2 cefepime and day #5 of doxycycline. Lumbar puncture and pleural fluid unrevealing. Continue cefepime and doxycycline currently. LINES/IV ACCESS - PIV's, ETT DVT PROPHYLAXIS - Mele Sanchez Patient remains critically ill with multiorgan system dysfunction. will be updated by phone after multidisciplinary rounds. Discussed with care nursing at bedside. Total of 45 minutes critical care time spent evaluating managing and stabilizing this patient Please note the above document was generated using voice recognition software. It may contain grammatical, syntax or spelling errors. (2) NSTEMI (non-ST elevated myocardial infarction): (3) Elevated LFTs: (4) SVT (supraventricular tachycardia): (5) Sepsis with acute hypoxic respiratory failure: Admission and Anticipated Discharge Date Admission Date: September 14, 2019 Subjective Intubated and sedated Review of Systems Review of Systems: Unobtainable due to endotracheal tube Physical Exam Constitutional: + mechanically ventilated Intubated and sedated Eyes: PERRL Neck: trachea midline, no thyromegaly Respiratory: Breath sounds coarse bilaterally with few scattered wheezes and rhonchi Cardiovascular: Rate/Rhythm: + tachycardic Heart Sounds: normal S1 and normal S2; no murmur Gastrointestinal (Abdomen): Inspection/Auscultation: abdomen normal to inspection Percussion/Palpation: abdomen nontender Slightly tense abdomen with hyperresonance to percussion Skin: no rashes, warm and dry Neurologic: Intubated and sedated. Does open eyes to verbal command Results & Data Results & Data ([facility]) Vital Signs (Past 12 Hours) Vital Signs Temp Pulse Resp BP Pulse Ox 09/22/19 06:58 105 H 20 91 09/22/19 06:00 107 H 121/66 96 09/22/19 05:58 107 H 121/66 90 09/22/19 05:47 121 H 119/66 09/22/19 05:44 121 H 24 91 09/22/19 05:43 123 H 119/66 92 09/22/19 05:22 126 H 24 95 09/22/19 04:00 38 C H 112 H 121/62 91 09/22/19 03:57 111 H 121/62 91 09/22/19 03:00 97 H 124/76 94 09/22/19 02:03 81 17 96 09/22/19 02:00 82 90/52 L 97 09/22/19 01:27 81 82/54 L 93 09/22/19 01:00 81 89 L 09/22/19 00:27 37.7 C H 88 89/53 L 93 09/21/19 23:39 38.8 C H 09/21/19 23:27 92 H 95/55 L 90 09/21/19 23:15 109 H 121/61 09/21/19 22:51 112 H 20 94 09/21/19 22:27 112 H 104/58 L 90 09/21/19 22:00 111 H 114/62 93 09/21/19 21:27 105 H 99/59 L 94 Laboratory Results 09/22/19 04:31 09/22/19 04:31 Diagnostic Findings Chest x-ray from 09/22/2019 was reviewed. There are patchy bilateral infiltrates in the right upper lobe and left lung. Coding Level of Care Code Critical Care 1st 30-74 mins Diagnoses Admitted to intensive care unit Z78.9 NSTEMI (non-ST elevated myocardial infarction) I21.4 Elevated LFTs R79.89 SVT (supraventricular tachycardia) I47.1 Sepsis with acute hypoxic respiratory failure A41.9; R65.20; J96.01 Time Spent (min) 48
--- NOTE | 2019-09-22 09:10 | XRay Report ---
KUB HISTORY: feeding tube placement COMPARISON: KUB 09/20/2019. FINDINGS: A few mildly dilated gas-filled loops of large or small bowel seen within the abdomen. This may represent a mild ileus. Nasogastric tube terminates in the distal stomach. No renal calculi. No ureteral calculi. No pneumoperitoneum or pneumatosis. IMPRESSION: Nasogastric tube terminates in the distal stomach. ACT 112: Negative or not required by law. Electronically signed by: Armando Diaz M.D. 09/22/2019 9:08 AM
--- NOTE | 2019-09-22 09:58 | Hospitalist Progress Note ---
Date of Service September 22, 2019 Assessment & Plan (1) Seizure-like activity: 59 yo F PMHx HLD, depression and anxiety, alcohol abuse admitted to ICU for acute encephalopathy, on mechanically-assisted ventilation. Acute encephalopathy: - Encephalopathy differentials include delirium tremens vs. viral encephalopathy vs. drug withdrawal such as K2 - Lyme IgG positive, treatment with doxycycline. Anaplasmosis pending. - CSF Lyme pending, CSF viral panel also pending. - COVID-19 testing negative x2. - MRI w/wo performed without acute process. - EEG done - LP without clear source of infection however bloody tap. - Acyclovir discontinued as CSF without VZV, HSV. - continue Vimpat 100mg BID, continuing thiamine, folic acid, magnesium Respiratory failure: - Care per ICU, with plans to attempt extubation possibly tomorrow. Patient is currently intubated on ketamine which for the patient appears to be less agitated. Right sided pleural effusion - Sec to fluid overload. Positive fluid balance since admission. Also low albumin. - drained with thoracentesis today with clear straw yellow fluid. Cultures pending. Febrile illness: - Febrile 10am yesterday with WBC 16.6, pro-siva 0.61; this AM WBC 15.9, pro-siva 1.15 - compressive atelectasis present on CXR, bronchoscopy performed with removal of thick bronchial washings sent for cultures. - Abx coverage broadened to cefepime. - Patient afebrile on repeat check at 12pm. Elevated LFTs/Acute alcohol hepatitis: - downtrending since admission - Liver ultrasound showing Hepatosteatosis. - Hepatitis C negative, Ammonia level negative. - Lyme IgG positive IgM negative, anaplasmosis DNA pending. - Continuing doxycycline empiric treatment, for a total of 21-28 days. Alcohol use ds/DT: - MVI - Add daily thiamine Code Status: Full Code FEN/GI: intubated, NPO, replete electrolytes as needed DVT ppx: Lovenox (2) On mechanically assisted ventilation: (3) Elevated LFTs: (4) Encephalopathy acute: (5) Alcohol withdrawal delirium: Admission and Anticipated Discharge Date Admission Date: September 14, 2019 Supervising Physician Co-Signing Physician Notes Resident Physician Supervision Note: I independently interviewed and examined the patient and verified the hernandez history and physical, reviewed labs and image studies, discussed the case with the resident Dr. Encinas and agree with the findings and care plan. Subjective Patient has maintained sedation with indubation this morning. Review of Systems Review of Systems: Unobtainable due to endotracheal tube Physical Exam Constitutional: average body habitus and + altered mental status; no acute distress Eyes: PERRL, conjunctivae normal, anicteric sclerae Respiratory: no respiratory distress, no labored breathing and no retractions Auscultation: + crackles (whole field, b/l) Cardiovascular: Rate/Rhythm: regular rate and regular rhythm Heart Sounds: no gallop, no murmur and no cardiac rub Vessels: normal peripheral pulses; no JVD Gastrointestinal (Abdomen): normal bowel sounds, soft, nontender, no hepatosplenomegaly Musculoskeletal: Extremities: no joint enlargement, no muscle atrophy, no cyanosis and no clubbing Neurologic: deep tendon reflexes 2+ bilaterally and moves all extremities Psychiatric: Orientation: + not alert and + not oriented x 3 Motor Behavior: no abnormal motor movements Lymphatic: no cervical lymphadenopathy Results & Data Results & Data ([facility]) Vital Signs (Past 12 Hours) Vital Signs Temp Pulse Resp BP Pulse Ox 09/22/19 06:58 105 H 20 91 09/22/19 06:00 107 H 121/66 96 09/22/19 05:58 107 H 121/66 90 09/22/19 05:47 121 H 119/66 09/22/19 05:44 121 H 24 91 09/22/19 05:43 123 H 119/66 92 09/22/19 05:22 126 H 24 95 09/22/19 04:00 38 C H 112 H 121/62 91 09/22/19 03:57 111 H 121/62 91 09/22/19 03:00 97 H 124/76 94 09/22/19 02:03 81 17 96 09/22/19 02:00 82 90/52 L 97 09/22/19 01:27 81 82/54 L 93 09/22/19 01:00 81 89 L 09/22/19 00:27 37.7 C H 88 89/53 L 93 09/21/19 23:39 38.8 C H 09/21/19 23:27 92 H 95/55 L 90 09/21/19 23:15 109 H 121/61 09/21/19 22:51 112 H 20 94 06/28/20 22:27 112 H 104/58 L 90 09/21/19 22:00 111 H 114/62 93 Laboratory Results 09/22/19 09/22/19 09/22/19 Range/Units 11:30 04:31 04:31 WBC 15.94 H (4.8-10.8) K/uL RBC 3.20 L (4.2-5.4) M/uL Hgb 11.1 L (12.0-16.0) g/dL Hct 34.7 L (37-47) % MCV 108.4 H (80-100) fL MCH 34.7 H (25-34) pg MCHC 32.0 (32-36) g/dL RDW Std Deviation 51.6 H (36.4-46.3) fL RDW Coeff of Elif 13.0 (11.5-14.5) % Plt Count 330 (130-400) K/uL MPV 10.3 (7.4-10.4) fL Immature Gran % (Auto) 0.8 % Neut % (Auto) 68.5 % Lymph % (Auto) 10.9 % Galax % (Auto) 17.9 % Eos % (Auto) 1.5 % Baso % (Auto) 0.4 % Neut # (Auto) 10.90 H (1.4-6.5) K/uL Lymph # (Auto) 1.74 (1.2-3.4) K/uL [place]ax # (Auto) 2.86 H (0.11-0.59) K/uL Eos # (Auto) 0.24 (0-0.5) K/uL Baso # (Auto) 0.07 (0-0.2) K/uL Immature Gran # (Auto) 0.13 H (0.00-0.02) K/uL Sodium (136-145) mmol/L Potassium (3.5-5.1) mmol/L Chloride (98-107) mmol/L Carbon Dioxide (21-32) mmol/L Anion Gap (3-11) BUN (7-18) mg/dl Creatinine (0.6-1.2) mg/dl Est Cr Clr Drug Dosing ml/min Est GFR ( Amer) Est GFR (Non-Af Amer) BUN/Creatinine Ratio (10-20) Glucose (70-99) mg/dl POC Glucose 92 (70-99) mg/dl Calcium (8.5-10.1) mg/dl Phosphorus (2.5-4.9) mg/dl Magnesium (1.8-2.4) mg/dl Total Bilirubin (0.2-1) mg/dl Direct Bilirubin (0-0.2) mg/dl AST (15-37) U/L ALT (12-78) U/L Alkaline Phosphatase (45-117) U/L Total Protein (6.4-8.2) gm/dl Albumin (3.4-5.0) gm/dl Lipase (73-393) U/L Procalcitonin 1.15 H (0-0.5) ng/ml 09/22/19 Range/Units 04:31 WBC (4.8-10.8) K/uL RBC (4.2-5.4) M/uL Hgb (12.0-16.0) g/dL Hct (37-47) % MCV (80-100) fL MCH (25-34) pg MCHC (32-36) g/dL RDW Std Deviation (36.4-46.3) fL RDW Coeff of Elif (11.5-14.5) % Plt Count (130-400) K/uL MPV (7.4-10.4) fL Immature Gran % (Auto) % Neut % (Auto) % Lymph % (Auto) % [place] % (Auto) % Eos % (Auto) % Baso % (Auto) % Neut # (Auto) (1.4-6.5) K/uL Lymph # (Auto) (1.2-3.4) K/uL Galax # (Auto) (0.11-0.59) K/uL Eos # (Auto) (0-0.5) K/uL Baso # (Auto) (0-0.2) K/uL Immature Gran # (Auto) (0.00-0.02) K/uL Sodium 134 L (136-145) mmol/L Potassium 4.2 (3.5-5.1) mmol/L Chloride 104 (98-107) mmol/L Carbon Dioxide 25 (21-32) mmol/L Anion Gap 5.0 (3-11) BUN 18 D (7-18) mg/dl Creatinine 0.89 D (0.6-1.2) mg/dl Est Cr Clr Drug Dosing 62.8 ml/min Est GFR ( Amer) 83.4 Est GFR (Non-Af Amer) 71.9 BUN/Creatinine Ratio 20.6 H (10-20) Glucose 108 H (70-99) mg/dl POC Glucose (70-99) mg/dl Calcium 8.7 (8.5-10.1) mg/dl Phosphorus 2.8 D (2.5-4.9) mg/dl Magnesium 3.0 H (1.8-2.4) mg/dl Total Bilirubin 1.0 D (0.2-1) mg/dl Direct Bilirubin 0.7 H (0-0.2) mg/dl AST 61 H (15-37) U/L ALT 41 (12-78) U/L Alkaline Phosphatase 231 H (45-117) U/L Total Protein 6.4 (6.4-8.2) gm/dl Albumin 2.3 L (3.4-5.0) gm/dl Lipase 68 L (73-393) U/L Procalcitonin (0-0.5) ng/ml Medications Administered Current Inpatient Medications Acetaminophen (Tylenol) 650 mg PO Q4H PRN PRN Reason: Fever Stop: 10/22/19 14:33 Albuterol (Duoneb) 3 ml NEB Q4R PRN PRN Reason: Shortness Of Breath Or Wheezing Stop: 10/14/19 06:59 Enoxaparin Sodium (Lovenox) 40 mg SQ DAILY BRIANNA Stop: 10/14/19 08:59 Last Admin: 09/22/19 08:11 Dose: 40 mg Documented by: Fentanyl Citrate (Fentanyl Bolus From Bag) 50 mcg IV Q60M PRN PRN Reason: Pain or Agitation Stop: 10/05/19 03:15 Last Admin: 09/22/19 05:00 Dose: 50 mcg Documented by: Gadobutrol (Gadavist 65ml) 6.8 ml IV ONCE PRN PRN Reason: Interaction Checking Stop: 09/23/19 21:29 Last Admin: 09/19/19 21:30 Dose: 6.8 ml Documented by: Folic Acid 1 mg/ Syringe 10 mls @ 5 mls/min IV Q24H BRIANNA Stop: 10/15/19 11:59 Last Admin: 09/22/19 12:48 Dose: 5 mls/min Documented by: Doxycycline Hyclate 100 mg/ (Dextrose) 110 mls @ 50 mls/hr IV Q12H [facility] Stop: 10/09/19 05:59 Last Infusion: 09/22/19 08:05 Dose: Infused Documented by: Fentanyl Citrate (Fentanyl Drip) 1,250 mcg in 250 mls @ 30 mls/hr IV .Q8H20M [facility]; Protocol Stop: 10/05/19 03:29 Last Titration: 09/22/19 14:16 Dose: 150 mcg/hr, 30 mls/hr Documented by: Lacosamide 100 mg/ Sodium (Chloride) 60 mls @ 120 mls/hr IV Q12 [facility] Stop: 10/21/19 20:59 Last Infusion: 09/22/19 10:35 Dose: Infused Documented by: Ketamine HCl (Ketalar / Nss) 500 mg in 500 mls @ 27.2 mls/hr IV .[id number] [facility]; Protocol Stop: 10/21/19 11:44 Last Titration: 09/22/19 07:04 Dose: 0.4 mg/kg/hr, 27.2 mls/hr Documented by: Cefepime HCl 2,000 mg/ Syringe 20 mls @ 5 mls/min IV Q8H [facility] Stop: 09/28/19 19:59 Last Admin: 09/22/19 11:34 Dose: 5 mls/min Documented by: Furosemide 40 mg/ Syringe 4 mls @ 4 mls/min IV [id number] [facility] Stop: 10/22/19 09:29 Last Admin: 09/22/19 10:02 Dose: 4 mls/min Documented by: Propofol (Diprivan) 1,000 mg in 100 mls @ 8.556 mls/hr IV .[id number] [facility]; Protocol Stop: 09/25/19 14:44 Ioversol (Optiray 320 125ml) 119 ml IV ONCE PRN PRN Reason: Interaction Checking Stop: 09/24/19 14:46 Last Admin: 09/20/19 14:47 Dose: 119 ml Documented by: Magnesium Oxide (Mag-Ox) 400 mg PO BID [facility] Stop: 10/21/19 11:29 Last Admin: 09/22/19 10:01 Dose: 400 mg Documented by: Metoprolol Tartrate (Lopressor) 12.5 mg PO Q8 BRIANNA Stop: 10/22/19 13:59 Last Admin: 09/22/19 14:13 Dose: Not Given Documented by: Miscellaneous (Icu Electrolyte Replacement Protocol) 1 ea N/A UD PRN PRN Reason: for e-lyte repletion Stop: 09/24/19 05:35 Nutritional Formula (Peptamen Intense Vhp 1.0 Siva) 1,000 ml OG UD [facility]; Protocol Stop: 10/19/19 10:44 Last Admin: 09/22/19 10:02 Dose: 1,000 ml Documented by: Olanzapine (Zyprexa Zydis Od) 5 mg PO QAM [facility] Stop: 10/22/19 10:29 Last Admin: 09/22/19 11:34 Dose: 5 mg Documented by: Paroxetine HCl (Paxil) 40 mg PO QAM BRIANNA Stop: 10/21/19 08:59 Last Admin: 09/22/19 10:01 Dose: 40 mg Documented by: Propofol (Diprivan Bolus From Bag) 20 mg IV Q5M PRN PRN Reason: Sedation Stop: 09/25/19 14:34 Resident Activity Tracking Resident Involvement: Resident Care Provided Care Provided: Adult Hospital Medicine
[2019-09-22] MEDS: MAGNESIUM OXIDE 400 MG TAB PO SCH ×2 (10:01→20:27)
[2019-09-22] MEDS: PARoxetine HCL 20 MG TAB PO SCH (10:01)
[2019-09-22] MEDS: LACOSAMIDE 100 MG in SODIUM CHLORIDE 0.9% 50 ML IV SCH ×2 (10:02→21:39)
[2019-09-22] MEDS: FUROSEMIDE 40 MG in SYRINGE 0 ML IV SCH ×2 (10:02→16:59)
[2019-09-22] MEDS: PEPTAMEN INTENSE VHP 1.0 CAL 1,000 ML BAG OG SCH (10:02)
[2019-09-22] MEDS: OLANZAPINE ZYDIS 5 MG ORALLY DIS. TAB PO SCH (11:34)
[2019-09-22] MEDS ORDERED: ACETAMINOPHEN 1,000 MG/100 ML VIAL IV PRN (12:06)
[2019-09-22] MEDS: FOLIC ACID 1 MG in SYRINGE 9.8 ML IV SCH (12:48)
[2019-09-22] MEDS: METOPROLOL TARTRATE 25 MG TAB PO SCH ×3 (14:13→21:45)
[2019-09-22] MEDS ORDERED: STAT IV Infusion **Titration per Protocol STA (14:35)
[2019-09-22] MEDS: propofoL 1,000 MG/100 ML VIAL IV SCH ×2 (16:56→20:44)
[2019-09-22] MEDS: KETAMINE HCL / NSS 500 MG/500 ML BAG IV SCH (16:56)
[2019-09-22] MEDS: PROPOFOL BOLUS FROM BAG IV PRN (23:51)
[2019-09-23] MEDS ORDERED: ALBUMIN 25% 50 ML IV ONE (01:03)
[2019-09-23] MEDS ORDERED: FUROSEMIDE 40 MG in SYRINGE 0 ML IV ONE (01:15)
[2019-09-23] MEDS: CEFEPIME 2,000 MG in SYRINGE 7.5 ML IV SCH ×3 (04:06→19:42)
[2019-09-23] MEDS: PEPTAMEN INTENSE VHP 1.0 CAL 1,000 ML BAG OG SCH (04:06)
[2019-09-23] MEDS: propofoL 1,000 MG/100 ML VIAL IV SCH ×2 (04:21→16:20)
[2019-09-23 04:59] LABS: Basophils # (auto) 0.04 K/uL (0-0.2); Basophils % (auto) 0.3 %; Eosinophils # (auto) 0.31 K/uL (0-0.5); Hemoglobin 10.5 g/dL (12.0-16.0); Immature Granulocytes # (auto) 0.14 K/uL (0.00-0.02); Immature Granulocytes % (auto) 0.9 %; Lymphocytes # (auto) 1.89 K/uL (1.2-3.4); Lymphocytes % (auto) 12.5 %; Mean Corpuscular Hemoglobin 34.7 pg (25-34); Mean Corpuscular Hgb Conc 31.8 g/dL (32-36); Mean Corpuscular Volume 108.9 fL (80-100); Mean Platelet Volume 10.1 fL (7.4-10.4); Monocytes % (auto) 13.9 %; Neutrophils # (auto) 10.65 K/uL (1.4-6.5); Neutrophils % (auto) 70.4 %; Platelet Count 350 K/uL (130-400); RDW Standard Deviation 51.7 fL (36.4-46.3); Red Blood Count 3.03 M/uL (4.2-5.4); White Blood Count 15.13 K/uL (4.8-10.8)
[2019-09-23] MEDS: KETAMINE HCL / NSS 500 MG/500 ML BAG IV SCH (05:18)
[2019-09-23 05:30] LABS: Albumin Level 2.3 gm/dl (3.4-5.0); BUN Creatinine Ratio 37.3 (10-20); Calcium 8.8 mg/dl (8.5-10.1); Creatinine Clr Calc Pharmacy 87.8 ml/min; Est GFR (African American) 111.5; Est GFR (Non-African American) 96.2
[2019-09-23 05:33] LABS: Albumin Globulin Ratio 0.5 (0.9-2); Bilirubin,Total 0.7 mg/dl (0.2-1); Globulin 4.4 gm/dl (2.5-4.0); Total Protein 6.7 gm/dl (6.4-8.2)
[2019-09-23 06:04] LABS: iSTAT Allen Test Pass; iSTAT Art Bld Gas pCO2 Correct 53 mmHg (35-46); iSTAT Art Bld Gas pH Corrected 7.278 (7.35-7.45); iSTAT Arterial Blood Gas HCO3 25 meg/L (19-24); iSTAT Arterial Blood Gas pCO2 52 mmHg (35-46); iSTAT Arterial Blood Gas pH 7.28 (7.35-7.45); iSTAT Arterial Blood Gas pO2 64 mmHg (80-95); iSTAT Arterial Blood Gas pO2 C 66; iSTAT Carbon Dioxide 26 mmol/L (24-31); iSTAT FiO2 40 %; iSTAT Hematocrit 30 % (37-47); iSTAT Hemoglobin 10.2 g/dl (12.0-16.0); iSTAT Site L Radial; iSTAT Sodium 136 mmol/L (135-144)
[2019-09-23] MEDS: METOPROLOL TARTRATE 25 MG TAB PO SCH ×3 (06:04→21:06)
[2019-09-23] MEDS: DOXYCYCLINE HYCLATE 100 MG in DEXTROSE 5% 100 ML IV SCH ×2 (06:04→17:47)
--- NOTE | 2019-09-23 08:09 | XRay Report ---
XR chest 1V portable CLINICAL HISTORY: resp failure dyspnea COMPARISON STUDY: 09/22/2019 FINDINGS: Endotracheal tube remains 4.5 cm above the carlos enrique. Diffuse bilateral parenchymal infiltrates are unchanged. Slight improvement in visibility left lung b ase. Nasogastric tube is within the stomach. The right base is clear. IMPRESSION: 1. Generally unchanged exam with diffuse bilateral parenchymal infiltrative change. 2. Endotracheal tube 4.5 cm above the carlos enrique. 3. Slight improvement in aeration left lung base. ACT 112: Negative or not required by law. The above report was generated using voice recognition software. It may contain grammatical, syntax or spelling errors. Electronically signed by: Yash Wolf M.D. 09/23/2019 8:08 AM
[2019-09-23] MEDS ORDERED: CHLOROTHIAZIDE SODIUM 500 MG in DEXTROSE 5% 50 ML IV ONE (08:15)
[2019-09-23] MEDS: ENOXAPARIN INJ 40 MG/0.4 ML SYR SQ SCH (08:26)
[2019-09-23] MEDS: MAGNESIUM OXIDE 400 MG TAB PO SCH ×2 (08:27→21:06)
[2019-09-23] MEDS: PARoxetine HCL 20 MG TAB PO SCH (08:28)
[2019-09-23] MEDS: OLANZAPINE ZYDIS 5 MG ORALLY DIS. TAB PO SCH (08:28)
[2019-09-23 08:44] LABS: 18KDIGG Band NON-REACTIVE; 23KDIGG Band NON-REACTIVE; 23KDIGM Band NON-REACTIVE; 28KDIGG Band NON-REACTIVE; 30KDIGG Band NON-REACTIVE; 39KDIGG Band NON-REACTIVE; 39KDIGM Band NON-REACTIVE; 41KDIGG Band NON-REACTIVE; 41KDIGM Band NON-REACTIVE; 45KDIGG Band NON-REACTIVE; 58KDIGG Band NON-REACTIVE; 66KDIGG Band NON-REACTIVE; 93KDIGG Band NON-REACTIVE; Lyme Antibodies, WB IgG NEGATIVE (NEGATIVE); Lyme Antibodies, WB IgM NEGATIVE (NEGATIVE)
[2019-09-23] MEDS: LACOSAMIDE 100 MG in SODIUM CHLORIDE 0.9% 50 ML IV SCH ×2 (08:56→21:05)
[2019-09-23] MEDS: fentaNYL DRIP 1,250 MCG/250 ML BAG IV SCH ×2 (08:57→17:40)
[2019-09-23] MEDS: THIAMINE HCL 200 MG in SODIUM CHLORIDE 0.9% 50 ML IV SCH (09:39)
--- NOTE | 2019-09-23 10:34 | Critical Care Progress Note ---
Date of Service September 23, 2019 Assessment & Plan (1) Admitted to intensive care unit: Reason Critically Ill: 59-year-old female presenting as outside hospital transfer for acute encephalopathy, suspected DTs from alcohol withdrawal, history of seizure 6 months ago not on any medication, hypoxic respiratory failure requiring, mechanically ventilated, COVID-19 ruled out 24-hour events: Patient transitioned off ketamine to propofol and Zyprexa. Fentanyl was weaned. Significant progress in vent settings with the patient currently on 5/5 and an FiO2 of 0.35%. Attempted more aggressive diuresis however I's and O's remain slightly positive. Recommendations: Neuro - broad differential, see neurology notes. Appreciate their assistance. EEG is not demonstrated persistent epileptiform activity and the patient is maintained on Vimpat currently. She has been weaned off of ketamine and is currently on Zyprexa and propofol. We will continue to wean fentanyl as tolerated in anticipation of potential extubation. LP was unrevealing. She has completed a course of replacement thiamine and folate which would be adequate for DT. Per nursing she is following commands intermittently. Cardiac - Elevated troponin/NSTEMI/SVTpatient initially presented with SVT with HR 150s, converted to sinus rhythm with 10 mg IV metoprolol. Continue oral metoprolol. Blood pressure is borderline likely due to sedative agents currently and limits additional titration up. She remains tachycardic but appears to be in sinus currently. Will need to restart her lipid-lowering agent and aspirin at some point. HD stable. Respiratory -patient has had 2 negative COVID tests. Her procalcitonin is slightly elevated. She has pulmonary infiltrates. Continue cefepime and doxycycline as noted below and await cultures. She is tolerating pressure support currently at levels which would conceivably support a trial of ext ubation. Will lighten sedation and see if her neurological status permits a trial of extubation. Pleural effusion appears to been transudate likely secondary to third spacing and resuscitation. She will require continued diuretics and potentially extubation to BiPAP depending on her mental status GI -right upper quadrant ultrasound from the showed steatohepatitis as well as trace gallbladder sludge. AST is slightly decreasing. ALT is normal and alk phos is trending down. Total bili also decreasing. Patient is certainly at risk for acalculus cholecystitis however the improving pattern of LFTs would argue against this and will hold on HIDA scan or GGT assessment currently. Holding tube feeding week currently in hopes of extubation. She will require speech therapy evaluation and swallow study prior to resuming p.o. RENAL/LYTES -still fluid positive. Increase Lasix to 40 every 8 and add Diuril today. Follow kidney function electrolytes. -no current issues ENDO - TSH within normal limits No history of diabetes ICU hyperglycemic protocol HEME - H&H stable, monitor ID -fever curve improved and white blood cell count decreasing today. Bronchoscopy cultures and blood cultures have shown no growth to date. She received 3 days of Zosyn, 2 days of a azithromycin, and a few days of Rocephin and is currently on day #3 cefepime and day #6 of doxycycline. Lumbar puncture and pleural fluid unrevealing. Continue cefepime and doxycycline currently. LINES/IV ACCESS - PIV's, ETT DVT PROPHYLAXIS - Mele Sanchez Patient remains critically ill with multiorgan system dysfunction. will be updated by phone after multidisciplinary rounds. Discussed with care nursing at bedside. Total of 45 minutes critical care time spent evaluating managing and stabilizing this patient Please note the above document was generated using voice recognition software. It may contain grammatical, syntax or spelling errors. (2) NSTEMI (non-ST elevated myocardial infarction): (3) Elevated LFTs: (4) SVT (supraventricular tachycardia): (5) Sepsis with acute hypoxic respiratory failure: Admission and Anticipated Discharge Date Admission Date: September 14, 2019 Subjective Intubated and sedated Review of Systems Review of Systems: Unobtainable due to endotracheal tube and Unobtainable due to reduced consciousness Physical Exam Constitutional: + mechanically ventilated Eyes: PERRL Neck: trachea midline, no thyromegaly Cardiovascular: Rate/Rhythm: + tachycardic Heart Sounds: normal S1 and normal S2; no murmur Gastrointestinal (Abdomen): Inspection/Auscultation: abdomen normal to inspection Percussion/Palpation: abdomen nontender Skin: no rashes, warm and dry Results & Data Results & Data ([facility]) Vital Signs (Past 12 Hours) Vital Signs Temp Pulse Pulse Resp BP BP Pulse Ox 09/23/19 10:00 101 H 92 09/23/19 09:32 99 H 82/53 L 94 09/23/19 09:30 100 H 94 09/23/19 09:00 107 H 94 09/23/19 08:32 108 H 102/47 L 94 09/23/19 08:30 109 H 93 09/23/19 07:56 38.8 C H 108 H 15 95/48 L 95 09/23/19 06:02 114 H 92/58 L 92 09/23/19 05:32 115 H 103/55 L 93 09/23/19 05:00 119 H 90 09/23/19 04:32 37.4 C 119 H 121/74 94 09/23/19 04:30 121 H 21 90 09/23/19 03:32 96 H 103/64 92 09/23/19 02:32 95 H 106/64 93 09/23/19 02:03 94 H 16 93 09/23/19 01:32 99 H 116/69 91 09/23/19 00:32 36.9 C 89 96/61 L 96 09/22/19 23:32 94 H 103/66 92 09/22/19 23:00 90 22 94 Laboratory Results 09/23/19 04:47 09/23/19 04:47 Diagnostic Findings Chest x-ray today was independently reviewed. Tubes and lines in good position. There are persistent infiltrates in the right upper lobe and left lung zones not significantly changed from yesterday. Coding Level of Care Code Critical Care 1st 30-74 mins Diagnoses Admitted to intensive care unit Z78.9 NSTEMI (non-ST elevated myocardial infarction) I21.4 Elevated LFTs R79.89 SVT (supraventricular tachycardia) I47.1 Sepsis with acute hypoxic respiratory failure A41.9; R65.20; J96.01 Time Spent (min) 45
[2019-09-23] MEDS: FOLIC ACID 1 MG in SYRINGE 9.8 ML IV SCH (11:31)
[2019-09-23 11:45] LABS: Lyme DNA PCR CSF or Synovial Not detected (Not Detected); Lyme DNA Source CSF
[2019-09-23] MEDS: ACETAMINOPHEN 325 MG TAB PO PRN ×2 (11:46→16:26)
--- NOTE | 2019-09-23 12:03 | Hospitalist Progress Note ---
Date of Service September 23, 2019 Assessment & Plan (1) Seizure-like activity: 59 yo F PMHx HLD, depression and anxiety, alcohol abuse admitted to ICU for acute encephalopathy, on mechanically-assisted ventilation. Acute encephalopathy: - Encephalopathy differentials include delirium tremens vs. viral encephalopathy vs. drug withdrawal such as K2 - Lyme IgG positive, Anaplasmosis pending. - CSF Lyme not detected, CSF viral panel negative. - COVID-19 testing negative x2. - MRI w/wo performed without acute process. - EEG done - LP without clear source of infection however bloody tap. - Acyclovir discontinued as CSF without VZV, HSV. - continue Vimpat 100mg BID - continuing thiamine, folic acid, magnesium supplementation Respiratory failure: - Care per ICU, with plans to attempt extubation today, with decreased level of need for sedation Right sided pleural effusion - likely 2/2 fluid overload. - Positive fluid balance since admission. Also low albumin. - drained with thoracentesis 09/20 with clear straw yellow fluid. Cultures pending. Febrile illness: - fever curve continuing to trend downward throughout the day - compressive atelectasis present on CXR from 09/20 - bronchoscopy performed with removal of thick bronchial washings sent for cultures. - continue empiric Cefepime with Doxycycline - Patient afebrile on repeat check at 12pm. Elevated LFTs/Acute alcohol hepatitis: - downtrending since admission - Liver ultrasound showing Hepatosteatosis. - Hepatitis C negative, Ammonia level negative. - Lyme IgG positive IgM negative, anaplasmosis DNA pending. - Continuing doxycycline Alcohol use ds/Delirium Tremens: - previously completed course of thiamine, however will restart in the setting of continued concern for DTs - previously trialed on phenobarbital without improvement in presumed alcohol withdrawal symptoms Code Status: Full Code FEN/GI: intubated, NPO, replete electrolytes as needed DVT ppx: Lovenox Admission and Anticipated Discharge Date Admission Date: September 14, 2019 Supervising Physician Co-Signing Physician Notes Resident Physician Supervision Note: I independently interviewed and examined the patient and verified the hernandez history and physical, reviewed labs and image studies, discussed the case with the resident Dr. Encinas and agree with the findings and care plan. Subjective Planned for spontaneous breathing trial today, with continued weaning of sedation. Switched from Ketamine to propofol with addition of zyprexa this AM. Throughout the day, had trials of weaned respiratory support, but subsequently had a desaturation this afternoon and had return to increased respiratory support. Review of Systems Review of Systems: All systems reviewed & are unremarkable except as noted in Subjective Physical Exam Constitutional: average body habitus and + altered mental status; no acute distress Eyes: PERRL, conjunctivae normal, anicteric sclerae Neck: normal visual inspection Respiratory: no respiratory distress, no labored breathing and no retractions Auscultation: + crackles (whole field, b/l) Cardiovascular: Rate/Rhythm: regular rate and regular rhythm Heart Sounds: no gallop, no murmur and no cardiac rub Vessels: normal peripheral pulses; no JVD Gastrointestinal (Abdomen): normal bowel sounds, soft, nontender, no hepatosplenomegaly Musculoskeletal: Extremities: no joint enlargement, no muscle atrophy, no cyanosis and no clubbing Skin: no rashes, warm and dry Neurologic: deep tendon reflexes 2+ bilaterally and moves all extremities Psychiatric: Orientation: + not alert Motor Behavior: no abnormal motor movements Lymphatic: no cervical lymphadenopathy Results & Data Results & Data ([facility]) Vital Signs (Past 12 Hours) Vital Signs Temp Pulse Pulse Resp BP BP Pulse Ox 09/23/19 11:54 37.8 C H 103 H 15 95/51 L 92 09/23/19 11:09 111 H 26 H 84 L 09/23/19 10:00 101 H 92 09/23/19 09:32 99 H 82/53 L 94 09/23/19 09:30 100 H 94 09/23/19 09:00 107 H 94 09/23/19 08:32 108 H 102/47 L 94 09/23/19 08:30 109 H 93 09/23/19 07:56 38.8 C H 108 H 15 95/48 L 95 09/23/19 06:49 115 H 21 91 09/23/19 06:02 114 H 92/58 L 92 09/23/19 05:32 115 H 103/55 L 93 09/23/19 05:00 119 H 90 09/23/19 04:32 37.4 C 119 H 121/74 94 09/23/19 04:30 121 H 21 90 09/23/19 03:32 96 H 103/64 92 09/23/19 02:32 95 H 106/64 93 09/23/19 02:03 94 H 16 93 09/23/19 01:32 99 H 116/69 91 09/23/19 00:32 36.9 C 89 96/61 L 96 Laboratory Results 09/23/19 09/23/19 09/23/19 Range/Units 11:41 05:47 04:47 WBC (4.8-10.8) K/uL RBC (4.2-5.4) M/uL Hgb (12.0-16.0) g/dL POC Hgb 10.2 L (12.0-16.0) g/dl Hct (37-47) % POC Hct 30 L (37-47) % MCV (80-100) fL MCH (25-34) pg MCHC (32-36) g/dL RDW Std Deviation (36.4-46.3) fL RDW Coeff of Elif (11.5-14.5) % Plt Count (130-400) K/uL MPV (7.4-10.4) fL Immature Gran % (Auto) % Neut % (Auto) % Lymph % (Auto) % [place] % (Auto) % Eos % (Auto) % Baso % (Auto) % Neut # (Auto) (1.4-6.5) K/uL Lymph # (Auto) (1.2-3.4) K/uL [place] # (Auto) (0.11-0.59) K/uL Eos # (Auto) (0-0.5) K/uL Baso # (Auto) (0-0.2) K/uL Immature Gran # (Auto) (0.00-0.02) K/uL Sample Site L Radial POC pH 7.28 L (7.35-7.45) POC pCO2 52 H (35-46) mmHg POC pO2 64 L (80-95) mmHg POC HCO3 25 H (19-24) mario/L POC Total CO2 26 (24-31) mmol/L POC Base Excess -2.0 (-9-1.8) mario/L ABG pH (Temp Correct) 7.278 L (7.35-7.45) ABG pCO2 (Temp Corrct 53 H (35-46) mmHg POC ABG pO2 at Pt Temp 66 POC ABG O2 Sat 89.0 L (90-95) % Hank Test Pass O2 Delivery Device Ventilator POC FiO2 40 % PEEP 5 POC Sodium 136 (135-144) mmol/L Sodium 137 (136-145) mmol/L POC Potassium 4.0 (3.3-5.0) mmol/L Potassium 4.0 (3.5-5.1) mmol/L Chloride 105 (98-107) mmol/L Carbon Dioxide 27 (21-32) mmol/L Anion Gap 5.0 (3-11) BUN 26 H (7-18) mg/dl Creatinine 0.70 (0.6-1.2) mg/dl Est Cr Clr Drug Dosing 87.8 ml/min Est GFR ( Amer) 111.5 Est GFR (Non-Af Amer) 96.2 BUN/Creatinine Ratio 37.3 H (10-20) Glucose 98 (70-99) mg/dl POC Glucose 103 H (70-99) mg/dl Calcium 8.8 (8.5-10.1) mg/dl Total Bilirubin 0.7 (0.2-1) mg/dl AST 98 H (15-37) U/L ALT 43 (12-78) U/L Alkaline Phosphatase 250 H (45-117) U/L Total Protein 6.7 (6.4-8.2) gm/dl Albumin 2.3 L (3.4-5.0) gm/dl Globulin 4.4 H (2.5-4.0) gm/dl Albumin/Globulin Ratio 0.5 L (0.9-2) Fld Lyme DNA (PCR) (Not Detected) Lyme Specimen Source Lyme IgG (Western Blot) (NEGATIVE) Lyme IgG 18 kDa Band Lyme IgG 23 kDa Band Lyme IgG 28 kDa Band Lyme IgG 30 kDa Band Lyme IgG 39 kDa Band Lyme IgG 41 kDa Band Lyme IgG 45 kDa Band Lyme IgG 58 kDa Band Lyme IgG 66 kDa Band Lyme IgG 93 kDa Band Lyme IgM Ab (WB) (NEGATIVE) Lyme IgM 23 kDa Band Lyme IgM 39 kDa Band Lyme IgM 41 kDa Band 09/23/19 09/19/19 09/17/19 Range/Units 04:47 11:04 14:40 WBC 15.13 H (4.8-10.8) K/uL RBC 3.03 L (4.2-5.4) M/uL Hgb 10.5 L (12.0-16.0) g/dL POC Hgb (12.0-16.0) g/dl Hct 33.0 L (37-47) % POC Hct (37-47) % MCV 108.9 H (80-100) fL MCH 34.7 H (25-34) pg MCHC 31.8 L (32-36) g/dL RDW Std Deviation 51.7 H (36.4-46.3) fL RDW Coeff of Elif 13.0 (11.5-14.5) % Plt Count 350 (130-400) K/uL MPV 10.1 (7.4-10.4) fL Immature Gran % (Auto) 0.9 % Neut % (Auto) 70.4 % Lymph % (Auto) 12.5 % [place] % (Auto) 13.9 % Eos % (Auto) 2.0 % Baso % (Auto) 0.3 % Neut # (Auto) 10.65 H (1.4-6.5) K/uL Lymph # (Auto) 1.89 (1.2-3.4) K/uL [place] # (Auto) 2.10 H (0.11-0.59) K/uL Eos # (Auto) 0.31 (0-0.5) K/uL Baso # (Auto) 0.04 (0-0.2) K/uL Immature Gran # (Auto) 0.14 H (0.00-0.02) K/uL Sample Site POC pH (7.35-7.45) POC pCO2 (35-46) mmHg POC pO2 (80-95) mmHg POC HCO3 (19-24) mario/L POC Total CO2 (24-31) mmol/L POC Base Excess (-9-1.8) mario/L ABG pH (Temp Correct) (7.35-7.45) ABG pCO2 (Temp Corrct (35-46) mmHg POC ABG pO2 at Pt Temp POC ABG O2 Sat (90-95) % Hank Test O2 Delivery Device POC FiO2 % PEEP POC Sodium (135-144) mmol/L Sodium (136-145) mmol/L POC Potassium (3.3-5.0) mmol/L Potassium (3.5-5.1) mmol/L Chloride (98-107) mmol/L Carbon Dioxide (21-32) mmol/L Anion Gap (3-11) BUN (7-18) mg/dl Creatinine (0.6-1.2) mg/dl Est Cr Clr Drug Dosing ml/min Est GFR ( Amer) Est GFR (Non-Af Amer) BUN/Creatinine Ratio (10-20) Glucose (70-99) mg/dl POC Glucose (70-99) mg/dl Calcium (8.5-10.1) mg/dl Total Bilirubin (0.2-1) mg/dl AST (15-37) U/L ALT (12-78) U/L Alkaline Phosphatase (45-117) U/L Total Protein (6.4-8.2) gm/dl Albumin (3.4-5.0) gm/dl Globulin (2.5-4.0) gm/dl Albumin/Globulin Ratio (0.9-2) Fld Lyme DNA (PCR) Not detected (Not Detected) Lyme Specimen Source CSF Lyme IgG (Western Blot) NEGATIVE (NEGATIVE) Lyme IgG 18 kDa Band NON-REACTIVE Lyme IgG 23 kDa Band NON-REACTIVE Lyme IgG 28 kDa Band NON-REACTIVE Lyme IgG 30 kDa Band NON-REACTIVE Lyme IgG 39 kDa Band NON-REACTIVE Lyme IgG 41 kDa Band NON-REACTIVE Lyme IgG 45 kDa Band NON-REACTIVE Lyme IgG 58 kDa Band NON-REACTIVE Lyme IgG 66 kDa Band NON-REACTIVE Lyme IgG 93 kDa Band NON-REACTIVE Lyme IgM Ab (WB) NEGATIVE (NEGATIVE) Lyme IgM 23 kDa Band NON-REACTIVE Lyme IgM 39 kDa Band NON-REACTIVE Lyme IgM 41 kDa Band NON-REACTIVE Medications Administered Current Inpatient Medications Acetaminophen (Tylenol) 650 mg PO Q4H PRN PRN Reason: Fever Stop: 10/22/19 14:33 Last Admin: 09/23/19 11:46 Dose: 650 mg Documented by: Albuterol (Duoneb) 3 ml NEB Q4R PRN PRN Reason: Shortness Of Breath Or Wheezing Stop: 10/14/19 06:59 Enoxaparin Sodium (Lovenox) 40 mg SQ DAILY BRIANNA Stop: 10/14/19 08:59 Last Admin: 09/23/19 08:26 Dose: 40 mg Documented by: Fentanyl Citrate (Fentanyl Bolus From Bag) 50 mcg IV Q60M PRN PRN Reason: Pain or Agitation Stop: 10/05/19 03:15 Last Admin: 09/22/19 05:00 Dose: 50 mcg Documented by: Gadobutrol (Gadavist 65ml) 6.8 ml IV ONCE PRN PRN Reason: Interaction Checking Stop: 09/23/19 21:29 Last Admin: 09/19/19 21:30 Dose: 6.8 ml Documented by: Folic Acid 1 mg/ Syringe 10 mls @ 5 mls/min IV Q24H [facility] Stop: 10/15/19 11:59 Last Admin: 09/23/19 11:31 Dose: 5 mls/min Documented by: Doxycycline Hyclate 100 mg/ (Dextrose) 110 mls @ 50 mls/hr IV Q12H [facility] Stop: 10/09/19 05:59 Last Infusion: 09/23/19 08:30 Dose: Infused Documented by: Fentanyl Citrate (Fentanyl Drip) 1,250 mcg in 250 mls @ 0 mls/hr IV .Q0M [facility]; Protocol Stop: 10/05/19 03:29 Last Titration: 09/23/19 11:54 Dose: 0 mcg/hr, 0 mls/hr Documented by: Lacosamide 100 mg/ Sodium (Chloride) 60 mls @ 120 mls/hr IV Q12 [facility] Stop: 10/21/19 20:59 Last Infusion: 09/23/19 09:30 Dose: Infused Documented by: Cefepime HCl 2,000 mg/ Syringe 20 mls @ 5 mls/min IV Q8H [facility] Stop: 09/28/19 19:59 Last Admin: 09/23/19 11:32 Dose: 5 mls/min Documented by: Propofol (Diprivan) 1,000 mg in 100 mls @ 4.278 mls/hr IV .Q81Y68H [facility]; Protocol Stop: 09/25/19 14:44 Last Titration: 09/23/19 11:55 Dose: 10 mcg/kg/min, 4.3 mls/hr Documented by: Furosemide 40 mg/ Syringe 4 mls @ 4 mls/min IV Q8 [facility] Stop: 10/23/19 13:59 Thiamine HCl 200 mg/ Sodium (Chloride) 52 mls @ 208 mls/hr IV QAM [facility] Stop: 10/23/19 08:59 Last Infusion: 09/23/19 10:00 Dose: Infused Documented by: Ioversol (Optiray 320 125ml) 119 ml IV ONCE PRN PRN Reason: Interaction Checking Stop: 09/24/19 14:46 Last Admin: 09/20/19 14:47 Dose: 119 ml Documented by: Magnesium Oxide (Mag-Ox) 400 mg PO BID [facility] Stop: 10/21/19 11:29 Last Admin: 09/23/19 08:27 Dose: 400 mg Documented by: Metoprolol Tartrate (Lopressor) 12.5 mg PO Q8 [facility] Stop: 10/22/19 13:59 Last Admin: 09/23/19 06:04 Dose: Not Given Documented by: Miscellaneous (Icu Electrolyte Replacement Protocol) 1 ea N/A UD PRN PRN Reason: for e-lyte repletion Stop: 09/24/19 05:35 Nutritional Formula (Peptamen Intense Vhp 1.0 Siva) 1,000 ml OG UD [facility]; Protocol Stop: 10/19/19 10:44 Last Admin: 09/23/19 04:06 Dose: 1,000 ml Documented by: Olanzapine (Zyprexa Zydis Od) 5 mg PO QAM [facility] Stop: 10/22/19 10:29 Last Admin: 09/23/19 08:28 Dose: 5 mg Documented by: Paroxetine HCl (Paxil) 40 mg PO QAM [facility] Stop: 10/21/19 08:59 Last Admin: 09/23/19 08:28 Dose: 40 mg Documented by: Propofol (Diprivan Bolus From Bag) 20 mg IV Q5M PRN PRN Reason: Sedation Stop: 09/25/19 14:34 Last Admin: 09/22/19 23:51 Dose: 20 mg Documented by: Resident Activity Tracking Resident Involvement: Resident Care Provided Care Provided: Adult Hospital Medicine
[2019-09-23] MEDS: FUROSEMIDE 40 MG in SYRINGE 0 ML IV SCH ×2 (14:14→21:06)
[2019-09-24] MEDS: propofoL 1,000 MG/100 ML VIAL IV SCH ×5 (03:12→21:20)
[2019-09-24] MEDS: CEFEPIME 2,000 MG in SYRINGE 7.5 ML IV SCH ×3 (03:49→20:55)
[2019-09-24 04:46] LABS: Basophils # (auto) 0.06 K/uL (0-0.2); Basophils % (auto) 0.5 %; Eosinophils # (auto) 0.25 K/uL (0-0.5); Eosinophils % (auto) 2.1 %; Hematocrit (blood only) 29.5 % (37-47); Hemoglobin 9.6 g/dL (12.0-16.0); Immature Granulocytes # (auto) 0.14 K/uL (0.00-0.02); Immature Granulocytes % (auto) 1.2 %; Lymphocytes # (auto) 1.58 K/uL (1.2-3.4); Lymphocytes % (auto) 13.3 %; Mean Corpuscular Hemoglobin 34.7 pg (25-34); Mean Corpuscular Hgb Conc 32.5 g/dL (32-36); Mean Corpuscular Volume 106.5 fL (80-100); Monocytes # (auto) 1.28 K/uL (0.11-0.59); Monocytes % (auto) 10.7 %; Neutrophils % (auto) 72.2 %; Platelet Count 335 K/uL (130-400); RDW Coefficient of Variation 12.9 % (11.5-14.5); RDW Standard Deviation 50.5 fL (36.4-46.3); Red Blood Count 2.77 M/uL (4.2-5.4); White Blood Count 11.91 K/uL (4.8-10.8)
[2019-09-24 05:24] LABS: Albumin Globulin Ratio 0.5 (0.9-2); Albumin Level 1.9 gm/dl (3.4-5.0); BUN Creatinine Ratio 55.5 (10-20); Bilirubin,Total 0.7 mg/dl (0.2-1); Calcium 8.7 mg/dl (8.5-10.1); Creatinine Clr Calc Pharmacy 115.9 ml/min; Est GFR (African American) 120.7; Est GFR (Non-African American) 104.1; Globulin 4.1 gm/dl (2.5-4.0); Phosphorus 1.8 mg/dl (2.5-4.9); Potassium 3.4 mmol/L (3.5-5.1)
[2019-09-24] MEDS ORDERED: POTASSIUM PHOS 3 MMOL/1 ML INFUSION IV STA (05:32)
[2019-09-24] MEDS ORDERED: POTASSIUM CHLORIDE 20 MEQ/15 ML UDC PO STA (05:32)
[2019-09-24 05:52] LABS: iSTAT Allen Test Pass; iSTAT Arterial Blood Gas HCO3 25 meg/L (19-24); iSTAT Arterial Blood Gas pCO2 37 mmHg (35-46); iSTAT Arterial Blood Gas pH 7.43 (7.35-7.45); iSTAT Arterial Blood Gas pO2 77 mmHg (80-95); iSTAT Carbon Dioxide 26 mmol/L (24-31); iSTAT Site R Radial
[2019-09-24] MEDS ORDERED: POTASSIUM PHOSPHATE 21 MMOL in SODIUM CHLORIDE 0.9% 500 ML IV ONE (06:00)
[2019-09-24] MEDS: METOPROLOL TARTRATE 25 MG TAB PO SCH ×3 (06:11→22:04)
[2019-09-24] MEDS: DOXYCYCLINE HYCLATE 100 MG in DEXTROSE 5% 100 ML IV SCH ×2 (06:13→18:18)
[2019-09-24] MEDS: FUROSEMIDE 40 MG in SYRINGE 0 ML IV SCH ×3 (06:14→22:03)
--- NOTE | 2019-09-24 07:52 | XRay Report ---
XR chest 1V portable CLINICAL HISTORY: Respiratory failure. COMPARISON STUDY: Chest radiograph September 23, 2019. FINDINGS: The tip of the endotracheal tube 3.5 cm above the carlos enrique. Tip of nasogastric tube is below the lower aspect of this image but at least within the proximal stomach. There is no pneumothorax. No pleural effusion is identified. Right upper lung and diffuse left lung airspace opacity is similar t o prior exam. IMPRESSION: 1. Satisfactory positioning of the endotracheal and nasogastric tubes. 2. No significant change in extensive left lung and right upper lung airspace opacity which favors pn eumonia. Pulmonary edema could appear similar. ACT 112: Negative or not required by law. Electronically signed by: Arpan Cornejo M.D. 09/24/2019 7:51 AM
[2019-09-24] MEDS: PROPOFOL BOLUS FROM BAG IV PRN (07:58)
[2019-09-24] MEDS: ENOXAPARIN INJ 40 MG/0.4 ML SYR SQ SCH (08:36)
[2019-09-24] MEDS: THIAMINE HCL 200 MG in SODIUM CHLORIDE 0.9% 50 ML IV SCH (08:37)
[2019-09-24] MEDS: ACETAMINOPHEN 325 MG TAB PO PRN (08:37)
[2019-09-24] MEDS: PARoxetine HCL 20 MG TAB PO SCH (08:37)
[2019-09-24] MEDS: MAGNESIUM OXIDE 400 MG TAB PO SCH ×2 (08:38→22:04)
[2019-09-24] MEDS: OLANZAPINE ZYDIS 5 MG ORALLY DIS. TAB PO SCH (08:38)
[2019-09-24] MEDS: LACOSAMIDE 100 MG in SODIUM CHLORIDE 0.9% 50 ML IV SCH ×2 (08:59→22:03)
[2019-09-24] MEDS ORDERED: OLANZAPINE ZYDIS 5 MG ORALLY DIS. TAB PO ONE (10:00)
[2019-09-24] MEDS ORDERED: CHLOROTHIAZIDE SODIUM 500 MG in DEXTROSE 5% 50 ML IV ONE (10:00)
[2019-09-24] MEDS ORDERED: SUCCINYLCHOLINE CHLORIDE 20 MG/ML 10 ML VIAL IV ONE (10:02)
[2019-09-24] MEDS ORDERED: STAT IV Infusion **Titration per Protocol STA (10:15)
--- NOTE | 2019-09-24 10:58 | Critical Care Progress Note ---
Date of Service September 24, 2019 Assessment & Plan (1) Admitted to intensive care unit: Reason Critically Ill: 59-year-old female presenting as outside hospital transfer for acute encephalopathy, suspected DTs from alcohol withdrawal, history of seizure 6 months ago not on any medication, hypoxic respiratory failure requiring, mechanically ventilated, COVID-19 ruled out 24-hour events: SBT attempted this a.m. but was aborted due to the tachypnea, tachycardia, and hypoxemia. Hemodynamically stable. Was able to get a negative fluid balance over the last 24 hours with addition of Diuril. Recommendations: Neuro - broad differential, see neurology notes. Appreciate their assistance. EEG is not demonstrated persistent epileptiform activity and the patient is maintained on Vimpat currently. She has been weaned off of ketamine and is currently on Zyprexa and propofol. We will continue to wean fentanyl as to lerated in anticipation of potential extubation. LP was unrevealing. She has completed a course of replacement thiamine and folate which would be adequate for DT. Will increase Zyprexa today and attempt a trial of Precedex to try and smooth out weaning process. Unclear significance of microhemorrhages noted on the MRI of the brain. [employer] vasculitis would be unusual given the very focal nature of the hemorrhages. She does not give an overt history of longstanding hypertension. No evidence of seizure or epileptiform activity Cardiac - Elevated troponin/NSTEMI/SVTpatient initially presented with SVT with HR 150s, converted to sinus rhythm with 10 mg IV metoprolol. Continue oral metoprolol. Blood pressure is borderline likely due to sedative agents currently and limits additional titration up. She remains tachycardic but appears to be in sinus currently. Will need to restart her lipid-lowering agent and aspirin at some point. HD stable. Respiratory -patient has had 2 negative COVID tests. Her procalcitonin is slightly elevated. She has pulmonary infiltrates. Bronchoscopy cultures from the weekend were negative however the differential did appear to be neutrophilic. The patient has a new fever now. We will plan on repeating bronchoscopy with BAL right upper lobe today. If cultures remain negative, may consider the addition of steroids for late-phase acute lung injury/ARDS. Continue attempts at diuresis. Continue cefepime and doxycycline as noted below and await cultures. Pleural effusion appears to been transudate likely secondary to third spacing and resuscitation. She is now 10 days hospitalization and it is appropriate to discuss tracheostomy. I did breach the subject with her today. We are attempting to try and get him to visit her. If she is unable to make significant progress in weaning in the next 24 hours, pursuing percutaneous dilatation of tracheostomy at the bedside may be a good alternative to try and facilitate her ventilator liberation process and potentially decrease need for sedative medications. GI -right upper quadrant ultrasound from the showed steatohepatitis as well as trace gallbladder sludge. AST is slightly decreasing. ALT is normal and alk phos is trending down. Total bili also decreasing. Patient is certainly at risk for acalculus cholecystitis however the improving pattern of LFTs would argue against this. Will check GGT and if elevated, likely proceed with HIDA scan. Continue enteric tube feeding and trend LFTs. RENAL/LYTES -continue Lasix 40 mg every 8 hours an additional dose of Diuril today. Following kidney function and electrolytes -no current issues ENDO - TSH within normal limits No history of diabetes ICU hyperglycemic protocol HEME - H&H stable, monitor. Given persistent fevers, will screen for DVTs ID -fever curve increased today however white blood cell count decreasing today. Repeat bronchoscopy today.. She received 3 days of Zosyn, 2 days of a azithro mycin, and a few days of Rocephin and is currently on day #4 cefepime and day #6 of doxycycline. Lumbar puncture and pleural fluid unrevealing. Continue cefepime and doxycycline currently. LINES/IV ACCESS - PIV's, ETT DVT PROPHYLAXIS - SCDs, Lovenox Patient remains critically ill with multiorgan system dysfunction. updated by phone with case management working on arranging a visit for him. Discussed with care nursing at bedside. Total of 55 minutes critical care time spent evaluating managing and stabilizing this patient Please note the above document was generated using voice recognition software. It may contain grammatical, syntax or spelling errors. (2) NSTEMI (non-ST elevated myocardial infarction): (3) Elevated LFTs: (4) SVT (supraventricular tachycardia): (5) Sepsis with acute hypoxic respiratory failure: Admission and Anticipated Discharge Date Admission Date: September 14, 2019 Subjective Patient remains intubated and sedated Review of Systems Review of Systems: Unobtainable due to endotracheal tube Physical Exam Constitutional: + mechanically ventilated Eyes: PERRL Neck: trachea midline, no thyromegaly Cardiovascular: Rate/Rhythm: + tachycardic Heart Sounds: normal S1 and normal S2; no murmur Gastrointestinal (Abdomen): Inspection/Auscultation: abdomen normal to inspection Percussion/Palpation: abdomen nontender Skin: no rashes, warm and dry Results & Data Results & Data ([facility]) Vital Signs (Past 12 Hours) Vital Signs Temp Pulse Resp BP Pulse Ox 09/24/19 08:53 95 H 100/49 L 96 09/24/19 08:24 99 H 88/55 L 89 L 09/24/19 07:54 39.5 C H 95 H 122/63 90 09/24/19 07:47 103 H 36 H 94 09/24/19 07:24 86 102/73 93 09/24/19 07:11 88 26 H 91 09/24/19 06:54 88 121/74 93 09/24/19 06:24 101 H 134/77 85 L 09/24/19 05:54 105 H 26 H 109/72 86 L 09/24/19 05:24 107 H 147/88 H 91 09/24/19 04:54 110 H 144/99 H 92 09/24/19 04:24 79 108/64 92 09/24/19 03:54 37.1 C 90 141/86 H 91 09/24/19 03:00 78 16 92 09/24/19 02:50 77 103/63 92 09/24/19 01:50 83 118/64 94 09/24/19 00:50 71 95/54 L 92 09/24/19 00:00 72 09/23/19 23:50 37.3 C 78 97/55 L 90 09/23/19 23:36 81 96/54 L 90 09/23/19 23:29 89 19 93 Laboratory Results 09/24/19 04:28 09/24/19 04:28 Alk phos and ALT slightly increased today. Total bili remains normal Diagnostic Findings Chest x-ray today was independently reviewed. It demonstrates persistent bilateral infiltrates most prominent within the right upper lobe and left lung. No significant reaccumulation of pleural fluid. Coding Level of Care Code Critical Care 1st 30-74 mins Diagnoses Admitted to intensive care unit Z78.9 NSTEMI (non-ST elevated myocardial infarction) I21.4 Elevated LFTs R79.89 SVT (supraventricular tachycardia) I47.1 Sepsis with acute hypoxic respiratory failure A41.9; R65.20; J96.01 Time Spent (min) 55 Comment exclusive of procedures
--- NOTE | 2019-09-24 11:17 | Procedure Note ---
Procedure Note: Bronchoscopy Procedure Procedure: Fiberoptic bronchoscopy Bronchoalveolar lavage Provider: Kahlil Dow MD Consent: Procedure was emergent. Patient intubated and sedated and unable to provide consent. Was discussed with significant other via phone who agreed Procedure: Patient was intubated in the ICU on the mechanical ventilator and sedated on a propofol infusion. She was placed on 100% FiO2 on the ventilator. The bronchoscope was advanced through the existing endotracheal tube. The tube was sounded and found to be approximately 2 cm above the carlos enrique. There were thick mucoid secretions present within the tube as well as the mainstem bronchi. These were aspirated free with saline lavage and collected for microbiologic analysis. An inspection bronchoscopy was then completed. The airways were minimally inflamed but patent. Some thin mucoid secretions were identified. No endobronchial lesions identified. No overt purulence. After the inspection bronchoscopy was completed, the scope was wedged into the anterior segment of the right upper lobe. A BAL was performed with instillation of 2 aliquots of 60 cc of saline. Return was adequate. There was some dynamic collapse of the airway but we were able to get a good return which appeared slightly cloudy. There was no evidence of pulmonary hemorrhage. The bronchoscope was then removed from the airways. The patient tolerated the procedure well without obvious complication. Impression: 1. Endotracheal tube in good position. 2. Minimal inflammation of the airways 3. Clear mucoid secretions present within the trachea. 4. Successful BAL anterior segment right upper lobe.
[2019-09-24] MEDS: DEXMEDETOMIDINE HCL 200 MCG in SODIUM CHLORIDE 0.9% 48 ML IV SCH ×3 (11:23→20:46)
[2019-09-24] MEDS: FOLIC ACID 1 MG in SYRINGE 9.8 ML IV SCH (11:25)
[2019-09-24 13:47] LABS: Eosinophil Body Fluid Man 0 %; Fluid Mono/Macrophage 84 %; Lymphocyte Body Fluid Man 8 %; Neutrophil Body Fluid Man 3 %
[2019-09-24] MEDS ORDERED: ALBUMIN 25% 50 ML IV ONE (13:47)
--- NOTE | 2019-09-24 13:50 | Ultrasound Report ---
US venous doppler LE BI HISTORY: Pain. Edema. DVT eval COMPARISON STUDY: 09/21/2019 FINDINGS: There is normal compressibility, flow, and augmentation within the bilateral lower extremit y deep venous systems. IMPRESSION: 1. Normal study. 2. No change from the prior exam. ACT 112: Negative or not required by law. The above report was generated using voice recognition software. It may contain grammatical, syntax or spelling errors. Electronically signed by: Yash Wolf M.D. 09/24/2019 1:48 PM
--- NOTE | 2019-09-24 15:10 | Hospitalist Progress Note ---
Date of Service September 24, 2019 Assessment & Plan (1) Seizure-like activity: 59 yo F PMHx HLD, depression and anxiety, alcohol abuse admitted to ICU for acute encephalopathy, on mechanically-assisted ventilation. Encephalopathy: - Encephalopathy differentials include delirium tremens vs. viral encephalopathy vs. drug withdrawal such as K2 - Lyme IgG positive, Anaplasmosis pending. - CSF Lyme not detected, CSF viral panel negative. - COVID-19 testing negative x2. - MRI w/wo performed without acute process. - EEG done - LP without clear source of infection however bloody tap. - Acyclovir discontinued as CSF without VZV, HSV. - continue Vimpat 100mg BID - continuing thiamine, folic acid, magnesium supplementation - started on Precedex today Acute hypoxic Respiratory failure: - Care per ICU - failed extubation 09/22 - potential conversations with family tomorrow for tracheostomy and further care options Right sided pleural effusion - likely 2/2 fluid overload. - Positive fluid balance since admission. Also low albumin. - drained with thoracentesis 09/20 with clear straw yellow fluid. Cultures pending. Febrile illness: - compressive atelectasis present on CXR from 09/20 - bronchoscopy performed with removal of thick bronchial washings sent for cultures. - continue empiric Cefepime with Doxycycline - Patient afebrile on repeat check at 12pm. Elevated LFTs/Acute alcohol hepatitis: - downtrending since admission - Liver ultrasound showing Hepatosteatosis. - Hepatitis C negative, Ammonia level negative. - Lyme IgG positive IgM negative, anaplasmosis DNA pending. - Continuing doxycycline Alcohol use ds/Delirium Tremens: - previously completed course of thiamine, however will restart in the setting of continued concern for DTs - previously trialed on phenobarbital without improvement in presumed alcohol withdrawal symptoms Code Status: Full Code FEN/GI: intubated, NPO, replete electrolytes as needed DVT ppx: Lovenox Admission and Anticipated Discharge Date Admission Date: September 14, 2019 Supervising Physician Co-Signing Physician Notes Resident Physician Supervision Note: I independently interviewed and examined the patient and verified the hernandez history and physical, reviewed labs and image studies, discussed the case with the resident Dr. Encinas and agree with the findings and care plan. Subjective Trials of weaning respiratory support were unsuccessful overnight, conversations with to bring him into the hospital tomorrow for trach decision and goals of care discussions. Review of Systems Review of Systems: Unobtainable due to endotracheal tube Physical Exam Constitutional: average body habitus and + altered mental status; no acute distress Eyes: PERRL, conjunctivae normal, anicteric sclerae Neck: normal visual inspection Respiratory: no respiratory distress, no labored breathing and no retractions Auscultation: + crackles (whole field, b/l) Cardiovascular: Rate/Rhythm: regular rate and regular rhythm Heart Sounds: no gallop, no murmur and no cardiac rub Vessels: normal peripheral pulses; no JVD Gastrointestinal (Abdomen): normal bowel sounds, soft, nontender, no hepatosplenomegaly Musculoskeletal: Extremities: no joint enlargement, no muscle atrophy and no cyanosis Skin: no rashes, warm and dry Neurologic: deep tendon reflexes 2+ bilaterally Psychiatric: Orientation: + not alert Lymphatic: no cervical lymphadenopathy Results & Data Results & Data ([facility]) Vital Signs (Past 12 Hours) Vital Signs Temp Pulse Resp BP Pulse Ox 09/24/19 14:16 71 81/48 L 97 09/24/19 14:01 70 83/47 L 96 09/24/19 13:54 70 81/47 L 96 09/24/19 13:46 71 82/47 L 96 09/24/19 13:45 72 82/47 L 97 09/24/19 13:28 71 79/45 L 97 09/24/19 13:16 72 80/45 L 97 09/24/19 12:58 73 73/41 L 96 09/24/19 12:42 75 69/40 L 94 09/24/19 12:12 99 H 81/48 L 93 09/24/19 11:41 108 H 130/70 91 09/24/19 11:39 108 H 145/79 H 95 09/24/19 11:36 99 H 98/56 L 93 09/24/19 11:33 91 H 99/56 L 95 09/24/19 11:32 89 33 H 95 09/24/19 11:31 87 94/56 L 95 09/24/19 11:28 87 95/52 L 95 09/24/19 11:26 37.3 C 89 102/60 95 09/24/19 11:24 96 H 116/65 92 09/24/19 11:21 86 80/42 L 95 09/24/19 11:18 84 77/43 L 99 09/24/19 11:16 85 81/44 L 99 09/24/19 11:13 89 102/53 L 99 09/24/19 11:11 98 H 106/60 99 09/24/19 11:09 101 H 140/72 99 09/24/19 10:53 91 H 107/58 L 94 09/24/19 10:38 83 82/46 L 92 09/24/19 10:29 84 79/40 L 90 09/24/19 10:24 84 79/40 L 90 09/24/19 09:54 89 84/41 L 89 L 09/24/19 09:23 95 H 105/53 L 97 09/24/19 08:53 95 H 100/49 L 96 09/24/19 08:24 99 H 88/55 L 89 L 09/24/19 07:54 39.5 C H 95 H 122/63 90 09/24/19 07:47 103 H 36 H 94 09/24/19 07:24 86 102/73 93 09/24/19 07:11 88 26 H 91 09/24/19 06:54 88 121/74 93 09/24/19 06:24 101 H 134/77 85 L 09/24/19 05:54 105 H 26 H 109/72 86 L 09/24/19 05:24 107 H 147/88 H 91 09/24/19 04:54 110 H 144/99 H 92 09/24/19 04:24 79 108/64 92 09/24/19 03:54 37.1 C 90 141/86 H 91 Laboratory Results 09/24/19 09/24/19 09/24/19 Range/Units 11:27 11:00 11:00 WBC (4.8-10.8) K/uL RBC (4.2-5.4) M/uL Hgb (12.0-16.0) g/dL Hct (37-47) % MCV (80-100) fL MCH (25-34) pg MCHC (32-36) g/dL RDW Std Deviation (36.4-46.3) fL RDW Coeff of Elif (11.5-14.5) % Plt Count (130-400) K/uL MPV (7.4-10.4) fL Immature Gran % (Auto) % Neut % (Auto) % Lymph % (Auto) % [place] % (Auto) % Eos % (Auto) % Baso % (Auto) % Neut # (Auto) (1.4-6.5) K/uL Lymph # (Auto) (1.2-3.4) K/uL [place] # (Auto) (0.11-0.59) K/uL Eos # (Auto) (0-0.5) K/uL Baso # (Auto) (0-0.2) K/uL Immature Gran # (Auto) (0.00-0.02) K/uL Sample Site POC pH (7.35-7.45) POC pCO2 (35-46) mmHg POC pO2 (80-95) mmHg POC HCO3 (19-24) mario/L POC Total CO2 (24-31) mmol/L POC Base Excess (-9-1.8) mario/L POC ABG O2 Sat (90-95) % Hank Test O2 Delivery Device POC O2 Rate Minute Ventilation Tidal Volume PEEP Sodium (136-145) mmol/L Potassium (3.5-5.1) mmol/L Chloride (98-107) mmol/L Carbon Dioxide (21-32) mmol/L Anion Gap (3-11) BUN (7-18) mg/dl Creatinine (0.6-1.2) mg/dl Est Cr Clr Drug Dosing ml/min Est GFR ( Amer) Est GFR (Non-Af Amer) BUN/Creatinine Ratio (10-20) Glucose (70-99) mg/dl POC Glucose (70-99) mg/dl Calcium (8.5-10.1) mg/dl Phosphorus (2.5-4.9) mg/dl Magnesium (1.8-2.4) mg/dl Total Bilirubin (0.2-1) mg/dl GGT Pending AST (15-37) U/L ALT (12-78) U/L Alkaline Phosphatase (45-117) U/L Total Protein (6.4-8.2) gm/dl Albumin (3.4-5.0) gm/dl Globulin (2.5-4.0) gm/dl Albumin/Globulin Ratio (0.9-2) Procalcitonin 1.36 H (0-0.5) ng/ml Fluid Neutrophils % 3 % Fluid Lymphocytes % 8 % Fluid Eosinophils % 0 % Fl Monocyt/Macrophag % 84 % 09/24/19 09/24/19 09/24/19 Range/Units 05:39 04:28 04:28 WBC 11.91 H (4.8-10.8) K/uL RBC 2.77 L (4.2-5.4) M/uL Hgb 9.6 L (12.0-16.0) g/dL Hct 29.5 L (37-47) % MCV 106.5 H (80-100) fL MCH 34.7 H (25-34) pg MCHC 32.5 (32-36) g/dL RDW Std Deviation 50.5 H (36.4-46.3) fL RDW Coeff of Elif 12.9 (11.5-14.5) % Plt Count 335 (130-400) K/uL MPV 10.0 (7.4-10.4) fL Immature Gran % (Auto) 1.2 % Neut % (Auto) 72.2 % Lymph % (Auto) 13.3 % [place] % (Auto) 10.7 % Eos % (Auto) 2.1 % Baso % (Auto) 0.5 % Neut # (Auto) 8.60 H (1.4-6.5) K/uL Lymph # (Auto) 1.58 (1.2-3.4) K/uL [place] # (Auto) 1.28 H (0.11-0.59) K/uL Eos # (Auto) 0.25 (0-0.5) K/uL Baso # (Auto) 0.06 (0-0.2) K/uL Immature Gran # (Auto) 0.14 H (0.00-0.02) K/uL Sample Site R Radial POC pH 7.43 (7.35-7.45) POC pCO2 37 (35-46) mmHg POC pO2 77 L (80-95) mmHg POC HCO3 25 H (19-24) mario/L POC Total CO2 26 (24-31) mmol/L POC Base Excess 0.0 (-9-1.8) mario/L POC ABG O2 Sat 96.0 H (90-95) % Hank Test Pass O2 Delivery Device Ventilator POC O2 Rate 16 Minute Ventilation 7.2 Tidal Volume 450 PEEP 5 Sodium 137 (136-145) mmol/L Potassium 3.4 L (3.5-5.1) mmol/L Chloride 105 (98-107) mmol/L Carbon Dioxide 28 (21-32) mmol/L Anion Gap 4.0 (3-11) BUN 31 H (7-18) mg/dl Creatinine 0.55 L (0.6-1.2) mg/dl Est Cr Clr Drug Dosing 115.9 ml/min Est GFR ( Amer) 120.7 Est GFR (Non-Af Amer) 104.1 BUN/Creatinine Ratio 55.5 H (10-20) Glucose 96 (70-99) mg/dl POC Glucose (70-99) mg/dl Calcium 8.7 (8.5-10.1) mg/dl Phosphorus 1.8 L D (2.5-4.9) mg/dl Magnesium 2.0 (1.8-2.4) mg/dl Total Bilirubin 0.7 (0.2-1) mg/dl GGT AST 115 H (15-37) U/L ALT 48 (12-78) U/L Alkaline Phosphatase 368 H (45-117) U/L Total Protein 6.0 L (6.4-8.2) gm/dl Albumin 1.9 L (3.4-5.0) gm/dl Globulin 4.1 H (2.5-4.0) gm/dl Albumin/Globulin Ratio 0.5 L (0.9-2) Procalcitonin (0-0.5) ng/ml Fluid Neutrophils % % Fluid Lymphocytes % % Fluid Eosinophils % % Fl Monocyt/Macrophag % % 09/24/19 09/23/19 Range/Units 00:08 17:45 WBC (4.8-10.8) K/uL RBC (4.2-5.4) M/uL Hgb (12.0-16.0) g/dL Hct (37-47) % MCV (80-100) fL MCH (25-34) pg MCHC (32-36) g/dL RDW Std Deviation (36.4-46.3) fL RDW Coeff of Elif (11.5-14.5) % Plt Count (130-400) K/uL MPV (7.4-10.4) fL Immature Gran % (Auto) % Neut % (Auto) % Lymph % (Auto) % [place] % (Auto) % Eos % (Auto) % Baso % (Auto) % Neut # (Auto) (1.4-6.5) K/uL Lymph # (Auto) (1.2-3.4) K/uL [place] # (Auto) (0.11-0.59) K/uL Eos # (Auto) (0-0.5) K/uL Baso # (Auto) (0-0.2) K/uL Immature Gran # (Auto) (0.00-0.02) K/uL Sample Site POC pH (7.35-7.45) POC pCO2 (35-46) mmHg POC pO2 (80-95) mmHg POC HCO3 (19-24) mario/L POC Total CO2 (24-31) mmol/L POC Base Excess (-9-1.8) mario/L POC ABG O2 Sat (90-95) % Hank Test O2 Delivery Device POC O2 Rate Minute Ventilation Tidal Volume PEEP Sodium (136-145) mmol/L Potassium (3.5-5.1) mmol/L Chloride (98-107) mmol/L Carbon Dioxide (21-32) mmol/L Anion Gap (3-11) BUN (7-18) mg/dl Creatinine (0.6-1.2) mg/dl Est Cr Clr Drug Dosing ml/min Est GFR ( Amer) Est GFR (Non-Af Amer) BUN/Creatinine Ratio (10-20) Glucose (70-99) mg/dl POC Glucose 102 H 92 (70-99) mg/dl Calcium (8.5-10.1) mg/dl Phosphorus (2.5-4.9) mg/dl Magnesium (1.8-2.4) mg/dl Total Bilirubin (0.2-1) mg/dl GGT AST (15-37) U/L ALT (12-78) U/L Alkaline Phosphatase (45-117) U/L Total Protein (6.4-8.2) gm/dl Albumin (3.4-5.0) gm/dl Globulin (2.5-4.0) gm/dl Albumin/Globulin Ratio (0.9-2) Procalcitonin (0-0.5) ng/ml Fluid Neutrophils % % Fluid Lymphocytes % % Fluid Eosinophils % % Fl Monocyt/Macrophag % % Medications Administered Current Inpatient Medications Acetaminophen (Tylenol) 650 mg PO Q4H PRN PRN Reason: Fever Stop: 10/22/19 14:33 Last Admin: 09/24/19 08:37 Dose: 650 mg Documented by: Albuterol (Duoneb) 3 ml NEB Q4R PRN PRN Reason: Shortness Of Breath Or Wheezing Stop: 10/14/19 06:59 Enoxaparin Sodium (Lovenox) 40 mg SQ DAILY [facility] Stop: 10/14/19 08:59 Last Admin: 09/24/19 08:36 Dose: 40 mg Documented by: Fentanyl Citrate (Fentanyl Bolus From Bag) 50 mcg IV Q60M PRN PRN Reason: Pain or Agitation Stop: 10/05/19 03:15 Last Admin: 09/22/19 05:00 Dose: 50 mcg Documented by: Folic Acid 1 mg/ Syringe 10 mls @ 5 mls/min IV Q24H BRIANNA Stop: 10/15/19 11:59 Last Admin: 09/24/19 11:25 Dose: 5 mls/min Documented by: Doxycycline Hyclate 100 mg/ (Dextrose) 110 mls @ 50 mls/hr IV Q12H BRIANNA Stop: 10/09/19 05:59 Last Infusion: 09/24/19 08:29 Dose: Infused Documented by: Fentanyl Citrate (Fentanyl Drip) 1,250 mcg in 250 mls @ 0 mls/hr IV .Q0M BRIANNA; Protocol Stop: 10/05/19 03:29 Last Admin: 09/23/19 17:40 Dose: Not Given Documented by: Lacosamide 100 mg/ Sodium (Chloride) 60 mls @ 120 mls/hr IV Q12 [facility]AN[facility] Stop: 10/21/19 20:59 Last Infusion: 09/24/19 09:34 Dose: Infused Documented by: Cefepime HCl 2,000 mg/ Syringe 20 mls @ 5 mls/min IV Q8H B[facility]ANNA Stop: 09/28/19 19:59 Last Admin: 09/24/19 11:25 Dose: 5 mls/min Documented by: Propofol (Diprivan) 1,000 mg in 100 mls @ 0 mls/hr IV .Q0M B[facility]ANNA; Protocol Stop: 09/25/19 14:44 Last Titration: 09/24/19 14:23 Dose: Infused Documented by: Furosemide 40 mg/ Syringe 4 mls @ 4 mls/min IV Q8 [facility] Stop: 10/23/19 13:59 Last Admin: 09/24/19 06:14 Dose: 4 mls/min Documented by: Thiamine HCl 200 mg/ Sodium (Chloride) 52 mls @ 208 mls/hr IV QAM [facility] Stop: 10/23/19 08:59 Last Infusion: 09/24/19 08:55 Dose: Infused Documented by: Dexmedetomidine HCl 200 mcg/ (Sodium Chloride) 50 mls @ 7.81 mls/hr IV .Q6H25M [facility]; Protocol Stop: 09/28/19 10:14 Last Titration: 09/24/19 13:32 Dose: 0.4 mcg/kg/hr, 7.8 mls/hr Documented by: Magnesium Oxide (Mag-Ox) 400 mg PO BID [facility] Stop: 10/21/19 11:29 Last Admin: 09/24/19 08:38 Dose: 400 mg Documented by: Metoprolol Tartrate (Lopressor) 12.5 mg PO Q8 [facility] Stop: 10/22/19 13:59 Last Admin: 09/24/19 14:07 Dose: Not Given Documented by: Nutritional Formula (Peptamen Intense Vhp 1.0 Siva) 1,000 ml OG UD [facility]; Protocol Stop: 10/19/19 10:44 Last Admin: 09/23/19 04:06 Dose: 1,000 ml Documented by: Olanzapine (Zyprexa Zydis Od) [facility] [place] Stop: 10/25/19 08:59 Paroxetine HCl (Paxil) 40 mg PO [facility] Stop: 10/21/19 08:59 Last Admin: 09/24/19 08:37 Dose: 40 mg Documented by: Propofol (Diprivan Bolus From Bag) 20 mg IV Q5M PRN PRN Reason: Sedation Stop: 09/25/19 14:34 Last Admin: 09/24/19 07:58 Dose: 20 mg Documented by: Resident Activity Tracking Resident Involvement: Resident Care Provided Care Provided: Adult Hospital Medicine
[2019-09-24] MEDS: PEPTAMEN INTENSE VHP 1.0 CAL 1,000 ML BAG OG SCH (16:13)
[2019-09-24] MEDS ORDERED: OLANZapine 10 MG/2.1 ML SDV IM STA (20:22)
--- NOTE | 2019-09-24 20:24 | Communication Note ---
Date of Service: September 24, 2019 1930: Was approached by oncoming nursing staff and made aware of patient's increasing agitation. Prior to my arrival for the shift, the patient had self extubated. Patient had been oxygenating fairly well on BiPAP mask, but was persistently agitated. Upon my assessment at bedside, the patient was noted to be tachypneic, but I was unable to initially delineate whether this was from agitation or respiratory distress. Patient's BiPAP was removed as she had been oxygenating very well on the BiPAP despite her agitation. She was placed on a oxygen mask. Patient had slightly less agitation, but had poor oxygenation in the mid 80s on 15 L and had increasing tachypnea with rates in the 50s. She became more tachycardic with rates in the 120s as well as more hypertensive. With careful consideration to the patient's recent intubations and prolonged intubation status, I did feel that it was necessary and appropriate for the patient to be reintubated for airway protection in the setting of respiratory distress coupled with the patient's current mental status. Did discuss the case with anesthesia as there were currently 2 patients in the unit requiring endotracheal intubation. Anesthesia performed endotracheal intubation without issue. Orders remain for propofol drip and PRN fentanyl. On reassessment after intubation, the patient is no longer tachycardic. Her blood pressures are appropriate. She is saturating well. I did speak with the patient's , Laz, as he did call into the ICU. Provided him update. He states that he will be present at this facility tomorrow to visit with his as previously arranged. I have personally spent 32 minutes of critical care time in the direct management of this patient. This is a life/limb threatening event. This includes time spent evaluating patient, direct bedside care, chart review, placing orders, interpretation of diagnostic studies, discussion with consultants, patient, and family members, as well as other required patient management activities. This time is exclusive of all separately billable procedures, and teaching time and separate from and in addition to any other critical care service time. Coding Level of Care Code Critical Care cj calvint'l 30 min Time Spent (min) 32
--- NOTE | 2019-09-24 21:27 | Anesthesiology Progress Note ---
Date of Service Asked by ICU staff to place ETT in pt who self-extubated. Pt diagnosed with alcohol withdrawl, is tachypneic and hypoxemic. Assisted respirations with 100%O2 Ambu bag. Propofol 200mg given IV in divided doses. Mac 3 used, easy view of open glottis, 7.5mm ETT placed and secured @23 cm. +BLBS, +ETCO2. CXR pending. Pt left in care of ICU staff. September 24, 2019 Physical Exam Vital Signs: Last Vital Signs Temp 37.6 C H 09/24/19 16:01 Pulse 79 09/24/19 18:18 Resp 23 09/24/19 18:18 BP 81/44 L 09/24/19 18:13 Pulse Ox 98 09/24/19 18:18 Results & Data Medications Administered Acetaminophen (Tylenol) 650 mg PO Q4H PRN PRN Reason: Fever Stop: 10/22/19 14:33 Last Admin: 09/24/19 08:37 Dose: 650 mg Documented by: [id number] Admin: 09/23/19 16:26 Dose: 650 mg Documented by: [id number] Admin: 09/23/19 11:46 Dose: 650 mg Documented by: [id number] Enoxaparin Sodium (Lovenox) 40 mg SQ DAILY [facility] Stop: 10/14/19 08:59 Last Admin: 09/24/19 08:36 Dose: 40 mg Documented by: [id number] Admin: 09/23/19 08:26 Dose: 40 mg Documented by: [id number] Admin: 09/22/19 08:11 Dose: 40 mg Documented by: [id number] Admin: 09/21/19 08:52 Dose: 40 mg Documented by: [id number] Admin: 09/20/19 09:07 Dose: 40 mg Documented by: [id number] Admin: 09/19/19 08:54 Dose: 40 mg Documented by: [id number] Admin: 09/18/19 08:37 Dose: 40 mg Documented by: [id number] Admin: 09/17/19 08:19 Dose: 40 mg Documented by: [id number] Admin: 09/16/19 08:00 Dose: 40 mg Documented by: [id number] Admin: 09/15/19 08:58 Dose: 40 mg Documented by: [id number] Admin: 09/14/19 09:33 Dose: 40 mg Documented by: [id number] Fentanyl Citrate (Fentanyl Bolus From Bag) 50 mcg IV Q60M PRN PRN Reason: Pain or Agitation Stop: 10/05/19 03:15 Last Admin: 09/22/19 05:00 Dose: 50 mcg Documented by: [id number] Admin: 09/22/19 03:00 Dose: 50 mcg Documented by: [id number] Admin: 09/21/19 04:18 Dose: 50 mcg Documented by: [id number] Folic Acid 1 mg/ Syringe 10 mls @ 5 mls/min IV Q24H [facility] Stop: 10/15/19 11:59 Last Admin: 09/24/19 11:25 Dose: 5 mls/min Documented by: [id number] Admin: 09/23/19 11:31 Dose: 5 mls/min Documented by: [id number] Admin: 09/22/19 12:48 Dose: 5 mls/min Documented by: [id number] Admin: 09/21/19 11:24 Dose: 5 mls/min Documented by: [id number] Admin: 09/20/19 11:17 Dose: 5 mls/min Documented by: [id number] Admin: 09/19/19 11:18 Dose: 5 mls/min Documented by: [id number] Admin: 09/18/19 12:17 Dose: 5 mls/min Documented by: [id number] Admin: 09/17/19 10:51 Dose: 5 mls/min Documented by: [id number] Admin: 09/16/19 11:54 Dose: 5 mls/min Documented by: [id number] Admin: 09/15/19 12:37 Dose: 5 mls/min Documented by: [id number] Doxycycline Hyclate 100 mg/ (Dextrose) 110 mls @ 50 mls/hr IV Q12H [facility] Stop: 10/09/19 05:59 Last Infusion: 09/24/19 20:40 Dose: 0 mls/hr Documented by: [id number] Admin: 09/24/19 18:18 Dose: 50 mls/hr Documented by: [id number] Infusion: 09/24/19 08:29 Dose: 0 mls/hr Documented by: [id number] Admin: 09/24/19 06:13 Dose: 50 mls/hr Documented by: [id number] Infusion: 09/23/19 19:50 Dose: 0 mls/hr Documented by: [id number] Admin: 09/23/19 17:47 Dose: 50 mls/hr Documented by: [id number] Infusion: 09/23/19 08:30 Dose: 0 mls/hr Documented by: [id number] Admin: 09/23/19 06:04 Dose: 50 mls/hr Documented by: [id number] Infusion: 09/22/19 19:08 Dose: 0 mls/hr Documented by: [id number] Admin: 09/22/19 16:58 Dose: 50 mls/hr Documented by: [id number] Infusion: 09/22/19 08:05 Dose: 0 mls/hr Documented by: [id number] Admin: 09/22/19 05:46 Dose: 50 mls/hr Documented by: [id number] Infusion: 09/21/19 19:34 Dose: 0 mls/hr Documented by: [id number] Admin: 09/21/19 17:31 Dose: 50 mls/hr Documented by: [id number] Infusion: 09/21/19 08:11 Dose: 0 mls/hr Documented by: [id number] Admin: 09/21/19 05:44 Dose: 50 mls/hr Documented by: [id number] Infusion: 09/20/19 21:40 Dose: 0 mls/hr Documented by: [id number] Admin: 09/20/19 18:17 Dose: 50 mls/hr Documented by: [id number] Infusion: 09/20/19 07:55 Dose: 0 mls/hr Documented by: [id number] Admin: 09/20/19 05:40 Dose: 50 mls/hr Documented by: [id number] Infusion: 09/19/19 19:41 Dose: 0 mls/hr Documented by: [id number] Admin: 09/19/19 17:25 Dose: 50 mls/hr Documented by: [id number] Infusion: 09/19/19 08:05 Dose: 0 mls/hr Documented by: [id number] Admin: 09/19/19 05:51 Dose: 50 mls/hr Documented by: [id number] Infusion: 09/18/19 19:57 Dose: 0 mls/hr Documented by: [id number] Admin: 09/18/19 17:40 Dose: 50 mls/hr Documented by: [id number] Infusion: 09/18/19 09:40 Dose: 0 mls/hr Documented by: [id number] Admin: 09/18/19 05:52 Dose: 50 mls/hr Documented by: [id number] Fentanyl Citrate (Fentanyl Drip) 1,250 mcg in 250 mls @ 0 mls/hr IV .Q0M [facility]; Protocol Stop: 10/05/19 03:29 Last Admin: 09/23/19 17:40 Dose: Not Given Documented by: [id number] Titration: 09/23/19 14:23 Dose: 0 mcg/hr, 0 mls/hr Documented by: [id number] Titration: 09/23/19 11:54 Dose: 0 mcg/hr, 0 mls/hr Documented by: [id number] Titration: 09/23/19 10:45 Dose: 50 mcg/hr, 10 mls/hr Documented by: [id number] Titration: 09/23/19 09:54 Dose: 75 mcg/hr, 15 mls/hr Documented by: [id number] Admin: 09/23/19 08:57 Dose: 125 mcg/hr, 25 mls/hr Documented by: [id number] Cosigned by: [id number] Titration: 09/23/19 08:10 Dose: 150 mcg/hr, 30 mls/hr Documented by: [id number] Cosigned by: [id number] Titration: 09/23/19 06:59 Dose: 150 mcg/hr, 30 mls/hr Documented by: [id number] Cosigned by: [id number] Admin: 09/22/19 23:50 Dose: 150 mcg/hr, 30 mls/hr Documented by: [id number] Cosigned by: [id number] Titration: 09/22/19 23:50 Dose: 150 mcg/hr, 30 mls/hr Documented by: [id number] Cosigned by: [id number] Titration: 09/22/19 19:08 Dose: 150 mcg/hr, 30 mls/hr Documented by: [id number] Cosigned by: [id number] Admin: 09/22/19 16:07 Dose: 150 mcg/hr, 30 mls/hr Documented by: [id number] Cosigned by: [id number] Titration: 09/22/19 15:32 Dose: 150 mcg/hr, 30 mls/hr Documented by: [id number] Cosigned by: [id number] Titration: 09/22/19 14:16 Dose: 150 mcg/hr, 30 mls/hr Documented by: [id number] Titration: 09/22/19 09:56 Dose: 250 mcg/hr, 50 mls/hr Documented by: [id number] Cosigned by: [id number] Admin: 09/22/19 09:56 Dose: 250 mcg/hr, 50 mls/hr Documented by: [id number] Cosigned by: [id number] Titration: 09/22/19 07:04 Dose: 250 mcg/hr, 50 mls/hr Documented by: [id number] Cosigned by: [id number] Titration: 09/22/19 06:23 Dose: 250 mcg/hr, 50 mls/hr Documented by: [id number] Admin: 09/22/19 05:52 Dose: 225 mcg/hr, 45 mls/hr Documented by: [id number] Cosigned by: [id number] Titration: 09/22/19 05:52 Dose: 150 mcg/hr, 30 mls/hr Documented by: [id number] Cosigned by: [id number] Titration: 09/22/19 02:49 Dose: 150 mcg/hr, 30 mls/hr Documented by: [id number] Titration: 09/22/19 01:28 Dose: 175 mcg/hr, 35 mls/hr Documented by: [id number] Titration: 09/21/19 23:01 Dose: 175 mcg/hr, 35 mls/hr Documented by: [id number] Cosigned by: [id number] Admin: 09/21/19 23:01 Dose: 200 mcg/hr, 40 mls/hr Documented by: [id number] Cosigned by: [id number] Titration: 09/21/19 21:50 Dose: 175 mcg/hr, 35 mls/hr Documented by: [id number] Titration: 09/21/19 20:50 Dose: 150 mcg/hr, 30 mls/hr Documented by: [id number] Titration: 09/21/19 19:50 Dose: 125 mcg/hr, 25 mls/hr Documented by: [id number] Titration: 09/21/19 19:15 Dose: 100 mcg/hr, 20 mls/hr Documented by: [id number] Cosigned by: [id number] Titration: 09/21/19 16:45 Dose: 150 mcg/hr, 30 mls/hr Documented by: [id number] Admin: 09/21/19 16:25 Dose: 100 mcg/hr, 20 mls/hr Documented by: [id number] Cosigned by: [id number] Titration: 09/21/19 16:25 Dose: 50 mcg/hr, 10 mls/hr Documented by: [id number] Cosigned by: [id number] Titration: 09/21/19 11:31 Dose: 50 mcg/hr, 10 mls/hr Documented by: [id number] Titration: 09/21/19 11:24 Dose: 75 mcg/hr, 15 mls/hr Documented by: [id number] Titration: 09/21/19 07:09 Dose: 100 mcg/hr, 20 mls/hr Documented by: [id number] Titration: 09/21/19 04:16 Dose: 100 mcg/hr, 20 mls/hr Documented by: [id number] Titration: 09/21/19 04:03 Dose: 75 mcg/hr, 15 mls/hr Documented by: [id number] Admin: 09/21/19 03:54 Dose: 50 mcg/hr, 10 mls/hr Documented by: [id number] Cosigned by: [id number] Lacosamide 100 mg/ Sodium (Chloride) 60 mls @ 120 mls/hr IV Q12 [facility] Stop: 10/21/19 20:59 Last Infusion: 09/24/19 09:34 Dose: 0 mls/hr Documented by: [id number] Admin: 09/24/19 08:59 Dose: 120 mls/hr Documented by: [id number] Infusion: 09/23/19 21:42 Dose: 0 mls/hr Documented by: [id number] Admin: 09/23/19 21:05 Dose: 120 mls/hr Documented by: [id number] Infusion: 09/23/19 09:30 Dose: 0 mls/hr Documented by: [id number] Admin: 09/23/19 08:56 Dose: 120 mls/hr Documented by: [id number] Infusion: 09/22/19 22:20 Dose: 0 mls/hr Documented by: [id number] Admin: 09/22/19 21:39 Dose: 120 mls/hr Documented by: [id number] Infusion: 09/22/19 10:35 Dose: 0 mls/hr Documented by: [id number] Admin: 09/22/19 10:02 Dose: 120 mls/hr Documented by: [id number] Infusion: 09/21/19 22:13 Dose: 0 mls/hr Documented by: [id number] Admin: 09/21/19 20:55 Dose: 120 mls/hr Documented by: [id number] Cefepime HCl 2,000 mg/ Syringe 20 mls @ 5 mls/min IV Q8H [facility] Stop: 09/28/19 19:59 Last Admin: 09/24/19 20:55 Dose: 5 mls/min Documented by: [id number] Admin: 09/24/19 11:25 Dose: 5 mls/min Documented by: [id number] Admin: 09/24/19 03:49 Dose: 5 mls/min Documented by: [id number] Admin: 09/23/19 19:42 Dose: 5 mls/min Documented by: [id number] Admin: 09/23/19 11:32 Dose: 5 mls/min Documented by: [id number] Admin: 09/23/19 04:06 Dose: 5 mls/min Documented by: [id number] Admin: 09/22/19 20:26 Dose: 5 mls/min Documented by: [id number] Admin: 09/22/19 11:34 Dose: 5 mls/min Documented by: [id number] Admin: 09/22/19 03:46 Dose: 5 mls/min Documented by: [id number] Admin: 09/21/19 19:35 Dose: 5 mls/min Documented by: [id number] Propofol (Diprivan) 1,000 mg in 100 mls @ 0 mls/hr IV .Q0M [facility]; Protocol Stop: 09/25/19 14:44 Last Titration: 09/24/19 14:23 Dose: 0 mcg/kg/min, 0 mls/hr Documented by: [id number] Admin: 09/24/19 14:23 Dose: Not Given Documented by: [id number] Titration: 09/24/19 13:00 Dose: 0 mcg/kg/min, 0 mls/hr Documented by: [id number] Titration: 09/24/19 10:27 Dose: 20 mcg/kg/min, 8.6 mls/hr Documented by: [id number] Titration: 09/24/19 09:21 Dose: 40 mcg/kg/min, 17.1 mls/hr Documented by: [id number] Titration: 09/24/19 08:39 Dose: 35 mcg/kg/min, 15 mls/hr Documented by: [id number] Titration: 09/24/19 07:58 Dose: 30 mcg/kg/min, 12.8 mls/hr Documented by: [id number] Titration: 09/24/19 07:30 Dose: 25 mcg/kg/min, 10.7 mls/hr Documented by: [id number] Titration: 09/24/19 06:56 Dose: 20 mcg/kg/min, 8.6 mls/hr Documented by: [id number] Cosigned by: [id number] Admin: 09/24/19 06:41 Dose: Not Given Documented by: [id number] Admin: 09/24/19 06:39 Dose: 20 mcg/kg/min, 8.6 mls/hr Documented by: [id number] Cosigned by: [id number] Titration: 09/24/19 06:39 Dose: 20 mcg/kg/min, 8.6 mls/hr Documented by: [id number] Cosigned by: [id number] Titration: 09/24/19 06:10 Dose: 20 mcg/kg/min, 8.6 mls/hr Documented by: [id number] Titration: 09/24/19 03:15 Dose: 30 mcg/kg/min, 12.8 mls/hr Documented by: [id number] Admin: 09/24/19 03:12 Dose: 25 mcg/kg/min, 10.7 mls/hr Documented by: [id number] Cosigned by: [id number] Titration: 09/24/19 01:41 Dose: 25 mcg/kg/min, 10.7 mls/hr Documented by: [id number] Cosigned by: [id number] Admin: 09/23/19 16:20 Dose: 25 mcg/kg/min, 10.7 mls/hr Documented by: [id number] Cosigned by: [id number] Titration: 09/23/19 16:20 Dose: 5 mcg/kg/min, 2.1 mls/hr Documented by: [id number] Cosigned by: [id number] Titration: 09/23/19 15:04 Dose: 5 mcg/kg/min, 2.1 mls/hr Documented by: [id number] Cosigned by: [id number] Titration: 09/23/19 11:55 Dose: 10 mcg/kg/min, 4.3 mls/hr Documented by: [id number] Titration: 09/23/19 06:59 Dose: 15 mcg/kg/min, 6.4 mls/hr Documented by: [id number] Titration: 09/23/19 06:25 Dose: 15 mcg/kg/min, 6.4 mls/hr Documented by: [id number] Admin: 09/23/19 04:21 Dose: 20 mcg/kg/min, 8.6 mls/hr Documented by: [id number] Cosigned by: [id number] Titration: 09/23/19 04:21 Dose: 20 mcg/kg/min, 8.6 mls/hr Documented by: [id number] Cosigned by: [id number] Admin: 09/22/19 20:44 Dose: 20 mcg/kg/min, 8.6 mls/hr Documented by: [id number] Cosigned by: [id number] Admin: 09/22/19 16:56 Dose: Not Given Documented by: [id number] Furosemide 40 mg/ Syringe 4 mls @ 4 mls/min IV Q8 [facility] Stop: 10/23/19 13:59 Last Admin: 09/24/19 16:13 Dose: Not Given Documented by: [id number] Admin: 09/24/19 06:14 Dose: 4 mls/min Documented by: [id number] Admin: 09/23/19 21:06 Dose: 4 mls/min Documented by: [id number] Admin: 09/23/19 14:14 Dose: 4 mls/min Documented by: [id number] Thiamine HCl 200 mg/ Sodium (Chloride) 52 mls @ 208 mls/hr IV QAM [facility] Stop: 10/23/19 08:59 Last Infusion: 09/24/19 08:55 Dose: 0 mls/hr Documented by: [id number] Admin: 09/24/19 08:37 Dose: 208 mls/hr Documented by: [id number] Infusion: 09/23/19 10:00 Dose: 0 mls/hr Documented by: [id number] Admin: 09/23/19 09:39 Dose: 208 mls/hr Documented by: [id number] Dexmedetomidine HCl 200 mcg/ (Sodium Chloride) 50 mls @ 19.525 mls/hr IV .Q2H34M [facility]; Protocol Stop: 09/28/19 10:14 Last Admin: 09/24/19 20:46 Dose: 1 mcg/kg/hr, 19.5 mls/hr Documented by: [id number] Cosigned by: [id number] Titration: 09/24/19 20:46 Dose: 1 mcg/kg/hr, 19.5 mls/hr Documented by: [id number] Cosigned by: [id number] Titration: 09/24/19 20:30 Dose: 1 mcg/kg/hr, 19.5 mls/hr Documented by: [id number] Titration: 09/24/19 20:15 Dose: 0.9 mcg/kg/hr, 17.6 mls/hr Documented by: [id number] Titration: 09/24/19 20:00 Dose: 0.8 mcg/kg/hr, 15.6 mls/hr Documented by: [id number] Titration: 09/24/19 19:45 Dose: 0.7 mcg/kg/hr, 13.7 mls/hr Documented by: [id number] Titration: 09/24/19 19:30 Dose: 0.6 mcg/kg/hr, 11.7 mls/hr Documented by: [id number] Titration: 09/24/19 19:15 Dose: 0.5 mcg/kg/hr, 9.8 mls/hr Documented by: [id number] Titration: 09/24/19 19:00 Dose: 0.4 mcg/kg/hr, 7.8 mls/hr Documented by: [id number] Titration: 09/24/19 16:00 Dose: 0.3 mcg/kg/hr, 5.9 mls/hr Documented by: [id number] Admin: 09/24/19 15:26 Dose: 0.4 mcg/kg/hr, 7.8 mls/hr Documented by: [id number] Cosigned by: [id number] Titration: 09/24/19 15:26 Dose: 0.4 mcg/kg/hr, 7.8 mls/hr Documented by: [id number] Cosigned by: [id number] Titration: 09/24/19 13:32 Dose: 0.4 mcg/kg/hr, 7.8 mls/hr Documented by: [id number] Titration: 09/24/19 12:16 Dose: 0.5 mcg/kg/hr, 9.8 mls/hr Documented by: [id number] Titration: 09/24/19 12:00 Dose: 0.4 mcg/kg/hr, 7.8 mls/hr Documented by: [id number] Titration: 09/24/19 11:45 Dose: 0.3 mcg/kg/hr, 5.9 mls/hr Documented by: [id number] Admin: 09/24/19 11:23 Dose: 0.2 mcg/kg/hr, 3.9 mls/hr Documented by: [id number] Cosigned by: [id number] Magnesium Oxide (Mag-Ox) 400 mg PO BID [facility] Stop: 10/21/19 11:29 Last Admin: 09/24/19 08:38 Dose: 400 mg Documented by: [id number] Admin: 09/23/19 21:06 Dose: 400 mg Documented by: [id number] Admin: 09/23/19 08:27 Dose: 400 mg Documented by: [id number] Admin: 09/22/19 20:27 Dose: 400 mg Documented by: [id number] Admin: 09/22/19 10:01 Dose: 400 mg Documented by: [id number] Admin: 09/21/19 20:55 Dose: 400 mg Documented by: [id number] Admin: 09/21/19 11:30 Dose: 400 mg Documented by: [id number] Metoprolol Tartrate (Lopressor) 12.5 mg PO Q8 [facility] Stop: 10/22/19 13:59 Last Admin: 09/24/19 14:07 Dose: Not Given Documented by: [id number] Admin: 09/24/19 06:11 Dose: 12.5 mg Documented by: [id number] Admin: 09/23/19 21:06 Dose: Not Given Documented by: [id number] Admin: 09/23/19 14:14 Dose: Not Given Documented by: [id number] Admin: 09/23/19 06:04 Dose: Not Given Documented by: [id number] Admin: 09/22/19 21:45 Dose: Not Given Documented by: [id number] Admin: 09/22/19 14:13 Dose: Not Given Documented by: [id number] Nutritional Formula (Peptamen Intense Vhp 1.0 Siva) 1,000 ml OG UD [facility]; Protocol Stop: 10/19/19 10:44 Last Admin: 09/24/19 16:13 Dose: 1,000 ml Documented by: [id number] Admin: 09/23/19 04:06 Dose: 1,000 ml Documented by: [id number] Admin: 09/22/19 10:02 Dose: 1,000 ml Documented by: [id number] Admin: 09/19/19 11:45 Dose: 1,000 ml Documented by: [id number] Paroxetine HCl (Paxil) 40 mg PO QAM [facility] Stop: 10/21/19 08:59 Last Admin: 09/24/19 08:37 Dose: 40 mg Documented by: [id number] Admin: 09/23/19 08:28 Dose: 40 mg Documented by: [id number] Admin: 09/22/19 10:01 Dose: 40 mg Documented by: [id number] Admin: 09/21/19 08:54 Dose: 40 mg Documented by: [id number] Propofol (Diprivan Bolus From Bag) 20 mg IV Q5M PRN PRN Reason: Sedation Stop: 09/25/19 14:34 Last Admin: 09/24/19 07:58 Dose: 20 mg Documented by: [id number] Cosigned by: [id number] Admin: 09/22/19 23:51 Dose: 20 mg Documented by: [id number] Cosigned by: [id number]
[2019-09-25] MEDS: propofoL 1,000 MG/100 ML VIAL IV SCH ×6 (01:31→18:01)
[2019-09-25] MEDS: CEFEPIME 2,000 MG in SYRINGE 7.5 ML IV SCH ×3 (03:39→20:51)
[2019-09-25 04:43] LABS: Basophils # (auto) 0.07 K/uL (0-0.2); Basophils % (auto) 0.4 %; Eosinophils % (auto) 0.6 %; Hematocrit (blood only) 32.8 % (37-47); Hemoglobin 10.4 g/dL (12.0-16.0); Immature Granulocytes # (auto) 0.24 K/uL (0.00-0.02); Immature Granulocytes % (auto) 1.4 %; Lymphocytes # (auto) 1.71 K/uL (1.2-3.4); Lymphocytes % (auto) 10.2 %; Mean Corpuscular Hemoglobin 34.1 pg (25-34); Mean Corpuscular Hgb Conc 31.7 g/dL (32-36); Mean Corpuscular Volume 107.5 fL (80-100); Mean Platelet Volume 10.1 fL (7.4-10.4); Monocytes # (auto) 1.66 K/uL (0.11-0.59); Monocytes % (auto) 9.9 %; Neutrophils # (auto) 12.93 K/uL (1.4-6.5); Neutrophils % (auto) 77.5 %; Platelet Count 389 K/uL (130-400); RDW Coefficient of Variation 13.2 % (11.5-14.5); RDW Standard Deviation 51.8 fL (36.4-46.3); Red Blood Count 3.05 M/uL (4.2-5.4); White Blood Count 16.71 K/uL (4.8-10.8)
[2019-09-25 05:10] LABS: Albumin Level 2.1 gm/dl (3.4-5.0); BUN Creatinine Ratio 48.4 (10-20); Calcium 9.1 mg/dl (8.5-10.1); Creatinine Clr Calc Pharmacy 110.6 ml/min; Est GFR (African American) 118.6; Est GFR (Non-African American) 102.3; Magnesium 1.7 mg/dl (1.8-2.4); Potassium 3.3 mmol/L (3.5-5.1)
[2019-09-25] MEDS: DOXYCYCLINE HYCLATE 100 MG in DEXTROSE 5% 100 ML IV SCH (05:11)
[2019-09-25 05:12] LABS: Bilirubin Direct 0.5 mg/dl (0-0.2); Phosphorus 2.1 mg/dl (2.5-4.9); Total Protein 6.6 gm/dl (6.4-8.2)
[2019-09-25] MEDS ORDERED: POTASSIUM CHLORIDE 20 MEQ/15 ML UDC PO STA (05:16)
[2019-09-25] MEDS ORDERED: POTASSIUM PHOS 3 MMOL/1 ML INFUSION IV STA (05:16)
[2019-09-25] MEDS ORDERED: POTASSIUM PHOSPHATE 21 MMOL in SODIUM CHLORIDE 0.9% 500 ML IV ONE (05:30)
[2019-09-25] MEDS: FUROSEMIDE 40 MG in SYRINGE 0 ML IV SCH ×3 (05:31→23:27)
[2019-09-25 05:41] LABS: iSTAT Allen Test Pass; iSTAT Art Bld Gas pCO2 Correct 33 mmHg (35-46); iSTAT Art Bld Gas pH Corrected 7.476 (7.35-7.45); iSTAT Arterial Blood Gas HCO3 24 meg/L (19-24); iSTAT Arterial Blood Gas pCO2 31 mmHg (35-46); iSTAT Arterial Blood Gas pO2 64 mmHg (80-95); iSTAT Arterial Blood Gas pO2 C 72; iSTAT Carbon Dioxide 25 mmol/L (24-31); iSTAT Hematocrit 29 % (37-47); iSTAT Hemoglobin 9.9 g/dl (12.0-16.0); iSTAT Potassium 3.2 mmol/L (3.3-5.0); iSTAT Site R Radial; iSTAT Sodium 136 mmol/L (135-144)
[2019-09-25] MEDS: ACETAMINOPHEN 325 MG TAB PO PRN (05:55)
[2019-09-25] MEDS: METOPROLOL TARTRATE 25 MG TAB PO SCH ×3 (05:56→23:27)
[2019-09-25] MEDS: DEXMEDETOMIDINE HCL 200 MCG in SODIUM CHLORIDE 0.9% 48 ML IV SCH ×3 (07:33→20:50)
[2019-09-25] MEDS: ENOXAPARIN INJ 40 MG/0.4 ML SYR SQ SCH (07:39)
--- NOTE | 2019-09-25 07:58 | XRay Report ---
XR chest 1V portable HISTORY: Shortness of breath. Follow-up. COMPARISON: Chest 09/24/2019. FINDINGS: No pneumothorax. The heart remains stable in size. Bilateral airspace opacities, left great er than right have slightly improved. Endotracheal tube terminates 2.6 cm from the carlos enrique. Nasogastri c tube terminates below the diaphragm. The tip is not included on this study. Trace right pleural eff usion, unchanged. IMPRESSION: 1. Slight improved aeration within the bilateral airspace opacities. 2. Satisfactory support line placement. ACT 112: Negative or not required by law. Electronically signed by: Armando Diaz M.D. 09/25/2019 7:57 AM
[2019-09-25] MEDS: THIAMINE HCL 200 MG in SODIUM CHLORIDE 0.9% 50 ML IV SCH (08:11)
[2019-09-25] MEDS: PARoxetine HCL 20 MG TAB PO SCH (08:11)
[2019-09-25] MEDS: MAGNESIUM OXIDE 400 MG TAB PO SCH ×2 (08:11→20:52)
[2019-09-25] MEDS: OLANZAPINE ZYDIS 10 MG ORALLY DIS. TAB PO SCH (08:11)
[2019-09-25] MEDS: LACOSAMIDE 100 MG in SODIUM CHLORIDE 0.9% 50 ML IV SCH ×2 (08:17→20:51)
--- NOTE | 2019-09-25 08:18 | XRay Report ---
XR chest 1V portable CLINICAL HISTORY: s/p intubation tube position COMPARISON STUDY: 09/24/2019 FINDINGS: Endotracheal tube 3.5 cm above the carlos enrique. Unchanged diffuse infiltrate left hemithorax. Unchanged infiltrate right upper lung. Nasogastric tube within the stomach. IMPRESSION: 1. Unchanged bilateral parenchymal infiltrates. 2. Endotracheal tube 3.5 cm above the carlos enrique. 3. Nasogastric tube within the stomach. ACT 112: Negative or not required by law. The above report was generated using voice recognition software. It may contain grammatical, syntax or spelling errors. Electronically signed by: Yash Wolf M.D. 09/25/2019 8:16 AM
[2019-09-25] MEDS: PROPOFOL BOLUS FROM BAG IV PRN (08:30)
[2019-09-25] MEDS ORDERED: GLUCOSE 40% GEL 15 GM TUBE PO PRN (10:30)
[2019-09-25] MEDS ORDERED: DEXTROSE 50% 50 ML SYRINGE IV PRN (10:30)
[2019-09-25] MEDS ORDERED: GLUCAGON FOR INJ 1 MG VIAL IM PRN (10:30)
[2019-09-25] MEDS ORDERED: GLUCOSE 10 TABS/TUBE PO PRN (10:30)
[2019-09-25] MEDS ORDERED: CARBOHYDRATES FOR HYPOGLYCEMIA PO PRN (10:30)
[2019-09-25] MEDS ORDERED: DEXAMETHASONE SOD PHOSPHATE 20 MG in SYRINGE 0 ML IV SCH (10:30)
--- NOTE | 2019-09-25 10:37 | Critical Care Progress Note ---
Date of Service September 25, 2019 Assessment & Plan (1) Admitted to intensive care unit: Reason Critically Ill: 59-year-old female presenting as outside hospital transfer for acute encephalopathy, suspected DTs from alcohol withdrawal, history of seizure 6 months ago not on any medication, hypoxic respiratory failure requiring, mechanically ventilated, COVID-19 ruled out 24-hour events: Patient self extubated last evening. She initially was managed on BiPAP but failed from a respiratory standpoint due to tachypnea and progressive hypoxemic respiratory failure and had to be reintubated within 60 minutes. Once back on mechanical ventilation, her vital signs of stabilized. She remains sedated on propofol. Bronchoscopy with BAL was re-accomplished yesterday. Recommendations: Neuro - broad differential, see neurology notes. Appreciate their assistance. EEG is not demonstrated persistent epileptiform activity and the patient is maintained on Vimpat currently. She has been weaned off of ketamine and is c urrently on Zyprexa and propofol. LP was unrevealing. She has completed a course of replacement thiamine and folate which would be adequate for DT. Will continue Zyprexa and propofol.. Unclear significance of microhemorrhages noted on the MRI of the brain. [employer]IES CL[employer] vasculitis would be unusual given the very focal nature of the hemorrhages. She does not give an overt history of longstanding hypertension. No evidence of seizure or epileptiform activity. Ammonia is slightly elevated and she may benefit from lactulose or rifaximin if mental status continues to be an issue Cardiac - Elevated troponin/NSTEMI/SVTpatient initially presented with SVT with HR 150s, converted to sinus rhythm with 10 mg IV metoprolol. Continue oral metoprolol. Blood pressure is borderline likely due to sedative agents currently and limits additional titration up. She remains tachycardic but appears to be in sinus currently. Will need to restart her lipid-lowering agent and aspirin at some point. HD stable. Respiratory -patient has had 2 negative COVID tests. Her procalcitonin is slightly elevated. She has pulmonary infiltrates. Bronchoscopy x2 show no significant organisms or growth to date from a respiratory standpoint. I feel she may be suffering from late-phase ARDS possibly due to aspiration pneumonia or potential nonpulmonary etiology. She meets criteria for steroid therapy for late-phase ARDS and will start her on dexamethasone 20 mg daily for 5 days followed by 10 mg daily for 5 days. Discussed with the patient's . At this point time I think percutaneous bedside dilatation of tracheostomy would offer the patient the best and safest opportunity for continued liberation from mechanical ventilation. Risks and benefits were discussed with him and he agreed to proceed. Consent was verified. We will attempt to get this done today. GI -right upper quadrant ultrasound from the showed steatohepatitis as well as trace gallbladder sludge. AST and alk phos increasing and GGT elevated. Will check HIDA scan for potential acalculous cholecystitis. If present, she would require transfer to an outside facility for percutaneous cholecystostomy drainage. Continue antibiotics for now RENAL/LYTES -continue Lasix 40 mg every 8 hours. Following kidney function and electrolytes -no current issues ENDO - TSH within normal limits No history of diabetes ICU hyperglycemic protocol HEME - H&H stable, monitor. No evidence of DVT on surveillance scans ID remains persistently febrile with increased white blood cell count today. Cultures of all been negative. She received 3 days of Zosyn, 2 days of a azithromycin, and a few days of Rocephin and is currently on day #5 cefepime and day #7 of doxycycline. Lumbar puncture and pleural fluid unrevealing. Continue cefepime. Will hold doxycycline. Her Lyme serologies appear to be consistent with prior exposure, not acute infection. LINES/IV ACCESS - PIV's, ETT DVT PROPHYLAXIS - Mele Sanhcez Patient remains critically ill with multiorgan system dysfunction. updated at bedside. Total of 50 minutes critical care time exclusive of procedures spent in coordinating care for this patient. Have asked case management to initiate process for consideration of long-term acute care facility. Patient lives in [facility] so a facility in [place] may be more appropriate. Please note the above document was generated using voice recognition software. It may contain grammatical, syntax or spelling errors. (2) NSTEMI (non-ST elevated myocardial infarction): (3) Elevated LFTs: (4) SVT (supraventricular tachycardia): (5) Sepsis with acute hypoxic respiratory failure: Admission and Anticipated Discharge Date Admission Date: September 14, 2019 Subjective Re-intubated and sedated Review of Systems Review of Systems: Unobtainable due to endotracheal tube Physical Exam Constitutional: + mechanically ventilated Eyes: PERRL Neck: trachea midline, no thyromegaly Cardiovascular: Rate/Rhythm: + tachycardic Heart Sounds: normal S1 and normal S2; no murmur Gastrointestinal (Abdomen): Inspection/Auscultation: abdomen normal to inspection Percussion/Palpation: abdomen nontender Skin: no rashes, warm and dry Results & Data Results & Data ([facility]) Vital Signs (Past 12 Hours) Vital Signs Temp Pulse Resp BP BP Pulse Ox 09/25/19 08:52 84/47 L 09/25/19 08:00 100 H 36 H 109/66 97 09/25/19 07:10 87 24 100 09/25/19 07:00 38.0 C H 97 H 28 H 115/59 L 99 09/25/19 06:13 85 101/60 96 09/25/19 06:00 103 H 97 09/25/19 05:55 38 C H 100 H 141/69 H 96 09/25/19 05:43 101 H 117/69 94 09/25/19 05:14 120 H 132/72 95 09/25/19 05:00 123 H 40 H 93 09/25/19 04:30 108 H 99 09/25/19 04:13 79 93/55 L 97 09/25/19 04:00 37.2 C 81 98 09/25/19 03:43 80 97/51 L 97 09/25/19 03:13 83 92/50 L 96 09/25/19 02:43 100 H 99/52 L 95 09/25/19 02:13 116 H 134/61 96 09/25/19 02:00 115 H 95 09/25/19 01:43 100 H 134/72 95 09/25/19 01:42 67 16 97 09/25/19 01:30 68 89/45 L 97 09/25/19 01:13 68 85/47 L 97 09/25/19 00:43 79 99/58 L 98 09/25/19 00:25 70 84/43 L 96 09/25/19 00:13 71 86/44 L 96 09/25/19 00:00 37.2 C 77 97 09/24/19 23:43 105 H 120/84 100 09/24/19 23:30 92 H 100 09/24/19 23:13 77 110/64 100 09/24/19 23:00 78 100 09/24/19 22:50 77 21 89 L 09/24/19 22:43 79 119/66 91 09/24/19 22:30 77 94 Laboratory Results 09/25/19 04:31 09/25/19 04:31 GGT 804 Alk phos increased to 641 and AST increased to 128. Total bili up to 1.0 with direct bili of 0.5 Diagnostic Findings Chest x-ray from today was independently reviewed. It demonstrates persistent alveolar opacities most prominent within the right upper lobe and left lung. Tubes and lines acceptable. Ultrasound of the lower extremity showed no evidence of DVT Coding Level of Care Code Critical Care 1st 30-74 mins Diagnoses Admitted to intensive care unit Z78.9 NSTEMI (non-ST elevated myocardial infarction) I21.4 Elevated LFTs R79.89 SVT (supraventricular tachycardia) I47.1 Sepsis with acute hypoxic respiratory failure A41.9; R65.20; J96.01 Time Spent (min) 55
[2019-09-25] MEDS ORDERED: VECURONIUM BROMIDE 10 MG VIAL IV STA (10:38)
[2019-09-25] MEDS ORDERED: fentaNYL citrate 100 MCG/2 ML VIAL IV STA (10:39)
[2019-09-25] MEDS: FOLIC ACID 1 MG in SYRINGE 9.8 ML IV SCH (11:07)
[2019-09-25] MEDS: DEXAMETHASONE SOD PHOSPHATE 20 MG in DEXTROSE 5% 25 ML IV SCH (11:07)
[2019-09-25] MEDS: INSULIN ASPART 100 UNITS/ML 3 ML PEN SC SCH ×2 (11:11→17:31)
--- NOTE | 2019-09-25 12:35 | Hospitalist Progress Note ---
Date of Service September 25, 2019 Assessment & Plan (1) Seizure-like activity: 59 yo F PMHx HLD, depression and anxiety, alcohol abuse admitted to ICU for acute encephalopathy, on mechanically-assisted ventilation. Encephalopathy: - Encephalopathy differentials include delirium tremens vs. viral encephalopathy vs. drug withdrawal such as K2 - Lyme IgG positive, Anaplasmosis pending. - CSF Lyme not detected, CSF viral panel negative. - COVID-19 testing negative x2. - MRI w/wo performed without acute process. - EEG done - LP without clear source of infection however bloody tap. - Acyclovir discontinued as CSF without VZV, HSV. - continue Vimpat 100mg BID - continuing thiamine, folic acid, magnesium supplementation - restarted on propofol per ICU; continuation of Zyprexa Acute hypoxic Respiratory failure: - Care per ICU - self-extubated on 09/23, with subsequent decompensation on BiPAP and ultimately re-intubated - tracheostomy completed today Right sided pleural effusion - likely 2/2 fluid overload. - Positive fluid balance since admission. Also low albumin. - drained with thoracentesis 09/20 with clear straw yellow fluid. Cultures negative - bronchoalveolar lavage completed on 09/23; preliminary results demonstrated scant normal abhilash Febrile illness: - compressive atelectasis present on CXR from 09/20 - bronchoscopy performed with removal of thick bronchial washings sent for cultures. - continue empiric Cefepime - doxycycline stopped Pressure changes on skin - patient with inflammation over buttocks and perineum - Wound care consulted: addition of antifungal cream BID and PRN Elevated LFTs likely from Acute alcohol hepatitis: - downtrending since admission - Liver ultrasound showing Hepatosteatosis. - Hepatitis C negative, Ammonia level negative. - Lyme IgG positive IgM negative, anaplasmosis DNA negative; representing chronic exposure, no acute infection Alcohol use ds/Delirium Tremens: - previously completed course of thiamine, however will continue in the setting of continued concern for DTs with altered mental status - previously trialed on phenobarbital without improvement in presumed alcohol withdrawal symptoms Code Status: Full Code FEN/GI: intubated, tube feeds restarted DVT ppx: Lovenox Admission and Anticipated Discharge Date Admission Date: September 14, 2019 Supervising Physician Co-Signing Physician Notes Resident Physician Supervision Note: I independently interviewed and examined the patient and verified the hernandez history and physical, reviewed labs and image studies, discussed the case with the resident Dr. Encinas and agree with the findings and care plan. Subjective Overnight, patient self-extubated and was tolerating BiPAP for between 60-90 minutes before vitals became unstable with tachypnea, desaturations, and tachycardia; ultimately requiring re-intubation. Review of Systems Review of Systems: Unobtainable due to endotracheal tube Physical Exam Constitutional: average body habitus; no acute distress Eyes: PERRL, conjunctivae normal, anicteric sclerae Neck: normal visual inspection Respiratory: no respiratory distress, no labored breathing and no retractions Auscultation: + crackles (whole field, b/l) Cardiovascular: Rate/Rhythm: regular rate and regular rhythm Heart Sounds: no gallop, no murmur and no cardiac rub Vessels: normal peripheral pulses; no JVD Gastrointestinal (Abdomen): normal bowel sounds, soft, nontender, no hepatosplenomegaly Musculoskeletal: Extremities: no joint enlargement, no muscle atrophy and no cyanosis Neurologic: deep tendon reflexes 2+ bilaterally Psychiatric: Orientation: + not alert Motor Behavior: no abnormal motor movements Lymphatic: no cervical lymphadenopathy Results & Data Results & Data ([facility]) Vital Signs (Past 12 Hours) Vital Signs Temp Pulse Resp BP BP Pulse Ox 09/25/19 10:43 37.3 C 91 H 30 H 124/106 H 98 09/25/19 10:13 74 16 90/59 L 98 09/25/19 10:05 69 17 78/45 L 98 09/25/19 09:43 69 17 78/44 L 98 09/25/19 09:22 71 17 73/40 L 97 09/25/19 09:00 76 17 73/41 L 97 09/25/19 08:52 84/47 L 09/25/19 08:00 100 H 36 H 109/66 97 09/25/19 07:10 87 24 100 09/25/19 07:00 38.0 C H 97 H 28 H 115/59 L 99 09/25/19 06:13 85 101/60 96 09/25/19 06:00 103 H 97 09/25/19 05:55 38 C H 100 H 141/69 H 96 09/25/19 05:43 101 H 117/69 94 09/25/19 05:14 120 H 132/72 95 09/25/19 05:00 123 H 40 H 93 09/25/19 04:30 108 H 99 09/25/19 04:13 79 93/55 L 97 09/25/19 04:00 37.2 C 81 98 09/25/19 03:43 80 97/51 L 97 09/25/19 03:13 83 92/50 L 96 09/25/19 02:43 100 H 99/52 L 95 09/25/19 02:13 116 H 134/61 96 09/25/19 02:00 115 H 95 09/25/19 01:43 100 H 134/72 95 09/25/19 01:42 67 16 97 09/25/19 01:30 68 89/45 L 97 09/25/19 01:13 68 85/47 L 97 09/25/19 00:43 79 99/58 L 98 09/25/19 00:25 70 84/43 L 96 Laboratory Results 09/25/19 09/25/19 09/25/19 Range/Units 11:11 05:27 04:31 WBC (4.8-10.8) K/uL RBC (4.2-5.4) M/uL Hgb (12.0-16.0) g/dL POC Hgb 9.9 L (12.0-16.0) g/dl Hct (37-47) % POC Hct 29 L (37-47) % MCV (80-100) fL MCH (25-34) pg MCHC (32-36) g/dL RDW Std Deviation (36.4-46.3) fL RDW Coeff of Elif (11.5-14.5) % Plt Count (130-400) K/uL MPV (7.4-10.4) fL Immature Gran % (Auto) % Neut % (Auto) % Lymph % (Auto) % [place] % (Auto) % Eos % (Auto) % Baso % (Auto) % Neut # (Auto) (1.4-6.5) K/uL Lymph # (Auto) (1.2-3.4) K/uL [place] # (Auto) (0.11-0.59) K/uL Eos # (Auto) (0-0.5) K/uL Baso # (Auto) (0-0.2) K/uL Immature Gran # (Auto) (0.00-0.02) K/uL Sample Site R Radial POC pH 7.50 H (7.35-7.45) POC pCO2 31 L (35-46) mmHg POC pO2 64 L (80-95) mmHg POC HCO3 24 (19-24) mario/L POC Total CO2 25 (24-31) mmol/L POC Base Excess 1.0 (-9-1.8) mario/L ABG pH (Temp Correct) 7.476 H (7.35-7.45) ABG pCO2 (Temp Corrct 33 L (35-46) mmHg POC ABG pO2 at Pt Temp 72 POC ABG O2 Sat 94.0 (90-95) % Hank Test Pass O2 Delivery Device Ventilator POC O2 Rate 16 Minute Ventilation 12.8 Tidal Volume 450 PEEP 5 POC Sodium 136 (135-144) mmol/L Sodium (136-145) mmol/L POC Potassium 3.2 L (3.3-5.0) mmol/L Potassium (3.5-5.1) mmol/L Chloride (98-107) mmol/L Carbon Dioxide (21-32) mmol/L Anion Gap (3-11) BUN (7-18) mg/dl Creatinine (0.6-1.2) mg/dl Est Cr Clr Drug Dosing ml/min Est GFR ( Amer) Est GFR (Non-Af Amer) BUN/Creatinine Ratio (10-20) Glucose (70-99) mg/dl POC Glucose 95 (70-99) mg/dl Calcium (8.5-10.1) mg/dl Phosphorus (2.5-4.9) mg/dl Magnesium (1.8-2.4) mg/dl Total Bilirubin (0.2-1) mg/dl Direct Bilirubin (0-0.2) mg/dl GGT (3-70) U/L AST (15-37) U/L ALT (12-78) U/L Alkaline Phosphatase (45-117) U/L Ammonia 38.0 H (11-32) umol/L Total Protein (6.4-8.2) gm/dl Albumin (3.4-5.0) gm/dl Fluid Neutrophils % % Fluid Lymphocytes % % Fluid Eosinophils % % Fl Monocyt/Macrophag % % CSF West Nile RNA (Not Detected) A. phagocytophilum DNA (Not Detected) 0709/25/19 09/24/19 Range/Units 04:31 04:31 23:04 WBC 16.71 H (4.8-10.8) K/uL RBC 3.05 L (4.2-5.4) M/uL Hgb 10.4 L (12.0-16.0) g/dL POC Hgb (12.0-16.0) g/dl Hct 32.8 L (37-47) % POC Hct (37-47) % MCV 107.5 H (80-100) fL MCH 34.1 H (25-34) pg MCHC 31.7 L (32-36) g/dL RDW Std Deviation 51.8 H (36.4-46.3) fL RDW Coeff of Elif 13.2 (11.5-14.5) % Plt Count 389 (130-400) K/uL MPV 10.1 (7.4-10.4) fL Immature Gran % (Auto) 1.4 % Neut % (Auto) 77.5 % Lymph % (Auto) 10.2 % [place] % (Auto) 9.9 % Eos % (Auto) 0.6 % Baso % (Auto) 0.4 % Neut # (Auto) 12.93 H (1.4-6.5) K/uL Lymph # (Auto) 1.71 (1.2-3.4) K/uL [place] # (Auto) 1.66 H (0.11-0.59) K/uL Eos # (Auto) 0.10 (0-0.5) K/uL Baso # (Auto) 0.07 (0-0.2) K/uL Immature Gran # (Auto) 0.24 H (0.00-0.02) K/uL Sample Site POC pH (7.35-7.45) POC pCO2 (35-46) mmHg POC pO2 (80-95) mmHg POC HCO3 (19-24) mario/L POC Total CO2 (24-31) mmol/L POC Base Excess (-9-1.8) mario/L ABG pH (Temp Correct) (7.35-7.45) ABG pCO2 (Temp Corrct (35-46) mmHg POC ABG pO2 at Pt Temp POC ABG O2 Sat (90-95) % Hank Test O2 Delivery Device POC O2 Rate Minute Ventilation Tidal Volume PEEP POC Sodium (135-144) mmol/L Sodium 138 (136-145) mmol/L POC Potassium (3.3-5.0) mmol/L Potassium 3.3 L (3.5-5.1) mmol/L Chloride 105 (98-107) mmol/L Carbon Dioxide 27 (21-32) mmol/L Anion Gap 6.0 (3-11) BUN 28 H (7-18) mg/dl Creatinine 0.58 L (0.6-1.2) mg/dl Est Cr Clr Drug Dosing 110.6 ml/min Est GFR ( Amer) 118.6 Est GFR (Non-Af Amer) 102.3 BUN/Creatinine Ratio 48.4 H (10-20) Glucose 98 (70-99) mg/dl POC Glucose 116 H (70-99) mg/dl Calcium 9.1 (8.5-10.1) mg/dl Phosphorus 2.1 L (2.5-4.9) mg/dl Magnesium 1.7 L (1.8-2.4) mg/dl Total Bilirubin 1.0 (0.2-1) mg/dl Direct Bilirubin 0.5 H (0-0.2) mg/dl GGT (3-70) U/L AST 128 H (15-37) U/L ALT 65 (12-78) U/L Alkaline Phosphatase 641 H (45-117) U/L Ammonia (11-32) umol/L Total Protein 6.6 (6.4-8.2) gm/dl Albumin 2.1 L (3.4-5.0) gm/dl Fluid Neutrophils % % Fluid Lymphocytes % % Fluid Eosinophils % % Fl Monocyt/Macrophag % % CSF West Nile RNA (Not Detected) A. phagocytophilum DNA (Not Detected) 09/24/19 09/24/19 09/19/19 Range/Units 11:27 11:00 11:04 WBC (4.8-10.8) K/uL RBC (4.2-5.4) M/uL Hgb (12.0-16.0) g/dL POC Hgb (12.0-16.0) g/dl Hct (37-47) % POC Hct (37-47) % MCV (80-100) fL MCH (25-34) pg MCHC (32-36) g/dL RDW Std Deviation (36.4-46.3) fL RDW Coeff of Elif (11.5-14.5) % Plt Count (130-400) K/uL MPV (7.4-10.4) fL Immature Gran % (Auto) % Neut % (Auto) % Lymph % (Auto) % [place] % (Auto) % Eos % (Auto) % Baso % (Auto) % Neut # (Auto) (1.4-6.5) K/uL Lymph # (Auto) (1.2-3.4) K/uL [place] # (Auto) (0.11-0.59) K/uL Eos # (Auto) (0-0.5) K/uL Baso # (Auto) (0-0.2) K/uL Immature Gran # (Auto) (0.00-0.02) K/uL Sample Site POC pH (7.35-7.45) POC pCO2 (35-46) mmHg POC pO2 (80-95) mmHg POC HCO3 (19-24) mario/L POC Total CO2 (24-31) mmol/L POC Base Excess (-9-1.8) mario/L ABG pH (Temp Correct) (7.35-7.45) ABG pCO2 (Temp Corrct (35-46) mmHg POC ABG pO2 at Pt Temp POC ABG O2 Sat (90-95) % Hank Test O2 Delivery Device POC O2 Rate Minute Ventilation Tidal Volume PEEP POC Sodium (135-144) mmol/L Sodium (136-145) mmol/L POC Potassium (3.3-5.0) mmol/L Potassium (3.5-5.1) mmol/L Chloride (98-107) mmol/L Carbon Dioxide (21-32) mmol/L Anion Gap (3-11) BUN (7-18) mg/dl Creatinine (0.6-1.2) mg/dl Est Cr Clr Drug Dosing ml/min Est GFR ( Amer) Est GFR (Non-Af Amer) BUN/Creatinine Ratio (10-20) Glucose (70-99) mg/dl POC Glucose (70-99) mg/dl Calcium (8.5-10.1) mg/dl Phosphorus (2.5-4.9) mg/dl Magnesium (1.8-2.4) mg/dl Total Bilirubin (0.2-1) mg/dl Direct Bilirubin (0-0.2) mg/dl GGT 804 H (3-70) U/L AST (15-37) U/L ALT (12-78) U/L Alkaline Phosphatase (45-117) U/L Ammonia (11-32) umol/L Total Protein (6.4-8.2) gm/dl Albumin (3.4-5.0) gm/dl Fluid Neutrophils % 3 % Fluid Lymphocytes % 8 % Fluid Eosinophils % 0 % Fl Monocyt/Macrophag % 84 % CSF West Nile RNA Not Detected (Not Detected) A. phagocytophilum DNA (Not Detected) 09/19/19 Range/Units 04:20 WBC (4.8-10.8) K/uL RBC (4.2-5.4) M/uL Hgb (12.0-16.0) g/dL POC Hgb (12.0-16.0) g/dl Hct (37-47) % POC Hct (37-47) % MCV (80-100) fL MCH (25-34) pg MCHC (32-36) g/dL RDW Std Deviation (36.4-46.3) fL RDW Coeff of Elif (11.5-14.5) % Plt Count (130-400) K/uL MPV (7.4-10.4) fL Immature Gran % (Auto) % Neut % (Auto) % Lymph % (Auto) % [place] % (Auto) % Eos % (Auto) % Baso % (Auto) % Neut # (Auto) (1.4-6.5) K/uL Lymph # (Auto) (1.2-3.4) K/uL [place] # (Auto) (0.11-0.59) K/uL Eos # (Auto) (0-0.5) K/uL Baso # (Auto) (0-0.2) K/uL Immature Gran # (Auto) (0.00-0.02) K/uL Sample Site POC pH (7.35-7.45) POC pCO2 (35-46) mmHg POC pO2 (80-95) mmHg POC HCO3 (19-24) mario/L POC Total CO2 (24-31) mmol/L POC Base Excess (-9-1.8) mario/L ABG pH (Temp Correct) (7.35-7.45) ABG pCO2 (Temp Corrct (35-46) mmHg POC ABG pO2 at Pt Temp POC ABG O2 Sat (90-95) % Hank Test O2 Delivery Device POC O2 Rate Minute Ventilation Tidal Volume PEEP POC Sodium (135-144) mmol/L Sodium (136-145) mmol/L POC Potassium (3.3-5.0) mmol/L Potassium (3.5-5.1) mmol/L Chloride (98-107) mmol/L Carbon Dioxide (21-32) mmol/L Anion Gap (3-11) BUN (7-18) mg/dl Creatinine (0.6-1.2) mg/dl Est Cr Clr Drug Dosing ml/min Est GFR ( Amer) Est GFR (Non-Af Amer) BUN/Creatinine Ratio (10-20) Glucose (70-99) mg/dl POC Glucose (70-99) mg/dl Calcium (8.5-10.1) mg/dl Phosphorus (2.5-4.9) mg/dl Magnesium (1.8-2.4) mg/dl Total Bilirubin (0.2-1) mg/dl Direct Bilirubin (0-0.2) mg/dl GGT (3-70) U/L AST (15-37) U/L ALT (12-78) U/L Alkaline Phosphatase (45-117) U/L Ammonia (11-32) umol/L Total Protein (6.4-8.2) gm/dl Albumin (3.4-5.0) gm/dl Fluid Neutrophils % % Fluid Lymphocytes % % Fluid Eosinophils % % Fl Monocyt/Macrophag % % CSF West [place] RNA (Not Detected) A. phagocytophilum DNA Not Detected (Not Detected) Medications Administered Current Inpatient Medications Acetaminophen (Tylenol) 650 mg PO Q4H PRN PRN Reason: Fever Stop: 10/22/19 14:33 Last Admin: 09/25/19 05:55 Dose: 650 mg Documented by: Albuterol (Duoneb) 3 ml NEB Q4R PRN PRN Reason: Shortness Of Breath Or Wheezing Stop: 10/14/19 06:59 Dextrose (Dextrose 50%) 25 - 50 ml IV UD PRN; Protocol PRN Reason: Hypoglycemia Protocol Stop: 10/25/19 10:29 Enoxaparin Sodium (Lovenox) 40 mg SQ DAILY [facility]ANNA Stop: 10/14/19 08:59 Last Admin: 09/25/19 07:39 Dose: Not Given Documented by: Fentanyl Citrate (Fentanyl Bolus From Bag) 50 mcg IV Q60M PRN PRN Reason: Pain or Agitation Stop: 10/05/19 03:15 Last Admin: 09/22/19 05:00 Dose: 50 mcg Documented by: Glucagon (Glucagen) 1 mg IM UD PRN; Protocol PRN Reason: Hypoglycemia Protocol Stop: 10/25/19 10:29 Glucose (Glucose 40%) 15 - 30 gm PO UD PRN; Protocol PRN Reason: Hypoglycemia Protocol Stop: 10/25/19 10:29 Glucose (Dex4 Glucose) 4 - 8 tabs PO UD PRN; Protocol PRN Reason: Hypoglycemia Protocol Stop: 10/25/19 10:29 Folic Acid 1 mg/ Syringe 10 mls @ 5 mls/min IV Q24H [facility] Stop: 10/15/19 11:59 Last Admin: 09/25/19 11:07 Dose: 5 mls/min Documented by: Fentanyl Citrate (Fentanyl Drip) 1,250 mcg in 250 mls @ 0 mls/hr IV .Q0M B[facility]ANNA; Protocol Stop: 10/05/19 03:29 Last Admin: 09/23/19 17:40 Dose: Not Given Documented by: Lacosamide 100 mg/ Sodium (Chloride) 60 mls @ 120 mls/hr IV Q12 [facility] Stop: 10/21/19 20:59 Last Infusion: 09/25/19 09:13 Dose: Infused Documented by: Cefepime HCl 2,000 mg/ Syringe 20 mls @ 5 mls/min IV Q8H [facility] Stop: 09/28/19 19:59 Last Admin: 09/25/19 11:07 Dose: 5 mls/min Documented by: Propofol (Diprivan) 1,000 mg in 100 mls @ 14.973 mls/hr IV .Q6H41M [facility]; Protocol Stop: 09/25/19 14:44 Last Titration: 09/25/19 09:22 Dose: 35 mcg/kg/min, 15 mls/hr Documented by: Furosemide 40 mg/ Syringe 4 mls @ 4 mls/min IV Q8 [facility] Stop: 10/23/19 13:59 Last Admin: 09/25/19 05:31 Dose: 4 mls/min Documented by: Thiamine HCl 200 mg/ Sodium (Chloride) 52 mls @ 208 mls/hr IV QAM [facility] Stop: 10/23/19 08:59 Last Infusion: 09/25/19 08:38 Dose: Infused Documented by: Dexmedetomidine HCl 200 mcg/ (Sodium Chloride) 50 mls @ 0 mls/hr IV .Q0M [facility]; Protocol Stop: 09/28/19 10:14 Last Admin: 09/25/19 07:33 Dose: Not Given Documented by: Dexamethasone Sodium Phosphate (20 mg/ Dextrose) 30 mls @ 0.833 mls/min IV DAILY [facility] Stop: 09/30/19 10:59 Last Admin: 09/25/19 11:07 Dose: 0.8 mls/min Documented by: Insulin Aspart (Novolog Flexpen) 0 units SC Q6 [facility] Stop: 10/25/19 11:59 Last Admin: 09/25/19 11:11 Dose: Not Given Documented by: Magnesium Oxide (Mag-Ox) 400 mg PO BID [facility] Stop: 10/21/19 11:29 Last Admin: 09/25/19 08:11 Dose: 400 mg Documented by: Metoprolol Tartrate (Lopressor) 12.5 mg PO Q8 [facility] Stop: 10/22/19 13:59 Last Admin: 09/25/19 05:56 Dose: 12.5 mg Documented by: Miscellaneous (Carbohydrates For Hypoglycemia) 15 - 30 gm PO UD PRN PRN Reason: Hypoglycemia Treatment Stop: 10/25/19 10:29 Nutritional Formula (Peptamen Intense Vhp 1.0 Siva) 1,000 ml OG UD [facility]; Protocol Stop: 10/19/19 10:44 Last Admin: 09/24/19 16:13 Dose: 1,000 ml Documented by: Olanzapine (Zyprexa Zydis Od) 10 mg PO QAM [facility] Stop: 10/25/19 08:59 Last Admin: 09/25/19 08:11 Dose: 10 mg Documented by: Paroxetine HCl (Paxil) 40 mg PO QAM [facility] Stop: 10/21/19 08:59 Last Admin: 07/02/20 08:11 Dose: 40 mg Documented by: Propofol (Diprivan Bolus From Bag) 20 mg IV Q5M PRN PRN Reason: Sedation Stop: 09/25/19 14:34 Last Admin: 09/25/19 08:30 Dose: 20 mg Documented by: Resident Activity Tracking Resident Involvement: Resident Care Provided Care Provided: Adult Hospital Medicine
--- NOTE | 2019-09-25 12:59 | Procedure Note ---
Procedure Note Date of Service September 25, 2019 Procedure: Bedside percutaneous dilatation of tracheostomy with placement of a 6.0 Shiley trach. Director Of Revenue Cycle Management: Dr. Dow Anesthesia: 100 mcg fentanyl, 10 mg vecuronium, and propofol infusion with 20 mL bolus. 10 mL's 1% lidocaine with epinephrine locally. Consent: Risks and benefits were explained to the patient significant other. Consent was signed and verified. A timeout was performed prior to commencement of the procedure. Indication: Recurrent respiratory failure requiring mechanical ventilation and multiple re-intubations. Procedure: The patient is in the ICU intubated on mechanical ventilator. She has been reintubated on several occasions due to hypoxemic respiratory failure and has been a difficult wean. Agitation is also complicated her issues. Decision was made to proceed with percutaneous dilatation of tracheostomy. The patient remained on the ventilator and was placed on 100% FiO2. She was appropriately sedated. Vital signs were monitored throughout the procedure. After she was sedated and paralyzed, she was placed with a roll under the shoulders to allow for extension of the neck. Landmarks were easily palpable. Using chlorhexidine, a sterile field was established. Limited ultrasound was performed over the anterior neck revealing no significant bridging thyroid veins or vascular structures. An area approximately 1 cm below the cricoid cartilage was infiltrated with 10 mL's of 1% lidocaine with epinephrine. The thyroid cartilage and cricoid cartilages were palpated. An area approximately 1 cm below the cricoid cartilage was palpated. A 1 cm horizontal incision was made with scalpel. Blunt dissection was used to dissect down through the soft tissues to allow for digital palpation of the tracheal rings. At that point time the flexible fiberoptic scope was advanced through the existing endotracheal tube. The balloon was deflated and the endotracheal tube and bronchoscope were withdrawn to the level of the glottis. I was able to visualize ballottement of the anterior tracheal rings under direct bronchoscopic visualization. At that point time the respiratory therapist held the scope. I was able to pass an 18-gauge over the needle catheter into the anterior tracheal between the second and third tracheal rings. A wire was passed through the catheter and observed bronchoscopically to be extending into the distal airways. A dilator was placed over the wire to dilate the tract and the Blue Rhino with guiding catheter was then placed over the wire to dilate the tract. The guiding catheter was left in place and the Rhino catheter removed. A previously tested 6 oh Shiley had been loaded onto a 26 German loading catheter. This apparatus was then advanced over the wire into the airway. The guiding catheter, loading catheter, and wire were all removed. The fiberoptic bronchoscope was removed from the endotracheal tube and advanced to the newly placed tracheostomy and verified to be in the airway with minimal bleeding. The inner cannula was replaced and the patient was attached to the ventilator with good tidal volume returns. The tracheostomy was secured with 2 Vicryl sutures at the 6 and 12:00 positions. A dressing sponge was attached and trach ties were placed. Estimated blood loss: Less than 5 mL's The patient tolerated the procedure well without obvious complication. Will remain in the ICU and wean ventilator as tolerated. Coding CPT Codes ENT - ENT: 58049 Incision of windpipe ([id number]) Pulmonary/Thoracic - Pulmonary and Thoracic: 00873 Dx bronchoscopy/wash ([id number]) [facility] [place] Procedure Codes (Charges) ENT ENT: 35112 Incision of windpipe Pulmonary/Thoracic Procedure 1: Pulmonary and Thoracic: 74721 Dx bronchoscopy/wash
--- NOTE | 2019-09-25 14:18 | XRay Report ---
KUB HISTORY: coresafe placement COMPARISON: KUB 09/22/2019. FINDINGS: Feeding tube is located within the right mainstem bronchus and terminates in the right medi al lung base. Bibasilar densities persist. Bowel gas pattern is unremarkable. No renal calculi. No u reteral calculi. Calcifications in the deep pelvis likely represent phleboliths. A rectal thermometer is partially visualized. No pneumoperitoneum or pneumatosis. IMPRESSION: Feeding tube is seen within the right mainstem bronchus and terminates in the right medial lung base. This should be immediately removed. This was discussed with Dr. Dow at 2:20 PM on 09/25/2019. ACT 112: Negative or not required by law. Electronically signed by: Armando Diaz M.D. 09/25/2019 2:20 PM
--- NOTE | 2019-09-25 14:38 | XRay Report ---
KUB HISTORY: coresafe COMPARISON: KUB 09/25/2019. FINDINGS: Feeding tube terminates in the distal stomach/postpyloric position. Patchy bibasilar densit ies persist. No dilated loops of bowel to suggest an obstruction. No renal calculi. No ureteral calc rubina. No pneumoperitoneum or pneumatosis. IMPRESSION: Feeding tube terminates in the distal stomach/postpyloric position. ACT 112: Negative or not required by law. Electronically signed by: Armando Diaz M.D. 09/25/2019 2:37 PM
--- NOTE | 2019-09-25 14:43 | XRay Report ---
KUB HISTORY: coresafe COMPARISON: KUB 09/25/2019. FINDINGS: The bowel gas pattern is unremarkable. There are no dilated loops of small bowel to suggest an obstruction. No renal calculi. No ureteral calculi. No pneumoperitoneum or pneumatosis. Feeding tube terminates in the distal stomach. IMPRESSION: Feeding tube terminates in the distal stomach. ACT 112: Negative or not required by law. Electronically signed by: Armando Diaz M.D. 09/25/2019 2:41 PM
[2019-09-25] MEDS: PEPTAMEN INTENSE VHP 1.0 CAL 1,000 ML BAG OG SCH (15:46)
[2019-09-25] MEDS ORDERED: STAT IV Infusion **Titration per Protocol STA (17:18)
[2019-09-25] MEDS: fentaNYL citrate 100 MCG/2 ML VIAL IV PRN (17:53)
[2019-09-26] MEDS: DEXMEDETOMIDINE HCL 200 MCG in SODIUM CHLORIDE 0.9% 48 ML IV SCH ×6 (00:05→17:47)
[2019-09-26] MEDS: INSULIN ASPART 100 UNITS/ML 3 ML PEN SC SCH ×4 (00:42→17:55)
[2019-09-26] MEDS: propofoL 1,000 MG/100 ML VIAL IV SCH ×2 (02:43→11:30)
[2019-09-26] MEDS: CEFEPIME 2,000 MG in SYRINGE 7.5 ML IV SCH (04:12)
[2019-09-26 05:06] LABS: Basophils # (auto) 0.04 K/uL (0-0.2); Basophils % (auto) 0.3 %; Eosinophils # (auto) 0.06 K/uL (0-0.5); Eosinophils % (auto) 0.5 %; Hematocrit (blood only) 31.2 % (37-47); Hemoglobin 10.4 g/dL (12.0-16.0); Immature Granulocytes # (auto) 0.21 K/uL (0.00-0.02); Immature Granulocytes % (auto) 1.7 %; Lymphocytes # (auto) 1.16 K/uL (1.2-3.4); Lymphocytes % (auto) 9.4 %; Mean Corpuscular Hemoglobin 34.8 pg (25-34); Mean Corpuscular Hgb Conc 33.3 g/dL (32-36); Mean Corpuscular Volume 104.3 fL (80-100); Mean Platelet Volume 10.1 fL (7.4-10.4); Monocytes # (auto) 1.16 K/uL (0.11-0.59); Monocytes % (auto) 9.4 %; Neutrophils # (auto) 9.69 K/uL (1.4-6.5); Neutrophils % (auto) 78.7 %; Platelet Count 388 K/uL (130-400); RDW Coefficient of Variation 13.2 % (11.5-14.5); Red Blood Count 2.99 M/uL (4.2-5.4); White Blood Count 12.32 K/uL (4.8-10.8)
[2019-09-26 05:28] LABS: iSTAT Allen Test Pass; iSTAT Art Bld Gas pCO2 Correct 36 mmHg (35-46); iSTAT Art Bld Gas pH Corrected 7.479 (7.35-7.45); iSTAT Arterial Blood Gas HCO3 27 meg/L (19-24); iSTAT Arterial Blood Gas pCO2 37 mmHg (35-46); iSTAT Arterial Blood Gas pH 7.47 (7.35-7.45); iSTAT Arterial Blood Gas pO2 66 mmHg (80-95); iSTAT Arterial Blood Gas pO2 C 62; iSTAT Carbon Dioxide 28 mmol/L (24-31); iSTAT FiO2 40 %; iSTAT Hematocrit 30 % (37-47); iSTAT Hemoglobin 10.2 g/dl (12.0-16.0); iSTAT Potassium 3.1 mmol/L (3.3-5.0); iSTAT Site R Radial; iSTAT Sodium 138 mmol/L (135-144)
[2019-09-26 05:32] LABS: Albumin Level 1.9 gm/dl (3.4-5.0); BUN Creatinine Ratio 56.6 (10-20); Calcium 8.8 mg/dl (8.5-10.1); Est GFR (African American) 128.9; Est GFR (Non-African American) 111.2; Magnesium 1.7 mg/dl (1.8-2.4); Potassium 3.1 mmol/L (3.5-5.1)
[2019-09-26 05:35] LABS: Albumin Globulin Ratio 0.4 (0.9-2); Bilirubin,Total 0.6 mg/dl (0.2-1); Globulin 4.4 gm/dl (2.5-4.0); Phosphorus 2.6 mg/dl (2.5-4.9); Total Protein 6.3 gm/dl (6.4-8.2)
[2019-09-26] MEDS ORDERED: POTASSIUM CHLORIDE 20 MEQ/15 ML UDC PO STA (05:53)
[2019-09-26] MEDS: FUROSEMIDE 40 MG in SYRINGE 0 ML IV SCH ×3 (06:08→21:23)
[2019-09-26] MEDS: POTASSIUM CHLORIDE / WTR 10 MEQ/100 ML PLCT IV SCH ×2 (06:08→07:13)
[2019-09-26] MEDS: MAGNESIUM SULFATE / D5W 1 GM/100 ML BAG IV SCH ×2 (06:09→08:08)
[2019-09-26] MEDS: METOPROLOL TARTRATE 25 MG TAB PO SCH ×3 (06:09→21:21)
--- NOTE | 2019-09-26 07:24 | XRay Report ---
XR chest 1V portable HISTORY: resp failure COMPARISON: Chest 09/25/2019. FINDINGS: Interval placement of a tracheostomy tube which appears in good position. No pneumothorax. No pleural effusions. Diffuse interstitial thickening and patchy bibasilar airspace opacities are aga in noted. This has slightly improved within the right upper lobe. The heart is normal in size. Nasoga stric tube terminates below the diaphragm. IMPRESSION: 1. Interval placement of a tracheostomy tube. This appears in good position. 2. Interstitial thickening and bilateral airspace opacities are again noted. This has slightly improv ed within the right upper lobe. 3. Nasogastric tube terminates below the diaphragm. The tip is not included on this study. ACT 112: Negative or not required by law. Electronically signed by: Armando Diaz M.D. 09/26/2019 7:23 AM
[2019-09-26] MEDS: PROPOFOL BOLUS FROM BAG IV PRN ×2 (07:48→08:23)
[2019-09-26] MEDS: LACOSAMIDE 100 MG in SODIUM CHLORIDE 0.9% 50 ML IV SCH ×2 (09:30→21:20)
[2019-09-26] MEDS: ENOXAPARIN INJ 40 MG/0.4 ML SYR SQ SCH (09:30)
[2019-09-26] MEDS: OLANZAPINE ZYDIS 10 MG ORALLY DIS. TAB PO SCH (09:31)
[2019-09-26] MEDS: PARoxetine HCL 20 MG TAB PO SCH (09:31)
--- NOTE | 2019-09-26 09:31 | Critical Care Progress Note ---
Date of Service September 26, 2019 Assessment & Plan (1) Admitted to intensive care unit: Reason Critically Ill: 59-year-old female presenting as outside hospital transfer for acute encephalopathy, suspected DTs from alcohol withdrawal, history of seizure 6 months ago not on any medication, hypoxic respiratory failure requiring, mechanically ventilated, COVID-19 ruled out 24-hour events: Bedside percutaneous dilatation of tracheostomy accomplished yesterday which was uneventful. The patient has had intermittent periods of agitation requiring propofol and Precedex to be restarted overnight. This morning she is quite sedate but according to nursing was able to follow commands previously. She is now diuresing. She has been hemodynamically stable. Recommendations: Neuro - broad differential, see neurology notes. Appreciate their assistance. EEG is not demonstrated persistent epileptiform activity and the patient is maintained on Vimpat currently. She has been weaned off of ketamine and is currently on Zyprexa and propofol. LP was unrevealing. She has completed a course of replacement thiamine and folate which would be adequate for DT. Unclear significance of microhemorrhages noted on the MRI of the brain. [employer] vasculitis would be unusual given the very focal nature of the hemorrhages. She does not give an overt history of longstanding hypertension. No evidence of seizure or epileptiform activity. Recheck ammonia level. May be metabolic encephalopathy related to medications. We will try and wean her off of propofol. Will start low-dose replacement benzodiazepine and continue Zyprexa. Try to maintain sleep-wake cycles. If she remains stable, out of bed may be helpful. May need to repeat MRI scan to evaluate status of these microhemorrhages. Currently this would be difficult given her agitated state Cardiac - Elevated troponin/NSTEMI/SVTpatient initially presented with SVT with HR 150s, converted to sinus rhythm with 10 mg IV metoprolol. Continue oral metoprolol. She remains tachycardic but appears to be in sinus currently. Will need to restart her lipid-lowering agent and aspirin at some point. HD stable. Respiratory -patient has had 2 negative COVID tests. Her procalcitonin is slightly elevated. She has pulmonary infiltrates. Bronchoscopy x2 show no s ignificant organisms or growth to date from a respiratory standpoint. I feel she may be suffering from late-phase ARDS possibly due to aspiration pneumonia or potential nonpulmonary etiology. She is currently on dexamethasone for late- phase ARDS and appears to be clinically stable or improving. She is status post percutaneous dilatation of tracheostomy performed 09/25/2019. We will proceed with transition to pressure support ventilation and trach collar trials as tolerated. Ideally would like to get the patient out of bed to chair and working with physical therapy and Occupational Therapy as tolerated. GI -right upper quadrant ultrasound from the showed steatohepatitis as well as trace gallbladder sludge. AST and alk phos increasing and GGT elevated. HIDA for acalculous cholecystitis was ordered, however due to staffing issues this cannot likely be accomplished until early next week. If the patient has persistent fevers or hemodynamic instability, she may require transfer to an alternative facility to get this study performed. RENAL/LYTES -continue Lasix 40 mg every 8 hours. Following kidney function and electrolytes -no current issues ENDO - TSH within normal limits No history of diabetes ICU hyperglycemic protocol HEME - H&H stable, monitor. No evidence of DVT on surveillance scans ID now afebrile with white blood cell count decreasing. Cultures of all been negative. She received 3 days of Zosyn, 2 days of a azithromycin, and a few days of Rocephin and is currently on day #6 cefepime. She completed a full course of doxycycline. Lyme studies were negative. Lumbar puncture and pleural fluid unrevealing. We will continue to trend fever curve and white blood cell count off antibiotics. LINES/IV ACCESS - PIV's, ETT DVT PROPHYLAXIS - Mele Sanchez Patient remains critically ill with multiorgan system dysfunction. updated at bedside. Total of 50 minutes critical care time exclusive of procedures spent in coordinating care for this patient. Have asked case management to initiate process for consideration of long-term acute care facility. Patient lives in [facility] so a facility in [place] may be more appropriate. Please note the above document was generated using voice recognition software. It may contain grammatical, syntax or spelling errors. (2) NSTEMI (non-ST elevated myocardial infarction): (3) Elevated LFTs: (4) SVT (supraventricular tachycardia): (5) Sepsis with acute hypoxic respiratory failure: Admission and Anticipated Discharge Date Admission Date: September 14, 2019 Subjective Seen and examined. Discussed with critical care nurse at bedside. The patient is on the ventilator and somewhat sedated currently Review of Systems Review of Systems: Unobtainable due to cognitive status and Unobtainable due to reduced consciousness Physical Exam Constitutional: + mechanically ventilated Eyes: PERRL Neck: trachea midline, no thyromegaly Cardiovascular: Rate/Rhythm: + tachycardic Heart Sounds: normal S1 and normal S2; no murmur Gastrointestinal (Abdomen): Inspection/Auscultation: abdomen normal to inspection Percussion/Palpation: abdomen nontender Skin: no rashes, warm and dry Results & Data Results & Data ([facility]) Vital Signs (Past 12 Hours) Vital Signs Pulse Resp BP Pulse Ox 09/26/19 07:20 23 09/26/19 05:30 62 26 H 92 09/26/19 04:47 57 L 119/70 92 09/26/19 04:30 59 L 90 09/26/19 04:17 67 120/84 93 09/26/19 04:00 63 93 09/26/19 03:47 53 L 123/71 94 09/26/19 03:30 54 L 94 09/26/19 03:17 54 L 124/71 93 09/26/19 03:00 55 L 92 09/26/19 02:47 55 L 120/71 92 09/26/19 02:30 57 L 93 09/26/19 02:17 57 L 123/74 93 09/26/19 02:00 58 L 93 09/26/19 01:47 58 L 130/75 93 09/26/19 01:30 58 L 17 92 09/26/19 01:17 59 L 128/76 92 09/26/19 01:00 60 92 09/26/19 00:47 58 L 135/76 92 09/26/19 00:30 58 L 93 09/26/19 00:17 60 142/82 H 93 09/26/19 00:00 60 93 09/25/19 23:47 62 139/79 93 09/25/19 23:31 61 17 96 09/25/19 23:30 63 93 09/25/19 23:17 63 141/80 H 96 09/25/19 23:00 65 97 09/25/19 22:47 65 138/82 97 09/25/19 22:30 65 97 09/25/19 22:17 66 128/75 97 09/25/19 22:00 68 18 96 09/25/19 21:47 70 124/72 97 09/25/19 21:30 73 97 Laboratory Results 09/26/19 04:44 09/26/19 04:44 Bronchoscopy cultures remain no growth to date. Diagnostic Findings Chest x-ray today was independently reviewed. Tubes and lines are in good position. There is partial clearing of the right upper lobe airspace opacity with some diffuse interstitial prominence of the left lung. Coding Level of Care Code 01283 Subseq [facility] 3 Diagnoses Admitted to intensive care unit Z78.9 NSTEMI (non-ST elevated myocardial infarction) I21.4 Elevated LFTs R79.89 SVT (supraventricular tachycardia) I47.1 Sepsis with acute hypoxic respiratory failure A41.9; R65.20; J96.01
[2019-09-26] MEDS: DEXAMETHASONE SOD PHOSPHATE 20 MG in DEXTROSE 5% 25 ML IV SCH (09:54)
[2019-09-26] MEDS: MAGNESIUM OXIDE 400 MG TAB PO SCH (09:54)
[2019-09-26] MEDS: THIAMINE HCL 200 MG in SODIUM CHLORIDE 0.9% 50 ML IV SCH (09:55)
[2019-09-26] MEDS: clonazePAM 0.5 MG TAB PO SCH ×2 (10:30→21:21)
[2019-09-26] MEDS: PEPTAMEN INTENSE VHP 1.0 CAL 1,000 ML BAG OG SCH (10:54)
[2019-09-26] MEDS: FOLIC ACID 1 MG in SYRINGE 9.8 ML IV SCH (12:25)
--- NOTE | 2019-09-26 14:06 | Hospitalist Progress Note ---
Date of Service September 26, 2019 Assessment & Plan (1) Seizure-like activity: 59 yo F PMHx HLD, depression and anxiety, alcohol abuse admitted to ICU for acute encephalopathy, on mechanically-assisted ventilation. Encephalopathy: - Encephalopathy most likely due to delirium tremens, less likely hyperammonemia given ammonia of 35 - Lyme IgG positive, Anaplasmosis negative - CSF Lyme not detected, CSF viral panel negative. - COVID-19 testing negative x2. - MRI w/wo performed without acute process. - EEG was not demonstrating persistent epileptiform activity - LP without clear source of infection however bloody tap. - Acyclovir discontinued as CSF without VZV, HSV. - continue Vimpat 100mg BID - continuing thiamine, folic acid, magnesium supplementation - restarted on propofol per ICU; continuation of Zyprexa Alcohol use ds/Delirium Tremens: - previously completed course of thiamine, however will continue in the setting of continued concern for DTs with altered mental status - previously trialed on phenobarbital without improvement in presumed alcohol withdrawal symptoms Acute hypoxic Respiratory failure: - Care per ICU - self-extubated on 09/23, with subsequent decompensation on BiPAP and ultimately re-intubated - tracheostomy on 09/24 - pt. on Dexamethasone for concern of late phase ARDS Right sided pleural effusion - likely 2/2 fluid overload. - neutral fluid balance today - drained with thoracentesis 09/20 with clear straw yellow fluid. Cultures negative - bronchoalveolar lavage completed on 09/23; preliminary results demonstrated scant normal abhilash Febrile illness: - compressive atelectasis present on CXR from 09/20 - bronchoscopy performed with removal of thick bronchial washings sent for cultures. - continue empiric Cefepime - doxycycline stopped - patient with inflammation over buttocks and perineum - Wound care consulted: addition of antifungal cream BID and PRN Elevated LFTs/Acute alcohol hepatitis: - downtrending since admission - Liver ultrasound showing Hepato-steatosis. - Hepatitis C negative - Lyme IgG positive IgM negative, anaplasmosis DNA negative; representing chronic exposure, no acute infection - doxycycline stopped Code Status: Full Code FEN/GI: tracheostomy, vented, tube feeds restarted DVT ppx: Lovenox Admission and Anticipated Discharge Date Admission Date: September 14, 2019 Supervising Physician Co-Signing Physician Notes Resident Physician Supervision Note: I independently interviewed and examined the patient and verified the hernandez history and physical, reviewed labs and image studies, discussed the case with the resident Dr. Escobedo and agree with the findings and care plan. Subjective Patient has a trach, is sedated, but agitated. She is able to follow commands and would squeeze my finger bilaterally and gave a thumbs up with her left hand. Review of Systems Review of Systems: Unobtainable due to reduced consciousness Physical Exam Constitutional: + altered mental status Eyes: PERRL ENMT: external ear and nose normal, oropharynx normal Neck: normal visual inspection Respiratory: - coarse breath sounds R>L - good air movement Cardiovascular: RRR, no murmur, no edema Gastrointestinal (Abdomen): Inspection/Auscultation: abdomen normal to inspection Skin: no rashes, warm and dry Neurologic: moves all extremities Psychiatric: Orientation: + not alert and + not oriented x 3 Results & Data Results & Data ([facility]) Vital Signs (Past 12 Hours) Vital Signs Temp Pulse Resp BP Pulse Ox 09/26/19 12:02 37.5 C 67 108/67 93 09/26/19 11:43 64 38 H 92 09/26/19 11:04 37.5 C 71 110/73 88 L 09/26/19 10:03 37.1 C 70 102/56 L 91 09/26/19 09:35 36.8 C 71 104/54 L 91 09/26/19 08:34 65 123/62 91 09/26/19 08:30 61 92 09/26/19 08:03 64 110/65 93 09/26/19 08:00 60 09/26/19 07:32 36.3 C L 64 107/61 94 09/26/19 07:20 23 09/26/19 06:47 36.1 C L 58 L 125/70 95 09/26/19 05:30 62 26 H 92 09/26/19 04:47 57 L 119/70 92 09/26/19 04:30 59 L 90 09/26/19 04:17 67 120/84 93 09/26/19 04:00 63 93 09/26/19 03:47 53 L 123/71 94 09/26/19 03:30 54 L 94 09/26/19 03:17 54 L 124/71 93 09/26/19 03:00 55 L 92 09/26/19 02:47 55 L 120/71 92 09/26/19 02:30 57 L 93 09/26/19 02:17 57 L 123/74 93 09/26/19 02:00 58 L 93 CBC Results Results Complete Blood Count Results: RBC 3.13 M/uL (4.2-5.4) L 09/27/19 WBC 17.96 K/uL (4.8-10.8) H 09/27/19 Hgb 11.1 g/dL (12.0-16.0) L 09/27/19 Hct 32.8 % (37-47) L 09/27/19 Plt Count 463 K/uL (130-400) H 09/27/19 Chemistry (BMP) Results BMP Results: Sodium 141 mmol/L (136-145) 09/27/19 Potassium 3.4 mmol/L (3.5-5.1) L 09/27/19 Chloride 106 mmol/L (98-107) 09/27/19 BUN 26 mg/dl (7-18) H 09/27/19 Creatinine 0.47 mg/dl (0.6-1.2) L 09/27/19 Glucose 121 mg/dl (70-99) H 09/27/19 Resident Activity Tracking Resident Involvement: Resident Care Provided Care Provided: Adult [facility] Medicine
[2019-09-26] MEDS ORDERED: ETOMIDATE 2 MG/ML 20 ML VIAL IV ONE (14:42)
[2019-09-26] MEDS ORDERED: SUCCINYLCHOLINE CHLORIDE 20 MG/ML 10 ML VIAL IV ONE (14:42)
--- NOTE | 2019-09-26 19:12 | XRay Report ---
KUB CLINICAL HISTORY: Enteric tube placement. FINDINGS: An AP, portable, supine view of the lower chest and upper abdomen is compared to study date d 09/25/2019. An enteric tube is in place. The tip projects over the mid stomach. There is no radiograp hic evidence of bowel obstruction. Airspace consolidation and pleural effusions are again seen at the lung bases. IMPRESSION: The tip of the enteric tube projects over the mid stomach. Electronically signed by: Delvin Gupta M.D. 09/26/2019 7:10 PM
[2019-09-27] MEDS: INSULIN ASPART 100 UNITS/ML 3 ML PEN SC SCH ×4 (00:32→18:05)
[2019-09-27] MEDS: DEXMEDETOMIDINE HCL 200 MCG in SODIUM CHLORIDE 0.9% 48 ML IV SCH ×4 (02:45→06:25)
[2019-09-27] MEDS: fentaNYL citrate 100 MCG/2 ML VIAL IV PRN (02:46)
[2019-09-27] MEDS: DEXMEDETOMIDINE HCL 400 MCG in 0.9 % SODIUM CHLORIDE 96 ML IV SCH ×4 (04:32→23:33)
[2019-09-27 04:46] LABS: Magnesium 1.8 mg/dl (1.8-2.4)
[2019-09-27 04:47] LABS: Basophils # (auto) 0.02 K/uL (0-0.2); Basophils % (auto) 0.1 %; Hematocrit (blood only) 32.8 % (37-47); Hemoglobin 11.1 g/dL (12.0-16.0); Immature Granulocytes # (auto) 0.22 K/uL (0.00-0.02); Immature Granulocytes % (auto) 1.2 %; Lymphocytes % (auto) 7.8 %; Mean Corpuscular Hemoglobin 35.5 pg (25-34); Mean Corpuscular Hgb Conc 33.8 g/dL (32-36); Mean Corpuscular Volume 104.8 fL (80-100); Mean Platelet Volume 10.5 fL (7.4-10.4); Monocytes # (auto) 1.75 K/uL (0.11-0.59); Monocytes % (auto) 9.7 %; Neutrophils # (auto) 14.57 K/uL (1.4-6.5); Neutrophils % (auto) 81.2 %; Nucleated RBC # (auto) 0.04 K/uL (0-0); Nucleated RBC % (auto) 0.2 %; Platelet Count 463 K/uL (130-400); RDW Coefficient of Variation 13.1 % (11.5-14.5); RDW Standard Deviation 49.3 fL (36.4-46.3); Red Blood Count 3.13 M/uL (4.2-5.4); White Blood Count 17.96 K/uL (4.8-10.8)
[2019-09-27 04:50] LABS: Potassium 3.4 mmol/L (3.5-5.1)
[2019-09-27 04:52] LABS: Albumin Level 2.1 gm/dl (3.4-5.0); BUN Creatinine Ratio 55.8 (10-20); Calcium 8.9 mg/dl (8.5-10.1); Creatinine Clr Calc Pharmacy 129.3 ml/min; Est GFR (African American) 127.1; Est GFR (Non-African American) 109.6; Phosphorus 2.9 mg/dl (2.5-4.9)
[2019-09-27 04:55] LABS: Albumin Globulin Ratio 0.5 (0.9-2); Bilirubin,Total 0.7 mg/dl (0.2-1); Globulin 4.4 gm/dl (2.5-4.0); Total Protein 6.5 gm/dl (6.4-8.2)
[2019-09-27] MEDS ORDERED: MAGNESIUM SULFATE / D5W 1 GM/100 ML BAG IV ONE (05:45)
[2019-09-27] MEDS ORDERED: POTASSIUM CHLORIDE 20 MEQ/15 ML UDC PO ONE (05:45)
[2019-09-27] MEDS: FUROSEMIDE 40 MG in SYRINGE 0 ML IV SCH (06:26)
[2019-09-27] MEDS: METOPROLOL TARTRATE 25 MG TAB PO SCH ×3 (06:28→21:21)
--- NOTE | 2019-09-27 08:20 | XRay Report ---
ANUSHA CLINICAL HISTORY: ng placement COMPARISON STUDY: ANUSHA September 26, 2019. FINDINGS: Gas within small and large bowel is noted. There is no convincing evidence for a bowel obst ruction. The tip of the feeding tube projects over the pylorus. IMPRESSION: 1. Tip of feeding tube projects over the pylorus. 2. No evidence for a bowel obstruction. ACT 112: Negative or not required by law. Electronically signed by: Arpan Cornejo M.D. 09/27/2019 8:19 AM
[2019-09-27] MEDS: DEXAMETHASONE SOD PHOSPHATE 20 MG in DEXTROSE 5% 25 ML IV SCH (08:25)
[2019-09-27] MEDS: THIAMINE HCL 200 MG in SODIUM CHLORIDE 0.9% 50 ML IV SCH (08:27)
--- NOTE | 2019-09-27 08:27 | Critical Care Progress Note ---
Date of Service September 27, 2019 Assessment & Plan (1) Admitted to intensive care unit: Reason Critically Ill: 59-year-old female presenting as outside hospital transfer for acute encephalopathy, suspected DTs from alcohol withdrawal, history of seizure 6 months ago not on any medication, hypoxic respiratory failure requiring, mechanically ventilated, COVID-19 ruled out 24-hour events: Transitioned to pressure support ventilation and then to trach collar which she is tolerating reasonably well. Propofol is been weaned off and she is maintained currently only on Precedex as well as oral Zyprexa and Recommendations: Neuro - broad differential, see neurology notes. Appreciate their assistance. EEG is not demonstrated persistent epileptiform activity and the patient is maintained on Vimpat currently. She has been weaned off of ketamine and is currently on Zyprexa and propofol. LP was unrevealing. She has completed a course of replacement thiamine and folate which would be adequate for DT. Unclear significance of microhemorrhages noted on the MRI of the brain. [employer] vasculitis would be unusual given the very focal nature of the hemorrhages. She does not give an overt history of longstanding hypertension. No evidence of seizure or epileptiform activity. Follow-up ammonia level was normal.. May be metabolic encephalopathy related to medications. We will try and wean her off of propofol. Continue clonazepam and Zyprexa. Try to maintain sleep-wake cycles. If she remains stable, out of bed may be helpful. Her neuro exam is relatively nonfocal currently with the exception of some slight deviation of the tongue to the left she is able to move arms and legs on the right side so we will hold off on additional [employer] imaging currently. Cardiac - Elevated troponin/NSTEMI/SVTpatient initially presented with SVT with HR 150s, converted to sinus rhythm with 10 mg IV metoprolol. Continue oral metoprolol. She remains tachycardic but appears to be in sinus currently. Will need to restart her lipid-lowering agent and aspirin at some point. HD stable. Respiratory -patient has had 2 negative COVID tests. She has pulmonary infiltrates. Bronchoscopy x2 show no significant organisms or growth to date from a respiratory standpoint. I feel she may be suffering from late-phase ARDS possibly due to aspiration pneumonia or potential nonpulmonary etiology. 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 She is status post percutaneous dilatation of tracheostomy performed 09/25/2019. Continue trach collar trials as tolerated. We will work on getting the patient out of bed to chair and working with physical therapy and [facility] as tolerated. Follow-up chest x-ray in a.m. GI -right upper quadrant ultrasound from the showed steatohepatitis as well as trace gallbladder sludge. AST and alk phos increasing and GGT elevated. HIDA for acalculous cholecystitis was ordered, however due to staffing issues this cannot likely be accomplished until early next week. If the patient has persistent fevers or hemodynamic instability, she may require transfer to an alternative facility to get this study performed. For now we will continue to trend her LFTs as well as her fever curve. Continue tube feeding for now. Do not think her mental status would allow for swallow evaluation just yet. RENAL/LYTES -negative almost 5 L over the last 24 hours. Will decrease Lasix down to once daily. Serum creatinine electrolytes holding -no current issues ENDO - TSH within normal limits No history of diabetes ICU hyperglycemic protocol HEME - H&H stable, monitor. No evidence of DVT on surveillance scans ID now afebrile now although slight increase in white blood cell count today. She is on Decadron for late-phase ARDS. Cultures of all been negative. She received 3 days of Zosyn, 2 days of a azithromycin, and a few days of Rocephin and 7 days of cefepime. She completed a full course of doxycycline. Lyme studies were negative. Lumbar puncture and pleural fluid unrevealing. Antibiotics are currently discontinued and are monitoring the patient clinically LINES/IV ACCESS - PIV's, tracheostomy tube, Baldwin catheter, nasogastric feeding tube DVT PROPHYLAXIS - SCDs, Lovenox Disposition: Discussed with case management last week and referrals have been made to the long-term acute care facilities near [place] as the patient resides in [place]. She has been medically accepted by the facility but we have not yet been able to submit insurance authorization. We will see how she does over the weekend and likely request insurance authorization on Sunday. Please note the above document was generated using voice recognition software. It may contain grammatical, syntax or spelling errors. (2) NSTEMI (non-ST elevated myocardial infarction): (3) Elevated LFTs: (4) SVT (supraventricular tachycardia): (5) Sepsis with acute hypoxic respiratory failure: Admission and Anticipated Discharge Date Admission Date: September 14, 2019 Subjective Patient seen and examined. EMR reviewed. She has been tolerating trach collar. Propofol is been weaned off. Working on weaning the Precedex. Hemodynamically stable. Review of Systems Review of Systems: Unobtainable due to cognitive status Physical Exam Constitutional: well developed; not ill appearing Agitated Eyes: PERRL Neck: trachea midline, no thyromegaly Cardiovascular: Rate/Rhythm: + tachycardic Heart Sounds: normal S1 and normal S2; no murmur Gastrointestinal (Abdomen): Inspection/Auscultation: abdomen normal to inspection Percussion/Palpation: abdomen nontender Skin: no rashes, warm and dry Neurologic: Moves all 4 extremities to command and to tactile stimulus. She is able to extend her tongue but there does appear to be some deviation to the left. Sensorium appears to be improving. Results & Data Results & Data ([facility]) Vital Signs (Past 12 Hours) Vital Signs Temp Pulse BP Pulse Ox 09/27/19 07:02 74 132/79 90 09/27/19 07:00 76 89 L 09/27/19 06:30 76 92 09/27/19 06:02 77 141/82 H 92 09/27/19 06:00 74 94 09/27/19 05:30 79 89 L 09/27/19 05:04 79 136/80 90 09/27/19 05:00 79 92 09/27/19 04:30 74 91 09/27/19 04:02 37.6 C H 76 145/82 H 91 09/27/19 04:00 76 87 L 09/27/19 03:30 77 92 09/27/19 03:02 75 147/82 H 95 09/27/19 03:00 75 95 09/27/19 02:30 77 95 09/27/19 02:02 79 142/76 H 92 09/27/19 02:00 82 93 09/27/19 01:30 86 93 09/27/19 01:02 80 124/80 93 09/27/19 01:00 76 91 09/27/19 00:30 76 94 09/27/19 00:02 85 127/88 96 09/27/19 00:00 37.6 C H 91 H 91 09/26/19 23:30 85 93 07/03/20 23:02 79 165/100 H 86 L 09/26/19 23:00 75 95 09/26/19 22:30 75 95 09/26/19 22:02 88 154/73 H 93 09/26/19 22:00 87 99 09/26/19 21:30 73 94 09/26/19 21:02 78 139/113 H 09/26/19 21:00 77 85 L 09/26/19 20:30 76 95 Laboratory Results 09/27/19 04:20 09/27/19 04:16 Ammonia normal less than 10 Diagnostic Findings No new films Coding Level of Care Code 63285 Subseq [facility] 3 Diagnoses Admitted to intensive care unit Z78.9 NSTEMI (non-ST elevated myocardial infarction) I21.4 Elevated LFTs R79.89 SVT (supraventricular tachycardia) I47.1 Sepsis with acute hypoxic respiratory failure A41.9; R65.20; J96.01
[2019-09-27] MEDS: ENOXAPARIN INJ 40 MG/0.4 ML SYR SQ SCH (08:31)
[2019-09-27] MEDS: OLANZAPINE ZYDIS 10 MG ORALLY DIS. TAB PO SCH (08:32)
[2019-09-27] MEDS: PARoxetine HCL 20 MG TAB PO SCH (08:32)
[2019-09-27] MEDS: clonazePAM 0.5 MG TAB PO SCH ×2 (08:39→21:20)
[2019-09-27] MEDS ORDERED: FUROSEMIDE 40 MG in SYRINGE 0 ML IV SCH (09:00)
[2019-09-27] MEDS: LACOSAMIDE 100 MG in SODIUM CHLORIDE 0.9% 50 ML IV SCH ×2 (09:50→21:20)
--- NOTE | 2019-09-27 11:14 | Hospitalist Progress Note ---
Date of Service September 27, 2019 Assessment & Plan (1) Seizure-like activity: 59 yo F PMHx HLD, depression and anxiety, alcohol abuse admitted to ICU for acute encephalopathy, on mechanically-assisted ventilation. Encephalopathy: - Encephalopathy most likely due to delirium tremens, less likely hyperammonemia given ammonia of 35 - Lyme IgG positive, Anaplasmosis negative - CSF Lyme not detected, CSF viral panel negative. - COVID-19 testing negative x2. - MRI w/wo performed without acute process. - EEG was not demonstrating persistent epileptiform activity - LP without clear source of infection however bloody tap. - Acyclovir discontinued as CSF without VZV, HSV. - continue Vimpat 100mg BID - continuing thiamine, folic acid, magnesium supplementation - continuation of Zyprexa and Precedex Alcohol use ds/Delirium Tremens: - previously completed course of thiamine, however will continue in the setting of continued concern for DTs with altered mental status - previously trialed on phenobarbital without improvement in presumed alcohol withdrawal symptoms Acute hypoxic Respiratory failure: - Care per ICU - self-extubated on 09/23, with subsequent decompensation on BiPAP and ultimately re-intubated - tracheostomy on 09/24 converted to trach collar support overnight - continue Dexamethasone for concern of late phase ARDS Right sided pleural effusion - likely 2/2 fluid overload - drained with thoracentesis 09/20 with clear straw yellow fluid. Cultures negative - bronchoalveolar lavage completed on 09/23; preliminary results demonstrated scant normal abhilash Febrile illness: - compressive atelectasis present on CXR from 09/20 - bronchoscopy performed with removal of thick bronchial washings sent for cultures. - continue empiric Cefepime - doxycycline stopped - patient with inflammation over buttocks and perineum - Wound care consulted: addition of antifungal cream BID and PRN Elevated LFTs/Acute alcohol hepatitis: - Liver ultrasound showing Hepato-steatosis. - Hepatitis C negative - Lyme IgG positive IgM negative, anaplasmosis DNA negative; representing chronic exposure, no acute infection - doxycycline stopped Code Status: Full Code FEN/GI: tracheostomy, vented, tube feeds restarted DVT ppx: Lovenox Admission and Anticipated Discharge Date Admission Date: September 14, 2019 Supervising Physician Co-Signing Physician Notes Resident Physician Supervision Note: I independently interviewed and examined the patient and verified the hernandez history and physical, reviewed labs and image studies, discussed the case with the resident Dr. Encinas and agree with the findings and care plan. Subjective Patient was successfully weaned off propofol, but continues to be agitated and is writhing around the bed non-stop. Review of Systems Review of Systems: Unobtainable due to cognitive status Physical Exam Constitutional: average body habitus and + altered mental status; no acute distress Eyes: PERRL, conjunctivae normal, anicteric sclerae Neck: normal visual inspection Respiratory: no retractions Auscultation: + crackles (whole field, b/l) Cardiovascular: Rate/Rhythm: regular rate and regular rhythm Heart Sounds: no gallop, no murmur and no cardiac rub Vessels: no JVD Gastrointestinal (Abdomen): normal bowel sounds, soft, nontender, no hepatos plenomegaly Musculoskeletal: Extremities: no joint enlargement, no muscle atrophy and no cyanosis Neurologic: deep tendon reflexes 2+ bilaterally Psychiatric: Orientation: + not alert Eye Contact: + poor eye contact Motor Behavior: no abnormal motor movements Thought Process: + incoherent thought process and + word salad Cognition: + attention not intact and + language not intact Insight: + poor insight Judgement: + poor judgement Lymphatic: no cervical lymphadenopathy Results & Data Results & Data ([facility]) Vital Signs (Past 12 Hours) Vital Signs Temp Pulse BP Pulse Ox 09/27/19 07:02 74 132/79 90 09/27/19 07:00 76 89 L 09/27/19 06:30 76 92 09/27/19 06:02 77 141/82 H 92 09/27/19 06:00 74 94 09/27/19 05:30 79 89 L 09/27/19 05:04 79 136/80 90 09/27/19 05:00 79 92 09/27/19 04:30 74 91 09/27/19 04:02 37.6 C H 76 145/82 H 91 09/27/19 04:00 76 87 L 09/27/19 03:30 77 92 09/27/19 03:02 75 147/82 H 95 09/27/19 03:00 75 95 09/27/19 02:30 77 95 09/27/19 02:02 79 142/76 H 92 09/27/19 02:00 82 93 09/27/19 01:30 86 93 09/27/19 01:02 80 124/80 93 09/27/19 01:00 76 91 07/04/20 00:30 76 94 09/27/19 00:02 85 127/88 96 09/27/19 00:00 37.6 C H 91 H 91 09/26/19 23:30 85 93 Laboratory Results 09/27/19 09/27/19 09/27/19 Range/Units 05:48 04:20 04:16 WBC 17.96 H (4.8-10.8) K/uL RBC 3.13 L (4.2-5.4) M/uL Hgb 11.1 L (12.0-16.0) g/dL Hct 32.8 L (37-47) % MCV 104.8 H (80-100) fL MCH 35.5 H (25-34) pg MCHC 33.8 (32-36) g/dL RDW Std Deviation 49.3 H (36.4-46.3) fL RDW Coeff of Elif 13.1 (11.5-14.5) % Plt Count 463 H (130-400) K/uL MPV 10.5 H (7.4-10.4) fL Immature Gran % (Auto) 1.2 % Neut % (Auto) 81.2 % Lymph % (Auto) 7.8 % Dupage % (Auto) 9.7 % Eos % (Auto) 0.0 % Baso % (Auto) 0.1 % Neut # (Auto) 14.57 H (1.4-6.5) K/uL Lymph # (Auto) 1.40 (1.2-3.4) K/uL Dupage # (Auto) 1.75 H (0.11-0.59) K/uL Eos # (Auto) 0.00 (0-0.5) K/uL Baso # (Auto) 0.02 (0-0.2) K/uL Immature Gran # (Auto) 0.22 H (0.00-0.02) K/uL Absolute Nucleated RBC 0.04 H (0-0) K/uL Nucleated RBC % (auto) 0.2 % Sodium (136-145) mmol/L Potassium (3.5-5.1) mmol/L Chloride (98-107) mmol/L Carbon Dioxide (21-32) mmol/L Anion Gap (3-11) BUN (7-18) mg/dl Creatinine (0.6-1.2) mg/dl Est Cr Clr Drug Dosing ml/min Est GFR ( Amer) Est GFR (Non-Af Amer) BUN/Creatinine Ratio (10-20) Glucose (70-99) mg/dl POC Glucose 126 H (70-99) mg/dl Calcium (8.5-10.1) mg/dl Phosphorus (2.5-4.9) mg/dl Magnesium (1.8-2.4) mg/dl Total Bilirubin (0.2-1) mg/dl AST (15-37) U/L ALT (12-78) U/L Alkaline Phosphatase (45-117) U/L Ammonia < 10.0 L (11-32) umol/L Total Protein (6.4-8.2) gm/dl Albumin (3.4-5.0) gm/dl Globulin (2.5-4.0) gm/dl Albumin/Globulin Ratio (0.9-2) 09/27/19 09/26/19 09/26/19 Range/Units 04:16 23:59 17:54 WBC (4.8-10.8) K/uL RBC (4.2-5.4) M/uL Hgb (12.0-16.0) g/dL Hct (37-47) % MCV (80-100) fL MCH (25-34) pg MCHC (32-36) g/dL RDW Std Deviation (36.4-46.3) fL RDW Coeff of Elif (11.5-14.5) % Plt Count (130-400) K/uL MPV (7.4-10.4) fL Immature Gran % (Auto) % Neut % (Auto) % Lymph % (Auto) % Dupage % (Auto) % Eos % (Auto) % Baso % (Auto) % Neut # (Auto) (1.4-6.5) K/uL Lymph # (Auto) (1.2-3.4) K/uL Dupage # (Auto) (0.11-0.59) K/uL Eos # (Auto) (0-0.5) K/uL Baso # (Auto) (0-0.2) K/uL Immature Gran # (Auto) (0.00-0.02) K/uL Absolute Nucleated RBC (0-0) K/uL Nucleated RBC % (auto) % Sodium 141 (136-145) mmol/L Potassium 3.4 L (3.5-5.1) mmol/L Chloride 106 (98-107) mmol/L Carbon Dioxide 27 (21-32) mmol/L Anion Gap 8.0 (3-11) BUN 26 H (7-18) mg/dl Creatinine 0.47 L (0.6-1.2) mg/dl Est Cr Clr Drug Dosing 129.3 ml/min Est GFR ( Amer) 127.1 Est GFR (Non-Af Amer) 109.6 BUN/Creatinine Ratio 55.8 H (10-20) Glucose 121 H (70-99) mg/dl POC Glucose 130 H 189 H (70-99) mg/dl Calcium 8.9 (8.5-10.1) mg/dl Phosphorus 2.9 (2.5-4.9) mg/dl Magnesium 1.8 (1.8-2.4) mg/dl Total Bilirubin 0.7 (0.2-1) mg/dl AST 76 H (15-37) U/L ALT 59 (12-78) U/L Alkaline Phosphatase 635 H (45-117) U/L Ammonia (11-32) umol/L Total Protein 6.5 (6.4-8.2) gm/dl Albumin 2.1 L (3.4-5.0) gm/dl Globulin 4.4 H (2.5-4.0) gm/dl Albumin/Globulin Ratio 0.5 L (0.9-2) 09/26/19 Range/Units 11:39 WBC (4.8-10.8) K/uL RBC (4.2-5.4) M/uL Hgb (12.0-16.0) g/dL Hct (37-47) % MCV (80-100) fL MCH (25-34) pg MCHC (32-36) g/dL RDW Std Deviation (36.4-46.3) fL RDW Coeff of Elif (11.5-14.5) % Plt Count (130-400) K/uL MPV (7.4-10.4) fL Immature Gran % (Auto) % Neut % (Auto) % Lymph % (Auto) % Dupage % (Auto) % Eos % (Auto) % Baso % (Auto) % Neut # (Auto) (1.4-6.5) K/uL Lymph # (Auto) (1.2-3.4) K/uL Dupage # (Auto) (0.11-0.59) K/uL Eos # (Auto) (0-0.5) K/uL Baso # (Auto) (0-0.2) K/uL Immature Gran # (Auto) (0.00-0.02) K/uL Absolute Nucleated RBC (0-0) K/uL Nucleated RBC % (auto) % Sodium (136-145) mmol/L Potassium (3.5-5.1) mmol/L Chloride (98-107) mmol/L Carbon Dioxide (21-32) mmol/L Anion Gap (3-11) BUN (7-18) mg/dl Creatinine (0.6-1.2) mg/dl Est Cr Clr Drug Dosing ml/min Est GFR ( Amer) Est GFR (Non-Af Amer) BUN/Creatinine Ratio (10-20) Glucose (70-99) mg/dl POC Glucose 124 H (70-99) mg/dl Calcium (8.5-10.1) mg/dl Phosphorus (2.5-4.9) mg/dl Magnesium (1.8-2.4) mg/dl Total Bilirubin (0.2-1) mg/dl AST (15-37) U/L ALT (12-78) U/L Alkaline Phosphatase (45-117) U/L Ammonia (11-32) umol/L Total Protein (6.4-8.2) gm/dl Albumin (3.4-5.0) gm/dl Globulin (2.5-4.0) gm/dl Albumin/Globulin Ratio (0.9-2) Medications Administered Current Inpatient Medications Acetaminophen (Tylenol) 650 mg PO Q4H PRN PRN Reason: Fever Stop: 10/22/19 14:33 Last Admin: 09/25/19 05:55 Dose: 650 mg Documented by: Albuterol (Duoneb) 3 ml NEB Q4R PRN PRN Reason: Shortness Of Breath Or Wheezing Stop: 10/14/19 06:59 Clonazepam (Klonopin) 0.5 mg PO BID BRIANNA Stop: 10/26/19 09:44 Last Admin: 09/27/19 08:39 Dose: 0.5 mg Documented by: Dextrose (Dextrose 50%) 25 - 50 ml IV UD PRN; Protocol PRN Reason: Hypoglycemia Protocol Stop: 10/25/19 10:29 Enoxaparin Sodium (Lovenox) 40 mg SQ DAILY BRIANNA Stop: 10/14/19 08:59 Last Admin: 09/27/19 08:31 Dose: 40 mg Documented by: Fentanyl Citrate (Fentanyl Citrate) 25 mcg IV Q15M PRN PRN Reason: Pain Stop: 10/09/19 17:18 Last Admin: 09/27/19 02:46 Dose: 25 mcg Documented by: Glucagon (Glucagen) 1 mg IM UD PRN; Protocol PRN Reason: Hypoglycemia Protocol Stop: 10/25/19 10:29 Glucose (Glucose 40%) 15 - 30 gm PO UD PRN; Protocol PRN Reason: Hypoglycemia Protocol Stop: 10/25/19 10:29 Glucose (Dex4 Glucose) 4 - 8 tabs PO UD PRN; Protocol PRN Reason: Hypoglycemia Protocol Stop: 10/25/19 10:29 Folic Acid 1 mg/ Syringe 10 mls @ 5 mls/min IV Q24H BRIANNA Stop: 10/15/19 11:59 Last Admin: 09/26/19 12:25 Dose: 5 mls/min Documented by: Lacosamide 100 mg/ Sodium (Chloride) 60 mls @ 120 mls/hr IV Q12 BRIANNA Stop: 10/21/19 20:59 Last Admin: 09/27/19 09:50 Dose: 120 mls/hr Documented by: Thiamine HCl 200 mg/ Sodium (Chloride) 52 mls @ 208 mls/hr IV QAM BRIANNA Stop: 10/23/19 08:59 Last Admin: 09/27/19 08:27 Dose: 208 mls/hr Documented by: Dexamethasone Sodium Phosphate (20 mg/ Dextrose) 30 mls @ 50 mls/hr IV DAILY BRIANNA Stop: 09/29/19 09:35 Last Admin: 09/27/19 08:25 Dose: 0.8 mls/min Documented by: Dexamethasone Sodium Phosphate (10 mg/ Syringe) 2.5 mls @ 1 mls/min IV Q24H [facility] Stop: 10/04/19 09:03 Dexmedetomidine HCl 400 mcg/ (Sodium Chloride) 100 mls @ 29.288 mls/hr IV .Q3H25M [facility]; Protocol Stop: 10/01/19 04:29 Last Admin: 09/27/19 08:25 Dose: 1.5 mcg/kg/hr, 29.3 mls/hr Documented by: Furosemide 40 mg/ Syringe 4 mls @ 4 mls/min IV DAILY [facility] Stop: 10/28/19 08:59 Insulin Aspart (Novolog Flexpen) 0 units SC Q6 [facility] Stop: 10/25/19 11:59 Last Admin: 09/27/19 06:29 Dose: Not Given Documented by: Metoprolol Tartrate (Lopressor) 12.5 mg PO Q8 [facility] Stop: 10/22/19 13:59 Last Admin: 09/27/19 06:28 Dose: 12.5 mg Documented by: Miscellaneous (Carbohydrates For Hypoglycemia) 15 - 30 gm PO UD PRN PRN Reason: Hypoglycemia Treatment Stop: 10/25/19 10:29 Nutritional Formula (Peptamen Intense Vhp 1.0 Siva) 1,000 ml OG UD [facility]; Protocol Stop: 10/19/19 10:44 Last Admin: 09/26/19 10:54 Dose: 1,000 ml Documented by: Olanzapine (Zyprexa Zydis Od) 10 mg PO QAM [facility] Stop: 10/25/19 08:59 Last Admin: 09/27/19 08:32 Dose: 10 mg Documented by: Paroxetine HCl (Paxil) 40 mg PO QAM [facility] Stop: 10/21/19 08:59 Last Admin: 09/27/19 08:32 Dose: 40 mg Documented by: Propofol (Diprivan Bolus From Bag) 20 mg IV Q5M PRN PRN Reason: Sedation Stop: 09/28/19 17:17 Last Admin: 09/26/19 08:23 Dose: 20 mg Documented by: Resident Activity Tracking Resident Involvement: Resident Care Provided Care Provided: Adult Hospital Medicine
[2019-09-27] MEDS: FOLIC ACID 1 MG in SYRINGE 9.8 ML IV SCH (12:18)
[2019-09-27] MEDS: PEPTAMEN INTENSE VHP 1.0 CAL 1,000 ML BAG OG SCH (18:04)
[2019-09-28] MEDS: DEXMEDETOMIDINE HCL 400 MCG in 0.9 % SODIUM CHLORIDE 96 ML IV SCH (03:44)
[2019-09-28 04:54] LABS: Basophils # (auto) 0.01 K/uL (0-0.2); Hematocrit (blood only) 34.9 % (37-47); Hemoglobin 11.4 g/dL (12.0-16.0); Immature Granulocytes # (auto) 0.25 K/uL (0.00-0.02); Immature Granulocytes % (auto) 1.2 %; Lymphocytes % (auto) 9.4 %; Mean Corpuscular Hemoglobin 34.5 pg (25-34); Mean Corpuscular Hgb Conc 32.7 g/dL (32-36); Mean Corpuscular Volume 105.8 fL (80-100); Mean Platelet Volume 10.4 fL (7.4-10.4); Monocytes # (auto) 1.54 K/uL (0.11-0.59); Monocytes % (auto) 7.6 %; Neutrophils % (auto) 81.8 %; Platelet Count 470 K/uL (130-400); RDW Coefficient of Variation 13.2 % (11.5-14.5); RDW Standard Deviation 49.8 fL (36.4-46.3)
[2019-09-28 05:16] LABS: Albumin Level 2.2 gm/dl (3.4-5.0); BUN Creatinine Ratio 69.3 (10-20); Calcium 9.2 mg/dl (8.5-10.1); Creatinine Clr Calc Pharmacy 128.8 ml/min; Est GFR (African American) 127.1; Est GFR (Non-African American) 109.6; Potassium 3.4 mmol/L (3.5-5.1)
[2019-09-28 05:18] LABS: Albumin Globulin Ratio 0.5 (0.9-2); Bilirubin,Total 0.6 mg/dl (0.2-1); Globulin 4.4 gm/dl (2.5-4.0); Total Protein 6.6 gm/dl (6.4-8.2)
[2019-09-28] MEDS ORDERED: POTASSIUM CHLORIDE 20 MEQ/15 ML UDC PO STA (05:35)
[2019-09-28] MEDS: METOPROLOL TARTRATE 25 MG TAB PO SCH ×3 (06:15→21:25)
[2019-09-28] MEDS: INSULIN ASPART 100 UNITS/ML 3 ML PEN SC SCH ×4 (06:16→18:13)
[2019-09-28] MEDS: clonazePAM 0.5 MG TAB PO SCH ×2 (07:51→20:14)
[2019-09-28] MEDS: OLANZAPINE ZYDIS 10 MG ORALLY DIS. TAB PO SCH (07:52)
[2019-09-28] MEDS: DEXAMETHASONE SOD PHOSPHATE 20 MG in DEXTROSE 5% 25 ML IV SCH (07:52)
[2019-09-28] MEDS: THIAMINE HCL 200 MG in SODIUM CHLORIDE 0.9% 50 ML IV SCH (07:54)
--- NOTE | 2019-09-28 07:54 | XRay Report ---
XR chest 1V portable CLINICAL HISTORY: hypoxemia COMPARISON STUDY: Chest CT September 20, 2019. Chest radiograph September 26, 2019. FINDINGS: The feeding tube is below the lower aspect of the image but at least within the body of the stomach. Tracheostomy tube is in place. Cardiomediastinal silhouette is stable. There is no pneumoth orax. Probable small right pleural effusion is noted. Extensive bilateral airspace opacities and inte rstitial thickening have progressed since chest radiograph September 26, 2019. IMPRESSION: 1. Progression of bilateral airspace opacities and interstitial thickening which may reflect pneumoni a, pulmonary edema or ARDS. 2. Tracheostomy tube in place. 3. No pneumothorax. ACT 112: Negative or not required by law. Electronically signed by: Arpan Cornejo M.D. 09/28/2019 7:53 AM
[2019-09-28] MEDS: ENOXAPARIN INJ 40 MG/0.4 ML SYR SQ SCH (07:57)
[2019-09-28] MEDS: PARoxetine HCL 20 MG TAB PO SCH (07:58)
--- NOTE | 2019-09-28 08:13 | Critical Care Progress Note ---
Date of Service September 28, 2019 Assessment & Plan (1) Admitted to intensive care unit: Reason Critically Ill: 59-year-old female presenting as outside hospital transfer for acute encephalopathy, suspected DTs from alcohol withdrawal, history of seizure 6 months ago not on any medication, hypoxic respiratory failure requiring, mechanically ventilated, COVID-19 ruled out 24-hour events: Patient has been on trach collar for the last 24 hours and seems to be tolerating it well. Precedex has been weaned off. She is being maintained on Zyprexa and clonazepam. Difficulty sleeping last night with increased periods of agitation. Recommendations: Neuro -her agitated delirium continues to show some mild improvement. Continue Zyprexa and clonazepam. We will add low-dose Ambien at night to try and facilitate sleep-wake cycles. Discussed with ICU nurse and will try and get her out of bed to chair and working with physical therapy and Occupational Therapy today. Hopefully physical activity will improve her sleep-wake cycles. Continue to reorient. We will work on weaning her benzodiazepine to off. Cardiac - Elevated troponin/NSTEMI/SVTpatient initially presented with SVT with HR 150s, converted to sinus rhythm with 10 mg IV metoprolol. Continue oral metoprolol. She remains tachycardic but appears to be in sinus currently. Will need to restart her lipid-lowering agent and aspirin at some point. HD stable. Respiratory -patient has had 2 negative COVID tests. She has pulmonary infiltrates. Bronchoscopy x2 show no significant organisms or growth to date from a respiratory standpoint. I feel she may be suffering from late-phase ARDS possibly due to aspiration pneumonia or potential nonpulmonary etiology. 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 She is status post percutaneous dilatation of tracheostomy performed 09/25/2019. Continue trach collar trials as tolerated. If she does well, could consider downsizing the trach or transitioning to a fenestrated trach sometime next week. Okay to deflate the cuff on the tracheostomy for potential swallow studies and to see how she does breathing around the tube and potentially facilitate speech. GI -right upper quadrant ultrasound from the showed steatohepatitis as well as trace gallbladder sludge. AST and alk phos increasing and GGT elevated. HIDA for acalculous cholecystitis was ordered, however due to staffing issues this was not done and cannot likely be accomplished until early next week. As her fever curve is resolved and mental status is better, I think it is reasonable to hold off for now. Could consider swallow evaluation within the next few days depending on how she does. RENAL/LYTES -serum creatinine holding however x-ray looks slightly worse today. We will go back to Lasix every 8 hours 40 mg and follow kidney function and electrolytes as well as chest x-ray in the morning. -no current issues ENDO - TSH within normal limits No history of diabetes ICU hyperglycemic protocol HEME - H&H stable, monitor. No evidence of DVT on surveillance scans ID now afebrile now although slight increase in white blood cell count today. She is on Decadron for late-phase ARDS. Cultures of all been negative. She received 3 days of Zosyn, 2 days of a azithromycin, and a few days of Rocephin and 7 days of cefepime. She completed a full course of doxycycline. Lyme studies were negative. Lumbar puncture and pleural fluid unrevealing. Antibiotics are currently discontinued and are monitoring the patient clinically LINES/IV ACCESS - PIV's, tracheostomy tube, Baldwin catheter, nasogastric feeding tube DVT PROPHYLAXIS - SCDs, Lovenox Disposition: Discussed with case management last week and referrals have been made to the long-term acute care facilities near [place] as the patient resides in [place]. She has been medically accepted by the facility but we have not yet been able to submit insurance authorization. Case management should submit request to insurance company for authorization on Sunday. If the patient continues to do well on trach collar trials, could consider downgrade out of the intensive care unit in the next day or so Please note the above document was generated using voice recognition software. It may contain grammatical, syntax or spelling errors. (2) NSTEMI (non-ST elevated myocardial infarction): (3) Elevated LFTs: (4) SVT (supraventricular tachycardia): (5) Sepsis with acute hypoxic respiratory failure: Admission and Anticipated Discharge Date Admission Date: September 14, 2019 Subjective Patient seen and examined. EMR reviewed. Discussed with critical care nurse at bedside. The patient continues to make slow and steady progress. She has been maintained on trach collar at 40%. She is much more alert and coherent today and is able to follow commands and mouth some responses to questions. She denies any pain or shortness of breath. She continues to be somewhat impulsive with intermittent periods of agitation. Review of Systems Review of Systems: All systems reviewed & are unremarkable except as noted in HPI & below Physical Exam Constitutional: well developed; not ill appearing Eyes: PERRL Neck: trachea midline, no thyromegaly Tracheostomy site clean dry and intact. Respiratory: Coarse rhonchi bilaterally without wheezing. Cardiovascular: Rate/Rhythm: + tachycardic Heart Sounds: normal S1 and normal S2; no murmur Gastrointestinal (Abdomen): Inspection/Auscultation: abdomen normal to inspection Percussion/Palpation: abdomen nontender Skin: no rashes, warm and dry Results & Data Results & Data ([facility]) Vital Signs (Past 12 Hours) Vital Signs Temp Pulse BP Pulse Ox 09/28/19 07:02 36.4 C L 72 145/88 H 100 09/28/19 07:00 36.4 C L 71 96 09/28/19 06:21 36.4 C L 74 131/64 99 09/28/19 06:03 36.3 C L 73 85/75 L 95 09/28/19 06:00 36.3 C L 61 97 09/28/19 05:03 36.2 C L 64 140/85 97 09/28/19 05:00 36.2 C L 71 09/28/19 04:03 35.5 C L 64 140/78 09/28/19 04:00 36.0 C L 58 L 89 L 09/28/19 03:43 36.2 C L 55 L 165/84 H 92 09/28/19 03:03 36.4 C L 66 149/102 H 90 09/28/19 03:00 36.4 C L 63 91 09/28/19 02:47 36.3 C L 65 138/68 91 09/28/19 02:04 36.3 C L 69 132/92 86 L 09/28/19 02:00 36.6 C 67 90 09/28/19 01:03 36.7 C 65 143/74 H 91 09/28/19 01:00 36.7 C 65 92 09/28/19 00:02 36.9 C 61 141/81 H 93 09/28/19 00:00 37.0 C 66 93 09/27/19 23:00 37.1 C 64 95 09/27/19 22:00 37.1 C 95 07/20 21:02 67 117/83 94 09/27/19 21:00 65 93 Laboratory Results 09/28/19 04:35 09/28/19 04:35 Diagnostic Findings Chest x-ray today was independently reviewed. There is worsening of the interstitial infiltrates on the left with stable process on the right. No significant effusion. Coding Level of Care Code 31940 Subseq [facility] 3 Diagnoses Admitted to intensive care unit Z78.9 NSTEMI (non-ST elevated myocardial infarction) I21.4 Elevated LFTs R79.89 SVT (supraventricular tachycardia) I47.1 Sepsis with acute hypoxic respiratory failure A41.9; R65.20; J96.01
[2019-09-28] MEDS: FUROSEMIDE 40 MG in SYRINGE 0 ML IV SCH ×3 (08:31→23:58)
[2019-09-28] MEDS ORDERED: FUROSEMIDE 40 MG in SYRINGE 0 ML IV SCH (09:00)
[2019-09-28] MEDS: LACOSAMIDE 100 MG in SODIUM CHLORIDE 0.9% 50 ML IV SCH ×2 (09:23→21:08)
[2019-09-28] MEDS: FOLIC ACID 1 MG in SYRINGE 9.8 ML IV SCH (12:23)
--- NOTE | 2019-09-28 12:51 | Hospitalist Progress Note ---
Date of Service September 28, 2019 Assessment & Plan (1) Seizure-like activity: 59 yo F PMHx HLD, depression and anxiety, alcohol abuse admitted to ICU for acute encephalopathy, on mechanically-assisted ventilation. Encephalopathy: - Encephalopathy most likely due to delirium tremens - ammonia levels normal - Lyme IgG positive, Anaplasmosis negative - CSF Lyme not detected, CSF viral panel negative. - COVID-19 testing negative x2. - MRI w/wo performed without acute process. - EEG was not demonstrating persistent epileptiform activity - LP without clear source of infection however bloody tap. - Acyclovir discontinued as CSF without VZV, HSV. - Mentation clear today Alcohol use ds/Delirium Tremens/Agitation: - Clonazepam - continue Vimpat 100mg BID - continuing thiamine, folic acid, magnesium supplementation - continuation of Zyprexa Acute hypoxic Respiratory failure: - Care per ICU - self-extubated on 09/23, with subsequent decompensation on BiPAP and ultimately re-intubated - tracheostomy on 09/24; continues to only require trach collar support - continue Dexamethasone for concern of late phase ARDS Right sided pleural effusion - likely 2/2 fluid overload - drained with thoracentesis 09/20 with clear straw yellow fluid. Cultures negative - bronchoalveolar lavage completed on 09/23; preliminary results demonstrated scant normal abhilash - Daily lasix IV Febrile illness: - compressive atelectasis present on CXR from 09/20 - bronchoscopy performed with removal of thick bronchial washings sent for cultures. - doxycycline stopped - cefepime course completed - patient with inflammation over buttocks and perineum - Wound care consulted: addition of antifungal cream BID and PRN Elevated LFTs/Acute alcohol hepatitis: - Liver ultrasound showing Hepato-steatosis. - Hepatitis C negative - Lyme IgG positive IgM negative, anaplasmosis DNA negative; representing chronic exposure, no acute infection - doxycycline stopped Diet: Peptamen tube feeds DVT ppx: Lovenox Code Status: Full Code Admission and Anticipated Discharge Date Admission Date: September 14, 2019 Supervising Physician Co-Signing Physician Notes Resident Physician Supervision Note: I independently interviewed and examined the patient and verified the hernandez history and physical, reviewed labs and image studies, discussed the case with the resident Dr. Encinas and agree with the findings and care plan. Subjective Patient is alert this morning, continues to do well after being weaned off the precedex. Continues to non-sensically pull at tube and lines around her, requ iring the use of cloth mitts at this time. Has remained afebrile at this point. Voices no complaints. Review of Systems Review of Systems: Unobtainable due to cognitive status Physical Exam Constitutional: average body habitus and + altered mental status; no acute distress Eyes: PERRL, conjunctivae normal, anicteric sclerae Neck: normal visual inspection Respiratory: no respiratory distress, no labored breathing and no retractions Auscultation: + crackles (whole field, b/l) Cardiovascular: Rate/Rhythm: regular rate and regular rhythm Heart Sounds: no gallop, no murmur and no cardiac rub Vessels: normal peripheral pulses; no JVD Gastrointestinal (Abdomen): normal bowel sounds, soft, nontender, no hepatosplenomegaly Musculoskeletal: Extremities: no joint enlargement, no muscle atrophy and no cyanosis Skin: no rashes, warm and dry Neurologic: deep tendon reflexes 2+ bilaterally Psychiatric: Orientation: alert; + not oriented x 3 Apperance: + disheveled Insight: + poor insight Judgement: + poor judgement Lymphatic: no cervical lymphadenopathy Results & Data Results & Data ([facility]) Vital Signs (Past 12 Hours) Vital Signs Temp Pulse BP Pulse Ox 09/28/19 07:02 36.4 C L 72 145/88 H 100 09/28/19 07:00 36.4 C L 71 96 09/28/19 06:21 36.4 C L 74 131/64 99 09/28/19 06:03 36.3 C L 73 85/75 L 95 09/28/19 06:00 36.3 C L 61 97 09/28/19 05:03 36.2 C L 64 140/85 97 09/28/19 05:00 36.2 C L 71 09/28/19 04:03 35.5 C L 64 140/78 09/28/19 04:00 36.0 C L 58 L 89 L 09/28/19 03:43 36.2 C L 55 L 165/84 H 92 09/28/19 03:03 36.4 C L 66 149/102 H 90 09/28/19 03:00 36.4 C L 63 91 09/28/19 02:47 36.3 C L 65 138/68 91 09/28/19 02:04 36.3 C L 69 132/92 86 L 09/28/19 02:00 36.6 C 67 90 09/28/19 01:03 36.7 C 65 143/74 H 91 09/28/19 01:00 36.7 C 65 92 Laboratory Results 09/28/19 09/28/19 09/28/19 Range/Units 11:52 05:56 04:35 WBC 20.20 H (4.8-10.8) K/uL RBC 3.30 L (4.2-5.4) M/uL Hgb 11.4 L (12.0-16.0) g/dL Hct 34.9 L (37-47) % MCV 105.8 H (80-100) fL MCH 34.5 H (25-34) pg MCHC 32.7 (32-36) g/dL RDW Std Deviation 49.8 H (36.4-46.3) fL RDW Coeff of Elif 13.2 (11.5-14.5) % Plt Count 470 H (130-400) K/uL MPV 10.4 (7.4-10.4) fL Immature Gran % (Auto) 1.2 % Neut % (Auto) 81.8 % Lymph % (Auto) 9.4 % Geary % (Auto) 7.6 % Eos % (Auto) 0.0 % Baso % (Auto) 0.0 % Neut # (Auto) 16.50 H (1.4-6.5) K/uL Lymph # (Auto) 1.90 (1.2-3.4) K/uL Geary # (Auto) 1.54 H (0.11-0.59) K/uL Eos # (Auto) 0.00 (0-0.5) K/uL Baso # (Auto) 0.01 (0-0.2) K/uL Immature Gran # (Auto) 0.25 H (0.00-0.02) K/uL Sodium (136-145) mmol/L Potassium (3.5-5.1) mmol/L Chloride (98-107) mmol/L Carbon Dioxide (21-32) mmol/L Anion Gap (3-11) BUN (7-18) mg/dl Creatinine (0.6-1.2) mg/dl Est Cr Clr Drug Dosing ml/min Est GFR ( Amer) Est GFR (Non-Af Amer) BUN/Creatinine Ratio (10-20) Glucose (70-99) mg/dl POC Glucose 120 H 115 H (70-99) mg/dl Calcium (8.5-10.1) mg/dl Magnesium (1.8-2.4) mg/dl Total Bilirubin (0.2-1) mg/dl AST (15-37) U/L ALT (12-78) U/L Alkaline Phosphatase (45-117) U/L Total Protein (6.4-8.2) gm/dl Albumin (3.4-5.0) gm/dl Globulin (2.5-4.0) gm/dl Albumin/Globulin Ratio (0.9-2) 09/28/19 09/27/19 09/27/19 Range/Units 04:35 23:59 17:40 WBC (4.8-10.8) K/uL RBC (4.2-5.4) M/uL Hgb (12.0-16.0) g/dL Hct (37-47) % MCV (80-100) fL MCH (25-34) pg MCHC (32-36) g/dL RDW Std Deviation (36.4-46.3) fL RDW Coeff of Elif (11.5-14.5) % Plt Count (130-400) K/uL MPV (7.4-10.4) fL Immature Gran % (Auto) % Neut % (Auto) % Lymph % (Auto) % Geary % (Auto) % Eos % (Auto) % Baso % (Auto) % Neut # (Auto) (1.4-6.5) K/uL Lymph # (Auto) (1.2-3.4) K/uL Geary # (Auto) (0.11-0.59) K/uL Eos # (Auto) (0-0.5) K/uL Baso # (Auto) (0-0.2) K/uL Immature Gran # (Auto) (0.00-0.02) K/uL Sodium 142 (136-145) mmol/L Potassium 3.4 L (3.5-5.1) mmol/L Chloride 109 H (98-107) mmol/L Carbon Dioxide 28 (21-32) mmol/L Anion Gap 5.0 (3-11) BUN 33 H (7-18) mg/dl Creatinine 0.47 L (0.6-1.2) mg/dl Est Cr Clr Drug Dosing 128.8 ml/min Est GFR ( Amer) 127.1 Est GFR (Non-Af Amer) 109.6 BUN/Creatinine Ratio 69.3 H (10-20) Glucose 156 H (70-99) mg/dl POC Glucose 148 H 201 H (70-99) mg/dl Calcium 9.2 (8.5-10.1) mg/dl Magnesium 2.0 (1.8-2.4) mg/dl Total Bilirubin 0.6 (0.2-1) mg/dl AST 58 H (15-37) U/L ALT 53 (12-78) U/L Alkaline Phosphatase 522 H (45-117) U/L Total Protein 6.6 (6.4-8.2) gm/dl Albumin 2.2 L (3.4-5.0) gm/dl Globulin 4.4 H (2.5-4.0) gm/dl Albumin/Globulin Ratio 0.5 L (0.9-2) Medications Administered Current Inpatient Medications Acetaminophen (Tylenol) 650 mg PO Q4H PRN PRN Reason: Fever Stop: 10/22/19 14:33 Last Admin: 09/25/19 05:55 Dose: 650 mg Documented by: Albuterol (Duoneb) 3 ml NEB Q4R PRN PRN Reason: Shortness Of Breath Or Wheezing Stop: 10/14/19 06:59 Clonazepam (Klonopin) 0.5 mg PO HS BRIANNA Stop: 10/28/19 20:59 Dextrose (Dextrose 50%) 25 - 50 ml IV UD PRN; Protocol PRN Reason: Hypoglycemia Protocol Stop: 10/25/19 10:29 Enoxaparin Sodium (Lovenox) 40 mg SQ DAILY BRIANNA Stop: 10/14/19 08:59 Last Admin: 09/28/19 07:57 Dose: 40 mg Documented by: Glucagon (Glucagen) 1 mg IM UD PRN; Protocol PRN Reason: Hypoglycemia Protocol Stop: 10/25/19 10:29 Glucose (Glucose 40%) 15 - 30 gm PO UD PRN; Protocol PRN Reason: Hypoglycemia Protocol Stop: 10/25/19 10:29 Glucose (Dex4 Glucose) 4 - 8 tabs PO UD PRN; Protocol PRN Reason: Hypoglycemia Protocol Stop: 10/25/19 10:29 Folic Acid 1 mg/ Syringe 10 mls @ 5 mls/min IV Q24H [facility] Stop: 10/15/19 11:59 Last Admin: 09/28/19 12:23 Dose: 5 mls/min Documented by: Lacosamide 100 mg/ Sodium (Chloride) 60 mls @ 120 mls/hr IV Q12 [facility] Stop: 10/21/19 20:59 Last Admin: 09/28/19 09:23 Dose: 120 mls/hr Documented by: Thiamine HCl 200 mg/ Sodium (Chloride) 52 mls @ 208 mls/hr IV QAM [facility] Stop: 10/23/19 08:59 Last Infusion: 09/28/19 08:10 Dose: Infused Documented by: Dexamethasone Sodium Phosphate (20 mg/ Dextrose) 30 mls @ 50 mls/hr IV DAILY [facility] Stop: 09/29/19 09:35 Last Infusion: 09/28/19 08:32 Dose: Infused Documented by: Dexamethasone Sodium Phosphate (10 mg/ Syringe) 2.5 mls @ 1 mls/min IV Q24H [facility] Stop: 10/04/19 09:03 Dexmedetomidine HCl 400 mcg/ (Sodium Chloride) 100 mls @ 0 mls/hr IV .Q0M [facility]; Protocol Stop: 10/01/19 04:29 Last Titration: 09/28/19 04:15 Dose: 0 mcg/kg/hr, 0 mls/hr Documented by: Furosemide 40 mg/ Syringe 4 mls @ 4 mls/min IV Q8H [facility] Stop: 10/28/19 07:59 Last Admin: 09/28/19 08:31 Dose: Not Given Documented by: Insulin Aspart (Novolog Flexpen) 0 units SC Q6 [facility] Stop: 10/25/19 11:59 Last Admin: 09/28/19 12:24 Dose: Not Given Documented by: Metoprolol Tartrate (Lopressor) 12.5 mg PO Q8 [facility] Stop: 10/22/19 13:59 Last Admin: 09/28/19 06:15 Dose: 12.5 mg Documented by: Miscellaneous (Carbohydrates For Hypoglycemia) 15 - 30 gm PO UD PRN PRN Reason: Hypoglycemia Treatment Stop: 10/25/19 10:29 Nutritional Formula (Peptamen Intense Vhp 1.0 Siva) 1,000 ml OG UD [facility]; Protocol Stop: 10/19/19 10:44 Last Admin: 09/27/19 18:04 Dose: 1,000 ml Documented by: Olanzapine (Zyprexa Zydis Od) 10 mg PO QAM [facility] Stop: 10/25/19 08:59 Last Admin: 09/28/19 07:52 Dose: 10 mg Documented by: Paroxetine HCl (Paxil) 40 mg PO QAM [facility] Stop: 10/21/19 08:59 Last Admin: 09/28/19 07:58 Dose: 40 mg Documented by: Propofol (Diprivan Bolus From Bag) 20 mg IV Q5M PRN PRN Reason: Sedation Stop: 09/28/19 17:17 Last Admin: 09/26/19 08:23 Dose: 20 mg Documented by: Zolpidem Tartrate (Ambien) 5 mg PO [facility] Stop: 10/28/19 20:59 Resident Activity Tracking Resident Involvement: Resident Care Provided Care Provided: Adult Hospital Medicine
[2019-09-28] MEDS: PEPTAMEN INTENSE VHP 1.0 CAL 1,000 ML BAG OG SCH (15:58)
[2019-09-28] MEDS ORDERED: Nursing to Pharmacy Communication SCH (18:30)
[2019-09-28] MEDS ORDERED: ZOLPIDEM TARTRATE 5 MG TAB PO SCH (21:00)
[2019-09-29] MEDS: INSULIN ASPART 100 UNITS/ML 3 ML PEN SC SCH ×5 (00:03→23:33)
[2019-09-29 02:41] LABS: Appearance Urine Clear (Clear); Bacteria Urine Automated Negative (Negative); Bilirubin Urine Negative (Negative); Blood Urine Trace (Negative); Color Urine Yellow; Epithelial Cell Urine Auto >30 /lpf (0-5); Glucose Urine UA Negative (Negative); Ketones Urine Negative (Negative); Leukocyte Esterase Urine 2+ (Negative); Nitrite Urine Negative (Negative); Protein Urine Negative (Negative); Specific Gravity Urine 1.016 (1.000-1.030); Urobilinogen Urine Negative (Negative)
[2019-09-29 02:54] LABS: Hematocrit (blood only) 35.7 % (37-47); Hemoglobin 12.1 g/dL (12.0-16.0); Mean Corpuscular Hemoglobin 35.4 pg (25-34); Mean Corpuscular Hgb Conc 33.9 g/dL (32-36); Mean Corpuscular Volume 104.4 fL (80-100); Mean Platelet Volume 10.4 fL (7.4-10.4); Platelet Count 544 K/uL (130-400); RDW Coefficient of Variation 13.9 % (11.5-14.5); RDW Standard Deviation 52.1 fL (36.4-46.3); Red Blood Count 3.42 M/uL (4.2-5.4); White Blood Count 28.82 K/uL (4.8-10.8)
[2019-09-29 03:12] LABS: Albumin Level 2.6 gm/dl (3.4-5.0); BUN Creatinine Ratio 54.5 (10-20); Calcium 9.7 mg/dl (8.5-10.1); Creatinine Clr Calc Pharmacy 103.4 ml/min; Est GFR (African American) 121.4; Est GFR (Non-African American) 104.8; Magnesium 1.8 mg/dl (1.8-2.4); Potassium 3.3 mmol/L (3.5-5.1)
[2019-09-29 03:14] LABS: Albumin Globulin Ratio 0.6 (0.9-2); Bilirubin,Total 0.7 mg/dl (0.2-1); Globulin 4.5 gm/dl (2.5-4.0); Total Protein 7.1 gm/dl (6.4-8.2)
[2019-09-29 03:15] LABS: Basophils # (auto) 0.03 K/uL (0-0.2); Basophils % (auto) 0.1 %; Immature Granulocytes % (auto) 1.4 %; Lymphocytes # (auto) 2.65 K/uL (1.2-3.4); Lymphocytes % (auto) 9.2 %; Monocytes # (auto) 2.19 K/uL (0.11-0.59); Monocytes % (auto) 7.6 %; Neutrophils # (auto) 23.55 K/uL (1.4-6.5); Neutrophils % (auto) 81.7 %; Polychromasia 1+
[2019-09-29] MEDS ORDERED: ICU ELECTROLYTE REPLACEMENT PROTOCOL PRN (03:20)
[2019-09-29] MEDS: POTASSIUM CHLORIDE 20 MEQ/15 ML UDC NG SCH ×3 (04:12→13:11)
[2019-09-29] MEDS: DEXMEDETOMIDINE HCL 400 MCG in 0.9 % SODIUM CHLORIDE 96 ML IV SCH ×2 (05:39→05:41)
[2019-09-29] MEDS: METOPROLOL TARTRATE 25 MG TAB PO SCH ×3 (05:52→21:04)
[2019-09-29] MEDS: FUROSEMIDE 40 MG in SYRINGE 0 ML IV SCH ×3 (07:57→23:40)
[2019-09-29] MEDS: THIAMINE HCL 200 MG in SODIUM CHLORIDE 0.9% 50 ML IV SCH ×2 (07:57→21:03)
[2019-09-29] MEDS: DEXAMETHASONE SOD PHOSPHATE 20 MG in DEXTROSE 5% 25 ML IV SCH (07:57)
[2019-09-29] MEDS: OLANZAPINE ZYDIS 10 MG ORALLY DIS. TAB PO SCH (07:58)
[2019-09-29] MEDS: PARoxetine HCL 20 MG TAB PO SCH (07:58)
[2019-09-29] MEDS: ENOXAPARIN INJ 40 MG/0.4 ML SYR SQ SCH (07:58)
--- NOTE | 2019-09-29 08:14 | XRay Report ---
XR chest 1V portable HISTORY: 59 years-old Female resp failure acute respiratory failure COMPARISON: Chest radiograph 09/28/2019 TECHNIQUE: Portable AP view of the chest FINDINGS: Unchanged positioning of the tracheostomy cannula. Enteric tube courses below the diaphragm outside t he [id number]. Unchanged right hemidiaphragmatic elevation. Mild to moderate improvement of the pr eviously described left greater than right bilateral mixed interstitial and alveolar opacities. No pn eumothorax or large pleural effusion. Bones appear grossly intact. IMPRESSION: 1. Mild to moderate improvement of the previously described left greater than right mixed interstitia l and alveolar opacities. 2. No pneumothorax. 3. Unchanged positioning of the tracheostomy cannula. ACT 112: Negative or not required by law. The above report was generated using voice recognition software. It may contain grammatical, syntax o r spelling errors. Electronically signed by: Jose Patel M.D. 09/29/2019 8:13 AM
[2019-09-29] MEDS: LACOSAMIDE 100 MG in SODIUM CHLORIDE 0.9% 50 ML IV SCH ×2 (08:19→21:03)
--- NOTE | 2019-09-29 09:36 | Critical Care Progress Note ---
Date of Service September 29, 2019 Assessment & Plan (1) Admitted to intensive care unit: Reason Critically Ill: 59-year-old female presenting as outside hospital transfer for acute encephalopathy, suspected DTs from alcohol withdrawal, history of seizure 6 months ago not on any medication, hypoxic respiratory failure requiring, mechanically ventilated, COVID-19 ruled out 24-hour events: Patient has been on trach collar for the last 48 hours and seems to be tolerating it well. She is being maintained on Zyprexa and clonazepam. Difficulty sleeping last night with increased periods of agitation. Recommendations: Neuro agitated delirium continues to show some mild improvement. -Continue Zyprexa and clonazepam. -Sleep hygiene: physical therapy and Occupational Therapy today. Hopefully physical activity will improve her sleep-wake cycles. -Continue to reorient. History of depression: [place] Cardiac Elevated troponin/NSTEMI/SVTpatient initially presented with SVT with HR 150s, converted to sinus rhythm with 10 mg IV metoprolol. -Continue oral metoprolol. She remains tachycardic but appears to be in sinus currently. -Aspirin to start tomorrow -Will need to restart her lipid-lowering agent at some point. -LFTs appear to be hovering at baseline, probable fatty liver disease will start low-intensity Pravachol as the patient has a allergy listed to simvastatin tomorrow Respiratory -patient has had 2 negative COVID tests. She has pulmonary infiltrates. Bronchoscopy x2 show no significant organisms or growth to date from a respiratory standpoint. Late phase ARDS: dexamethasone and appears to be clinically stable or improving. -She is status post percutaneous dilatation of tracheostomy performed 09/25/2019. If she does well, could consider downsizing the trach, transitioning to a fenestrated trach, or decannulation sometime next week. -Okay to deflate the cuff on the tracheostomy for potential swallow studies and to see how she does breathing around the tube and poten tially facilitate speech. GI -right upper quadrant ultrasound from the showed steatohepatitis as well as trace gallbladder sludge. -AST and alk phos increasing and GGT elevated. HIDA for acalculous cholecystitis was ordered, however due to staffing issues this was not done. As her fever curve is elevated and mental status is unchanging, I think it is reas onable to now perform. RENAL/LYTES -continue diuresis. -continued Baldwin for hygiene as patient has sloughing of skin on backside see wound for further details ENDO - TSH within normal limits No history of diabetes ICU hyperglycemic protocol -Adjust to account for steroids HEME - H&H stable, monitor. No evidence of DVT on surveillance scans -Bilateral upper extremity duplex pending for source of fever ID continued fevers and now off antibiotics. -HIDA scan and if able LINES/IV ACCESS - PIV's, tracheostomy tube, Baldwin catheter, nasogastric feeding tube DVT PROPHYLAXIS - SCDs, Lovenox Disposition: Discussed with case management last week and referrals have been made to the long-term acute care facilities near [place] as the patient resides in [place]. She has been medically accepted by the facility but we have not yet been able to submit insurance authorization. Case management should submit request to insurance company for authorization on Sunday. If the patient continues to do well on trach collar trials, could consider downgrade out of the intensive care unit in the next day or so (2) NSTEMI (non-ST elevated myocardial infarction): (3) Elevated LFTs: (4) SVT (supraventricular tachycardia): (5) Sepsis with acute hypoxic respiratory failure: Admission and Anticipated Discharge Date Admission Date: September 14, 2019 Subjective Awake, follows simple commands, appears to be more oriented with at bedside. Review of Systems Review of Systems: Unobtainable due to cognitive status (ICU delirium and status post tracheostomy) Physical Exam Physical Exam: General: Awake following simple commands Skin: Warm, dry, Head: Atraumatic, no nuchal rigidity negative Burzynski sign negative Kernig's Ears, nose, mouth and throat: Tracheostomy present Cardiovascular: Normal peripheral perfusion Respiratory: no respiratory distress Gastrointestinal: Non distended Musculoskeletal: No deformity Results & Data Results & Data ([facility]) Vital Signs (Past 12 Hours) Vital Signs Temp Pulse Pulse Resp BP Pulse Ox Pulse Ox 09/29/19 09:04 38.5 C H 98 H 145/63 H 95 09/29/19 09:00 38.4 C H 101 H 97 09/29/19 08:30 38.0 C H 87 98 09/29/19 08:03 37.9 C H 94 H 145/90 H 91 09/29/19 08:00 37.9 C H 09/29/19 07:39 91 H 20 96 09/29/19 07:30 37.4 C 87 99 09/29/19 07:04 37.7 C H 81 147/107 H 100 09/29/19 07:00 37.4 C 89 99 09/29/19 06:00 37.7 C H 83 20 160/67 H 94 09/29/19 05:00 37.8 C H 101 H 30 H 135/89 97 09/29/19 04:00 37.8 C H 116 H 28 H 162/88 H 98 09/29/19 03:00 38.0 C H 101 H 24 160/68 H 96 09/29/19 02:00 38.1 C H 108 H 24 135/101 H 95 09/29/19 01:00 37.9 C H 93 H 20 145/95 H 98 09/29/19 00:00 37.4 C 93 H 24 158/80 H 96 09/28/19 23:00 37.9 C H 78 18 133/82 97 09/28/19 22:00 37.7 C H 85 18 152/84 H 99 Coding Level of Care Code 20558 Subseq Hosp Care Lvl 3 Diagnoses Admitted to intensive care unit Z78.9 NSTEMI (non-ST elevated myocardial infarction) I21.4 Elevated LFTs R79.89 SVT (supraventricular tachycardia) I47.1 Sepsis with acute hypoxic respiratory failure A41.9; R65.20; J96.01 Time Spent (min) 55
--- NOTE | 2019-09-29 12:58 | Ultrasound Report ---
US venous doppler UE BI HISTORY: 59 years-old Female r/o dvt pain and swelling of the bilateral upper extremities COMPARISON: Chest radiograph 09/29/2019 TECHNIQUE: Multiple real-time sonographic images of the bilateral upper extremity deep venous structu res were obtained assessing grayscale appearance, color and spectral flow. FINDINGS: RIGHT: Normal flow and phasicity of the right upper extremity deep venous structures. Within the mid and dis deangelo portions of the cephalic vein there is occlusive superficial venous thrombosis adjacent to the IV catheter which is several centimeters in length. LEFT: Normal flow and phasicity of the left upper extremity deep venous structures. IMPRESSION: 1. No sonographic evidence of deep venous thrombosis. 2. Superficial venous thrombus of the right cephalic vein. ACT 112: Negative or not required by law. The above report was generated using voice recognition software. It may contain grammatical, syntax o r spelling errors. Electronically signed by: Jose Patel M.D. 09/29/2019 12:57 PM
[2019-09-29] MEDS: FOLIC ACID 1 MG in SYRINGE 9.8 ML IV SCH (13:11)
[2019-09-29] MEDS: PEPTAMEN INTENSE VHP 1.0 CAL 1,000 ML BAG OG SCH (16:56)
[2019-09-29] MEDS: PRAVASTATIN SOD 10 MG TAB PO SCH (16:57)
--- NOTE | 2019-09-29 17:57 | Hospitalist Progress Note ---
Date of Service September 29, 2019 Assessment & Plan (1) Seizure-like activity: 59 yo F PMHx HLD, depression and anxiety, alcohol abuse admitted to ICU for acute encephalopathy initially requiring mechanically-assisted ventilation now with trach. Encephalopathy-improving - Encephalopathy most likely due to delirium tremens - ammonia levels normal - Lyme IgG positive, Anaplasmosis negative - CSF Lyme not detected, CSF viral panel negative. - COVID-19 testing negative x2. - MRI w/wo performed without acute process. - EEG was not demonstrating persistent epileptiform activity - LP without clear source of infection however bloody tap. - Acyclovir discontinued as CSF without VZV, HSV. - continue Vimpat 100mg BID - continuing thiamine 200 bid IV, folic acid 1mg IV, magnesium 400 PO supplementation - continuation of Zyprexa, weaning clonazepam, ambien HS Alcohol use ds/Delirium Tremens: - previously completed course of thiamine, however will continue in the setting of continued concern for DTs with altered mental status - previously trialed on phenobarbital without improvement in presumed alcohol withdrawal symptoms -accepted to LT[facility] in [place] on d/c Acute hypoxic Respiratory failure: - Care per ICU - self-extubated on 09/23, with subsequent decompensation on BiPAP and ultimately re-intubated - tracheostomy on 09/24; continues to only require trach collar support. Consider downsizing the trach or transition to fenestrated trach or decannulation sometime next week - continue Dexamethasone for concern of late phase ARDS Right sided pleural effusion - likely 2/2 fluid overload - drained with thoracentesis 09/20 with clear straw yellow fluid. Cultures negative - bronchoalveolar lavage completed on 09/23; preliminary results demonstrated scant normal abhilash Febrile illness: -With leukocytosis but also receiving high dose steroids - 09/28 CXR- Mild to moderate improvement of the previously described left greater than right mixed interstitial and alveolar opacities -09/28 Venous Doppler: No sonographic evidence of deep venous thrombosis -UA showing trace blood, 2+ LE, 5-10 WBC, >30 epithelial cell. Negative nitrite, neg bacteria - HIDA for acalculous cholecystitis pending - bronchoscopy performed with removal of thick bronchial washings- no significant organisms or growth to date - doxycycline stopped. cefepime course completed. Now off antibiotics - patient with inflammation over buttocks and perineum - Wound care consulted: addition of antifungal cream BID and PRN Elevated LFT/GGT/Acute alcohol hepatitis: -AST and alk phos increasing and GGT elevated - Liver ultrasound showing Hepato-steatosis, trace gallbladder sludge - Hepatitis C negative - Lyme IgG positive IgM negative, anaplasmosis DNA negative; representing chronic exposure, no acute infection - doxycycline stopped - HIDA for acalculous cholecystitis ordered Elevated troponin/NSTEMI/SVT -patient initially presented with SVT with HR 150s -cont po metoprolol 12.5 mg TID. Will start low-intensity Pravachol and ASA tomorrow Depression -cont paxil 40mg Diet: Peptamen tube feeds DVT ppx: Lovenox Code Status: Full Code Dispo: ICU. Discussed with CM and pt has been medically accepted by the LTACF in [place] but we have not yet been able to submit insurance authorization. PT/OT pending. Admission and Anticipated Discharge Date Admission Date: September 14, 2019 Supervising Physician Co-Signing Physician Notes Resident Physician Supervision Note & Attestation: Pt seen/examined, chart reviewed, care plan d/w PGY3 Dr Avery Mirza. I agree w/ the hernandez components of his documentation. Unfortunate 59yo female with acute hypoxic respiratory failure requiring prolonged intubation/mech ventilation with subsequent trach placement. 2nd to ARDS. Course complicated by seizures, presumed alcohol withdrawal/DTs, metabolic encephalopathy, and ongoing fevers. In fact, patient has had fevers dating back to her admission date. Exact cause of fever uncertain - has had extensive work-up for such including tickborne disease testing, COVID-19 x 2, LP, CTs, etc. Exam - gen - awake, following commands although some element of confusion while doing so eyes - PERRL mouth - no thrush neck - trach in place heart - RRR, s1 s2 lungs - mild rales bases abd - soft NT ND no HSM ext - no edema neuro - increased tone b/l LEs?; strength near 5/5 upper and lower exts, but does have some proximal muscle weakness. skin - PICC line RUE clean A/P: 1. ongoing fevers - to check with micro to see if bronch fluid is still available from 09/23 bronch; if yes - would send COVID PCR from bronch specimen. If not available consider COVID serum IgG level. Consider CT abd/pelvis to look for abscess, other cause of fever. 2. ?critical illness myopathy - check CPK am. 3. metabolic encephalopathy, abnormal neuro exam - ask neuro to reconsult; repeat MRI brain? would increase thiamine to 200mg BID. 4. acute hypoxic resp failure s/p trach - defer management to critical care. 5. DVT proph - lovenox. Denilson Dooley MD Subjective 59-year-old female found in chair this a.m. and no acute distress. Overnight reports that patient was agitated. Did not sleep well. Still having ongoing 2- 3 loose bowel movements. Ongoing cough. Patient still not able to express herself to me this morning. Weaned off the Precedex. Febrile this a.m. On trach collar satting 92 FiO2 30. Patient with no other acute concerns or complaints. Review of Systems Review of Systems: All systems reviewed & are unremarkable except as noted in HPI & below Physical Exam Constitutional: + altered mental status (Awake following simple commands) Eyes: PERRL, conjunctivae normal, anicteric sclerae ENMT: Mouth: + oropharynx abnormality (Tracheostomy ) Respiratory: normal respiratory effort; no respiratory distress Auscultation: + crackles (b/l) Cardiovascular: RRR, no murmur, no edema Gastrointestinal (Abdomen): normal bowel sounds, soft, nontender, no hepatosp lenomegaly Skin: no rashes, warm and dry Psychiatric: Orientation: + not oriented x 3 Results & Data Results & Data ([facility]) Vital Signs (Past 12 Hours) Vital Signs Temp Pulse Pulse Resp BP Pulse Ox Pulse Ox 09/29/19 15:30 37.8 C H 82 92 09/29/19 15:04 37.9 C H 91 H 117/90 91 09/29/19 15:00 37.9 C H 89 90 09/29/19 14:30 37.9 C H 90 92 09/29/19 14:04 37.9 C H 170 H 141/83 H 90 09/29/19 14:00 37.9 C H 94 H 90 09/29/19 13:30 37.9 C H 89 93 09/29/19 13:03 37.9 C H 87 138/78 93 09/29/19 13:00 37.9 C H 95 H 94 09/29/19 12:00 38.1 C H 94 H 99 09/29/19 11:23 38.5 C H 99 H 138/92 95 09/29/19 11:14 38.5 C H 97 H 132/89 98 09/29/19 11:00 38.5 C H 87 94 09/29/19 10:03 38.8 C H 102 H 129/79 90 09/29/19 10:00 38.8 C H 97 H 92 09/29/19 09:57 99 H 22 94 09/29/19 09:05 38.4 C H 100 H 95 09/29/19 09:04 38.5 C H 98 H 145/63 H 95 09/29/19 09:00 38.4 C H 101 H 97 09/29/19 08:30 38.0 C H 87 98 09/29/19 08:03 37.9 C H 94 H 145/90 H 91 09/29/19 08:00 37.9 C H 09/29/19 07:39 91 H 20 96 09/29/19 07:30 37.4 C 87 99 09/29/19 07:04 37.7 C H 81 147/107 H 100 09/29/19 07:00 37.4 C 89 99 09/29/19 06:00 37.7 C H 83 20 160/67 H 94 Laboratory Results Laboratory Results - last 24 hr 09/28/19 09/28/19 09/29/19 18:05 23:42 02:25 WBC RBC Hgb Hct MCV MCH MCHC RDW Std Deviation RDW Coeff of Elif Plt Count MPV Immature Gran % (Auto) Neut % (Auto) Lymph % (Auto) [place] % (Auto) Eos % (Auto) Baso % (Auto) Neut # (Auto) Lymph # (Auto) [place] # (Auto) Eos # (Auto) Baso # (Auto) Immature Gran # (Auto) Polychromasia Sodium Potassium Chloride Carbon Dioxide Anion Gap BUN Creatinine Est Cr Clr Drug Dosing Est GFR ( Amer) Est GFR (Non-Af Amer) BUN/Creatinine Ratio Glucose POC Glucose 152 H 103 H Calcium Magnesium Total Bilirubin AST ALT Alkaline Phosphatase Total Protein Albumin Globulin Albumin/Globulin Ratio Procalcitonin Urine Color Yellow Urine Appearance Clear Urine pH 5.0 Ur Specific [place] 1.016 Urine Protein Negative Urine Glucose (UA) Negative Urine Ketones Negative Urine Blood Trace H Urine Nitrite Negative Urine Bilirubin Negative Urine Urobilinogen Negative Ur Leukocyte Esterase 2+ H Urine WBC (Auto) 5-10 H Urine RBC (Auto) 10-30 H U Hyaline Cast (Auto) 1-5 U Epithel Cells (Auto) >30 H Urine Bacteria (Auto) Negative Ur Renal Epithelial Cell Not Reportable 09/29/19 09/29/19 09/29/19 02:41 02:41 02:41 WBC 28.82 H RBC 3.42 L Hgb 12.1 Hct 35.7 L MCV 104.4 H MCH 35.4 H MCHC 33.9 RDW Std Deviation 52.1 H RDW Coeff of Elif 13.9 Plt Count 544 H MPV 10.4 Immature Gran % (Auto) 1.4 Neut % (Auto) 81.7 Lymph % (Auto) 9.2 [place] % (Auto) 7.6 Eos % (Auto) 0.0 Baso % (Auto) 0.1 Neut # (Auto) 23.55 H Lymph # (Auto) 2.65 [place] # (Auto) 2.19 H Eos # (Auto) 0.00 Baso # (Auto) 0.03 Immature Gran # (Auto) 0.40 H Polychromasia 1+ Sodium 144 Potassium 3.3 L Chloride 107 Carbon Dioxide 30 Anion Gap 7.0 BUN 30 H Creatinine 0.54 L Est Cr Clr Drug Dosing 103.4 Est GFR ( Amer) 121.4 Est GFR (Non-Af Amer) 104.8 BUN/Creatinine Ratio 54.5 H Glucose 104 H POC Glucose Calcium 9.7 Magnesium 1.8 Total Bilirubin 0.7 AST 84 H ALT 73 Alkaline Phosphatase 551 H Total Protein 7.1 Albumin 2.6 L Globulin 4.5 H Albumin/Globulin Ratio 0.6 L Procalcitonin 0.59 H Urine Color Urine Appearance Urine pH Ur Specific [place] Urine Protein Urine Glucose (UA) Urine Ketones Urine Blood Urine Nitrite Urine Bilirubin Urine Urobilinogen Ur Leukocyte Esterase Urine WBC (Auto) Urine RBC (Auto) U Hyaline Cast (Auto) U Epithel Cells (Auto) Urine Bacteria (Auto) Ur Renal Epithelial Cell 09/29/19 09/29/19 09/29/19 05:54 12:33 16:52 WBC RBC Hgb Hct MCV MCH MCHC RDW Std Deviation RDW Coeff of Elif Plt Count MPV Immature Gran % (Auto) Neut % (Auto) Lymph % (Auto) [place] % (Auto) Eos % (Auto) Baso % (Auto) Neut # (Auto) Lymph # (Auto) [place] # (Auto) Eos # (Auto) Baso # (Auto) Immature Gran # (Auto) Polychromasia Sodium Potassium 3.7 Chloride Carbon Dioxide Anion Gap BUN Creatinine Est Cr Clr Drug Dosing Est GFR ( Amer) Est GFR (Non-Af Amer) BUN/Creatinine Ratio Glucose POC Glucose 97 161 H Calcium Magnesium Total Bilirubin AST ALT Alkaline Phosphatase Total Protein Albumin Globulin Albumin/Globulin Ratio Procalcitonin Urine Color Urine Appearance Urine pH Ur Specific [place] Urine Protein Urine Glucose (UA) Urine Ketones Urine Blood Urine Nitrite Urine Bilirubin Urine Urobilinogen Ur Leukocyte Esterase Urine WBC (Auto) Urine RBC (Auto) U Hyaline Cast (Auto) U Epithel Cells (Auto) Urine Bacteria (Auto) Ur Renal Epithelial Cell Medications Administered Current Inpatient Medications Acetaminophen (Tylenol) 650 mg PO Q4H PRN PRN Reason: Fever Stop: 10/22/19 14:33 Last Admin: 09/25/19 05:55 Dose: 650 mg Documented by: Albuterol (Duoneb) 3 ml NEB Q4R PRN PRN Reason: Shortness Of Breath Or Wheezing Stop: 10/14/19 06:59 Aspirin (Ecotrin Ectab) 81 mg PO QAM BRIANNA Stop: 10/30/19 08:59 Clonazepam (Klonopin) 0.5 mg PO HS [facility] Stop: 10/28/19 20:59 Last Admin: 09/28/19 20:14 Dose: 0.5 mg Documented by: Dextrose (Dextrose 50%) 25 - 50 ml IV UD PRN; Protocol PRN Reason: Hypoglycemia Protocol Stop: 10/25/19 10:29 Enoxaparin Sodium (Lovenox) 40 mg SQ DAILY BRIANNA Stop: 10/14/19 08:59 Last Admin: 09/29/19 07:58 Dose: 40 mg Documented by: Glucagon (Glucagen) 1 mg IM UD PRN; Protocol PRN Reason: Hypoglycemia Protocol Stop: 10/25/19 10:29 Glucose (Glucose 40%) 15 - 30 gm PO UD PRN; Protocol PRN Reason: Hypoglycemia Protocol Stop: 10/25/19 10:29 Glucose (Dex4 Glucose) 4 - 8 tabs PO UD PRN; Protocol PRN Reason: Hypoglycemia Protocol Stop: 10/25/19 10:29 Folic Acid 1 mg/ Syringe 10 mls @ 5 mls/min IV Q24H BRIANNA Stop: 10/15/19 11:59 Last Admin: 09/29/19 13:11 Dose: 5 mls/min Documented by: Lacosamide 100 mg/ Sodium (Chloride) 60 mls @ 120 mls/hr IV Q12 BRIANNA Stop: 10/21/19 20:59 Last Infusion: 09/29/19 08:50 Dose: Infused Documented by: Dexamethasone Sodium Phosphate (10 mg/ Syringe) 2.5 mls @ 1 mls/min IV Q24H BRIANNA Stop: 10/04/19 09:03 Furosemide 40 mg/ Syringe 4 mls @ 4 mls/min IV Q8H [facility] Stop: 10/28/19 07:59 Last Admin: 09/29/19 16:54 Dose: 4 mls/min Documented by: Thiamine HCl 200 mg/ Sodium (Chloride) 52 mls @ 208 mls/hr IV BID [facility] Stop: 10/29/19 20:59 Insulin Aspart (Novolog Flexpen) 0 units SC Q6 [facility] Stop: 10/25/19 11:59 Last Admin: 09/29/19 13:08 Dose: 1 units Documented by: Magnesium Oxide (Mag-Ox) 400 mg PO QPM [facility] Stop: 10/29/19 20:59 Melatonin (Melatonin) 6 mg PO HS [facility] Stop: 10/29/19 20:59 Metoprolol Tartrate (Lopressor) 12.5 mg PO Q8 [facility] Stop: 10/22/19 13:59 Last Admin: 09/29/19 13:11 Dose: 12.5 mg Documented by: Miscellaneous (Carbohydrates For Hypoglycemia) 15 - 30 gm PO UD PRN PRN Reason: Hypoglycemia Treatment Stop: 10/25/19 10:29 Miscellaneous (Icu Electrolyte Replacement Protocol) 1 ea N/A UD PRN PRN Reason: for e-lyte repletion Stop: 10/06/19 03:19 Nutritional Formula (Peptamen Intense Vhp 1.0 Siva) 1,000 ml OG UD [facility]; Protocol Stop: 10/19/19 10:44 Last Admin: 09/29/19 16:56 Dose: 1,000 ml Documented by: Olanzapine (Zyprexa Zydis Od) 10 mg PO QAM [facility] Stop: 10/25/19 08:59 Last Admin: 09/29/19 07:58 Dose: 10 mg Documented by: Paroxetine HCl (Paxil) 20 mg PO QAM [facility] Stop: 10/30/19 08:59 Pravastatin Sodium (Pravachol) 10 mg PO DAILY@1700 [facility] Stop: 10/29/19 16:59 Last Admin: 09/29/19 16:57 Dose: 10 mg Documented by: Zinc Sulfate (Zinc Sulfate) 220 mg PO QPM [facility] Stop: 10/29/19 20:59 Resident Activity Tracking Resident Involvement: Resident Care Provided Care Provided: Adult [facility] Medicine
[2019-09-29] MEDS: clonazePAM 0.5 MG TAB PO SCH (19:18)
[2019-09-29] MEDS: MELATONIN 3 MG TAB PO SCH (21:03)
[2019-09-29] MEDS: ZINC SULFATE 220 MG CAPSULE PO SCH (21:04)
[2019-09-29] MEDS: MAGNESIUM OXIDE 400 MG TAB PO SCH (21:06)
[2019-09-29] MEDS ORDERED: SODIUM BICARBONATE 650 MG TAB PO ONE (22:00)
[2019-09-29] MEDS ORDERED: PANCREAZE (LIPASE 16,800U) CAP PO ONE (23:00)
[2019-09-30] MEDS ORDERED: POTASSIUM CHLORIDE 20 MEQ/15 ML UDC PO ONE
[2019-09-30 04:43] LABS: Hemoglobin 11.8 g/dL (12.0-16.0); Mean Corpuscular Hemoglobin 34.4 pg (25-34); Mean Corpuscular Hgb Conc 31.9 g/dL (32-36); Mean Corpuscular Volume 107.9 fL (80-100); Mean Platelet Volume 10.4 fL (7.4-10.4); Nucleated RBC # (auto) 0.03 K/uL (0-0); Nucleated RBC % (auto) 0.1 %; Platelet Count 454 K/uL (130-400); RDW Coefficient of Variation 14.1 % (11.5-14.5); RDW Standard Deviation 54.9 fL (36.4-46.3); Red Blood Count 3.43 M/uL (4.2-5.4); White Blood Count 25.38 K/uL (4.8-10.8)
[2019-09-30 05:03] LABS: Albumin Level 2.5 gm/dl (3.4-5.0); BUN Creatinine Ratio 47.7 (10-20); Basophils # (auto) 0.04 K/uL (0-0.2); Basophils % (auto) 0.2 %; Calcium 9.2 mg/dl (8.5-10.1); Creatinine Clr Calc Pharmacy 93.1 ml/min; Eosinophils # (auto) 0.03 K/uL (0-0.5); Eosinophils % (auto) 0.1 %; Est GFR (African American) 117.3; Est GFR (Non-African American) 101.2; Immature Granulocytes # (auto) 0.34 K/uL (0.00-0.02); Immature Granulocytes % (auto) 1.3 %; Lymphocytes # (auto) 3.01 K/uL (1.2-3.4); Lymphocytes % (auto) 11.9 %; Monocytes % (auto) 5.5 %; Neutrophils # (auto) 20.56 K/uL (1.4-6.5); Polychromasia 1+; Potassium 3.3 mmol/L (3.5-5.1)
[2019-09-30 05:06] LABS: Albumin Globulin Ratio 0.5 (0.9-2); Bilirubin,Total 0.8 mg/dl (0.2-1); Globulin 4.6 gm/dl (2.5-4.0); Phosphorus 3.8 mg/dl (2.5-4.9); Total Protein 7.1 gm/dl (6.4-8.2)
--- NOTE | 2019-09-30 05:11 | Billing Data ---
Date of Service September 29, 2019 Coding Level of Care Code 12981 Subseq Hosp Care Lvl 2
[2019-09-30] MEDS: POTASSIUM CHLORIDE 20 MEQ/15 ML UDC PO SCH ×3 (05:58→15:33)
[2019-09-30] MEDS: METOPROLOL TARTRATE 25 MG TAB PO SCH ×3 (05:58→20:39)
[2019-09-30] MEDS ORDERED: MAGNESIUM SULFATE / D5W 1 GM/100 ML BAG IV ONE (06:00)
[2019-09-30] MEDS: INSULIN ASPART 100 UNITS/ML 3 ML PEN SC SCH ×4 (06:03→23:09)
--- NOTE | 2019-09-30 06:22 | Electrocardiogram Report ---
Test Reason : Blood Pressure : / mmHG Vent. Rate : 093 BPM Atrial Rate : 093 BPM P-R Int : 138 ms QRS Dur : 074 ms QT Int : 412 ms P-R-T Axes : 034 063 081 degrees QTc Int : 512 ms Poor data quality, interpretation may be adversely affected Normal sinus rhythm T wave abnormality, consider anterior ischemia Prolonged QT Abnormal ECG When compared with ECG of 21-SEP-2019 06:19, T wave inversion more evident in Anterior leads Confirmed by Clemente Russo ([id number]) on 09/30/2019 6:21:50 AM Referred By: REFERRED SELF Confirmed By:Clemente Russo
--- NOTE | 2019-09-30 07:11 | XRay Report ---
XR chest 1V portable HISTORY: 59 years-old Female resp failure acute respiratory failure COMPARISON: Chest radiograph 09/29/2019 TECHNIQUE: Portable AP view of the chest FINDINGS: Unchanged tracheostomy cannula. A feeding tube is noted with distal tip fracture of the midline upper abdomen in the expected location of the distal gastric lumen. No pneumothorax or large pleural effus ion. Mixed interstitial and alveolar opacities, left greater the right redemonstrated. There is mildl y improved aeration of the right lung base. Cardiomediastinal and hilar silhouettes are unchanged. Th e bones appear grossly intact. IMPRESSION: 1. Mildly improved aeration of the right lung base with otherwise unchanged appearance of the bilater al left greater than right mixed interstitial and alveolar opacities. 2. No pneumothorax. ACT 112: Negative or not required by law. The above report was generated using voice recognition software. It may contain grammatical, syntax o r spelling errors. Electronically signed by: Jose Patel M.D. 09/30/2019 7:10 AM
--- NOTE | 2019-09-30 07:28 | XRay Report ---
ANUSHA CLINICAL HISTORY: NG tube placement COMPARISON STUDY: [facility] September 27, 2019. FINDINGS: The tip of the feeding tube projects over the pylorus. Visualized gas pattern is unremarkab le. IMPRESSION: Tip of feeding tube projects over the pylorus. ACT 112: Negative or not required by law. Electronically signed by: Arpan Cornejo M.D. 09/30/2019 7:27 AM
[2019-09-30] MEDS: FUROSEMIDE 40 MG in SYRINGE 0 ML IV SCH (08:03)
[2019-09-30] MEDS: OLANZAPINE ZYDIS 10 MG ORALLY DIS. TAB PO SCH (08:04)
[2019-09-30] MEDS: ENOXAPARIN INJ 40 MG/0.4 ML SYR SQ SCH (08:04)
[2019-09-30] MEDS: PARoxetine HCL 20 MG TAB PO SCH (08:05)
[2019-09-30] MEDS: THIAMINE HCL 200 MG in SODIUM CHLORIDE 0.9% 50 ML IV SCH ×2 (08:14→20:48)
[2019-09-30] MEDS: DEXAMETHASONE SOD PHOSPHATE 10 MG in SYRINGE 0 ML IV SCH (08:14)
[2019-09-30] MEDS: LACOSAMIDE 100 MG in SODIUM CHLORIDE 0.9% 50 ML IV SCH ×2 (08:53→20:52)
[2019-09-30] MEDS ORDERED: ASPIRIN 81 MG ECTAB PO SCH (09:00)
--- NOTE | 2019-09-30 09:05 | Critical Care Progress Note ---
Date of Service September 30, 2019 Assessment & Plan (1) Admitted to intensive care unit: Reason Critically Ill: 59-year-old female presenting as outside hospital transfer for acute encephalopathy, suspected DTs from alcohol withdrawal, history of seizure 6 months ago not on any medication, hypoxic respiratory failure requiring, mechanically ventilated, COVID-19 ruled out Recommendations: Neuro agitated delirium continues to show some mild improvement. -Continue Zyprexa and clonazepam. -Sleep hygiene: physical therapy and Occupational Therapy. Hopefully physical activity will improve her sleep-wake cycles. -Continue to reorient. History of depression: Paxil: Decreased from 40-20 for 1 week we will continue to wean as the patient has prolonged QT -Paxil scheduled to discontinue after 8 days duration Cardiac Elevated troponin/NSTEMI/SVTpatient initially presented with SVT with HR 150s, converted to sinus rhythm with 10 mg IV metoprolol. -Continue oral metoprolol. She remains tachycardic but appears to be in sinus currently. -Aspirin restarted -Will need to restart her lipid-lowering agent at some point. -LFTs appear to be hovering at baseline, probable fatty liver disease will start low-intensity Pravachol as the patient has a allergy listed to simvastatin Respiratory -patient has had 2 negative COVID tests. She has pulmonary infiltrates. Bronchoscopy x2 show no significant organisms or growth to date from a respiratory standpoint. Late phase ARDS: dexamethasone and appears to be clinically stable or improving. -She is status post percutaneous dilatation of tracheostomy performed 09/25/2019. If she does well, could consider downsizing the trach, transitioning to a fenestrated trach, or decannulation sometime next week. -Okay to deflate the cuff on the tracheostomy for potential swallow studies and to see how she does breathing around the tube and potentially facilitate speech. GI -right upper quadrant ultrasound from the showed steatohepatitis as well as trace gallbladder sludge. -AST and alk phos increasing and GGT elevated. HIDA for acalculous cholecystitis today. RENAL/LYTES -evidence of contraction: Hypernatremia hyperchloremia will discontinue diuresis -Add free water flushes to tube feeds -continued Baldwin for hygiene as patient has sloughing of skin on backside see wound for further details ENDO - TSH within normal limits No history of diabetes ICU hyperglycemic protocol -Adjust to account for steroids HEME - H&H stable, monitor. No evidence of DVT on surveillance scans -Superficial venous thrombus of the right cephalic vein -Likely provoked secondary to IV access no indication for therapeutic anticoagulation, will continue DVT prophylaxis ID continued fevers and now off antibiotics. -HIDA scan today -Superficial venous thrombus in right cephalic vein LINES/IV ACCESS - PIV's, tracheostomy tube, Baldwin catheter, nasogastric feeding tube DVT PROPHYLAXIS - SCDs, Lovenox Disposition: Discussed with case management last week and referrals have been made to the long-term acute care facilities near [place] as the patient resides in [place]. She has been medically accepted by the facility but we have not yet been able to submit insurance authorization. Will work towards utilization of Passy-Chilton valve (2) NSTEMI (non-ST elevated myocardial infarction): (3) Elevated LFTs: (4) SVT (supraventricular tachycardia): (5) Thrombosis of right cephalic vein: Admission and Anticipated Discharge Date Admission Date: September 14, 2019 Supervising Physician Co-Signing Physician Notes Update: Patient was able to be mildly sedated for HIDA scan, results of which were largely unremarkable. Blood cultures remain negative despite this she continues to have febrile illness. White blood cell count elevated however she is on high-dose steroids. We will discontinue IVs especially the right upper arm which has evidence of thrombus. Repeat blood cultures given continued febrile episodes. Place single new IV as able. No new oxygen requirement. Discontinuing Baldwin catheter. CT Noncon head to evaluate for sinusitis given indwelling course safe feeding tube Blood culture negative 09/13, 09/18, 09/20, 09/28 CSF culture negative: 09/18 Urine culture negative 09/13 Pleural fluid: Right: Negative 09/20 Bronchial washing culture right lower lobe: Negative 09/20; right upper lobe negative 09/23 Subjective No significant overnight events. Patient still febrile Review of Systems Review of Systems: Unobtainable due to cognitive status (ICU delirium) Physical Exam Physical Exam: General: Awake following simple commands Skin: Warm, dry, Head: Atraumatic, no nuchal rigidity negative Burzynski sign negative Kernig's Ears, nose, mouth and throat: Tracheostomy present Cardiovascular: Normal peripheral perfusion Respiratory: no respiratory distress Gastrointestinal: Non distended Musculoskeletal: No deformity Results & Data Results & Data ([facility]) Vital Signs (Past 12 Hours) Vital Signs Temp Pulse Resp BP Pulse Ox 09/30/19 06:04 37.8 C H 101 H 21 99/75 L 94 09/30/19 05:03 37.9 C H 95 H 34 H 142/92 H 94 09/30/19 04:03 38.0 C H 84 43 H 137/70 94 09/30/19 03:03 37.8 C H 85 28 H 131/79 97 09/30/19 02:03 38.0 C H 91 H 35 H 131/89 94 09/30/19 01:04 37.8 C H 93 H 24 150/79 H 94 09/30/19 00:03 37.8 C H 87 136/83 96 09/29/19 23:26 37.9 C H 83 130/83 93 09/29/19 22:04 38.0 C H 77 153/76 H 94 09/29/19 22:03 38.0 C H 84 149/126 H 85 L 09/29/19 21:03 37.9 C H 91 H 136/71 94 Laboratory Results 09/30/19 09/30/19 09/30/19 Range/Units 06:02 04:27 04:27 WBC 25.38 H (4.8-10.8) K/uL RBC 3.43 L (4.2-5.4) M/uL Hgb 11.8 L (12.0-16.0) g/dL Hct 37.0 (37-47) % MCV 107.9 H (80-100) fL MCH 34.4 H (25-34) pg MCHC 31.9 L (32-36) g/dL RDW Std Deviation 54.9 H (36.4-46.3) fL RDW Coeff of Elif 14.1 (11.5-14.5) % Plt Count 454 H (130-400) K/uL MPV 10.4 (7.4-10.4) fL Immature Gran % (Auto) 1.3 % Neut % (Auto) 81.0 % Lymph % (Auto) 11.9 % Crane % (Auto) 5.5 % Eos % (Auto) 0.1 % Baso % (Auto) 0.2 % Neut # (Auto) 20.56 H (1.4-6.5) K/uL Lymph # (Auto) 3.01 (1.2-3.4) K/uL Crane # (Auto) 1.40 H (0.11-0.59) K/uL Eos # (Auto) 0.03 (0-0.5) K/uL Baso # (Auto) 0.04 (0-0.2) K/uL Immature Gran # (Auto) 0.34 H (0.00-0.02) K/uL Absolute Nucleated RBC 0.03 H (0-0) K/uL Nucleated RBC % (auto) 0.1 % Polychromasia 1+ Sodium (136-145) mmol/L Potassium (3.5-5.1) mmol/L Chloride (98-107) mmol/L Carbon Dioxide (21-32) mmol/L Anion Gap (3-11) BUN (7-18) mg/dl Creatinine (0.6-1.2) mg/dl Est Cr Clr Drug Dosing ml/min Est GFR ( Amer) Est GFR (Non-Af Amer) BUN/Creatinine Ratio (10-20) Glucose (70-99) mg/dl POC Glucose 124 H (70-99) mg/dl Calcium (8.5-10.1) mg/dl Phosphorus (2.5-4.9) mg/dl Magnesium (1.8-2.4) mg/dl Total Bilirubin (0.2-1) mg/dl AST (15-37) U/L ALT (12-78) U/L Alkaline Phosphatase (45-117) U/L Total Creatine Kinase (26-192) U/L Total Protein (6.4-8.2) gm/dl Albumin (3.4-5.0) gm/dl Globulin (2.5-4.0) gm/dl Albumin/Globulin Ratio (0.9-2) Stl C. diff Tox B Gene (Neg) SARS Serology Pending 09/30/19 09/30/19 09/29/19 Range/Units 04:27 01:05 23:31 WBC (4.8-10.8) K/uL RBC (4.2-5.4) M/uL Hgb (12.0-16.0) g/dL Hct (37-47) % MCV (80-100) fL MCH (25-34) pg MCHC (32-36) g/dL RDW Std Deviation (36.4-46.3) fL RDW Coeff of Elif (11.5-14.5) % Plt Count (130-400) K/uL MPV (7.4-10.4) fL Immature Gran % (Auto) % Neut % (Auto) % Lymph % (Auto) % [place] % (Auto) % Eos % (Auto) % Baso % (Auto) % Neut # (Auto) (1.4-6.5) K/uL Lymph # (Auto) (1.2-3.4) K/uL Crane # (Auto) (0.11-0.59) K/uL Eos # (Auto) (0-0.5) K/uL Baso # (Auto) (0-0.2) K/uL Immature Gran # (Auto) (0.00-0.02) K/uL Absolute Nucleated RBC (0-0) K/uL Nucleated RBC % (auto) % Polychromasia Sodium 147 H (136-145) mmol/L Potassium 3.3 L (3.5-5.1) mmol/L Chloride 110 H (98-107) mmol/L Carbon Dioxide 28 (21-32) mmol/L Anion Gap 9.0 (3-11) BUN 29 H (7-18) mg/dl Creatinine 0.60 (0.6-1.2) mg/dl Est Cr Clr Drug Dosing 93.1 ml/min Est GFR ( Amer) 117.3 Est GFR (Non-Af Amer) 101.2 BUN/Creatinine Ratio 47.7 H (10-20) Glucose 115 H (70-99) mg/dl POC Glucose 121 H (70-99) mg/dl Calcium 9.2 (8.5-10.1) mg/dl Phosphorus 3.8 (2.5-4.9) mg/dl Magnesium 2.0 (1.8-2.4) mg/dl Total Bilirubin 0.8 (0.2-1) mg/dl AST 89 H (15-37) U/L ALT 85 H (12-78) U/L Alkaline Phosphatase 474 H (45-117) U/L Total Creatine Kinase 35 (26-192) U/L Total Protein 7.1 (6.4-8.2) gm/dl Albumin 2.5 L (3.4-5.0) gm/dl Globulin 4.6 H (2.5-4.0) gm/dl Albumin/Globulin Ratio 0.5 L (0.9-2) Stl C. diff Tox B Gene Negative Cdiff Gene (Neg) SARS Serology 09/29/19 09/29/19 09/29/19 Range/Units 17:40 16:52 12:33 WBC (4.8-10.8) K/uL RBC (4.2-5.4) M/uL Hgb (12.0-16.0) g/dL Hct (37-47) % MCV (80-100) fL MCH (25-34) pg MCHC (32-36) g/dL RDW Std Deviation (36.4-46.3) fL RDW Coeff of Elif (11.5-14.5) % Plt Count (130-400) K/uL MPV (7.4-10.4) fL Immature Gran % (Auto) % Neut % (Auto) % Lymph % (Auto) % [place] % (Auto) % Eos % (Auto) % Baso % (Auto) % Neut # (Auto) (1.4-6.5) K/uL Lymph # (Auto) (1.2-3.4) K/uL Crane # (Auto) (0.11-0.59) K/uL Eos # (Auto) (0-0.5) K/uL Baso # (Auto) (0-0.2) K/uL Immature Gran # (Auto) (0.00-0.02) K/uL Absolute Nucleated RBC (0-0) K/uL Nucleated RBC % (auto) % Polychromasia Sodium (136-145) mmol/L Potassium 3.7 (3.5-5.1) mmol/L Chloride (98-107) mmol/L Carbon Dioxide (21-32) mmol/L Anion Gap (3-11) BUN (7-18) mg/dl Creatinine (0.6-1.2) mg/dl Est Cr Clr Drug Dosing ml/min Est GFR ( Amer) Est GFR (Non-Af Amer) BUN/Creatinine Ratio (10-20) Glucose (70-99) mg/dl POC Glucose 153 H 161 H (70-99) mg/dl Calcium (8.5-10.1) mg/dl Phosphorus (2.5-4.9) mg/dl Magnesium (1.8-2.4) mg/dl Total Bilirubin (0.2-1) mg/dl AST (15-37) U/L ALT (12-78) U/L Alkaline Phosphatase (45-117) U/L Total Creatine Kinase (26-192) U/L Total Protein (6.4-8.2) gm/dl Albumin (3.4-5.0) gm/dl Globulin (2.5-4.0) gm/dl Albumin/Globulin Ratio (0.9-2) Stl C. diff Tox B Gene (Neg) SARS Serology Coding Level of Care Code 11494 Prolonged Care (int'l) Diagnoses Admitted to intensive care unit Z78.9 NSTEMI (non-ST elevated myocardial infarction) I21.4 Elevated LFTs R79.89 SVT (supraventricular tachycardia) I47.1 Thrombosis of right cephalic vein I82.611 Time Spent (min) 85 Comment I have personally spent 85 minutes of care time in the direct management of this patient. This is a life/limb threatening event. This includes time spent evaluating patient, direct bedside care, chart review, placing orders, interpretation of diagnostic studies, discussion with consultants, patient, and/or family members regarding treatment decisions, as well as other required patient management activities.
[2019-09-30] MEDS ORDERED: MoRPHine SULFATE 2 MG/ML CARP IV PRN (12:39)
[2019-09-30] MEDS ORDERED: LORazepam 2 MG/4 ML VIAL IV STA ×2 (13:33→13:34)
[2019-09-30] MEDS ORDERED: VECURONIUM BROMIDE 10 MG VIAL IV STA (13:34)
[2019-09-30] MEDS ORDERED: VECURONIUM BROMIDE 10 MG VIAL IV ONE (13:46)
--- NOTE | 2019-09-30 14:22 | Hospitalist Progress Note ---
Date of Service September 30, 2019 Assessment & Plan (1) Seizure-like activity: 59 yo F PMHx HLD, depression and anxiety, alcohol abuse admitted to ICU for acute encephalopathy initially requiring mechanically-assisted ventilation now with trach. Ongoing febrile illness of unknown etiology. Encephalopathy-improving - Encephalopathy most likely due to delirium tremens. ?possible drug withdrawal (K2 spice, other synthetic) - ammonia levels normal - Lyme IgG positive, Anaplasmosis negative - CSF Lyme not detected, CSF viral panel negative. - COVID-19 testing negative x2. - MRI w/wo performed without acute process. Consideration for repeat Brain MRI? - EEG was not demonstrating persistent epileptiform activity - LP without clear source of infection however bloody tap. - Acyclovir discontinued as CSF without VZV, HSV. - continue Vimpat 100mg BID - continuing thiamine 200 bid IV, folic acid 1mg IV, magnesium 400 PO supplementation - continuation of Zyprexa, weaning clonazepam, ambien HS Alcohol use ds/Delirium Tremens: - previously completed course of thiamine, however will continue in the setting of continued concern for DTs with altered mental status - previously trialed on phenobarbital without improvement in presumed alcohol withdrawal symptoms -accepted to [facility] in [place] on d/c Acute hypoxic Respiratory failure: - Care per ICU - self-extubated on 09/23, with subsequent decompensation on BiPAP and ultimately re-intubated - tracheostomy on 09/24; continues to only require trach collar support. Consider downsizing the trach or transition to fenestrated trach or decannulation sometime next week - continue Dexamethasone for concern of late phase ARDS Right sided pleural effusion - likely 2/2 fluid overload - drained with thoracentesis 09/20 with clear straw yellow fluid. Cultures negative - bronchoalveolar lavage completed on 09/23; right upper lobe negative Febrile illness: -With leukocytosis but also receiving high dose steroids -pt from higher endemic area in [place], [place]. Will order Covid IgG-pending -CT Head to evaluate for sinusitis given indwelling course safe feeding tube -consideration for CT Abd/Pelvis for any possible abscess? - 09/29 CXR- Mildly improved aeration of the right lung base with otherwise unchanged appearance of the bilateral left greater than right mixed interstitial and alveolar opacities -09/28 Venous Doppler: No sonographic evidence of deep venous thrombosis. Superficial venous thrombus of the right cephalic vein. Will replace RUE IV -09/28 UA showing trace blood, 2+ LE, 5-10 WBC, >30 epithelial cell. Negative nitrite, neg bacteria. Urine culture negative 09/13 -09/29 HIDA for acalculous cholecystitis--No evidence for cystic duct obstruction - bronchoscopy performed with removal of thick bronchial washings- Negative 09/20; right upper lobe negative 09/23 -Blood Cx - NGTD 09/13, 09/18, 09/20, 09/28. Will repeat again -CSF culture negative: 09/18 -Pleural fluid: Right: Negative 09/20 - doxycycline stopped. cefepime course completed. Now off antibiotics - patient with inflammation over buttocks and perineum - Wound care consulted: addition of antifungal cream BID and PRN Elevated LFT/GGT/Acute alcohol hepatitis: -AST and alk phos increasing and GGT elevated - Liver ultrasound showing Hepato-steatosis, trace gallbladder sludge - Hepatitis C negative - Lyme IgG positive IgM negative, anaplasmosis DNA negative; representing chronic exposure, no acute infection - doxycycline stopped - HIDA for acalculous cholecystitis ordered--No evidence for cystic duct obstruction Elevated troponin/NSTEMI/SVT -patient initially presented with SVT with HR 150s -cont po metoprolol 12.5 mg TID. Will start low-intensity Pravachol and ASA Depression -cont paxil 40mg Diet: Peptamen tube feeds DVT ppx: Lovenox Code Status: Full Code Dispo: ICU. Discussed with CM and pt has been medically accepted by the LT[facility] in [place] but we have not yet been able to submit insurance authorization. PT/OT pending. Admission and Anticipated Discharge Date Admission Date: September 14, 2019 Supervising Physician Co-Signing Physician Notes I personally examined the patient and verified all hernandez points of history and exam, discussed case, and agree with decision making with Dr Mirza. no meaningful HPI or ROS. HIDA and CT head negative. ongoing temps. nursing notes change in lines, augustin. vitals noted nad breathing unlabored no accessory muscles good effort skin no rashes no pallor or icterus ams - ongoing supportive care, anticonvulsants. fever ongoing - consider repeat inflammatory markers and/or CT chest/abd/pelvis looking for occult findings for infection. continue supportive care otherwise. Subjective 59-year-old female found in chair this a.m. and no acute distress. Overnight reports that patient was agitated again. Patient still not able to express herself to me this morning verbally, just mouthing words still. Weaned off the Precedex. Febrile this astill. On trach collar satting 92. Patient with no other acute concerns or complaints. Review of Systems Review of Systems: All systems reviewed & are unremarkable except as noted in HPI & below Physical Exam Constitutional: + altered mental status (Awake following simple commands) Eyes: PERRL, conjunctivae normal, anicteric sclerae ENMT: Mouth: + oropharynx abnormality (Tracheostomy ) Respiratory: normal respiratory effort; no respiratory distress Auscultation: + crackles (b/l) Cardiovascular: RRR, no murmur, no edema Gastrointestinal (Abdomen): normal bowel sounds, soft, nontender, no hepatos plenomegaly Skin: no rashes, warm and dry PICC RUE Psychiatric: Orientation: + not oriented x 3 Results & Data Results & Data ([facility]) Vital Signs (Past 12 Hours) Vital Signs Temp Pulse Resp BP Pulse Ox 09/30/19 13:03 108 H 21 128/78 92 09/30/19 12:04 36.9 C 84 24 97 09/30/19 12:03 87 26 H 137/88 98 09/30/19 11:03 90 33 H 135/92 90 09/30/19 10:05 99 H 23 89 L 09/30/19 10:00 99 H 27 H 141/87 H 94 09/30/19 09:03 102/79 09/30/19 08:03 38.0 C H 90 24 132/105 H 95 09/30/19 08:00 37.9 C H 96 H 22 95 09/30/19 07:00 37.8 C H 104 H 28 H 09/30/19 06:04 37.8 C H 101 H 21 99/75 L 94 09/30/19 05:03 37.9 C H 95 H 34 H 142/92 H 94 09/30/19 04:03 38.0 C H 84 43 H 137/70 94 09/30/19 03:03 37.8 C H 85 28 H 131/79 97 Laboratory Results Laboratory Results - last 24 hr 09/29/19 09/29/19 09/29/19 16:52 17:40 23:31 WBC RBC Hgb Hct MCV MCH MCHC RDW Std Deviation RDW Coeff of Elif Plt Count MPV Immature Gran % (Auto) Neut % (Auto) Lymph % (Auto) [place] % (Auto) Eos % (Auto) Baso % (Auto) Neut # (Auto) Lymph # (Auto) [place] # (Auto) Eos # (Auto) Baso # (Auto) Immature Gran # (Auto) Absolute Nucleated RBC Nucleated RBC % (auto) Polychromasia Sodium Potassium 3.7 Chloride Carbon Dioxide Anion Gap BUN Creatinine Est Cr Clr Drug Dosing Est GFR ( Amer) Est GFR (Non-Af Amer) BUN/Creatinine Ratio Glucose POC Glucose 153 H 121 H Calcium Phosphorus Magnesium Total Bilirubin AST ALT Alkaline Phosphatase Total Creatine Kinase Total Protein Albumin Globulin Albumin/Globulin Ratio Stl C. diff Tox B Gene SARS Serology SARS-CoV-2 IgG & IgM Ab 09/30/19 09/30/19 09/30/19 01:05 04:27 04:27 WBC RBC Hgb Hct MCV MCH MCHC RDW Std Deviation RDW Coeff of Elif Plt Count MPV Immature Gran % (Auto) Neut % (Auto) Lymph % (Auto) [place] % (Auto) Eos % (Auto) Baso % (Auto) Neut # (Auto) Lymph # (Auto) [place] # (Auto) Eos # (Auto) Baso # (Auto) Immature Gran # (Auto) Absolute Nucleated RBC Nucleated RBC % (auto) Polychromasia Sodium 147 H Potassium 3.3 L Chloride 110 H Carbon Dioxide 28 Anion Gap 9.0 BUN 29 H Creatinine 0.60 Est Cr Clr Drug Dosing 93.1 Est GFR ( Amer) 117.3 Est GFR (Non-Af Amer) 101.2 BUN/Creatinine Ratio 47.7 H Glucose 115 H POC Glucose Calcium 9.2 Phosphorus 3.8 Magnesium 2.0 Total Bilirubin 0.8 AST 89 H ALT 85 H Alkaline Phosphatase 474 H Total Creatine Kinase 35 Total Protein 7.1 Albumin 2.5 L Globulin 4.6 H Albumin/Globulin Ratio 0.5 L Stl C. diff Tox B Gene Negative Cdiff Gene SARS Serology Cancelled SARS-CoV-2 IgG & IgM Ab 09/30/19 09/30/19 09/30/19 04:27 04:27 06:02 WBC 25.38 H RBC 3.43 L Hgb 11.8 L Hct 37.0 MCV 107.9 H MCH 34.4 H MCHC 31.9 L RDW Std Deviation 54.9 H RDW Coeff of Elif 14.1 Plt Count 454 H MPV 10.4 Immature Gran % (Auto) 1.3 Neut % (Auto) 81.0 Lymph % (Auto) 11.9 [place] % (Auto) 5.5 Eos % (Auto) 0.1 Baso % (Auto) 0.2 Neut # (Auto) 20.56 H Lymph # (Auto) 3.01 [place] # (Auto) 1.40 H Eos # (Auto) 0.03 Baso # (Auto) 0.04 Immature Gran # (Auto) 0.34 H Absolute Nucleated RBC 0.03 H Nucleated RBC % (auto) 0.1 Polychromasia 1+ Sodium Potassium Chloride Carbon Dioxide Anion Gap BUN Creatinine Est Cr Clr Drug Dosing Est GFR ( Amer) Est GFR (Non-Af Amer) BUN/Creatinine Ratio Glucose POC Glucose 124 H Calcium Phosphorus Magnesium Total Bilirubin AST ALT Alkaline Phosphatase Total Creatine Kinase Total Protein Albumin Globulin Albumin/Globulin Ratio Stl C. diff Tox B Gene SARS Serology SARS-CoV-2 IgG & IgM Ab Pending Medications Administered Current Inpatient Medications Acetaminophen (Tylenol) 650 mg PO Q4H PRN PRN Reason: Fever Stop: 10/22/19 14:33 Last Admin: 09/25/19 05:55 Dose: 650 mg Documented by: Albuterol (Duoneb) 3 ml NEB Q4R PRN PRN Reason: Shortness Of Breath Or Wheezing Stop: 10/14/19 06:59 Aspirin (Aspirin Chew) 81 mg PO QAM BRIANNA Stop: 10/31/19 08:59 Clonazepam (Klonopin) 0.5 mg PO HS [facility] Stop: 10/28/19 20:59 Last Admin: 09/29/19 19:18 Dose: 0.5 mg Documented by: Dextrose (Dextrose 50%) 25 - 50 ml IV UD PRN; Protocol PRN Reason: Hypoglycemia Protocol Stop: 10/25/19 10:29 Enoxaparin Sodium (Lovenox) 40 mg SQ DAILY BRIANNA Stop: 10/14/19 08:59 Last Admin: 09/30/19 08:04 Dose: 40 mg Documented by: Glucagon (Glucagen) 1 mg IM UD PRN; Protocol PRN Reason: Hypoglycemia Protocol Stop: 10/25/19 10:29 Glucose (Glucose 40%) 15 - 30 gm PO UD PRN; Protocol PRN Reason: Hypoglycemia Protocol Stop: 10/25/19 10:29 Glucose (Dex4 Glucose) 4 - 8 tabs PO UD PRN; Protocol PRN Reason: Hypoglycemia Protocol Stop: 10/25/19 10:29 Folic Acid 1 mg/ Syringe 10 mls @ 5 mls/min IV Q24H BRIANNA Stop: 10/15/19 11:59 Last Admin: 09/29/19 13:11 Dose: 5 mls/min Documented by: Lacosamide 100 mg/ Sodium (Chloride) 60 mls @ 120 mls/hr IV Q12 BRIANNA Stop: 10/21/19 20:59 Last Infusion: 09/30/19 09:30 Dose: Infused Documented by: Dexamethasone Sodium Phosphate (10 mg/ Syringe) 2.5 mls @ 1 mls/min IV Q24H BRIANNA Stop: 10/04/19 09:03 Last Admin: 09/30/19 08:14 Dose: 1 mls/min Documented by: Thiamine HCl 200 mg/ Sodium (Chloride) 52 mls @ 208 mls/hr IV BID BRIANNA Stop: 10/29/19 20:59 Last Infusion: 09/30/19 08:33 Dose: Infused Documented by: Insulin Aspart (Novolog Flexpen) 0 units SC Q6 BRIANNA Stop: 10/25/19 11:59 Last Admin: 09/30/19 06:03 Dose: Not Given Documented by: Magnesium Oxide (Mag-Ox) 400 mg PO QPM BRIANNA Stop: 10/29/19 20:59 Last Admin: 09/29/19 21:06 Dose: 400 mg Documented by: Melatonin (Melatonin) 6 mg PO HS BRIANNA Stop: 10/29/19 20:59 Last Admin: 09/29/19 21:03 Dose: 6 mg Documented by: Metoprolol Tartrate (Lopressor) 12.5 mg PO Q8 BRIANNA Stop: 10/22/19 13:59 Last Admin: 09/30/19 05:58 Dose: 12.5 mg Documented by: Miscellaneous (Carbohydrates For Hypoglycemia) 15 - 30 gm PO UD PRN PRN Reason: Hypoglycemia Treatment Stop: 10/25/19 10:29 Miscellaneous (Icu Electrolyte Replacement Protocol) 1 ea N/A UD PRN PRN Reason: for e-lyte repletion Stop: 10/06/19 03:19 Morphine Sulfate (Morphine Sulfate) 2 mg IV ONCE PRN PRN Reason: Pain Stop: 10/14/19 12:38 Nutritional Formula (Peptamen Intense Vhp 1.0 Siva) 1,000 ml [place] [facility] [place] Protocol Stop: 10/19/19 10:44 Last Admin: 09/29/19 16:56 Dose: 1,000 ml Documented by: Olanzapine (Zyprexa Zydis Od) [facility] [place] Stop: 10/25/19 08:59 Last Admin: 09/30/19 08:04 Dose: 10 mg Documented by: Paroxetine HCl (Paxil) 20 mg PO QAM [facility] Stop: 10/30/19 08:59 Last Admin: 09/30/19 08:05 Dose: 20 mg Documented by: Pravastatin Sodium (Pravachol) 10 mg PO DAILY@1700 [facility] Stop: 10/29/19 16:59 Last Admin: 09/29/19 16:57 Dose: 10 mg Documented by: Zinc Sulfate (Zinc Sulfate) 220 mg PO QPM [facility] Stop: 10/29/19 20:59 Last Admin: 09/29/19 21:04 Dose: 220 mg Documented by: Resident Activity Tracking Resident Involvement: Resident Care Provided Care Provided: Adult Hospital Medicine
--- NOTE | 2019-09-30 15:20 | Nuclear Medicine Report ---
NM hepatobiliary HISTORY: Fever. Pain. Nausea. fever, elevated WBC and lfts COMPARISON: None. TECHNIQUE: Immediately following the intravenous administration of 5.3 mCi Tc-99m Choletec, dynamic a nterior abdominal imaging was performed. FINDINGS: Uniform hepatic tracer accumulation is shown. Prompt intrahepatic biliary excretion is seen. The gall bladder, common bile duct, and small bowel are all visualized by 30 minutes. This appearance represen ts the normal sequence of biliary excretion. Mild biliary reflux to the stomach. IMPRESSION: No evidence for cystic duct obstruction. Mild biliary reflux to the stomach. Otherwise normal exam. ACT 112: Negative or not required by law. The above report was generated using voice recognition software. It may contain grammatical, syntax or spelling errors. Electronically signed by: Yash Wolf M.D. 09/30/2019 3:18 PM
[2019-09-30] MEDS: FOLIC ACID 1 MG in SYRINGE 9.8 ML IV SCH (15:31)
[2019-09-30] MEDS: PRAVASTATIN SOD 10 MG TAB PO SCH (15:34)
--- NOTE | 2019-09-30 17:45 | CT Scan Report ---
CT head/brain wo con CT DOSE: 1459.56 mGycm HISTORY: sinusitis, fever or unknown origin TECHNIQUE: Multiaxial CT images of the head were performed without the use of intravenous contrast. A dose lowering technique was utilized adhering to the principles of ALARA. Comparison: 09/14/2019 Findings: The paranasal sinuses and mastoid air cells are clear. The calvarium and skull base are int act. The ventricles and sulci are within normal limits. There is no mass, hematoma, midline shift, or acute infarct. Impression: No acute intracranial abnormality. ACT 112: Negative or not required by law. The above report was generated using voice recognition software. It may contain grammatical, syntax or spelling errors. Electronically signed by: Yash Wolf M.D. 09/30/2019 5:44 PM
--- NOTE | 2019-09-30 18:13 | Billing Data ---
Date of Service September 30, 2019 Coding Level of Care Code 25048 Subseq Hosp Care Lvl 2
[2019-09-30] MEDS: ZINC SULFATE 220 MG CAPSULE PO SCH (20:37)
[2019-09-30] MEDS: MAGNESIUM OXIDE 400 MG TAB PO SCH (20:37)
[2019-09-30] MEDS: clonazePAM 0.5 MG TAB PO SCH (20:37)
[2019-09-30] MEDS: MELATONIN 3 MG TAB PO SCH (20:39)
[2019-09-30] MEDS: PEPTAMEN INTENSE VHP 1.0 CAL 1,000 ML BAG OG SCH (23:05)
[2019-10-01 04:50] LABS: Hematocrit (blood only) 37.3 % (37-47); Mean Corpuscular Hemoglobin 35.5 pg (25-34); Mean Corpuscular Hgb Conc 32.2 g/dL (32-36); Mean Corpuscular Volume 110.4 fL (80-100); Mean Platelet Volume 10.7 fL (7.4-10.4); Platelet Count 498 K/uL (130-400); RDW Coefficient of Variation 14.2 % (11.5-14.5); RDW Standard Deviation 57.1 fL (36.4-46.3); Red Blood Count 3.38 M/uL (4.2-5.4); White Blood Count 25.48 K/uL (4.8-10.8)
[2019-10-01 05:17] LABS: Basophils # (auto) 0.02 K/uL (0-0.2); Basophils % (auto) 0.1 %; Eosinophils # (auto) 0.07 K/uL (0-0.5); Eosinophils % (auto) 0.3 %; Immature Granulocytes # (auto) 0.47 K/uL (0.00-0.02); Immature Granulocytes % (auto) 1.8 %; Lymphocytes # (auto) 2.81 K/uL (1.2-3.4); Macrocytosis Present; Monocytes # (auto) 1.42 K/uL (0.11-0.59); Monocytes % (auto) 5.6 %; Neutrophils # (auto) 20.69 K/uL (1.4-6.5); Neutrophils % (auto) 81.2 %
[2019-10-01 05:38] LABS: Albumin Globulin Ratio 0.6 (0.9-2); Albumin Level 2.7 gm/dl (3.4-5.0); BUN Creatinine Ratio 56.6 (10-20); Bilirubin,Total 0.7 mg/dl (0.2-1); Calcium 9.6 mg/dl (8.5-10.1); Creatinine Clr Calc Pharmacy 94.7 ml/min; Est GFR (African American) 117.9; Est GFR (Non-African American) 101.7; Globulin 4.7 gm/dl (2.5-4.0); Magnesium 2.5 mg/dl (1.8-2.4); Phosphorus 3.4 mg/dl (2.5-4.9); Potassium 3.8 mmol/L (3.5-5.1); Total Protein 7.4 gm/dl (6.4-8.2)
[2019-10-01] MEDS: INSULIN ASPART 100 UNITS/ML 3 ML PEN SC SCH ×4 (05:41→23:10)
[2019-10-01] MEDS: METOPROLOL TARTRATE 25 MG TAB PO SCH ×3 (05:44→21:33)
[2019-10-01] MEDS: THIAMINE HCL 200 MG in SODIUM CHLORIDE 0.9% 50 ML IV SCH ×2 (08:30→20:21)
[2019-10-01] MEDS: LACOSAMIDE 100 MG in SODIUM CHLORIDE 0.9% 50 ML IV SCH ×2 (08:30→20:37)
[2019-10-01] MEDS: ENOXAPARIN INJ 40 MG/0.4 ML SYR SQ SCH (08:37)
[2019-10-01] MEDS: PARoxetine HCL 20 MG TAB PO SCH (08:37)
[2019-10-01] MEDS: ASPIRIN 81 MG CHEW PO SCH (08:37)
[2019-10-01] MEDS: OLANZAPINE ZYDIS 10 MG ORALLY DIS. TAB PO SCH (08:37)
[2019-10-01] MEDS: DEXAMETHASONE SOD PHOSPHATE 10 MG in SYRINGE 0 ML IV SCH (08:39)
--- NOTE | 2019-10-01 09:47 | Critical Care Progress Note ---
Date of Service October 01, 2019 Assessment & Plan (1) Admitted to intensive care unit: Reason Critically Ill: 59-year-old female presenting as outside hospital transfer for acute encephalopathy, suspected DTs from alcohol withdrawal, history of seizure 6 months ago not on any medication, hypoxic respiratory failure requiring, mechanically ventilated, COVID-19 ruled out Recommendations: Neuro agitated delirium continues to show some mild improvement. -Continue Zyprexa and clonazepam. -Sleep hygiene: physical therapy and Occupational Therapy. Hopefully physical activity will improve her sleep-wake cycles. -Continue to reorient. History of depression: Paxil: Decreased from 40-20 for 1 week we will continue to wean as the patient has prolonged QT -Paxil scheduled to discontinue after 8 days duration Cardiac Elevated troponin/NSTEMI/SVTpatient initially presented with SVT with HR 150s, converted to sinus rhythm with 10 mg IV metoprolol. -Continue oral metoprolol. She remains tachycardic but appears to be in sinus currently. -Aspirin restarted -Will need to restart her lipid-lowering agent at some point. -LFTs appear to be hovering at baseline, probable fatty liver disease will start low-intensity Pravachol as the patient has a allergy listed to simvastatin Respiratory -patient has had 2 negative COVID tests. She has pulmonary infiltrates. Bronchoscopy x2 show no significant organisms or growth to date from a respiratory standpoint. Late phase ARDS: dexamethasone and appears to be clinically stable or improving. -She is status post percutaneous dilatation of tracheostomy performed 09/25/2019. If she does well, could consider downsizing the trach, transitioning to a fenestrated trach, or decannulation sometime next week. -Okay to deflate the cuff on the tracheostomy for potential swallow studies and to see how she does breathing around the tube and potentially facilitate speech. GI -right upper quadrant ultrasound from the showed steatohepatitis as well as trace gallbladder sludge. -AST and alk phos increasing and GGT elevated. HIDA for acalculous cholecystitis today. Last BM yesterday Follow-up LFTs in 1 week given the addition of Pravachol RENAL/LYTES -evidence of contraction: Hypernatremia hyperchloremia will discontinue diuresis -Add free water flushes to tube feeds -discontinued Baldwin yesterday ENDO - TSH within normal limits No history of diabetes ICU hyperglycemic protocol -Adjust to account for steroids HEME - H&H stable, monitor. No evidence of DVT on surveillance scans -Superficial venous thrombus of the right cephalic vein -Likely provoked secondary to IV access no indication for therapeutic anticoagulation, will continue DVT prophylaxis ID continued fevers and now off antibiotics. -Baldwin catheter removed, new single IV for central Booker line holiday in effort to remove possible sources of fever LINES/IV ACCESS - PIV's, tracheostomy tube, Baldwin catheter, nasogastric feeding tube DVT PROPHYLAXIS - SCDs, Lovenox Disposition: Discussed with case management last week and referrals have been made to the long-term acute care facilities near [place] as the patient resides in [place]. She has been medically accepted by the facility but we have not yet been able to submit insurance authorization. Will work towards utilization of Passy-Waldron valve (2) NSTEMI (non-ST elevated myocardial infarction): (3) Elevated LFTs: (4) SVT (supraventricular tachycardia): (5) Thrombosis of right cephalic vein: Admission and Anticipated Discharge Date Admission Date: September 14, 2019 Subjective Slept 8 hours overnight Review of Systems Review of Systems: Unobtainable due to reduced consciousness Physical Exam Physical Exam: General: Awake following simple commands Skin: Warm, dry, Head: Atraumatic, no nuchal rigidity negative Burzynski sign negative Kernig's Ears, nose, mouth and throat: Tracheostomy present Cardiovascular: Normal peripheral perfusion Respiratory: no respiratory distress Gastrointestinal: Non distended Musculoskeletal: No deformity Results & Data Results & Data ([facility]) Vital Signs (Past 12 Hours) Vital Signs Temp Pulse Resp BP Pulse Ox 10/01/19 09:00 37.3 C 95 H 20 145/88 H 91 10/01/19 07:05 94 H 20 137/108 H 93 10/01/19 06:04 94 H 17 150/83 H 91 10/01/19 05:04 89 24 149/83 H 95 10/01/19 04:03 37.3 C 88 19 142/78 H 91 10/01/19 03:04 83 24 133/75 92 10/01/19 02:04 95 H 20 121/80 91 10/01/19 01:04 87 19 152/98 H 95 10/01/19 00:03 37.6 C H 78 29 H 125/71 92 10/01/19 00:00 89 07/07/20 23:03 72 20 117/68 94 09/30/19 22:03 77 26 H 122/79 93 Laboratory Results 10/01/19 10/01/19 10/01/19 Range/Units 05:40 04:41 04:41 WBC 25.48 H (4.8-10.8) K/uL RBC 3.38 L (4.2-5.4) M/uL Hgb 12.0 (12.0-16.0) g/dL Hct 37.3 (37-47) % MCV 110.4 H (80-100) fL MCH 35.5 H (25-34) pg MCHC 32.2 (32-36) g/dL RDW Std Deviation 57.1 H (36.4-46.3) fL RDW Coeff of Elif 14.2 (11.5-14.5) % Plt Count 498 H (130-400) K/uL MPV 10.7 H (7.4-10.4) fL Immature Gran % (Auto) 1.8 % Neut % (Auto) 81.2 % Lymph % (Auto) 11.0 % [place] % (Auto) 5.6 % Eos % (Auto) 0.3 % Baso % (Auto) 0.1 % Neut # (Auto) 20.69 H (1.4-6.5) K/uL Lymph # (Auto) 2.81 (1.2-3.4) K/uL [place] # (Auto) 1.42 H (0.11-0.59) K/uL Eos # (Auto) 0.07 (0-0.5) K/uL Baso # (Auto) 0.02 (0-0.2) K/uL Immature Gran # (Auto) 0.47 H (0.00-0.02) K/uL Macrocytosis Present Sodium 147 H (136-145) mmol/L Potassium 3.8 D (3.5-5.1) mmol/L Chloride 113 H (98-107) mmol/L Carbon Dioxide 30 (21-32) mmol/L Anion Gap 4.0 (3-11) BUN 33 H (7-18) mg/dl Creatinine 0.59 L (0.6-1.2) mg/dl Est Cr Clr Drug Dosing 94.7 ml/min Est GFR ( Amer) 117.9 Est GFR (Non-Af Amer) 101.7 BUN/Creatinine Ratio 56.6 H (10-20) Glucose 127 H (70-99) mg/dl POC Glucose 111 H (70-99) mg/dl Calcium 9.6 (8.5-10.1) mg/dl Phosphorus 3.4 (2.5-4.9) mg/dl Magnesium 2.5 H (1.8-2.4) mg/dl Total Bilirubin 0.7 (0.2-1) mg/dl AST 90 H (15-37) U/L ALT 96 H (12-78) U/L Alkaline Phosphatase 465 H (45-117) U/L Total Protein 7.4 (6.4-8.2) gm/dl Albumin 2.7 L (3.4-5.0) gm/dl Globulin 4.7 H (2.5-4.0) gm/dl Albumin/Globulin Ratio 0.6 L (0.9-2) SARS Serology SARS-CoV-2 IgG & IgM Ab 09/30/19 09/30/19 09/30/19 Range/Units 23:08 15:35 04:27 WBC (4.8-10.8) K/uL RBC (4.2-5.4) M/uL Hgb (12.0-16.0) g/dL Hct (37-47) % MCV (80-100) fL MCH (25-34) pg MCHC (32-36) g/dL RDW Std Deviation (36.4-46.3) fL RDW Coeff of Elif (11.5-14.5) % Plt Count (130-400) K/uL MPV (7.4-10.4) fL Immature Gran % (Auto) % Neut % (Auto) % Lymph % (Auto) % [place] % (Auto) % Eos % (Auto) % Baso % (Auto) % Neut # (Auto) (1.4-6.5) K/uL Lymph # (Auto) (1.2-3.4) K/uL [place] # (Auto) (0.11-0.59) K/uL Eos # (Auto) (0-0.5) K/uL Baso # (Auto) (0-0.2) K/uL Immature Gran # (Auto) (0.00-0.02) K/uL Macrocytosis Sodium (136-145) mmol/L Potassium (3.5-5.1) mmol/L Chloride (98-107) mmol/L Carbon Dioxide (21-32) mmol/L Anion Gap (3-11) BUN (7-18) mg/dl Creatinine (0.6-1.2) mg/dl Est Cr Clr Drug Dosing ml/min Est GFR ( Amer) Est GFR (Non-Af Amer) BUN/Creatinine Ratio (10-20) Glucose (70-99) mg/dl POC Glucose 142 H 191 H (70-99) mg/dl Calcium (8.5-10.1) mg/dl Phosphorus (2.5-4.9) mg/dl Magnesium (1.8-2.4) mg/dl Total Bilirubin (0.2-1) mg/dl AST (15-37) U/L ALT (12-78) U/L Alkaline Phosphatase (45-117) U/L Total Protein (6.4-8.2) gm/dl Albumin (3.4-5.0) gm/dl Globulin (2.5-4.0) gm/dl Albumin/Globulin Ratio (0.9-2) SARS Serology SARS-CoV-2 IgG & IgM Ab Pending 09/30/19 Range/Units 04:27 WBC (4.8-10.8) K/uL RBC (4.2-5.4) M/uL Hgb (12.0-16.0) g/dL Hct (37-47) % MCV (80-100) fL MCH (25-34) pg MCHC (32-36) g/dL RDW Std Deviation (36.4-46.3) fL RDW Coeff of Elif (11.5-14.5) % Plt Count (130-400) K/uL MPV (7.4-10.4) fL Immature Gran % (Auto) % Neut % (Auto) % Lymph % (Auto) % [place] % (Auto) % Eos % (Auto) % Baso % (Auto) % Neut # (Auto) (1.4-6.5) K/uL Lymph # (Auto) (1.2-3.4) K/uL [place] # (Auto) (0.11-0.59) K/uL Eos # (Auto) (0-0.5) K/uL Baso # (Auto) (0-0.2) K/uL Immature Gran # (Auto) (0.00-0.02) K/uL Macrocytosis Sodium (136-145) mmol/L Potassium (3.5-5.1) mmol/L Chloride (98-107) mmol/L Carbon Dioxide (21-32) mmol/L Anion Gap (3-11) BUN (7-18) mg/dl Creatinine (0.6-1.2) mg/dl Est Cr Clr Drug Dosing ml/min Est GFR ( Amer) Est GFR (Non-Af Amer) BUN/Creatinine Ratio (10-20) Glucose (70-99) mg/dl POC Glucose (70-99) mg/dl Calcium (8.5-10.1) mg/dl Phosphorus (2.5-4.9) mg/dl Magnesium (1.8-2.4) mg/dl Total Bilirubin (0.2-1) mg/dl AST (15-37) U/L ALT (12-78) U/L Alkaline Phosphatase (45-117) U/L Total Protein (6.4-8.2) gm/dl Albumin (3.4-5.0) gm/dl Globulin (2.5-4.0) gm/dl Albumin/Globulin Ratio (0.9-2) SARS Serology Cancelled SARS-CoV-2 IgG & IgM Ab Coding Diagnoses Admitted to intensive care unit Z78.9 NSTEMI (non-ST elevated myocardial infarction) I21.4 Elevated LFTs R79.89 SVT (supraventricular tachycardia) I47.1 Thrombosis of right cephalic vein I82.611
[2019-10-01] MEDS: FOLIC ACID 1 MG in SYRINGE 9.8 ML IV SCH (11:38)
[2019-10-01] MEDS: PRAVASTATIN SOD 10 MG TAB PO SCH (15:31)
--- NOTE | 2019-10-01 16:32 | Hospitalist Progress Note ---
Date of Service October 01, 2019 Assessment & Plan (1) Seizure-like activity: 59 yo F PMHx HLD, depression and anxiety, alcohol abuse admitted to ICU for acute encephalopathy initially requiring mechanically-assisted ventilation, then trach, now on room air. Ongoing febrile illness of unknown etiology, now afebrile. Encephalopathy-improving - Encephalopathy most likely due to delirium tremens. ?possible drug withdrawal (K2 spice, other synthetic) - ammonia levels normal - Lyme IgG positive, Anaplasmosis negative - CSF Lyme not detected, CSF viral panel negative. - COVID-19 testing negative x2. - MRI w/wo performed without acute process. Consideration for repeat Brain MRI? - EEG was not demonstrating persistent epileptiform activity - LP without clear source of infection however bloody tap. - Acyclovir discontinued as CSF without VZV, HSV. - continue Vimpat 100mg BID - continuing thiamine 200 bid IV, folic acid 1mg IV, magnesium 400 PO supplementation - continuation of Zyprexa, clonazepam, ambien HS Alcohol use ds/Delirium Tremens: - previously completed course of thiamine, however will continue in the setting of continued concern for DTs with altered mental status - previously trialed on phenobarbital without improvement in presumed alcohol withdrawal symptoms -Patient going to [facility] in [place], [place] Acute hypoxic Respiratory failure: - Care per ICU - self-extubated on 09/23, with subsequent decompensation on BiPAP and ultimately re-intubated - tracheostomy on 09/24; now on room air. Trach to be left in place for discharge; de-cannulization can be done at LTACH - continue Dexamethasone for concern of late phase ARDS Right sided pleural effusion - likely 2/2 fluid overload - drained with thoracentesis 09/20 with clear straw yellow fluid. Cultures negative - bronchoalveolar lavage completed on 09/23; right upper lobe negative Febrile illness: -Currently afebrile -With leukocytosis but also receiving high dose steroids -pt from higher endemic area in [place], [place]. Will order Covid IgG-pending -CT Head to evaluate for sinusitis given indwelling course safe feeding tube -consideration for CT Abd/Pelvis for any possible abscess? Did not perform prior to discharge - 09/29 CXR- Mildly improved aeration of the right lung base with otherwise unchanged appearance of the bilateral left greater than right mixed interstitial and alveolar opacities -09/28 Venous Doppler: No sonographic evidence of deep venous thrombosis. Superficial venous thrombus of the right cephalic vein. Will replace RUE IV -09/28 UA showing trace blood, 2+ LE, 5-10 WBC, >30 epithelial cell. Negative nitrite, neg bacteria. Urine culture negative 09/13 -09/29 HIDA for acalculous cholecystitis--No evidence for cystic duct obstruction - bronchoscopy performed with removal of thick bronchial washings- Negative 09/20; right upper lobe negative 09/23 -Blood Cx - NGTD 09/13, 09/18, 09/20, 09/28. Will repeat again 09/30 -CSF culture negative: 09/18 -Pleural fluid: Right: Negative 09/20 - doxycycline stopped. cefepime course completed. Now off antibiotics - patient with inflammation over buttocks and perineum - Wound care consulted: addition of antifungal cream BID and PRN Elevated LFT/GGT/Acute alcohol hepatitis: -AST and alk phos increasing and GGT elevated - Liver ultrasound showing Hepato-steatosis, trace gallbladder sludge - Hepatitis C negative - Lyme IgG positive IgM negative, anaplasmosis DNA negative; representing chronic exposure, no acute infection - doxycycline stopped - HIDA for acalculous cholecystitis ordered--No evidence for cystic duct obstruction Elevated troponin/NSTEMI/SVT -patient initially presented with SVT with HR 150s -cont po metoprolol 12.5 mg TID. Started low-intensity Pravachol 10 mg and ASA 81 mg Depression -cont paxil 20 mg, weaned from 40 mg. We will continue 20 mg (started 09/30) for 1 week as we are trying to wean off given patient's prolonged QT Diet: Peptamen tube feeds DVT ppx: Lovenox Code Status: Full Code Dispo: ICU. Patient leaving for LTACH tomorrow at [facility] in [facility]. The accepting physician is Dr. Moreno, ph#[phone]. They require a physician to physician call on day of discharge. Admission and Anticipated Discharge Date Admission Date: September 14, 2019 Supervising Physician Co-Signing Physician Notes I personally examined the patient and verified all hernandez points of history and exam, discussed case, and agree with decision making with Dr Mirza. present. up and out of bed and moving fairly well, breathing well. present pleased with progress. plan for LTAC tomorrow. vitals noted nad breathing unlabored no accessory muscles good effort skin no rashes no pallor or icterus ams - ongoing supportive care, anticonvulsants. fever resolved for now- continue to follow clinically but given LTAC environment - would be safe to go with ongoing vigilance there Subjective 59-year-old female found in chair this a.m. and no acute distress. Overnight reports that patient was able to get 8 hours of sleep. Somewhat agitated this morning. Patient still not able to express herself to me this morning verbally, just mouthing words still. Weaned off the Precedex. No longer febrile. No longer on trach collar , satting well on room air. Patient with no other acute concerns or complaints. Review of Systems Review of Systems: Unobtainable due to cognitive status Physical Exam Constitutional: + altered mental status (Awake following simple commands) Eyes: PERRL, conjunctivae normal, anicteric sclerae ENMT: Mouth: + oropharynx abnormality (Tracheostomy ) Respiratory: normal respiratory effort; no respiratory distress Auscultation: + crackles (b/l) Cardiovascular: RRR, no murmur, no edema Gastrointestinal (Abdomen): normal bowel sounds, soft, nontender, no hepatosplenomegaly Skin: no rashes, warm and dry Psychiatric: Orientation: + not oriented x 3 Results & Data Results & Data ([facility]) Vital Signs (Past 12 Hours) Vital Signs Temp Pulse Pulse Resp BP Pulse Ox 10/01/19 14:13 105 H 15 138/69 95 10/01/19 13:04 102 H 18 141/91 H 10/01/19 12:22 83 10/01/19 12:12 73 24 158/87 H 96 10/01/19 12:00 85 19 10/01/19 11:04 37.2 C 95 H 24 131/76 92 10/01/19 10:04 89 24 144/94 H 10/01/19 10:00 83 23 142/84 H 10/01/19 09:00 37.3 C 95 H 20 145/88 H 91 10/01/19 07:05 94 H 20 137/108 H 93 10/01/19 06:04 94 H 17 150/83 H 91 10/01/19 05:04 89 24 149/83 H 95 Laboratory Results Laboratory Results - last 24 hr 09/30/19 10/01/19 10/01/19 23:08 04:41 04:41 WBC 25.48 H RBC 3.38 L Hgb 12.0 Hct 37.3 MCV 110.4 H MCH 35.5 H MCHC 32.2 RDW Std Deviation 57.1 H RDW Coeff of Elif 14.2 Plt Count 498 H MPV 10.7 H Immature Gran % (Auto) 1.8 Neut % (Auto) 81.2 Lymph % (Auto) 11.0 [place] % (Auto) 5.6 Eos % (Auto) 0.3 Baso % (Auto) 0.1 Neut # (Auto) 20.69 H Lymph # (Auto) 2.81 [place] # (Auto) 1.42 H Eos # (Auto) 0.07 Baso # (Auto) 0.02 Immature Gran # (Auto) 0.47 H Macrocytosis Present Sodium 147 H Potassium 3.8 D Chloride 113 H Carbon Dioxide 30 Anion Gap 4.0 BUN 33 H Creatinine 0.59 L Est Cr Clr Drug Dosing 94.7 Est GFR ( Amer) 117.9 Est GFR (Non-Af Amer) 101.7 BUN/Creatinine Ratio 56.6 H Glucose 127 H POC Glucose 142 H Calcium 9.6 Phosphorus 3.4 Magnesium 2.5 H Total Bilirubin 0.7 AST 90 H ALT 96 H Alkaline Phosphatase 465 H Total Protein 7.4 Albumin 2.7 L Globulin 4.7 H Albumin/Globulin Ratio 0.6 L 10/01/19 10/01/19 10/01/19 05:40 11:41 15:57 WBC RBC Hgb Hct MCV MCH MCHC RDW Std Deviation RDW Coeff of Elif Plt Count MPV Immature Gran % (Auto) Neut % (Auto) Lymph % (Auto) [place] % (Auto) Eos % (Auto) Baso % (Auto) Neut # (Auto) Lymph # (Auto) [place] # (Auto) Eos # (Auto) Baso # (Auto) Immature Gran # (Auto) Macrocytosis Sodium Potassium Chloride Carbon Dioxide Anion Gap BUN Creatinine Est Cr Clr Drug Dosing Est GFR ( Amer) Est GFR (Non-Af Amer) BUN/Creatinine Ratio Glucose POC Glucose 111 H 204 H 173 H Calcium Phosphorus Magnesium Total Bilirubin AST ALT Alkaline Phosphatase Total Protein Albumin Globulin Albumin/Globulin Ratio Medications Administered Current Inpatient Medications Acetaminophen (Tylenol) 650 mg PO Q4H PRN PRN Reason: Fever Stop: 10/22/19 14:33 Last Admin: 09/25/19 05:55 Dose: 650 mg Documented by: Albuterol (Duoneb) 3 ml NEB Q4R PRN PRN Reason: Shortness Of Breath Or Wheezing Stop: 10/14/19 06:59 Aspirin (Aspirin Chew) 81 mg PO QAM BRIANNA Stop: 10/31/19 08:59 Last Admin: 10/01/19 08:37 Dose: 81 mg Documented by: Clonazepam (Klonopin) 0.5 mg PO HS BRIANNA Stop: 10/28/19 20:59 Last Admin: 09/30/19 20:37 Dose: 0.5 mg Documented by: Dextrose (Dextrose 50%) 25 - 50 ml IV UD PRN; Protocol PRN Reason: Hypoglycemia Protocol Stop: 10/25/19 10:29 Enoxaparin Sodium (Lovenox) 40 mg SQ DAILY BRIANNA Stop: 10/14/19 08:59 Last Admin: 10/01/19 08:37 Dose: 40 mg Documented by: Glucagon (Glucagen) 1 mg IM UD PRN; Protocol PRN Reason: Hypoglycemia Protocol Stop: 10/25/19 10:29 Glucose (Glucose 40%) 15 - 30 gm PO UD PRN; Protocol PRN Reason: Hypoglycemia Protocol Stop: 10/25/19 10:29 Glucose (Dex4 Glucose) 4 - 8 tabs PO UD PRN; Protocol PRN Reason: Hypoglycemia Protocol Stop: 10/25/19 10:29 Folic Acid 1 mg/ Syringe 10 mls @ 5 mls/min IV Q24H BRIANNA Stop: 10/15/19 11:59 Last Admin: 10/01/19 11:38 Dose: 5 mls/min Documented by: Lacosamide 100 mg/ Sodium (Chloride) 60 mls @ 120 mls/hr IV Q12 BRIANNA Stop: 10/21/19 20:59 Last Infusion: 10/01/19 08:58 Dose: Infused Documented by: Dexamethasone Sodium Phosphate (10 mg/ Syringe) 2.5 mls @ 1 mls/min IV Q24H BRIANNA Stop: 10/04/19 09:03 Last Admin: 10/01/19 08:39 Dose: 1 mls/min Documented by: Thiamine HCl 200 mg/ Sodium (Chloride) 52 mls @ 208 mls/hr IV BID BRIANNA Stop: 10/29/19 20:59 Last Infusion: 10/01/19 08:58 Dose: Infused Documented by: Insulin Aspart (Novolog Flexpen) 0 units SC Q6 [facility] Stop: 10/25/19 11:59 Last Admin: 10/01/19 16:03 Dose: 1 units Documented by: Magnesium Oxide (Mag-Ox) 400 mg PO QPM [facility] Stop: 10/29/19 20:59 Last Admin: 09/30/19 20:37 Dose: 400 mg Documented by: Melatonin (Melatonin) 6 mg PO HS [facility] Stop: 10/29/19 20:59 Last Admin: 09/30/19 20:39 Dose: 6 mg Documented by: Metoprolol Tartrate (Lopressor) 12.5 mg PO Q8 [facility] Stop: 10/22/19 13:59 Last Admin: 10/01/19 15:31 Dose: 12.5 mg Documented by: Miscellaneous (Carbohydrates For Hypoglycemia) 15 - 30 gm PO UD PRN PRN Reason: Hypoglycemia Treatment Stop: 10/25/19 10:29 Miscellaneous (Icu Electrolyte Replacement Protocol) 1 ea N/A UD PRN PRN Reason: for e-lyte repletion Stop: 10/06/19 03:19 Nutritional Formula (Peptamen Intense Vhp 1.0 Siva) 1,000 ml OG UD [facility]; Protocol Stop: 10/19/19 10:44 Last Admin: 09/30/19 23:05 Dose: 1,000 ml Documented by: Olanzapine (Zyprexa Zydis Od) 10 mg PO QAM [facility] Stop: 10/25/19 08:59 Last Admin: 10/01/19 08:37 Dose: 10 mg Documented by: Paroxetine HCl (Paxil) 20 mg PO QAM [facility] Stop: 10/08/19 08:59 Last Admin: 10/01/19 08:37 Dose: 20 mg Documented by: Pravastatin Sodium (Pravachol) 10 mg PO DAILY@1700 [facility] Stop: 10/29/19 16:59 Last Admin: 10/01/19 15:31 Dose: 10 mg Documented by: Zinc Sulfate (Zinc Sulfate) 220 mg PO QPM [facility] Stop: 10/29/19 20:59 Last Admin: 09/30/19 20:37 Dose: 220 mg Documented by: Resident Activity Tracking Resident Involvement: Resident Care Provided Care Provided: Adult [facility]
--- NOTE | 2019-10-01 17:14 | Billing Data ---
Date of Service October 01, 2019 Coding Level of Care Code 48241 Subseq Hosp Care Lvl 2
[2019-10-01] MEDS: ZINC SULFATE 220 MG CAPSULE PO SCH (20:21)
[2019-10-01] MEDS: MELATONIN 3 MG TAB PO SCH (20:21)
[2019-10-01] MEDS: clonazePAM 0.5 MG TAB PO SCH (20:21)
[2019-10-01] MEDS: MAGNESIUM OXIDE 400 MG TAB PO SCH (20:21)
[2019-10-01] MEDS ORDERED: HALOPERIDOL LACTATE 5 MG/ML 1 ML VIAL ONE (21:53)
[2019-10-01] MEDS ORDERED: HALOPERIDOL LACTATE 5 MG/ML 1 ML VIAL IM STA (22:04)
[2019-10-02 04:59] LABS: Basophils # (auto) 0.01 K/uL (0-0.2); Eosinophils # (auto) 0.03 K/uL (0-0.5); Eosinophils % (auto) 0.1 %; Hematocrit (blood only) 38.6 % (37-47); Hemoglobin 12.4 g/dL (12.0-16.0); Immature Granulocytes # (auto) 0.24 K/uL (0.00-0.02); Immature Granulocytes % (auto) 1.2 %; Lymphocytes # (auto) 2.79 K/uL (1.2-3.4); Lymphocytes % (auto) 13.7 %; Mean Corpuscular Hemoglobin 34.8 pg (25-34); Mean Corpuscular Hgb Conc 32.1 g/dL (32-36); Mean Corpuscular Volume 108.4 fL (80-100); Mean Platelet Volume 10.7 fL (7.4-10.4); Monocytes # (auto) 1.58 K/uL (0.11-0.59); Monocytes % (auto) 7.8 %; Neutrophils # (auto) 15.68 K/uL (1.4-6.5); Neutrophils % (auto) 77.2 %; Platelet Count 532 K/uL (130-400); RDW Standard Deviation 55.7 fL (36.4-46.3); Red Blood Count 3.56 M/uL (4.2-5.4); White Blood Count 20.33 K/uL (4.8-10.8)
[2019-10-02 05:42] LABS: Albumin Globulin Ratio 0.5 (0.9-2); Albumin Level 2.8 gm/dl (3.4-5.0); BUN Creatinine Ratio 48.2 (10-20); Calcium 9.7 mg/dl (8.5-10.1); Creatinine Clr Calc Pharmacy 93.1 ml/min; Est GFR (African American) 117.3; Est GFR (Non-African American) 101.2; Globulin 5.3 gm/dl (2.5-4.0); Phosphorus 3.7 mg/dl (2.5-4.9); Total Protein 8.1 gm/dl (6.4-8.2)
[2019-10-02] MEDS: INSULIN ASPART 100 UNITS/ML 3 ML PEN SC SCH (06:00)
[2019-10-02] MEDS: METOPROLOL TARTRATE 25 MG TAB PO SCH (06:00)
[2019-10-02 06:13] VITALS: O2SAT 94
[2019-10-02 06:36] LABS: Potassium 3.3 mmol/L (3.5-5.1)
[2019-10-02 06:41] LABS: Magnesium 2.2 mg/dl (1.8-2.4)
[2019-10-02 07:41] VITALS: TEMP 98.8
[2019-10-02] MEDS: PARoxetine HCL 20 MG TAB PO SCH (08:29)
[2019-10-02] MEDS: ASPIRIN 81 MG CHEW PO SCH (08:29)
[2019-10-02] MEDS: OLANZAPINE ZYDIS 10 MG ORALLY DIS. TAB PO SCH (08:29)
[2019-10-02] MEDS: DEXAMETHASONE SOD PHOSPHATE 10 MG in SYRINGE 0 ML IV SCH (08:30)
[2019-10-02] MEDS: ENOXAPARIN INJ 40 MG/0.4 ML SYR SQ SCH (08:30)
[2019-10-02] MEDS: LACOSAMIDE 100 MG in SODIUM CHLORIDE 0.9% 50 ML IV SCH (08:30)
[2019-10-02] MEDS: THIAMINE HCL 200 MG in SODIUM CHLORIDE 0.9% 50 ML IV SCH (08:33)
--- NOTE | 2019-10-02 11:12 | Discharge Summary ---
Date of Service October 02, 2019 Admission HPI Per Admitting Provider The patient is a 59-year-old female with a past medical history including hyperlipidemia, anxiety with depression, alcohol abuse who presented to [facility] as noted above. Dr. Juan Carlos Jacobson, the attending physician and [facility], contacted this hospital, and requested transfer for ongoing care here. Active diagnoses at this time were: Seizure-like activity, UTI, non-STEMI, acute alcohol withdrawal, tachycardia and PUI COVID suspect. In route, the patient was intubated by EMS, and plans were changed from admission to PCU and [facility] to the ICU. Principal Diagnosis Alcohol withdrawal Discharge Exam Constitutional + altered mental status (Awake following simple commands) Eyes PERRL, conjunctivae normal, anicteric sclerae ENMT Mouth: + oropharynx abnormality (Tracheostomy ) Respiratory normal respiratory effort; no respiratory distress Cardiovascular RRR, no murmur, no edema Gastrointestinal (Abdomen) normal bowel sounds, soft, nontender, no hepatosplenomegaly Skin no rashes, warm and dry Psychiatric Orientation: + not oriented x 3 Discharge Data Allergies Allergy/AdvReac Type Severity Reaction Status Date / Time ezetimibe [From Vytorin] Allergy Unknown Unknown Verified 09/20/19 06:29 simvastatin [From Vytorin] Allergy Unknown Unknown Verified 09/20/19 06:29 Consultations 09/14/19 00:25 Consult Case Management - Discharge Planning Routine 09/14/19 00:37 Consult Case Management - Discharge Planning Routine Consult Clothing Consultant Routine 09/18/19 09:01 Consult Neurology Routine Ordered Studies 09/14/19 03:38 CT head/brain wo con Urgent 09/16/19 07:18 US liver Routine 09/19/19 08:13 MR brain seizure wo/w con Routine 09/20/19 14:30 CT angio chest PE protocol Stat 09/21/19 10:20 US point of care ultrasound Routine 09/21/19 14:36 US venous doppler LE BI Routine 09/24/19 11:32 US venous doppler LE BI Routine 09/29/19 09:37 US venous doppler UE BI Routine 09/30/19 16:19 CT head/brain wo con Routine Hospital Course (1) Altered mental status: 59 yo F PMHx HLD, depression and anxiety, alcohol abuse admitted to ICU for acute encephalopathy and DTs secondary to likely alcohol withdrawal initially requiring mechanically-assisted ventilation, then trach, now on room air. Ongoing febrile illness of unknown etiology, now afebrile. The following is a medical management during stay here: Encephalopathy-improving - Encephalopathy most likely due to delirium tremens. ?possible drug withdrawal (K2 spice, other synthetic) - ammonia levels normal - Lyme IgG positive, Anaplasmosis negative - CSF Lyme not detected, CSF viral panel negative. - COVID-19 testing negative x2. - MRI w/wo performed without acute process. Consideration for repeat Brain MRI? - EEG was not demonstrating persistent epileptiform activity - LP without clear source of infection however bloody tap. - Acyclovir discontinued as CSF without VZV, HSV. - continue Vimpat 100mg BID - continuing thiamine 200 bid IV, folic acid 1mg IV, magnesium 400 PO supplementation - continuation of Zyprexa 10mg, clonazepam 0.5mg (attempt weaning) Alcohol use ds/Delirium Tremens: - previously completed course of thiamine, however will continue as above in the setting of continued concern for DTs with altered mental status. Folic acid as above - previously trialed on phenobarbital without improvement in presumed alcohol withdrawal symptoms -Continue supportive care -Patient going to [facility] in [place], [place] Acute hypoxic Respiratory failure: - Care per ICU - self-extubated on 09/23, with subsequent decompensation on BiPAP and ultimately re-intubated - tracheostomy on 09/24; now on room air. Trach to be left in place for discharge; de-cannulization can be done at LTACH - continue Dexamethasone 10mg for concern of late phase ARDS, started 09/29, end 10/03 Right sided pleural effusion - likely 2/2 fluid overload - drained with thoracentesis 09/20 with clear straw yellow fluid. Cultures negative - bronchoalveolar lavage completed on 09/23; right upper lobe negative Febrile illness: -Currently afebrile x24hr -With leukocytosis but also receiving high dose steroids -pt from higher endemic area in [place], [place]. Will order Covid IgG-pending -CT Head to evaluate for sinusitis given indwelling course safe feeding tube -consideration for CT Abd/Pelvis for any possible abscess? Did not perform prior to discharge - 09/29 CXR- Mildly improved aeration of the right lung base with otherwise unchanged appearance of the bilateral left greater than right mixed interstitial and alveolar opacities -09/28 Venous Doppler: No sonographic evidence of deep venous thrombosis. Superficial venous thrombus of the right cephalic vein. Will replace RUE IV -09/28 UA showing trace blood, 2+ LE, 5-10 WBC, >30 epithelial cell. Negative nitrite, neg bacteria. Urine culture negative 09/13 -09/29 HIDA for acalculous cholecystitis--No evidence for cystic duct obstruction - bronchoscopy performed with removal of thick bronchial washings- Negative 09/20; right upper lobe negative 09/23 -Blood Cx - NGTD 09/13, 09/18, 09/20, 09/28. Repeated again 09/30-- NGTD -CSF culture negative: 09/18 -Pleural fluid: Right: Negative 09/20 - doxycycline stopped. cefepime course completed. Now off antibiotics - patient with inflammation over buttocks and perineum - Wound care consulted: addition of antifungal cream BID and PRN Elevated LFT/GGT/Acute alcohol hepatitis: -AST and alk phos increasing and GGT elevated - Liver ultrasound showing Hepato-steatosis, trace gallbladder sludge - Hepatitis C negative - Lyme IgG positive IgM negative, anaplasmosis DNA negative; representing chronic exposure, no acute infection - doxycycline stopped - HIDA for acalculous cholecystitis ordered--No evidence for cystic duct obstruction Elevated troponin/NSTEMI/SVT -patient initially presented with SVT with HR 150s -cont po metoprolol 12.5 mg TID. Started low-intensity Pravachol 10 mg and ASA 81 mg Depression -cont paxil 20 mg, weaned from 40 mg. We will continue 20 mg (started 09/30) for 1 week as we are trying to wean off given patient's prolonged QT DVT ppx: Lovenox. Patient leaving for LTACH at [facility] in [facility]. The accepting physician is Dr. Moreno. [id number] was done prior to discharge. At time of discharge patient and with no other acute concerns or complaints. Total Time Total Time Spent Total Time Spent (In Minutes): <30 Discharge Plan Discharge Items Patient Disposition: Trans Resident Long-Term Care Reason For Visit: NSTEMI,ETH WITHDRAWL,R/O COVID Discharge Diagnosis: agitated delirium from acohol withdrawal Activity: Per Instructions section Non-emergency contact: Primary Care Provider Call non-emergency contact if: you have any medication questions, your symptoms worsen and you have a fever Follow-up/Referrals: Ruth Palmer PA-C [Primary Care Provider] - Diet: Regular Addtl Attending Provider Instructions: 59 yo F PMHx HLD, depression and anxiety, alcohol abuse admitted to ICU for acute encephalopathy initially requiring mechanically-assisted ventilation, then trach, now on room air. Ongoing febrile illness of unknown etiology, now afebrile. Encephalopathy-improving - Encephalopathy most likely due to delirium tremens. ?possible drug withdrawal (K2 spice, other synthetic) - ammonia levels normal - Lyme IgG positive, Anaplasmosis negative - CSF Lyme not detected, CSF viral panel negative. - COVID-19 testing negative x2. - MRI w/wo performed without acute process. Consideration for repeat Brain MRI? - EEG was not demonstrating persistent epileptiform activity - LP without clear source of infection however bloody tap. - Acyclovir discontinued as CSF without VZV, HSV. - continue Vimpat 100mg BID - continuing thiamine 200 bid IV, folic acid 1mg IV, magnesium 400 PO supplementation - continuation of Zyprexa 10mg, clonazepam 0.5mg (attempt weaning) Alcohol use ds/Delirium Tremens: - previously completed course of thiamine, however will continue in the setting of continued concern for DTs with altered mental status - previously trialed on phenobarbital without improvement in presumed alcohol withdrawal symptoms -Patient going to [facility] in [place], [place] Acute hypoxic Respiratory failure: - Care per ICU - self-extubated on 09/23, with subsequent decompensation on BiPAP and ultimately re-intubated - tracheostomy on 09/24; now on room air. Trach to be left in place for discharge; de-cannulization can be done at LTACH - continue Dexamethasone 10mg for concern of late phase ARDS, started 09/29, end 10/03 Right sided pleural effusion - likely 2/2 fluid overload - drained with thoracentesis 09/20 with clear straw yellow fluid. Cultures negative - bronchoalveolar lavage completed on 09/23; right upper lobe negative Febrile illness: -Currently afebrile x24hr -With leukocytosis but also receiving high dose steroids -pt from higher endemic area in [place], [place]. Will order Covid IgG-pending -CT Head to evaluate for sinusitis given indwelling course safe feeding tube -consideration for CT Abd/Pelvis for any possible abscess? Did not perform prior to discharge - 09/29 CXR- Mildly improved aeration of the right lung base with otherwise unchanged appearance of the bilateral left greater than right mixed interstitial and alveolar opacities -09/28 Venous Doppler: No sonographic evidence of deep venous thrombosis. Superficial venous thrombus of the right cephalic vein. Will replace RUE IV -09/28 UA showing trace blood, 2+ LE, 5-10 WBC, >30 epithelial cell. Negative nitrite, neg bacteria. Urine culture negative 09/13 -09/29 HIDA for acalculous cholecystitis--No evidence for cystic duct obstruction - bronchoscopy performed with removal of thick bronchial washings- Negative 09/20; right upper lobe negative 09/23 -Blood Cx - NGTD 09/13, 09/18, 09/20, 09/28. Will repeat again 09/30-- NGTD -CSF culture negative: 09/18 -Pleural fluid: Right: Negative 09/20 - doxycycline stopped. cefepime course completed. Now off antibiotics - patient with inflammation over buttocks and perineum - Wound care consulted: addition of antifungal cream BID and PRN Elevated LFT/GGT/Acute alcohol hepatitis: -AST and alk phos increasing and GGT elevated - Liver ultrasound showing Hepato-steatosis, trace gallbladder sludge - Hepatitis C negative - Lyme IgG positive IgM negative, anaplasmosis DNA negative; representing chronic exposure, no acute infection - doxycycline stopped - HIDA for acalculous cholecystitis ordered--No evidence for cystic duct obstruction Elevated troponin/NSTEMI/SVT -patient initially presented with SVT with HR 150s -cont po metoprolol 12.5 mg TID. Started low-intensity Pravachol 10 mg and ASA 81 mg Depression -cont paxil 20 mg, weaned from 40 mg. We will continue 20 mg (started 09/30) for 1 week as we are trying to wean off given patient's prolonged QT Diet: Peptamen tube feeds DVT ppx: Lovenox Code Status: Full Code Dispo: Patient leaving for LTACH at [facility] in [facility]. The accepting physician is Dr. Moreno. Pending Studies at Discharge: No Stand-Alone Forms: [facility] Skilled Items Patient informed of condition?: Yes DNR: No Discharge Level of Care: Other Communicable Disease: No Discharge Prognosis: Stable Lines: Peripheral IV Urinary Catheter: No Medications and DC Order Prescriptions: Discontinued atorvastatin 40 mg Tablet 40 mg PO HS RF: 0 paroxetine HCl 40 mg Tablet 40 mg PO DAILY RF: 0 Discharge Orders: Discharge Order (Routine); Ordered 10/02/19 Ordered By: Nitesh Torres Admission Data Admit Date/Time: 09/14/19 00:13 Attending Provider: German Montalvo Admit Provider: Vicente Man Primary Care Provider: Ruth Palmer Other Providers: Lissette White ; Moisés Reynolds ; Charmaine Mccarthy ; German Montalvo ; [facility] ; Cathy Polanco Other Interventions: Discharge Summary Assessment (RN) Last Done: 10/02/19 11:00 DC Date/Time DO NOT enter until pt leaves facility: 10/02/19 11:15 Supervising Physician Co-Signing Physician Notes I personally examined the patient and verified all hernandez points of history and exam, discussed case, and agree with decision making with Dr Torres. main complaint is that she wants beef jerkey or tomatoes ready for LTAC otherwise. vitals noted nad breathing unlabored no accessory muscles good effort skin no rashes no pallor or icterus ams - ongoing supportive care, anticonvulsants. fever resolved for now- continue to follow clinically but given LTAC environment - safe for transfer and dr torres completed doc to doc signout of her situation Resident Activity Tracking Resident Involvement: Resident Care Provided Care Provided: Adult Hospital Medicine
[2019-10-02 11:32] VITALS: BP 95/51; PULSE 83
--- NOTE | 2019-10-02 16:27 | Billing Data ---
Date of Service October 02, 2019 Coding Level of Care Code D/C Day Management <30 mins
[2019-10-08 09:09] LABS: CoV2 Total Antibody Negative (Negative)
== END 2019-10-02 11:15 | DRG 4 ==
LOC: SUATTDRO 00:13 → 1E 00:13